=== PATIENT | male | born 1965 | race Two or more races ===

== ENCOUNTER 2023-02-24 10:20 | Outpatient (OUT) | payer MEDICARE, SELFPAY ==
--- NOTE | 2023-02-24 10:51 | XR_ITS ---
The [place] [id number] Patient Name: ELIZA LOWE MRN: [id number] date: 1965 Sex: M Assigned Patient Location: [facility] Current Patient Location: [facility] Accession/Order Number: [id number] Exam Date: 02/24/2023 10:51 Report Date: 02/24/2023 12:54 At the request of: BRIANA LARA Procedure: XR ankle LT min 3V PROCEDURE: XR ankle LT min 3V, XR foot LT min 3V HISTORY: RIGHT ANKLE PAIN COMPARISON: None. FINDINGS: BONES:Evidence remote fracture and healing of distal tibia. Hardware has been removed, but fractured ends of screws remain within the tibia, talus, calcaneus. Prior resection of distal fibula. Osseous fusion of the ankle joint and talocalcaneal joint. Prosthetic replacement of the proximal articular surface of the first proximal phalanx. Single screw within head of first metatarsal. Mild degenerative joint disease of the midfoot and mild flattening of plantar arch. SOFT TISSUES:No visible soft tissue swelling. EFFUSION:None visible. OTHER: Negative. XR/XR ankle LT min 3V IMPRESSION: 1. No appreciable acute abnormality. 2. Chronic postsurgical changes and degenerative changes as detailed above. Electronically authenticated by: ANA URIOSTEGUI Date: 02/24/2023 12:54
--- NOTE | 2023-02-24 10:51 | XR_ITS ---
The [place] [id number] Patient Name: ELIZA LOWE MRN: [id number] date: 1965 Sex: M Assigned Patient Location: [facility] Current Patient Location: [facility] Accession/Order Number: [id number] Exam Date: 02/24/2023 10:51 Report Date: 02/24/2023 12:54 At the request of: BRIANA LARA Procedure: XR foot LT min 3V PROCEDURE: XR ankle LT min 3V, XR foot LT min 3V HISTORY: RIGHT ANKLE PAIN COMPARISON: None. FINDINGS: BONES:Evidence remote fracture and healing of distal tibia. Hardware has been removed, but fractured ends of screws remain within the tibia, talus, calcaneus. Prior resection of distal fibula. Osseous fusion of the ankle joint and talocalcaneal joint. Prosthetic replacement of the proximal articular surface of the first proximal phalanx. Single screw within head of first metatarsal. Mild degenerative joint disease of the midfoot and mild flattening of plantar arch. SOFT TISSUES:No visible soft tissue swelling. EFFUSION:None visible. OTHER: Negative. XR/XR foot LT min 3V IMPRESSION: 1. No appreciable acute abnormality. 2. Chronic postsurgical changes and degenerative changes as detailed above. Electronically authenticated by: ANA URIOSTEGUI Date: 02/24/2023 12:54
== END 2023-02-24 10:21 | disposition home or self-care (01) ==
LOC: RAD 10:26
PROVIDERS: Visit Provider Podiatrist Foot & Ankle Surgery
DX: M19.072 Primary osteoarthritis, left ankle and foot (principal)
CPT/HCPCS: 73610; 73630

== ENCOUNTER 2023-05-17 10:49 | Outpatient (OUT) | payer MEDICARE, MEDICAID, SELFPAY ==
--- NOTE | 2023-05-17 10:58 | ECG_ITS ---
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
[2023-05-17 12:02] LABS: Bilirubin Urine NEGATIVE (NEGATIVE); Blood Urine NEGATIVE (NEGATIVE); Clarity Urine CLEAR (CLEAR); Color Urine LT. YELLOW (YELLOW); Glucose Urine UA NEGATIVE (NEGATIVE); Ketones Urine NEGATIVE (NEGATIVE); Leukocyte Esterase Urine NEGATIVE (NEGATIVE); Nitrite Urine NEGATIVE (NEGATIVE); Protein Urine NEGATIVE (NEG/TRACE); Specific Gravity Urine 1.015 (1.005-1.025); Urine Microscopic Indicated ALREADY ORDERED; Urobilinogen Urine 0.2 EU/dL (0.2-1.0)
== END 2023-05-17 10:50 | disposition home or self-care (01) ==
LOC: PST 10:55
PROVIDERS: Visit Provider Podiatrist Foot & Ankle Surgery
DX: Z01.810 Encounter for preprocedural cardiovascular examination (principal); Z01.812 Encounter for preprocedural laboratory examination; M19.172 Post-traumatic osteoarthritis, left ankle and foot; M96.0 Pseudarthrosis after fusion or arthrodesis
CPT/HCPCS: 87081; 87086; 93005; G0463

== ENCOUNTER 2023-06-15 14:08 | Outpatient (OUT) | payer MEDICARE, MEDICAID, SELFPAY | END 2023-06-15 14:09 | disposition home or self-care (01) | LOC: PST 14:09 | PROVIDERS: Visit Provider Podiatrist Foot & Ankle Surgery | DX: Z01.818 Encounter for other preprocedural examination (principal); M19.172 Post-traumatic osteoarthritis, left ankle and foot; M96.0 Pseudarthrosis after fusion or arthrodesis ==

== ENCOUNTER 2023-06-25 11:08 | Inpatient (IN) | payer MEDICARE, SELFPAY ==
[2023-05-17 11:43] VITALS: BP 182/92; PULSE 66; RESP 18; TEMP 36.6; O2SAT 97
[2023-06-24] VITALS (74 sets, daily range): BP systolic 120–183; BP diastolic 57–117; PULSE 58–95; RESP 8–30; TEMP 36.1–36.6; O2SAT 95–100; BMI 29.5; BMI 28.9
--- NOTE | 2023-06-24 | FL_ITS ---
[address] [address] Patient Name: ELIZA LOWE MRN: [id number] date: 1965 Sex: M Assigned Patient Location: SURGOUT Current Patient Location: ICU Accession/Order Number: [id number] Exam Date: 06/24/2023 12:30 Report Date: 06/25/2023 08:17 At the request of: BRIANA LARA Procedure: FL fluoroscopy <1hr NON-READ EXAM: FL fluoroscopy <1hr NON-READ HISTORY: operative imaging TECHNIQUE: FINDINGS: Please see Operative Report. Electronically authenticated by: RADIOLOGIST NO Date: 06/25/2023 08:17
[2023-06-24 07:50] LABS: Glucometer 121 mg/dL (74-106)
[2023-06-24] MEDS: LACTATED RINGER'S SOLUTION 1,000 ML 50 ML IV ×2 (08:05→12:50)
[2023-06-24 10:17] LABS: Basophils Percent Auto 0.3 % (0.2-2.0); Eosinophils Absolute Auto 0.3 10^3/uL (0.0-0.7); Eosinophils Percent Auto 2.3 % (0.9-7.0); Hemoglobin 12.8 g/dL (14.0-18.0); Immature Granulocytes Abs Auto 0.03 10^3/uL (0.00-0.03); Immature Granulocytes Pct Auto 0.3 % (0.0-0.5); Lymphocytes Absolute Auto 3.2 10^3/uL (1.2-3.8); Lymphocytes Percent Auto 28.3 % (20.5-60.0); Mean Corpuscular HGB Conc 33.7 g/dL (29.9-35.2); Mean Corpuscular Hemoglobin 32.6 pg (25.9-34.0); Mean Corpuscular Volume 96.7 fL (80.0-94.0); Mean Platelet Volume 12.4 fL (9.5-13.5); Monocytes Absolute Auto 1.3 10^3/uL (0.3-0.8); Monocytes Percent Auto 11.7 % (1.7-12.0); Neutrophils Absolute Auto 6.5 10^3/uL (1.4-6.5); Neutrophils Percent Auto 57.1 % (43.0-75.0); Platelet Count 310 10^3/uL (150-450); Red Blood Count 3.93 10^6/uL (4.70-6.10); Red Cell Distribution Width 13.8 % (11.0-15.0); White Blood Count 11.4 10^3/uL (4.0-11.0)
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
[2023-06-24] MEDS: CEFAZOLIN SODIUM/DEXTROSE,ISO 2 GM/50 ML PIGGYBACK IV ×2 (12:17→21:38)
[2023-06-24] MEDS: THROMBI-GEL SIZE 40 HEMOSTAT 1 EACH TOPICAL ×2 (13:47→14:46)
[2023-06-24] MEDS: HYDROMORPHONE HCL 0.5 MG/0.5 ML SYRINGE IV ×10 (16:06→17:34)
[2023-06-24] MEDS: LACTATED RINGER'S SOLUTION 1,000 ML 75 ML IV (16:17)
[2023-06-24] MEDS: KETOROLAC TROMETHAMINE 30 MG/ML VIAL IM (16:19)
[2023-06-24] MEDS: MIDAZOLAM HCL 2 MG/2 ML VIAL IV ×2 (16:22→18:12)
[2023-06-24 16:26] LABS: Glucometer 124 mg/dL (74-106)
--- NOTE | 2023-06-24 16:45 | XR_ITS ---
The [address] [address] Patient Name: ELIZA LOWE MRN: [id number] date: 1965 Sex: M Assigned Patient Location: SURGOUT Current Patient Location: ICU Accession/Order Number: [id number] Exam Date: 06/24/2023 16:35 Report Date: 06/26/2023 06:58 At the request of: SUGEY CASTILLO Procedure: XR ankle LT min 3V PROCEDURE: XR ankle LT min 3V, XR foot LT min 3V HISTORY: postop xr COMPARISON: XR left foot and ankle 02/24/2023 FINDINGS: BONES:Prosthetic replacement of the talar dome and fusion of the ankle joint via a single screw. Several fractured screw remnants within the distal tibia and calcaneus from remote repair. Prior resection of distal fibula, first metatarsal head osteotomy, and prosthetic repair of the first metatarsophalangeal joint. Moderate degenerative changes of the midfoot. SOFT TISSUES:Expected postoperative findings. Images were obtained to cast material. EFFUSION:None visible. OTHER: Negative. XR/XR ankle LT min 3V IMPRESSION: 1. New surgical changes and stable prior surgical changes as detailed above. No suspicious abnormality. Electronically authenticated by: ANA URIOSTEGUI Date: 06/26/2023 06:58
--- NOTE | 2023-06-24 16:45 | XR_ITS ---
The [address] [address] Patient Name: ELIZA LOWE MRN: [id number] date: 1965 Sex: M Assigned Patient Location: SURGOUT Current Patient Location: ICU Accession/Order Number: [id number] Exam Date: 06/24/2023 16:35 Report Date: 06/26/2023 06:58 At the request of: SUGEY CASTILLO Procedure: XR foot LT min 3V PROCEDURE: XR ankle LT min 3V, XR foot LT min 3V HISTORY: postop xr COMPARISON: XR left foot and ankle 02/24/2023 FINDINGS: BONES:Prosthetic replacement of the talar dome and fusion of the ankle joint via a single screw. Several fractured screw remnants within the distal tibia and calcaneus from remote repair. Prior resection of distal fibula, first metatarsal head osteotomy, and prosthetic repair of the first metatarsophalangeal joint. Moderate degenerative changes of the midfoot. SOFT TISSUES:Expected postoperative findings. Images were obtained to cast material. EFFUSION:None visible. OTHER: Negative. XR/XR foot LT min 3V IMPRESSION: 1. New surgical changes and stable prior surgical changes as detailed above. No suspicious abnormality. Electronically authenticated by: ANA URIOSTEGUI Date: 06/26/2023 06:58
--- NOTE | 2023-06-24 17:43 | PC.NURSE ---
Medicated with Dilaudid as ordered; toes pink and warm with full sensation
--- NOTE | 2023-06-24 18:01 | PC.NURSE ---
Medicated as ordered for pain
--- NOTE | 2023-06-24 18:08 | PC.NURSE ---
Medicated with Toradol IM as ordered
--- NOTE | 2023-06-24 18:33 | CT_ITS ---
The [address] [address] Patient Name: ELIZA LOWE MRN: [id number] date: 1965 Sex: M Assigned Patient Location: ICU Current Patient Location: ICU Accession/Order Number: [id number] Exam Date: 06/24/2023 18:26 Report Date: 06/25/2023 12:57 At the request of: SUGEY CASTILLO Procedure: CT lower leg LT wo con CT LOWER LEG LT WO CON: 06/24/2023, 6:26 PM EST. HISTORY: The patient recently had surgery on the left ankle/hindfoot. Postoperative evaluation for baseline. COMPARISON: Radiographs left foot and ankle 02/24/[address] scan of the left lower extremity 03/02/2023. Comparison is also made to recent postoperative radiographs of the left foot and ankle of 06/24/2023. TECHNIQUE: Multiple contiguous axial CT images of the left lower extremity were obtained from the level of the distal femoral metadiaphysis foot without contrast. Sagittal and coronal reformatted images were made. Dose reduction techniques were achieved by using automated exposure control and/or adjustment of mA and/or kV according to patient size and/or use of iterative reconstruction technique. FINDINGS: There is beam hardening artifact emanating from a total knee prosthesis which slightly degrades evaluation of the adjacent bone and soft tissues. This hardware again appears intact without evidence of hardware complication, fracture or dislocation. There is a small knee joint effusion again seen. There is a remote healed fracture deformity of the proximal fibular diaphysis again seen. There are atherosclerotic vascular calcifications again seen. There are postsurgical changes again seen from prior remote osteotomy of the distal first metatarsal shaft and prior arthroplasty of the first MTP joint with beam hardening artifact emanating from the prosthesis in this region again degrading evaluation of this region. There again appear to be degenerative changes of the tarsometatarsal joints and this again appears severe at the second tarsometatarsal joint. There are also severe degenerative changes again seen at the articulation of the navicular with the cuneiform bones and the talonavicular joint. There are moderate degenerative changes again seen of the calcaneocuboid joint. A remote healed fracture deformity of the distal tibial metadiaphysis is again seen. There are postsurgical changes again seen from prior resection of the distal fibula at the level of the distal fibular diaphysis. There is osseous fusion again seen across the tibiotalar joint from prior arthrodesis surgery. Since the prior CT scan there has been resection of the majority of the body of the talus and there has been placement of an orthopedic cage between the remaining portion of the body of the talus and the calcaneus in the region of the posterior subtalar joint. This is fixed with a single oblique cortical screw extending from the calcaneus through the this cage and into the anterior aspect of the distal tibial metaphysis. This hardware appears intact and within normal limits in position. A screw fragment is again seen within the anterior aspect of the body of the calcaneus. There appears to be a probable postsurgical wound along the lateral aspect of the ankle and there is a small amount of adjacent soft tissue swelling and a few bubbles of gas within the underlying soft tissues in this region. No other significant soft tissue swelling is seen. CT/CT lower leg LT wo con IMPRESSION: 1. Satisfactory postoperative appearance from recent arthrodesis surgery of the posterior subtalar joint without evidence of a hardware complication. There appears to be an associated postsurgical wound along the lateral aspect of the ankle at this level. 2. There is a stable appearance of remote posttraumatic and postsurgical changes of the remainder of the left lower extremity and degenerative changes of multiple joints as described above. Electronically authenticated by: RACHEL WILSON Date: 06/25/2023 12:57
--- NOTE | 2023-06-24 18:39 | PC.NURSE ---
Medicated with Versed IV as ordered by anesthesia for restlessness
--- NOTE | 2023-06-24 18:44 | PC.NURSE ---
Medicated with Dilaudid IV as ordered; left toes pink and warm
--- NOTE | 2023-06-24 18:47 | PC.NURSE ---
Medicated with Dilaudid as ordered
--- NOTE | 2023-06-24 18:56 | PC.NURSE ---
States left lower extremity pain now stabbing, not crushing; medicated by anesthesia to continue giving Dilaudid as ordered
--- NOTE | 2023-06-24 19:00 | PC.NURSE ---
Resting at intervals, but continues to say pain is not controlled; Medicated as ordered by anesthesia
--- NOTE | 2023-06-24 19:03 | PC.NURSE ---
Left toes pink and warm
--- NOTE | 2023-06-24 19:05 | PC.NURSE ---
States that pain has lessened; does not give number to rate pain, but states pain is still not controlled; medicated per anesthesia orders
--- NOTE | 2023-06-24 19:09 | PC.NURSE ---
Medicated for pain as ordered by anesthesia; continues to state pain is not controlled
--- NOTE | 2023-06-24 19:12 | PC.NURSE ---
Resting at intervals; left toes pink and warm
--- NOTE | 2023-06-24 19:14 | PC.NURSE ---
States pain is still not controlled and does not rate with a number lower than 10; resting at interval and alert and talking; medicated as ordered by anesthesia
--- NOTE | 2023-06-24 19:18 | PC.NURSE ---
States pain still not controlled in left surgical foot; medicated as ordered by anesthesia
--- NOTE | 2023-06-24 19:24 | PC.NURSE ---
Left toes pink and warm; voids clear yellow in urinal; continues to c/o uncontrolled surgical pain even though body language does not relate to complaints
--- NOTE | 2023-06-24 19:28 | PC.NURSE ---
No change from previous assessment of pain
--- NOTE | 2023-06-24 19:31 | PC.NURSE ---
Anesthesia discusses with pt. about inserting an epidural for pain control after CT scan ; continues to state that surgical pain is uncontrolled; left toes pink and warm; medicated with Versed IV as ordered
--- NOTE | 2023-06-24 19:34 | PC.NURSE ---
Transported to CT SCAN with portable O2 and monitor; accompanied by poultry farm supervisor
[2023-06-24] MEDS: ENOXAPARIN SODIUM 40 MG/0.4 ML SYRINGE SUBQ (21:36)
[2023-06-24] MEDS: ROPIVACAINE HCL/PF 400 MG/200 ML PREMIX 10 MG EPIDURAL (21:37)
[2023-06-24] MEDS: PREGABALIN 75 MG CAPSULE PO (21:38)
[2023-06-24] MEDS: KETOROLAC TROMETHAMINE 30 MG/ML VIAL IVP (22:10)
[2023-06-24] MEDS: METHOCARBAMOL 500 MG TABLET 750 MG PO (22:10)
[2023-06-25] VITALS (194 sets, daily range): BP systolic 74–181; BP diastolic 45–141; PULSE 59–92; RESP 7–29; TEMP 36.6–37.1; O2SAT 78–100
[2023-06-25] MEDS: HYDROMORPHONE HCL 0.5 MG/0.5 ML SYRINGE 1 MG IV ×5 (00:48→12:40)
[2023-06-25] MEDS: KETOROLAC TROMETHAMINE 30 MG/ML VIAL IVP ×4 (04:52→22:03)
[2023-06-25] MEDS: METHOCARBAMOL 500 MG TABLET 750 MG PO ×3 (05:16→17:47)
[2023-06-25] MEDS: CEFAZOLIN SODIUM/DEXTROSE,ISO 2 GM/50 ML PIGGYBACK IV ×3 (05:17→20:21)
--- NOTE | 2023-06-25 08:31 | PM.PN ---
Progress Note: Subjective Subjective Interval history: POD1 3D printed/patient specific left foot recon for post-traumatic deformity & arthritis. Patient remains in ICU with epidural catheter for pain mgt. He is on daily opioids and had difficulty managing pain last night. He relates that he was getting dilaudid 1 mg every 4hrs but relates it only was lasting ~2 hours (despite order by Dr. Alvarez was for every 2 hrs). Was unable to sleep secondary to pain. He has not been out of bed yet or worked with PT. Denies n/v/f/c/sob/cp or calf pain Exam Narrative Exam Narrative: It is clean dry and intact Wound VAC holding suction at 125mmHg continuous with serous sanguinous output Able to wiggle his toes and capillary refill is brisk No calf pain on squeeze Constitutional Vital Signs, click to edit/add: Last Vital Signs Temp 98.3 F 06/25/23 08:15 Pulse 71 06/25/23 06:50 Resp 16 06/25/23 06:50 BP 124/75 06/25/23 06:45 Pulse Ox 98 06/25/23 06:50 O2 Del Method Nasal Cannula 06/25/23 03:52 O2 Flow Rate 5 06/25/23 03:52 Progress Note: Objective Labs Labs: Short CBC 06/24/23 Range/Units 07:26 WBC 11.4 H (4.0-11.0) 10^3/uL Hgb 12.8 L (14.0-18.0) g/dL Hct 38.0 L (42.0-54.0) % Plt Count 310 (150-450) 10^3/uL Progress Note: A&P Assessment and Plan (1) Post-traumatic arthritis of right ankle: Assessment and Plan: Patient will work with physical therapy this morning and given the amount of pain I would not be surprised if he is unable to fully participate in gait training but I am hopeful that he had minimum get out of bed and into chair OxyContin 10mg q12h & incentive spirometry ordered - notified Dr. Ross Patient does have 4mg of PO dilaudid at home as prescribed by his pain mgt doctor Patient will likely require to remain in house until pain is under better control and does not require IV opioids Keep splint c/d/i & VAC at current settings Post op CT reviewed (2) Nonunion of subtalar arthrodesis: Plan Call Dr. Irvin with issues as I will be out of town until Wednesday night
[2023-06-25] MEDS: PREGABALIN 75 MG CAPSULE PO ×2 (08:49→20:21)
[2023-06-25] MEDS: ALPRAZOLAM 1 MG TABLET PO (08:49)
[2023-06-25] MEDS: OXYCODONE HCL 5 MG TABLET 10 MG PO ×2 (08:50→14:22)
--- NOTE | 2023-06-25 09:24 | CM.NOTE ---
Important Message From Medicare discussed with pt, pt verbalizes understanding and signs paper. Original given to pt and copy placed on pt's chart.
--- NOTE | 2023-06-25 09:35 | CM.NOTE ---
Rounding with Dr. gomez and patient's RN Josie. Discussed increased pain. Awaiting PT eval to determine discharge plan. Per nurse, Dr. Montez anticipated patient being here through the weekend for pain control and intensity of the procedure performed.
--- NOTE | 2023-06-25 10:05 | CM.NOTE ---
Talked with pt about knee scooter rental, pt plans on picking this up on his way home at discharge. Pt getting scooter from [facility] in [place], called and pt does not need a prescription. If pt does have prescription for scooter , benefits are no tax. Oliverio txt sent to [facility] for scipt.
--- NOTE | 2023-06-25 11:19 | P.HP_ITS ---
Patient seen and examined, agree with assessment and plan below. Chronic pain and arthritis after accident and multiple surgeries. To OR for reconstruction and admitted for pain control. Epidural in place and continues to have severe uncontrolled pain. Podiatry adjusted medication. PT/OT ordered. Will need at least 2 midnights in the hospital. Diagnosis: 1. Post-traumatic OA left ankle 2. Nonunion of subtalar fusion 3. NEPTALI 4. YENY H&P: HPI History of Present Illness Chief complaint: post traumatic osteoarthritis left ankle and foot Narrative: Date/time of exam: 06/25/23 0955 This is a 58 yo male pt w/ a relatively benign PMH except for multiple trauma events to the LLE resulting in multiple surgeries, who had a L hindfoot surgical revision per Dr Montez yesterday afternoon and was admitted to the hospitalist service as an inpatient for monitoring and pain control management. 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 His pain is being managed with an epidural and dilaudid w/ additional PO medication if needed. At the time of my exam the patient is resting comfortably in bed. He is alert and oriented and able to provide extensive history regarding his orthopedic surgeries. He denies any chest pain, shortness of breath, N/B, or any other acute complaints other than pain which is adequately managed at this time. He has sensation and movement of his left toes. Nursing has placed oxygen mainly as a precautionary measure as he is taking high doses of narcotics for pain management at this time. They will attempt to wean him off oxygen supplementation throughout the day today. Review of Systems ROS Status of ROS 10 or more systems reviewed and unremarkable except as noted in history and below [facility] Medical History (Updated 06/25/23 @ 11:33 by Esme Milner NP) Acquired varus deformity of ankle ?M21.179 - Varus deformity, not elsewhere classified, unspecified ankle (ICD- 10) Ankle contracture ?M24.573 - Contracture, unspecified ankle (ICD-10) Anxiety ?F41.9 - Anxiety disorder, unspecified (ICD-10) Back pain ?M54.9 - Dorsalgia, unspecified (ICD-10) Chronic pain ?G89.29 - Other chronic pain (ICD-10) Foot deformity ?M21.969 - Unspecified acquired deformity of unspecified lower leg (ICD-10) History of blood transfusion ?Z92.89 - Personal history of other medical treatment (ICD-10) Leg fracture ?S82.90XA - Unspecified fracture of unspecified lower leg, initial encounter for closed fracture (ICD-10) Osteoarthritis of ankle and foot ?M19.079 - Primary osteoarthritis, unspecified ankle and foot (ICD-10) Post-traumatic osteoarthritis ?M19.92 - Post-traumatic osteoarthritis, unspecified site (ICD-10) 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 ?M96.0 - Pseudarthrosis after fusion or arthrodesis (ICD-10) Sleep apnea ?G47.30 - Sleep apnea, unspecified (ICD-10) Tibia fracture ?S82.209A - Unspecified fracture of shaft of unspecified tibia, initial encounter for closed fracture (ICD-10) Valgus deformity, not elsewhere classified, left ankle ?M21.072 - Valgus deformity, not elsewhere classified, left ankle (ICD-10) Surgical History (Updated 05/17/23 @ 11:30 by Liv Pedro NP) H/O foot surgery ?Z98.890 - Other specified postprocedural states (ICD-10) H/O splenectomy ?Z90.81 - Acquired absence of spleen (ICD-10) History of ankle surgery ?Z98.890 - Other specified postprocedural states (ICD-10) History of arthroplasty of knee ?Z96.659 - Presence of unspecified artificial knee joint (ICD-10) History of arthroscopy of knee ?Z98.890 - Other specified postprocedural states (ICD-10) History of arthroscopy of shoulder ?Z98.890 - Other specified postprocedural states (ICD-10) History of spinal surgery ?Z98.890 - Other specified postprocedural states (ICD-10) History of surgery on lower extremity ?Z98.890 - Other specified postprocedural states (ICD-10) Family History (Updated 05/17/23 @ 11:30 by Liv Pedro NP) Other Family history of skin cancer Social History (Updated 05/17/23 @ 11:24 by Liv Pedro NP) Within the past year, how often did you have a drink containing alcohol: never Score interpretation: A score less than 4 is consistent with normal alcohol consumption. Smoking status: Never smoker Non-prescribed substance use: denies use Highest level of school completed/degree received: high school graduate Meds Home Medications and Allergies Home Medications Medication Instructions Recorded Confirmed Type albuterol sulfate 90 mcg/actuation 2 puff inhalation Q6H PRN 05/17/23 05/17/23 History aerosol inhaler shortness of breath or wheezing alprazolam 0.5 mg tablet 0.5 mg PO DAILY PRN anxiety 05/17/23 05/17/23 History desonide 0.05 % topical ointment 1 applic topical Q12H 05/17/23 05/17/23 History dextroamphetamine-amphetamine 30 30 mg PO DAILY 05/17/23 05/17/23 History mg tablet fentanyl 25 mcg/hr transdermal 1 patch transdermal Q48H 05/17/23 05/17/23 History patch gabapentin 600 mg tablet 600 mg PO QID 05/17/23 05/17/23 History lidocaine 5 % topical patch 1 patch transdermal Q24H 05/17/23 05/17/23 History meloxicam 15 mg tablet 15 mg PO DAILY 05/17/23 05/17/23 History methocarbamol 750 mg tablet 750 mg PO QID 05/17/23 05/17/23 History oxycodone 15 mg tablet 15 mg PO Q6H 05/17/23 05/17/23 History tadalafil 10 mg tablet 5 mg PO DAILY 05/17/23 05/17/23 History testosterone cypionate 200 mg/mL 400 mg IM Q7D 05/17/23 05/17/23 History intramuscular oil zolpidem 10 mg tablet 10 mg PO QPM 05/17/23 05/17/23 History alprazolam 1 mg tablet 1 mg PO DAILY 06/15/23 06/15/23 History Allergies Allergy/AdvReac Type Severity Reaction Status Date / Time No Known Drug Allergies Allergy Verified 05/17/23 11:14 Exam Constitutional Vital Signs, click to edit/add: Last Vital Signs Temp 98.3 F 06/25/23 08:15 Pulse 64 06/25/23 08:50 Resp 19 06/25/23 08:50 BP 136/72 06/25/23 08:46 Pulse Ox 97 06/25/23 08:50 O2 Del Method Nasal Cannula 06/25/23 03:52 O2 Flow Rate 5 06/25/23 03:52 Common normals: no apparent distress, oriented x3, alert and well nourished General appearance: cooperative Orientation/consciousness: Yes awake HENMT Common normals: normocephalic, head/scalp atraumatic, hearing grossly normal bilaterally, external nose normal and moist oral mucous membranes Eye Common normals: PERRL, EOMs intact bilaterally, conjunctivae normal and no scleral icterus Alignment: alignment normal Eyelid: eyelids normal Neck & C-Spine Common normals: full ROM, supple and no JVD Chest Common normals: inspection of chest normal Chest: symmetrical chest wall rise Respiratory Common normals: normal respiratory effort, no retractions, no use of accessory muscles and clear to auscultation bilaterally Auscultation: diminished lung sounds bilateral in the lower lung torres Cardio Common normals: no JVD, regular rate, regular rhythm, S1 normal heart sound, S2 normal heart sound, no gallops, no clicks, no murmurs, no rub and peripheral pulses 2+ throughout GI Common normals: Normal to inspection, nondistended, normoactive bowel sounds present, soft to palpation, non-tender, no hepatosplenomegaly, no masses and no bruits Bladder/kidney exam: bladder normal to palpation Extremity Common normals: normal capillary refill and no pedal edema General: normal exam except as noted; no clubbing and no cyanosis Left lower extremity: foot and digits (Surgical dressing D&I. Good CMS to exposed forefoot) Neuro Irving Coma Scale: GCS not evaluated Common normals: oriented x3, CN's II-XII intact bilaterally, moves all extremities, no focal motor deficits and no sensory deficits noted Sensorium/orientation: awake and alert Speech: speech normal Motor exam: strength 5/5 throughout Psych Common normals: mental status grossly normal, thought process normal, affect normal and activity/motor behavior normal Results Pulse Oximetry Attestation: I have reviewed the pertinent pulse oximetry results. Assessment and Plan Assessment and Plan (1) Nonunion of subtalar arthrodesis: Assessment and Plan: CHRONIC * Adm inpatient * s/p surgical revision per Dr Montez of the hindfoot on 06/24/23 * Defer weight bearing status, dressing changes, and primary pain management to the podiatry service * Continue Dilaudid bolus via epidural plus Oxycontin as ordered per podiatry * CBC, BMP in AM (2) Anxiety: Assessment and Plan: CHRONIC * Continue home xanax daily and PRN (3) Sleep apnea: Assessment and Plan: CHRONIC * May use home CPAP if available
[2023-06-25] MEDS: OXYCODONE HCL 5 MG TABLET PO (12:03)
[2023-06-25] MEDS: LACTATED RINGER'S SOLUTION 1,000 ML 75 ML IV (14:54)
--- NOTE | 2023-06-25 15:21 | CM.NOTE ---
Pt given script for knee scooter.
[2023-06-25] MEDS: HYDROMORPHONE HCL 1 MG/ML CARTRIDGE IV ×3 (15:51→22:05)
--- NOTE | 2023-06-25 16:04 | PC.NURSE ---
Responded to patient call light. Patient requesting something for pain. Patient was visually upset and tearful regarding his current pain level. Medication was adminsitered as ordered, see eMAR. Therapeutic listening and presence was provided to patient. Patient was reassured that he is currently on a pain management regimen for his externsive surgert
[2023-06-25] MEDS: DIPHENHYDRAMINE HCL 50 MG/ML (1ML) VIAL 25 MG IV (16:45)
[2023-06-25] MEDS: ALPRAZOLAM 0.25 MG TABLET 0.5 MG PO (16:48)
[2023-06-25] MEDS: ENOXAPARIN SODIUM 40 MG/0.4 ML SYRINGE SUBQ (17:47)
[2023-06-25] MEDS: ZOLPIDEM TARTRATE 5 MG TABLET 10 MG PO (22:04)
[2023-06-26] VITALS (92 sets, daily range): BP systolic 102–189; BP diastolic 63–126; PULSE 50–102; RESP 8–27; TEMP 36.6–37.1; O2SAT 88–100
[2023-06-26] MEDS: LACTATED RINGER'S SOLUTION 1,000 ML 75 ML IV ×2 (04:59→20:45)
[2023-06-26] MEDS: KETOROLAC TROMETHAMINE 30 MG/ML VIAL IVP ×4 (04:59→22:31)
[2023-06-26] MEDS: CEFAZOLIN SODIUM/DEXTROSE,ISO 2 GM/50 ML PIGGYBACK IV ×3 (04:59→21:47)
[2023-06-26] MEDS: METHOCARBAMOL 500 MG TABLET 750 MG PO ×4 (05:01→22:31)
[2023-06-26] MEDS: HYDROMORPHONE HCL 1 MG/ML CARTRIDGE IV ×4 (05:25→17:14)
[2023-06-26 05:34] LABS: Basophils Percent Auto 0.3 % (0.2-2.0); Eosinophils Absolute Auto 0.2 10^3/uL (0.0-0.7); Hematocrit 32.7 % (42.0-54.0); Hemoglobin 10.4 g/dL (14.0-18.0); Immature Granulocytes Abs Auto 0.04 10^3/uL (0.00-0.03); Immature Granulocytes Pct Auto 0.4 % (0.0-0.5); Lymphocytes Absolute Auto 2.4 10^3/uL (1.2-3.8); Lymphocytes Percent Auto 21.2 % (20.5-60.0); Mean Corpuscular HGB Conc 31.8 g/dL (29.9-35.2); Mean Corpuscular Hemoglobin 31.5 pg (25.9-34.0); Mean Corpuscular Volume 99.1 fL (80.0-94.0); Mean Platelet Volume 11.3 fL (9.5-13.5); Monocytes Absolute Auto 1.6 10^3/uL (0.3-0.8); Monocytes Percent Auto 13.7 % (1.7-12.0); Neutrophils Absolute Auto 7.1 10^3/uL (1.4-6.5); Neutrophils Percent Auto 62.4 % (43.0-75.0); Platelet Count 227 10^3/uL (150-450); Red Cell Distribution Width 14.4 % (11.0-15.0); White Blood Count 11.4 10^3/uL (4.0-11.0)
[2023-06-26 05:50] LABS: Alanine Aminotransferase 13 U/L (16-63); Albumin Globulin Ratio 0.9; Albumin Level 2.7 g/dL (3.4-5.0); Alkaline Phosphatase 56 U/L (46-116); Anion Gap 9.6; Aspartate Amino Transferase 17 U/L (15-37); BUN Creatinine Ratio 15.3; Bilirubin Total 0.4 mg/dL (0.2-1.0); Calcium 8.5 mg/dL (8.5-10.1); Carbon Dioxide 29.8 mmol/L (21.0-32.0); Chloride 111 mmol/L (98-107); Estimated GFR (African America >60 (>=60); Estimated GFR (Non-African Ame 53 (>=60); Glucose 94 mg/dL (74-106); Potassium 4.4 mmol/L (3.5-5.1); Sodium 146 mmol/L (136-145); Total Protein 5.7 g/dL (6.4-8.2)
[2023-06-26] MEDS: OXYCODONE HCL 5 MG TABLET PO (06:32)
[2023-06-26] MEDS: ALPRAZOLAM 1 MG TABLET PO (09:20)
[2023-06-26] MEDS: PREGABALIN 75 MG CAPSULE PO ×2 (09:20→20:45)
--- NOTE | 2023-06-26 11:25 | W.PM.PROCNOT ---
Date of procedure: 06/24/23
--- NOTE | 2023-06-26 11:27 | PM.ANIN ---
Anesthesiology - Interim Note Date of Service Date of service: 06/24/23 (Epidural Catheter Placement 2100) Interim Note Interim Note: Pt in bed Room 275 ICU. Pt positioned sitting. Sterile prep and drape applied. Skin anest with 4ml 2% lidocaine. Touhy needle advanced into L3-4 interspace. PIERRE to air at 5cm. Catheter placed to a depth of 9cm. Aspiration for blood negative and test dose negative. Catheter secured with large tegaderm and silk tape. Suni Alvarez
--- NOTE | 2023-06-26 11:35 | PM.PN ---
Progress Note: Subjective Subjective Interval history: Pt is continuing to experience significant postoperative pain but his able to cope with his current pain level; he slept 5 hours last pm, he is eating a regular diet, he is able to converse normally without distress. The need to taper his oral pain meds and epidural was discussed with the patient and he is in agreement Exam Narrative Exam Narrative: Epidural cath checked and noted to be intact. No evidence of infection Constitutional Vital Signs, click to edit/add: Last Vital Signs Temp 98.1 F 06/26/23 05:55 Pulse 66 06/26/23 10:00 Resp 18 06/26/23 09:00 BP 161/95 H 06/26/23 09:00 Pulse Ox 99 06/26/23 09:00 O2 Del Method Room Air 06/26/23 05:55 O2 Flow Rate 2 06/26/23 01:07 Progress Note: Objective Labs Labs: Short CBC 06/26/23 Range/Units 05:09 WBC 11.4 H (4.0-11.0) 10^3/uL Hgb 10.4 L (14.0-18.0) g/dL Hct 32.7 L (42.0-54.0) % Plt Count 227 (150-450) 10^3/uL BMP 06/26/23 05:09 Sodium 146 H Potassium 4.4 Chloride 111 H Carbon Dioxide 29.8 BUN 21.0 H Creatinine 1.37 H Glucose 94 Calcium 8.5 Liver Function 06/26/23 Range/Units 05:09 Total Bilirubin 0.4 (0.2-1.0) mg/dL AST 17 (15-37) U/L ALT 13 L (16-63) U/L Alkaline Phosphatase 56 (46-116) U/L Albumin 2.7 L (3.4-5.0) g/dL Progress Note: A&P Assessment and Plan (1) Nonunion of subtalar arthrodesis: (2) Anxiety: (3) Sleep apnea: Plan Plan today is to d/c the pts demand epidural bolus and reduce oral dilaudid from q2 to q4 prn. Will taper further tomorrow. Discussed with Dr. Irvin the need to coordinate the pts pain medications at discharge with his outpatient pain management physician
--- NOTE | 2023-06-26 12:26 | P.PN_ITS ---
Progress Note: Subjective Subjective Interval history: Patient seen resting at bedside this a.m. POD#2 s/p 3D printed/patient specific left foot recon for post-traumatic deformity & arthritis. Patient remains in ICU with epidural catheter for pain mgt due to history daily opioid use and had difficulty managing postop pain. Trouble sleeping due to pain and VAC alarm. He has not been out of bed yet or worked with PT. anesthesia saw patient at bedside this a.m. as well. Denies n/v/f/c/sob/cp or calf pain Exam Narrative Exam Narrative: Vascular: DP PT pulses faintly palpable. CFT intact to digits. Skin t emperature warm without focal increase. No erythema. Edema well-controlled, minimal. Neuro: Light touch sensation intact. Derm: Incision to lateral ankle and posterior heel well coapted with sutures intact. No osmani-incisional maceration. Mild sanguinous drainage. MSK: Strength and range of motion deferred. Palpatory tenderness directly to the incision sites and left ankle consistent with postop state. Active passive range of motion digits present. No pain with calf or thigh compression. Constitutional Vital Signs, click to edit/add: Last Vital Signs Temp 98.1 F 06/26/23 05:55 Pulse 66 06/26/23 10:00 Resp 18 06/26/23 09:00 BP 161/95 H 06/26/23 09:00 Pulse Ox 99 06/26/23 09:00 O2 Del Method Room Air 06/26/23 05:55 O2 Flow Rate 2 06/26/23 01:07 Progress Note: Objective Labs Labs: Short CBC 06/26/23 Range/Units 05:09 WBC 11.4 H (4.0-11.0) 10^3/uL Hgb 10.4 L (14.0-18.0) g/dL Hct 32.7 L (42.0-54.0) % Plt Count 227 (150-450) 10^3/uL BMP 06/26/23 05:09 Sodium 146 H Potassium 4.4 Chloride 111 H Carbon Dioxide 29.8 BUN 21.0 H Creatinine 1.37 H Glucose 94 Calcium 8.5 Liver Function 06/26/23 Range/Units 05:09 Total Bilirubin 0.4 (0.2-1.0) mg/dL AST 17 (15-37) U/L ALT 13 L (16-63) U/L Alkaline Phosphatase 56 (46-116) U/L Albumin 2.7 L (3.4-5.0) g/dL Progress Note: A&P Assessment and Plan (1) Nonunion of subtalar arthrodesis: (2) Anxiety: (3) Sleep apnea: Plan Patient examined evaluated. All fine discussed with patient all questions answered patient satisfaction. Labs and imaging reviewed. Although wound VAC appeared to be functioning well, there was an issue with the VAC itself alarming for a leak although good seal and adequate suction was noted clinically. The VAC dressing was changed and an attempt to resolve the alarm, however after multiple attempts and approximately 1 hour of troubleshooting was unable to get the VAC to function without alarming. Therefore VAC was di scontinued and dry sterile dressing with Adaptic gauze ABD and well-padded Calderon compressive dressing with posterior splint was applied to left lower extremity. Following dressing change patient did express that pain somewhat improved however still rated as 8.5 out of 10[address]. Roberson, will begin tapering epidural bolus and oral Dilaudid from every 2 to every 4. Plan to remove epidural tomorrow. Will coordinate pain medication at discharge with his pain management physician. Encourage working with PT today, maintain strict nonweightbearing to left lower extremity. Will continue to follow, please call with any questions or concerns.
[2023-06-26] MEDS: OXYCODONE HCL 15 MG TABLET PO (13:29)
[2023-06-26] MEDS: ENOXAPARIN SODIUM 40 MG/0.4 ML SYRINGE SUBQ (17:15)
[2023-06-26] MEDS: ACETAMINOPHEN 500 MG TABLET 1000 MG PO (18:45)
--- NOTE | 2023-06-26 21:30 | PC.NURSE ---
Patient complained of Pain not being managed by care team. Home medications and medications ordered were reviewed by patient and his . Physician notified of concerns. No new orders at his time
--- NOTE | 2023-06-26 21:45 | PC.NURSE ---
Patient put call light on and stated This epidural is poking into my back, I can't even lay on it. Product Mgr had patient roll to his side. Bed was wet with large amount of serous drainage . This chief writer got supervisor pipeline maintenance on shift to observe the site. Logging Equipment Operator removed epidural per physician orders. Site was cleaned and dried and 2x2 and Tegaderm was applied.
--- NOTE | 2023-06-26 22:29 | PC.NURSE ---
2200: Nursing cd manufacturing supervisor to patient bedside with primary RN, Carina, to assess patient epidural catheter. Patient c/o epidural catheter stabbing him. Linens under patient wet, serosanguineous fluid noted. Fluid noted under transparent dressing covering the epidural insertion site. Transparent dressing beginning to come off. Epidural catheter appears to be migrating out of place. Nursing cd manufacturing supervisor contacted anesthesia with findings, orders received to discontinue infusion and remove epidural catheter. Epidural catheter removed, tip intact. Patient tolerated well and reports the stabbing feeling is gone.
[2023-06-26] MEDS: ZOLPIDEM TARTRATE 5 MG TABLET 10 MG PO (22:31)
--- NOTE | 2023-06-26 23:00 | PC.NURSE ---
Patient placed call light on asking to see his nurse. Advanced Analytics Associate entered room shortly after to find patient tremoring, short of breath, and gown off. Patient stated I am having a panic attack from withdrawal I feel like my skin is crawling . PRN Xanax given, breathing exercises educated on, and ice packs provided to wrist. Lights dimmed, call light in place, SPO2 checked and was 94%.
[2023-06-26] MEDS: ALPRAZOLAM 0.25 MG TABLET 0.5 MG PO (23:02)
--- NOTE | 2023-06-26 23:44 | PM.IMPN1 ---
Progress Note: A&P Assessment and Plan (1) Nonunion of subtalar arthrodesis: Assessment and Plan: s/p revision of subtalar joint fusion with excision of nonunion and calcaneal osteotomy, cheilectomy of talonavicular joint, tenotomy of peroneal brevis & longus, removal of retained orthopedic hardware Poorly controlled pain even though he has an epidural in place, combination of oral oxycodone along with IV diluadid ordered Has not participated in PT due to pain. Patient is very confrontational, argumentative and kept interrupting and interjecting during our conversation (2) Anxiety: Assessment and Plan: On Xanx. C/w same (3) Sleep apnea: Assessment and Plan: uses CPAP cw same. Internal Medicine - PN: Subj Subjective Interval history: Seen and examined. Patient is unhappy about his post op pain and that his pain is not being managed appropriately. He has not worked with PT due to pain. He kept telling me that he does not understand why his IV dilaudid dose was decreased when it was working for him. Though pain management was being managed by Anesthesia and Podiatry, I tried to explain to him why is it that we are attempting to wean him off of IV narcotics and achieve reasonable pain control with combination of different PO analgesics as he won't be able to receive IV narcotics at home. Also, they carry a much higher risk of addiction and overdose. Patient kept interrupting me, and would not let me finish but in the end we were able to find common ground when I explained to him that I will take a look at his pain regimen and make adjustments to help control his pain better. Exam Constitutional Vital Signs, click to edit/add: Last Vital Signs Temp 98.8 F 06/26/23 21:00 Pulse 68 06/26/23 21:00 Resp 20 06/26/23 21:00 BP 178/95 H 06/26/23 21:00 Pulse Ox 97 06/26/23 21:07 O2 Del Method Room Air 06/26/23 21:07 O2 Flow Rate 2 06/26/23 01:07 Documenting provider has reviewed patient's vital signs: yes Common normals: no apparent distress and oriented x3 Respiratory Common normals: normal respiratory effort and clear to auscultation bilaterally Effort & inspection: able to speak in complete sentences Auscultation: clear to auscultation bilaterally Cardio Common normals: regular rate, S1 normal heart sound and S2 normal heart sound Rate: regular rate Heart sounds: S1 normal and S2 normal Extremity General: other findings (left foot in post op dressing.) Internal Medicine - PN: Obj Da Labs Labs: Laboratory Results - last 24 hr 06/26/23 05:09 WBC 11.4 H RBC 3.30 L Hgb 10.4 L Hct 32.7 L MCV 99.1 H MCH 31.5 MCHC 31.8 RDW 14.4 Plt Count 227 MPV 11.3 Neut % (Auto) 62.4 Lymph % (Auto) 21.2 [place] % (Auto) 13.7 H Eos % (Auto) 2.0 Baso % (Auto) 0.3 Neut # (Auto) 7.1 H Lymph # (Auto) 2.4 [place] # (Auto) 1.6 H Eos # (Auto) 0.2 Baso # (Auto) 0.0 Abs Immat Gran (auto) 0.04 H Imm/Tot Granulo (auto) 0.4 Sodium 146 H Potassium 4.4 Chloride 111 H Carbon Dioxide 29.8 Anion Gap 9.6 BUN 21.0 H Creatinine 1.37 H Est GFR ( Amer) >60 Est GFR (Non-Af Amer) 53 L BUN/Creatinine Ratio 15.3 Glucose 94 Calcium 8.5 Total Bilirubin 0.4 AST 17 ALT 13 L Alkaline Phosphatase 56 Total Protein 5.7 L Albumin 2.7 L Globulin 3.0 Albumin/Globulin Ratio 0.9
[2023-06-27] VITALS (18 sets, daily range): BP systolic 151–191; BP diastolic 79–101; PULSE 59–76; RESP 18–20; TEMP 36.3–37.7; O2SAT 88–99
[2023-06-27] MEDS: HYDROMORPHONE HCL 1 MG/ML CARTRIDGE IV ×3 (00:19→07:21)
[2023-06-27] MEDS: KETOROLAC TROMETHAMINE 30 MG/ML VIAL IVP ×4 (04:07→21:37)
--- NOTE | 2023-06-27 04:27 | RESP.RT ---
decreased down to 1L
--- NOTE | 2023-06-27 04:41 | PC.NURSE ---
Patient refused morning labs at this time. Stated I just want to sleep . Lab will retry later
[2023-06-27] MEDS: METHOCARBAMOL 500 MG TABLET 750 MG PO ×2 (05:29→21:35)
[2023-06-27] MEDS: CEFAZOLIN SODIUM/DEXTROSE,ISO 2 GM/50 ML PIGGYBACK IV ×3 (05:31→21:36)
[2023-06-27 06:54] LABS: Hematocrit 30.6 % (42.0-54.0); Hemoglobin 10.2 g/dL (14.0-18.0); Mean Corpuscular HGB Conc 33.3 g/dL (29.9-35.2); Mean Corpuscular Hemoglobin 31.6 pg (25.9-34.0); Mean Corpuscular Volume 94.7 fL (80.0-94.0); Mean Platelet Volume 11.5 fL (9.5-13.5); Platelet Count 215 10^3/uL (150-450); Red Blood Count 3.23 10^6/uL (4.70-6.10); Red Cell Distribution Width 13.6 % (11.0-15.0); White Blood Count 12.8 10^3/uL (4.0-11.0)
[2023-06-27 07:01] LABS: Anion Gap 11.6; BUN Creatinine Ratio 13.8; Calcium 8.4 mg/dL (8.5-10.1); Carbon Dioxide 29.2 mmol/L (21.0-32.0); Chloride 106 mmol/L (98-107); Estimated GFR (African America >60 (>=60); Estimated GFR (Non-African Ame >60 (>=60); Glucose 99 mg/dL (74-106); Potassium 3.8 mmol/L (3.5-5.1); Sodium 143 mmol/L (136-145)
[2023-06-27 07:26] LABS: Lymphocytes Absolute Manual 1.66 10^3/uL (1.20-3.80); Segmented Neut Absolute Manual 9.85 10^3/uL (1.4-6.5)
[2023-06-27 07:27] LABS: Eosinophils Absolute Manual 0.38 10^3/uL (0.00-0.70); Giant Platelets 1+; Monocytes Absolute Manual 0.89 10^3/uL (0.30-0.80)
[2023-06-27] MEDS: ALPRAZOLAM 1 MG TABLET PO (08:34)
[2023-06-27] MEDS: PREGABALIN 75 MG CAPSULE PO ×2 (08:35→21:34)
[2023-06-27] MEDS: LACTATED RINGER'S SOLUTION 1,000 ML 75 ML IV (10:26)
--- NOTE | 2023-06-27 11:13 | PM.PN ---
Progress Note: Subjective Subjective Interval history: Patient seen resting at bedside this a.m. POD#3 s/p 3D printed/patient specific left foot recon for post-traumatic deformity & arthritis. Patient epidural catheter Removed last p.m., still experiencing pain rated at 8 or 9 out of 10, he has become somewhat frustrated with this stating he is getting less medicine here than he is at home Which according to EMR does not appear to be the case. According to nursing staff there was a verbal altercation between him and Dr. Braswell this morning where the patient issued verbal threats toward provider. Upon my visit he was somewhat pleasant, however did exhibit continued frustration and mild agitation, . States he was able to sleep 5 hours last night which is more than previous nights. Other than issues with pain control, he denies any other acute lower extremity complaints and denies any constitutional symptoms at time of visit.. Exam Narrative Exam Narrative: Left lower extremity dressing CDI. CFT brisk to digits. No erythema edema proximal or distal dressing. No open lesions proximally or distally. Active passive range of motion digits present. Light touch sensation intact to digits. No pain with calf or thigh compression. Constitutional Vital Signs, click to edit/add: Last Vital Signs Temp 97.3 F L 06/27/23 09:00 Pulse 62 06/27/23 09:00 Resp 18 06/27/23 09:00 BP 173/83 H 06/27/23 09:00 Pulse Ox 93 L 06/27/23 09:56 O2 Del Method Room Air 06/27/23 09:00 O2 Flow Rate 2 06/27/23 05:58 Progress Note: Objective Labs Labs: Short CBC 06/27/23 Range/Units 06:27 WBC 12.8 H (4.0-11.0) 10^3/uL Hgb 10.2 L (14.0-18.0) g/dL Hct 30.6 L (42.0-54.0) % Plt Count 215 (150-450) 10^3/uL BMP 06/27/23 06:27 Sodium 143 Potassium 3.8 Chloride 106 Carbon Dioxide 29.2 BUN 16.0 Creatinine 1.16 Glucose 99 Calcium 8.4 L Progress Note: A&P Assessment and Plan (1) Nonunion of subtalar arthrodesis: (2) Anxiety: (3) Sleep apnea: Plan Patient examined evaluated. All fine discussed with patient all questions answered patient satisfaction. Labs and imaging reviewed. Hospital assembly department supervisor present during encounter. Encouraged patient to attempt to remain patient as we are trying to help him manage his complaints and Will have Dr. Craft as hospitalist in the morning.. LLE dressing left CDI. Patient still reporting 8-9 out of 10 pain despite current regimen, epidural bolus was DC'd last p.m., states IV Dilaudid only helps for a few minutes then wears off. He is requesting extended release oral Dilaudid as he states is what he takes at home and has helped in the past . Explained to him that his current regimen is actually more morphine equivalents and what he is taking at home, and we do not have oral ER Dilaudid in house, steffen house supervisor did mention if he is able to bring the medication from home that it can be dispensed in a controlled manner as ordered, however patient stated he does not have someone to bring the medication to the facility. Pain medications adjusted, will start ER OxyContin 20 mg q8h prn, with quick release oxycodone 15 mg q6h in between for breakthrough pain. IV Dilaudid discontinued. Will attempt to manage pain via orals. Discussed with patient that we can coordinate with his pain management provider for long-term pain control. Encouraged to work with PT, will need to demonstrate ability to maintain nonweightbearing to left lower extremity prior to DC. Will continue to follow, please call with any questions or concerns.
[2023-06-27] MEDS: ACETAMINOPHEN 500 MG TABLET 1000 MG PO ×2 (13:33→21:34)
[2023-06-27] MEDS: ALPRAZOLAM 0.25 MG TABLET 0.5 MG PO (13:41)
[2023-06-27] MEDS: ENOXAPARIN SODIUM 40 MG/0.4 ML SYRINGE SUBQ (16:34)
--- NOTE | 2023-06-27 20:07 | PM.IMPN1 ---
Progress Note: A&P Assessment and Plan (1) Nonunion of subtalar arthrodesis: Assessment and Plan: s/p revision of subtalar joint fusion with excision of nonunion and calcaneal osteotomy, cheilectomy of talonavicular joint, tenotomy of peroneal brevis & longus, removal of retained orthopedic hardware Still reports that his pain is poorly controlled and that he experienced opioid withdrawal last night. Due to his aggressive and hospital attitude along with threatening to use violence against me, I will terminate out patient/provider relationship as I do not think I can provide optimal clinical care and as a result patient's care was transferred to Dr Craft. (2) Anxiety: Assessment and Plan: On Xanx. C/w same (3) Sleep apnea: Assessment and Plan: uses CPAP cw same. Plan I notified the nursing supervisor nutritional yeast of the threatening nature of patient's comments and that because of his hostile behavior, I do not think, I can continue to take care of him in the hospital who then later made arrangements for thr care to be transferred to Dr Craft. I spoke to Dr Craft and updated him on patient's hospital course, and medical hx. Internal Medicine - PN: Subj Subjective Interval history: Seen and examined. Patient was sleeping comfortably in the morning and I saw him last so that his sleep was not disturbed. When I walked in, from the beginning he was confrontational with me. He told me that he is laughing at the way we are managing his pain and we did not know anything about pain management. He claimed to be receiving less cumulative dose of narcotics in the hospital compared to his home regimen. When I tried to explain to him the concept of morphine equivalents and calculate his MME of home pain regimen, he got aggressive and said If he was not hurt, he could easily take me and grab me by neck and hold me against the wall behind me because apparently I had asked him to stop talking the day before. This is simply not true as the RN present during my encounter with him on 06/26 can testify to it. I told him that I am going to walk out of the room because he is now threatening me to which he said - He did not and I am such a pussy to even say that Exam Constitutional Vital Signs, click to edit/add: Last Vital Signs Temp 98.4 F 06/27/23 17:00 Pulse 69 06/27/23 17:00 Resp 18 06/27/23 17:00 BP 191/101 H 06/27/23 17:00 Pulse Ox 96 06/27/23 19:00 O2 Del Method Room Air 06/27/23 19:00 O2 Flow Rate 2 06/27/23 05:58 Other: Appears comfortable, and in no acute pain. Was sleeping soundly and comfortably in the morning. Psych Attitude: uncooperative, aggressive and hostile Mood and affect: hostile affect Internal Medicine - PN: Obj Da Labs Labs: Laboratory Results - last 24 hr 06/27/23 06:27 WBC 12.8 H RBC 3.23 L Hgb 10.2 L Hct 30.6 L MCV 94.7 H MCH 31.6 MCHC 33.3 RDW 13.6 Plt Count 215 MPV 11.5 Seg Neuts % (Manual) 77.0 Band Neutrophils % 0.0 Lymphocytes % (Manual) 13.0 L Monocytes % (Manual) 7.0 Eosinophils % (Manual) 3.0 Basophils % (Manual) 0.0 L Neutrophils # (Manual) 9.85 H Band Neutrophils # 0.0 Lymphocytes # (Manual) 1.66 Monocytes # (Manual) 0.89 H Eosinophils # (Manual) 0.38 Basophils # (Manual) 0.00 Giant Platelets 1+ Sodium 143 Potassium 3.8 Chloride 106 Carbon Dioxide 29.2 Anion Gap 11.6 BUN 16.0 Creatinine 1.16 Est GFR ( Amer) >60 Est GFR (Non-Af Amer) >60 BUN/Creatinine Ratio 13.8 Glucose 99 Calcium 8.4 L
[2023-06-27] MEDS: HYDRALAZINE HCL 20 MG/ML VIAL 10 MG IVP (21:38)
[2023-06-27] MEDS: OXYCODONE HCL 15 MG TABLET PO (23:32)
[2023-06-27] MEDS: ALPRAZOLAM 0.5 MG TABLET PO (23:48)
[2023-06-28] VITALS (15 sets, daily range): BP systolic 138–185; BP diastolic 74–97; PULSE 68–88; RESP 18–20; TEMP 36.8–37.2; O2SAT 92–98
[2023-06-28] MEDS: LACTATED RINGER'S SOLUTION 1,000 ML 75 ML IV (00:45)
[2023-06-28] MEDS: ZOLPIDEM TARTRATE 5 MG TABLET 10 MG PO ×2 (02:24→21:10)
[2023-06-28] MEDS: KETOROLAC TROMETHAMINE 30 MG/ML VIAL IVP ×4 (06:16→21:12)
[2023-06-28] MEDS: CEFAZOLIN SODIUM/DEXTROSE,ISO 2 GM/50 ML PIGGYBACK IV ×3 (06:16→21:12)
[2023-06-28 06:23] LABS: Basophils Percent Auto 0.2 % (0.2-2.0); Eosinophils Absolute Auto 0.3 10^3/uL (0.0-0.7); Eosinophils Percent Auto 2.5 % (0.9-7.0); Hematocrit 30.9 % (42.0-54.0); Hemoglobin 10.5 g/dL (14.0-18.0); Immature Granulocytes Abs Auto 0.04 10^3/uL (0.00-0.03); Immature Granulocytes Pct Auto 0.3 % (0.0-0.5); Mean Corpuscular Hemoglobin 32.4 pg (25.9-34.0); Mean Corpuscular Volume 95.4 fL (80.0-94.0); Mean Platelet Volume 11.2 fL (9.5-13.5); Monocytes Absolute Auto 1.8 10^3/uL (0.3-0.8); Monocytes Percent Auto 14.6 % (1.7-12.0); Neutrophils Absolute Auto 8.1 10^3/uL (1.4-6.5); Neutrophils Percent Auto 66.4 % (43.0-75.0); Platelet Count 205 10^3/uL (150-450); Red Blood Count 3.24 10^6/uL (4.70-6.10); Red Cell Distribution Width 13.4 % (11.0-15.0); White Blood Count 12.2 10^3/uL (4.0-11.0)
[2023-06-28] MEDS: METHOCARBAMOL 500 MG TABLET 750 MG PO ×4 (06:23→22:17)
[2023-06-28 06:32] LABS: Anion Gap 11.9; BUN Creatinine Ratio 12.4; Calcium 8.8 mg/dL (8.5-10.1); Carbon Dioxide 29.4 mmol/L (21.0-32.0); Chloride 108 mmol/L (98-107); Estimated GFR (African America >60 (>=60); Estimated GFR (Non-African Ame >60 (>=60); Glucose 94 mg/dL (74-106); Potassium 4.3 mmol/L (3.5-5.1); Sodium 145 mmol/L (136-145)
[2023-06-28] MEDS: HYDRALAZINE HCL 20 MG/ML VIAL 10 MG IVP ×2 (06:48→10:40)
[2023-06-28] MEDS: ACETAMINOPHEN 500 MG TABLET 1000 MG PO (06:49)
--- NOTE | 2023-06-28 07:33 | P.PN_ITS ---
Progress Note: Subjective Subjective Interval history: Seen and examined. Patient was sleeping comfortably in the morning and I saw him last so that his sleep was not disturbed. When I walked in, from the beginning he was confrontational with me. He told me that he is laughing at the way we are managing his pain and we did not know anything about pain management. He claimed to be receiving less cumulative dose of narcotics in the hospital compared to his home regimen. When I tried to explain to him the concept of morphine equivalents and calculate his MME of home pain regimen, he got aggressive and said If he was not hurt, he could easily take me and grab me by neck and hold me against the wall behind me because apparently I had asked him to stop talking the day before. This is simply not true as the RN present during my encounter with him on 06/26 can testify to it. I told him that I am going to walk out of the room because he is now threatening me to which he said - He did not and I am such a pussy to even say that Exam Constitutional Vital Signs, click to edit/add: Last Vital Signs Temp 98.7 F 06/28/23 02:25 Pulse 70 06/28/23 01:00 Resp 20 06/28/23 01:00 BP 172/97 H 06/28/23 06:48 Pulse Ox 96 06/28/23 06:00 O2 Del Method Room Air 06/28/23 04:47 O2 Flow Rate 2 06/27/23 05:58 Progress Note: Objective Labs Labs: Short CBC 06/28/23 Range/Units 06:17 WBC 12.2 H (4.0-11.0) 10^3/uL Hgb 10.5 L (14.0-18.0) g/dL Hct 30.9 L (42.0-54.0) % Plt Count 205 (150-450) 10^3/uL BMP 06/28/23 06:17 Sodium 145 Potassium 4.3 Chloride 108 H Carbon Dioxide 29.4 BUN 15.0 Creatinine 1.21 Glucose 94 Calcium 8.8 Progress Note: A&P Assessment and Plan (1) Nonunion of subtalar arthrodesis: (2) Anxiety: (3) Sleep apnea: Plan Nonunion of subtalar arthrodesis: s/p revision of subtalar joint fusion with excision of nonunion and calcaneal osteotomy, cheilectomy of talonavicular joint, tenotomy of peroneal brevis & longus, removal of retained orthopedic hardware Still reports that his pain is poorly controlled - adjusting med - restart Duragesic if patch available Anxiety: has prn meds Sleep apnea: uses CPAP Hypertension - Add clonidine - may help anxiety, pain and Bp Insomnia-Secondary to pain in environment, has as needed medications now. Acute blood loss anemia-secondary to surgery. No suspected postoperative bleeding. Hemoglobin improved today. Leukocytosis-no other signs of infection. Had at the time of surgery. Improved. Appears to have dehydration on admission-hyponatremia and acute elevation in creatinine on admission-improved, will saline lock today. Protein calorie malnutrition based on NIH criteria related to albumin-monitor diet Discharge disposition per podiatry
[2023-06-28] MEDS: ALPRAZOLAM 1 MG TABLET PO (08:14)
[2023-06-28] MEDS: PREGABALIN 75 MG CAPSULE PO ×2 (08:14→21:12)
--- NOTE | 2023-06-28 09:00 | CM.NOTE ---
2nd Notice of Important message From Medicare discussed with pt, pt denies any questions or concerns.
--- NOTE | 2023-06-28 11:38 | CM.NOTE ---
Pt verbalizes no discharge needs at this time. Pt has script for knee scooter. Discussed with pt Important Message From Medicare 2nd notice, denies questions or concerns.
--- NOTE | 2023-06-28 12:16 | PT.DAILY ---
Physical Therapy Daily Note PT Daily Note/Assess Start: 06/26/23 12:35 Freq: Status: Active Protocol: Document 06/28/23 12:11 ERNESTODARA (Rec: 06/28/23 12:16 [id number] Physical Therapy Daily Note/Assessment Time In/Time Out Time In 11:05 Time Out 11:30 Pain In Pain N/A Pain Out Pain N/A Subjective Subjective Supine upon arrival. Pain is under control today. Willing and agreeable to PT. Therapeutic Exercise Time Therapeutic Exercise Minutes (minutes) 3 Therapeutic Exercise Units 0 Therapeutic Exercise Treatment Therapeutic Exercise Treatment Supine R LE AP, heel slides and abd slides 10x. L LE SLR and knee flexion 5x ea. Therapeutic Activity Time Therapeutic Activity Minutes (minutes) 20 Therapeutic Activity Units 2 Therapeutic Activity Treatment Bed Mobility Ability Standby Assistance Chair Transfer Ability Standby Assistance Therapeutic Activity Comments Supine>sit SBA with increased time needed. Sits EOB to natan R shoe. Sits EOB while MORPHOLOGY TEACHER demonstrates NWB gait with RW and with knee scooter for pt's better understanding. Sit> stand SBA to RW and amb 60' NWB L LE. Returned to EOB. Stand pivot to knee scooter SBA with increased time just for safety. Pt amb with knee scooter NWB L for 200' without LOB or difficulty. Pt returned to room in BS chair but then decided he wants to get back to bed so he can prop his foot. Stand pivot to bed SBA. Sit>supine SBA. Foot propped on 3 pillows, bed in Trendelenburg position and call light within reach. Total Physical Therapy Time Total Therapy Minutes 23 Total Physical Therapy Units 2 Summary Daily Note Summary Improve tolerance with activity. 7/10 pain upon completion. Does well maintaining NWB with both RW and knee scooter. Planned dc to home.
[2023-06-28] MEDS: CLONIDINE HCL 0.1 MG TABLET PO ×2 (13:43→21:07)
--- NOTE | 2023-06-28 14:05 | PM.PN ---
Progress Note: Subjective Subjective Interval history: Patient seen resting at bedside this a.m. POD#4 s/p 3D printed/patient specific left foot recon for post-traumatic deformity & arthritis. Still complaining of peaks and valleys and pain control, continues to exhibit frustration that it is not being managed appropriately and that we should be giving him what he says. Upon my visit he was somewhat pleasant, however did exhibit continued frustration and agitation, Stated he is sleeping a little better now.. Other than issues with pain control, he denies any other acute lower extremity complaints and denies any constitutional symptoms at time of visit.. Exam Narrative Exam Narrative: Left lower extremity dressing CDI. CFT brisk to digits. No erythema edema proximal or distal dressing. No open lesions proximally or distally. Active passive range of motion digits present. Light touch sensation intact to digits. No pain with calf or thigh compression. Constitutional Vital Signs, click to edit/add: Last Vital Signs Temp 98.4 F 06/28/23 12:00 Pulse 88 06/28/23 12:00 Resp 18 06/28/23 12:00 BP 138/87 06/28/23 13:43 Pulse Ox 94 L 06/28/23 12:00 O2 Del Method Room Air 06/28/23 12:00 O2 Flow Rate 2 06/27/23 05:58 Progress Note: Objective Labs Labs: Short CBC 06/28/23 Range/Units 06:17 WBC 12.2 H (4.0-11.0) 10^3/uL Hgb 10.5 L (14.0-18.0) g/dL Hct 30.9 L (42.0-54.0) % Plt Count 205 (150-450) 10^3/uL BMP 06/28/23 06:17 Sodium 145 Potassium 4.3 Chloride 108 H Carbon Dioxide 29.4 BUN 15.0 Creatinine 1.21 Glucose 94 Calcium 8.8 Progress Note: A&P Assessment and Plan (1) Nonunion of subtalar arthrodesis: (2) Anxiety: (3) Sleep apnea: Plan Patient examined evaluated. All fine discussed with patient all questions answered patient satisfaction. Labs and imaging reviewed. LLE dressing left CDI. Patient still reporting 8-9 out of 10 pain despite current regimen, Although he did state it is better than what we previously had ordered. ER OxyContin 20 mg q8h prn, with quick release oxycodone 15 mg q6hprn in between for breakthrough pain. Dr. Craft on board, med adjustments noted. Discussed with patient that we can coordinate with his pain management provider for long-term pain control, That he will not be getting pain medications from us and his pain management provider has already prescribed his postoperative dose which she has at home. Encouraged to work with PT, If he can demonstrate ability to maintain nonweightbearing, he may discharge today.. Will continue to follow, please call with any questions or concerns.
[2023-06-28] MEDS: ENOXAPARIN SODIUM 40 MG/0.4 ML SYRINGE SUBQ (16:12)
[2023-06-28] MEDS: OXYCODONE HCL 15 MG TABLET PO (16:12)
[2023-06-29 02:08] VITALS: O2SAT 94
[2023-06-29 06:00] VITALS: BP 152/91; PULSE 64; RESP 20; TEMP 36.8; O2SAT 96
[2023-06-29 06:31] LABS: Hematocrit 31.4 % (42.0-54.0); Hemoglobin 10.6 g/dL (14.0-18.0); Mean Corpuscular Volume 96.3 fL (80.0-94.0); Red Blood Count 3.26 10^6/uL (4.70-6.10); White Blood Count 8.4 10^3/uL (4.0-11.0)
[2023-06-29 06:32] LABS: Eosinophils Percent Auto 3.9 % (0.9-7.0); Lymphocytes Percent Auto 23.2 % (20.5-60.0); Mean Corpuscular HGB Conc 33.8 g/dL (29.9-35.2); Mean Corpuscular Hemoglobin 32.5 pg (25.9-34.0); Mean Platelet Volume 11.8 fL (9.5-13.5); Monocytes Percent Auto 13.9 % (1.7-12.0); Neutrophils Percent Auto 58.5 % (43.0-75.0); Platelet Count 224 10^3/uL (150-450); Red Cell Distribution Width 13.5 % (11.0-15.0)
[2023-06-29 06:33] LABS: Basophils Percent Auto 0.4 % (0.2-2.0); Eosinophils Absolute Auto 0.3 10^3/uL (0.0-0.7); Immature Granulocytes Abs Auto 0.01 10^3/uL (0.00-0.03); Immature Granulocytes Pct Auto 0.1 % (0.0-0.5); Monocytes Absolute Auto 1.2 10^3/uL (0.3-0.8); Neutrophils Absolute Auto 4.9 10^3/uL (1.4-6.5)
[2023-06-29 06:41] LABS: Anion Gap 12.9; BUN Creatinine Ratio 13.6; Carbon Dioxide 26.9 mmol/L (21.0-32.0); Chloride 107 mmol/L (98-107); Estimated GFR (African America >60 (>=60); Estimated GFR (Non-African Ame 52 (>=60); Glucose 89 mg/dL (74-106); Potassium 3.8 mmol/L (3.5-5.1); Sodium 143 mmol/L (136-145)
[2023-06-29 06:42] LABS: Calcium 8.9 mg/dL (8.5-10.1)
--- NOTE | 2023-06-29 07:53 | P.DS_ITS ---
DS: Providers Provider Date of admission: 06/25/23 11:35 Primary care physician: Non-Staff Physician, Consults: 06/24/23 15:33 Consult to Host And Hostess Routine Reason for consult:: Half-Way Other reason:: Possible SNF, anticipate DC home Physical Therapy Eval and Treat Routine Reason for consultation: postop gait eval/fall risk, taqueria LLE 06/28/23 07:32 Consult to Host And Hostess Routine Reason for consult:: Home Health Other reason:: rehab or home - soon please DS: Diagnosis Discharge Diagnosis (1) Nonunion of subtalar arthrodesis: (2) Anxiety: (3) Sleep apnea: Plan Nonunion of subtalar arthrodesis: s/p revision of subtalar joint fusion with excision of nonunion and calcaneal osteotomy, cheilectomy of talonavicular joint, tenotomy of peroneal brevis & longus, removal of retained orthopedic hardware Anxiety Sleep apnea Hypertension Insomnia Acute blood loss anemia Leukocytosis Appears to have dehydration on admission Protein calorie malnutrition based on NIH criteria related to albumin DS: Summary Hospital Course Hospital Course: Patient admitted for podiatric procedure. See description as outlined above. Physical therapy worked with the patient. The difficult part was his pain control. He took a fair amount of pain medications prior to admission. He need ed even greater amount here it was difficult to manage his pain. 2 days prior to discharge still having remains consistent 9-10 pain despite IV medications as well as oral medications. Medications were adjusted yesterday. Physical therapy was finally able to work with patient based on the improvement in his pain. He did work with his knee scooter. Tolerated that fairly well. With his pain overall improved although still getting scores between 7-9. Patient is comfortable with going home and managing his pain at home. He sees pain management in his hometown of [place]. Other complicating factors acute blood loss anemia secondary to the surgery but no postoperative bleeding. Leukocytosis on admission but that had resolved at the time of discharge. No active signs of infection with patient being afebrile. Was dehydrated on admission based on significant elevation in his creatinine. That is improved. Creatinine is still somewhat elevated today at the time of discharge. Probably secondary to poor p.o. intake. Patient is feeling better with that. At this point unless further plans from podiatry patient will be discharged home in improving condition. Medications see list. He has a follow-up with podiatry and pain management. Time Spent with Patient Time attestation: Total time spent providing and/or coordinating discharge services: Exam Constitutional Vital Signs, click to edit/add: Last Vital Signs Temp 98.2 F 06/29/23 06:00 Pulse 64 06/29/23 06:00 Resp 20 06/29/23 06:00 BP 152/91 H 06/29/23 06:00 Pulse Ox 96 06/29/23 06:00 O2 Del Method Room Air 06/29/23 06:00 O2 Flow Rate 2 06/27/23 05:58 Documenting provider has reviewed patient's vital signs: yes Common normals: apparent distress (Moderate painful distress but much improved from previous day) Chest Common normals: inspection of chest normal Respiratory Common normals: normal respiratory effort and no retractions Cardio Common normals: regular rate and regular rhythm DS: Data Data Completed and Pending Labs on day of discharge: Labs from last 24 hours 06/29/23 04:32 WBC 8.4 RBC 3.26 L Hgb 10.6 L Hct 31.4 L MCV 96.3 H MCH 32.5 MCHC 33.8 RDW 13.5 Plt Count 224 MPV 11.8 Neut % (Auto) 58.5 Lymph % (Auto) 23.2 [place] % (Auto) 13.9 H Eos % (Auto) 3.9 Baso % (Auto) 0.4 Neut # (Auto) 4.9 Lymph # (Auto) 2.0 [place] # (Auto) 1.2 H Eos # (Auto) 0.3 Baso # (Auto) 0.0 Abs Immat Gran (auto) 0.01 Imm/Tot Granulo (auto) 0.1 Sodium 143 Potassium 3.8 Chloride 107 Carbon Dioxide 26.9 Anion Gap 12.9 BUN 19.0 H Creatinine 1.40 H Est GFR ( Amer) >60 Est GFR (Non-Af Amer) 52 L BUN/Creatinine Ratio 13.6 Glucose 89 Calcium 8.9 Discharge Plan Discharge Disposition: Home, Self-Care Discharge Medications: New alendronate [Fosamax] 70 mg tablet 70 mg PO QWEEK 84 Days Qty: 12 0RF aspirin [Adult Low Dose Aspirin] 81 mg tablet,delayed release (DR/EC) 81 mg PO BID 30 Days Qty: 60 0RF cefadroxil 500 mg capsule 500 mg PO BID 3 Days Qty: 6 0RF cholecalciferol (vitamin D3) 125 mcg (5,000 unit) capsule 125 mcg PO DAILY 90 Days Qty: 90 0RF Continued albuterol sulfate 90 mcg/actuation HFA aerosol inhaler 2 puff INHALATION Q6H PRN (Reason: shortness of breath or wheezing) alprazolam 0.5 mg tablet 0.5 mg PO DAILY PRN (Reason: anxiety) desonide 0.05 % ointment 1 applic TOPICAL Q12H dextroamphetamine-amphetamine 30 mg tablet 30 mg PO DAILY fentanyl 25 mcg/hr patch 72 hour 1 patch transdermal Q48H gabapentin 600 mg tablet 600 mg PO QID lidocaine 5 % adhesive patch,medicated 1 patch transdermal Q24H meloxicam 15 mg tablet 15 mg PO DAILY methocarbamol 750 mg tablet 750 mg PO QID oxycodone 15 mg tablet 15 mg PO Q6H tadalafil 10 mg tablet 5 mg PO DAILY testosterone cypionate 200 mg/mL oil 400 mg IM Q7D zolpidem 10 mg tablet 10 mg PO QPM alprazolam 1 mg tablet 1 mg PO DAILY hydromorphone [Dilaudid] 4 mg tablet 4 mg PO Q4H PRN (Reason: pain) Rx Instructions: max of 5 tablets per day Forms: Portal Instructions
[2023-06-29] MEDS: KETOROLAC TROMETHAMINE 30 MG/ML VIAL IVP (09:59)
[2023-06-29] MEDS: PREGABALIN 75 MG CAPSULE PO (09:59)
[2023-06-29] MEDS: ALPRAZOLAM 1 MG TABLET PO (09:59)
[2023-06-29 10:42] VITALS: O2SAT 96
--- NOTE | 2023-06-29 10:44 | PM.PN ---
Progress Note: Subjective Subjective Interval history: Patient seen resting at bedside this a.m. POD#5 s/p 3D printed/patient specific left foot recon for post-traumatic deformity & arthritis. Much more pleasant today and states pain is relatively well-controlled. Feels he is at a place where he can go home. States he did work with physical therapy yesterday maneuvering up and down the halls with the knee scooter without any issues.e denies any other acute lower extremity complaints and denies any constitutional symptoms at time of visit. Exam Narrative Exam Narrative: Left lower extremity dressing CDI. CFT brisk to digits. No erythema edema proximal or distal dressing. No open lesions proximally or distally. Active passive range of motion digits present. Light touch sensation intact to digits. No pain with calf or thigh compression. Constitutional Vital Signs, click to edit/add: Last Vital Signs Temp 98.2 F 06/29/23 06:00 Pulse 64 06/29/23 06:00 Resp 20 06/29/23 06:00 BP 152/91 H 06/29/23 06:00 Pulse Ox 96 06/29/23 10:42 O2 Del Method Room Air 06/29/23 10:42 O2 Flow Rate 2 06/27/23 05:58 Progress Note: Objective Labs Labs: Short CBC 06/29/23 Range/Units 04:32 WBC 8.4 (4.0-11.0) 10^3/uL Hgb 10.6 L (14.0-18.0) g/dL Hct 31.4 L (42.0-54.0) % Plt Count 224 (150-450) 10^3/uL BMP 06/29/23 04:32 Sodium 143 Potassium 3.8 Chloride 107 Carbon Dioxide 26.9 BUN 19.0 H Creatinine 1.40 H Glucose 89 Calcium 8.9 Progress Note: A&P Assessment and Plan (1) Nonunion of subtalar arthrodesis: (2) Anxiety: (3) Sleep apnea: Plan Patient examined evaluated. All fine discussed with patient all questions answered patient satisfaction. Labs and imaging reviewed. LLE dressing left CDI. Strict nonweightbearing left lower extremity. Pain appears controlled with current regimen. ER OxyContin 20 mg q8h prn, with quick release oxycodone 15 mg q6hprn in between for breakthrough pain. Dr. Craft on board, med adjustments noted. NC meds sent to pharmacy. Pain medications previously prescribed by pain management provider for when he arrives home. Stable to NC today from podiatry perspective, will follow-up Wednesday vs Wednesday in the office for dressing change. Will continue to follow, please call with any questions or concerns.
[2023-06-29] MEDS: METHOCARBAMOL 500 MG TABLET 750 MG PO (11:52)
== END 2023-06-29 12:04 | disposition home or self-care (01) | DRG 493 ==
LOC: SURGOUT 11:09 → ICU 11:09 → MS 06-26 15:05
PROVIDERS: Internal Medicine; Nurse Practitioner; Admitting Provider Family Medicine; Visit Provider Podiatrist Foot & Ankle Surgery
PROC: 0SGG07Z Fusion of Left Ankle Joint with Autologous Tissue Substitute, Open Approach (ICD-10-PCS; principal; 2023-06-24 10:30)
DX: M96.0 Pseudarthrosis after fusion or arthrodesis (principal); D62 Acute posthemorrhagic anemia; E46 Unspecified protein-calorie malnutrition; T84.213A Breakdown (mechanical) of internal fixation device of bones of foot and toes, initial encounter; M19.172 Post-traumatic osteoarthritis, left ankle and foot; M21.072 Valgus deformity, not elsewhere classified, left ankle; F41.9 Anxiety disorder, unspecified; I10 Essential (primary) hypertension; D72.829 Elevated white blood cell count, unspecified; E86.0 Dehydration; G47.33 Obstructive sleep apnea (adult) (pediatric); G47.00 Insomnia, unspecified; Z68.28 Body mass index [BMI] 28.0-28.9, adult; Z79.891 Long term (current) use of opiate analgesic; Z79.899 Other long term (current) drug therapy; Z80.8 Family history of malignant neoplasm of other organs or systems
CPT/HCPCS: 36415; 64445; 73610; 73630; 73700; 76000; 80048; 80053; 82948; 85025; 85027; 88304; 88311; 94761; 96365; 96366; 96367; 96368; 96372; 96375; 96376; 97161; 97530; 97605; A6550; C1713; J1170; J2704

== ENCOUNTER 2023-07-15 11:04 | Outpatient (OUT) | payer MEDICARE, MEDICAID, SELFPAY ==
--- NOTE | 2023-07-15 | XR_ITS ---
The [address] [address] Patient Name: ELIZA LOWE MRN: [id number] date: 1965 Sex: M Assigned Patient Location: [facility] Current Patient Location: Accession/Order Number: [id number] Exam Date: 07/15/2023 13:15 Report Date: 07/16/2023 07:59 At the request of: BRIANA LARA Procedure: XR foot LT min 3V PROCEDURE: XR foot LT min 3V, XR ankle LT min 3V HISTORY: LEFT FOOT PAIN COMPARISON: XR left foot and ankle 06/24/2023 FINDINGS: BONES:Stable hindfoot fusion and spacer placement within the posterior talocalcaneal joint. Evidence of prior hardware removal from distal tibia and calcaneus with several fractured screw remnants. Moderate degenerative changes the midfoot. Prosthetic replacement of the proximal articular surface of the first toe proximal phalanx and single screw within distal first metatarsal. SOFT TISSUES:No visible soft tissue swelling. Cast material has been removed. EFFUSION:None visible. OTHER: Negative. XR/XR foot LT min 3V IMPRESSION: 1. Stable surgical changes without evidence of hardware failure or change in alignment. Electronically authenticated by: ANA URIOSTEGUI Date: 07/16/2023 07:59
--- NOTE | 2023-07-15 | XR_ITS ---
The [address] [address] Patient Name: ELIZA LOWE MRN: [id number] date: 1965 Sex: M Assigned Patient Location: [facility] Current Patient Location: Accession/Order Number: [id number] Exam Date: 07/15/2023 13:15 Report Date: 07/16/2023 07:59 At the request of: BRIANA LARA Procedure: XR ankle LT min 3V PROCEDURE: XR foot LT min 3V, XR ankle LT min 3V HISTORY: LEFT FOOT PAIN COMPARISON: XR left foot and ankle 06/24/2023 FINDINGS: BONES:Stable hindfoot fusion and spacer placement within the posterior talocalcaneal joint. Evidence of prior hardware removal from distal tibia and calcaneus with several fractured screw remnants. Moderate degenerative changes the midfoot. Prosthetic replacement of the proximal articular surface of the first toe proximal phalanx and single screw within distal first metatarsal. SOFT TISSUES:No visible soft tissue swelling. Cast material has been removed. EFFUSION:None visible. OTHER: Negative. XR/XR ankle LT min 3V IMPRESSION: 1. Stable surgical changes without evidence of hardware failure or change in alignment. Electronically authenticated by: ANA URIOSTEGUI Date: 07/16/2023 07:59
--- OUTSIDE RECORDS SUMMARY | 2023-07-15 11:08 | XMS_ITS | CCD ---
Author Name Unknown Address [address] [place] [address] Organization [facility] Care Team Providers Care Deputy Treasurer Name Role Phone Louie Maddox DO Primary Care Provider Jerome Mabry MD Unavailable Louie Maddox Primary Care Unavailable Moody Rodriguez Referring Unavailable Moody Rodriguez Attending Unavailable Louie Maddox Attending Unavailable Louie Flores Primary Care Unavailable Louie Maddox Primary Care Unavailable Yanet BLUE PRINT CONTROL CLERK, Cailin Attending Unavailable Salomon Montez Attending Unavailable Louie Maddox Primary Care Unavailable Salomon Montez Referring Unavailable Louie Maddox Referring Unavailable Louie Maddox Primary Care Unavailable Yanet BLUE PRINT CONTROL CLERK, Cailin Attending Unavailable Louie Maddox DO Primary Care Provider Jerome Mabry MD Unavailable MOODY RODRIGUEZ Admitting Unavailable SHAQ, MOODY H Attending Unavailable LOUIE MADDOX A Primary Care Unavailable MOODY RODRIGUEZ H Attending Unavailable BROOKE, LOUIE A Primary Care Unavailable SHAQ, MAXINEETTA H Admitting Unavailable MOODY RODRIGUEZ H Attending Unavailable LOUIE MADDOX A Primary Care Unavailable MOODY RODRIGUEZ Attending Unavailable LOUIE MADDOX A Primary Care Unavailable SHAQ, JAMESETTA H Admitting Unavailable SHAQ, MAXINEETTA H Attending Unavailable BROOKE, LOUIE A Primary Care Unavailable MONE THORNE Attending Unavailable LOUIE MADDOX Primary Care Unavailable Unavailable Unavailable Unavailable Medications Current Medications Medication Drug Class(es) Dates Sig (Normalized) Sig (Original) acetaminophen 500 mg oral tablet (3 sources) Start: 07-27-2018 take 2 tablets by mouth every eight hours Acetaminophen (Tylenol) 500 MG tablet Active 1000 MG PO EVERY 8 HOURS 90 July 27, 2018 9:34am Start: 07-27-2018 take 1000 mg by mout h every eight hours Acetaminophen Active 1000 MG PO EVERY 8 HOURS 90 July 27, 2018 12:00am docusate sodium 100 mg oral capsule (5 sources) Start: 05-07-2016 End: 02-11-2022 take 1 capsule by mouth twice daily docusate sodium (COLACE) 100 mg capsule Take 1 capsule by mouth twice daily. 60 capsule 0 05/07/2016 02/11/2022 Discontinued Comment on above: Take 1 capsule by mo [facility] twice daily. 72 hr fentaNYL 0.025 mg/hr transdermal system (20 sources) Opioid Agonist Start: 07-08-2023 End: 08-07-2023 fentaNYL (DURAGESIC) 25 mcg/hr Indications: Chronic pain syndrome Apply 1 Patch as directed every 48 hours for 30 days. 15 Patch 0 07/08/2023 08/07/2023 Active Start: 02-19-2022 End: 07-13-2023 apply 1 dose transdermal route every hour fentaNYL (DURAGESIC) 25 mcg/hr Indications: Chronic pain syndrome Apply 1 Patch as directed every 48 hours for 30 days. Do not start before June 13, 2023. 15 Patch 0 06/13/2023 07/08/2023 Discontinued Start: 02-19-2022 End: 02-16-2022 apply 1 dose transdermal route every hour fentaNYL (DURAGESIC) 25 mcg/hr Indications: Chronic pain syndrome Apply 1 Patch as directed every 48 hours for 30 days. Do not start before February 19, 2022. 15 Patch 0 02/19/2022 02/16/2022 Discontinued Start: 02-19-2022 End: 03-21-2022 apply 1 dose transdermal route every hour fentaNYL (DURAGESIC) 25 mcg/hr Indications: Chronic pain syndrome Apply 1 Patch as directed every 48 hours for 30 days. Do not start before February 19, 2022. 15 Patch 0 02/19/2022 03/21/2022 Active Start: 01-13-2022 End: 02-12-2022 fentaNYL (DURAGESIC) 25 mcg/ hr Indications: Chronic pain syndrome Apply 1 Patch as directed every 48 hours for 30 days. 15 Patch 0 01/13/2022 02/11/2022 Discontinued Start: 03-12-2021 End: 02-11-2022 fentaNYL (DURAGESIC) 25 mcg/ hr Apply to affected area. 0 03/12/2021 02/11/2022 Discontinued Start: 04-19-2017 End: 01-13-2022 fentaNYL (DURAGESIC) 25 mcg/ hr 1 Patch every 48 hours. 0 04/19/2017 01/13/2022 Discontinued Start: 08-24-2013 apply 25 ug transder mal route every other day, then apply 75 ug transdermal route Fentanyl Patch (Duragesic Patch) 75 MCG Patch Active 25 MCG TRANSDERM. EVERY OTHER DAY August 24, 2013 11:27am Start: 08-24-2013 Fentanyl Activ e 25 MCG TRANSDERM. EVERY OTHER DAY August 24, 2013 12:00am Start: 05-03-2013 End: 08-18-2013 Fentanyl Discontinued 75 MCG TOPICAL Q48H May 02, 2013 11:00pm August 18, 2013 2:12pm Comment on above: 1 Patch every 48 kiki rs. Apply 1 Patch as dir ected every 48 hours for 30 days. Apply to affected ar ea. Apply 1 Patch as dir ected every 48 hours for 30 days. Do not start before February 19, 2022. Apply 1 Patch as dir ected every 48 hours for 30 days. Do not start before March 21, 2022. Apply 1 Patch as dir ected every 48 hours for 30 days. Do not start before April 20, 2022. Apply 1 Patch as dir ected every 48 hours for 30 days. Do not start before May 19, 2022. Apply 1 Patch as dir ected every 48 hours for 30 days. Do not start before June 18, 2022. Apply 1 Patch as dir ected every 48 hours for 30 days. Do not start before July 18, 2022. Apply 1 Patch as dir ected every 48 hours for 30 days. Do not start before August 17, 2022. Apply 1 Patch as dir ected every 48 hours for 30 days. Do not start before September 16, 2022. Apply 1 Patch as dir ected every 48 hours for 30 days. Do not start before October 16, 2022. Apply 1 Patch as dir ected every 48 hours for 30 days. Do not start before November 15, 2022. Apply 1 Patch as dir ected every 48 hours for 30 days. Do not start before December 15, 2022. Apply 1 Patch as dir ected every 48 hours for 30 days. Do not start before January 14, 2023. Apply 1 Patch as dir ected every 48 hours for 30 days. Do not start before February 13, 2023. Apply 1 Patch as dir ected every 48 hours for 30 days. Do not start before March 15, 2023. Apply 1 Patch as dir ected every 48 hours for 30 days. Do not start before April 14, 2023. Apply 1 Patch as dir ected every 48 hours for 30 days. Do not start before May 14, 2023. Apply 1 Patch as dir ected every 48 hours for 30 days. Do not start before June 13, 2023. HYDROmorphone hydrochloride 4 mg oral tablet (8 sources) Opioid Agonist Start: 06-20-20 End: 07-20-20 take 1 tablet by mouth every four hours as needed HYDROmorphone 4 mg tablet Indications: Chronic pain syndrome , Lumbar spondylosis , Degeneration of intervertebral disc of lumbar region , Generalized osteoarthritis , Lumbar radiculopathy , Lumbar disc herniation with radiculopathy , Radiculopathy, lumbar region , Lumbar postlaminectomy syndrome , Myofascial pain syndrome Take 1 tablet by mouth every 4 hours as needed for up to 30 days. Max 5 /day Do not start before June 20, 2023. 150 tablet 0 06/20/2023 07/20/2023 Active Start: 07-27-2018 End: 08-03-2018 take 4 mg by mouth every six hours for pain Hydromorphone Discontinued 4 MG PO EVERY 6 HOURS 30 7 July 27, 2018 12:00am August 03, 2018 12:09am for break thru pain Start: 05-04-2013 End: 05-06-2013 take 1 tablet by mouth twice daily Hydromorphone (Exalgo) 16 MG Tab.Er.24h Discontinued 32 MG PO TWICE A DAY May 03, 2013 11:00pm May 06, 2013 11:37am Comment on above: Take 1 tablet by francis th every 4 hours as needed for up to 30 days. Max 5 /day Do not start before June 20, 2023. lisinopril 20 mg oral tablet (20 sources) Angiotensin Converting Enzyme Inhibitor Start: 05-12-2018 take 1 tablet by mouth once daily Lisinopril (Zestril) 20 MG tablet Active 20 MG PO DAILY May 11, 2018 11:00pm Start: 01-08-2016 take 1 tablet by francis th once daily lisinopril (ZESTRIL) 5 mg tablet Take 1 tablet by mouth once daily. 0 01/08/2016 Active Comment on above: Take 1 tablet by francis th once daily. pregabalin 150 mg oral capsule (8 sources) Start: 04-23-2017 End: 02-11-2022 take 1 capsule by mouth three times daily LYRICA 150 mg capsule Take 150 mg by mouth three times daily. 2 04/23/2017 02/11/2022 Discontinued (Course of therapy completed) Start: 05-03-2013 End: 08-18-2013 take 1 capsule by mouth three times daily Pregabalin (Lyrica) 100 MG capsule Discontinued 100 MG PO THREE TIMES A DAY May 02, 2013 11:00pm August 18, 2013 2:11pm Comment on above: Take 150 mg by mouth three times daily. Completed/Discontinued Medications Medication Drug Class(es) Dates Sig (Normalized) Sig (Original) [id number] 200 actuat albuterol 0.09 mg/actuat metered dose inhaler (20 sources) beta2-Adrenergic Agonist Start: 01-08-2016 albuterol HFA (PROVENTIL HFA, VENTOLIN HFA) 90 mcg/actuation inhaler Inhale 2 Puffs as instructed. 0 01/08/2016 Active Comment on above: Inhale 2 Puffs as in structed. ALPRAZolam 0.5 mg oral tablet (20 sources) Benzodiazepine Start: 04-23-2017 take 1 tablet by mouth twice daily ALPRAZolam (XANAX) 0.5 mg tablet Take 0.5 mg by mouth twice daily. 0 04/23/2017 Active Comment on above: Take 0.5 mg by mouth twice daily. amphetamine aspartate 7.5 mg / amphetamine sulfate 7.5 mg / dextroamphetamine saccharate 7.5 mg / dextroamphetamine sulfate 7.5 mg oral tablet (20 sources) Central Nervous System Stimulant Start: 04-26-2017 Amphetamine-Dextr oamphetamine (ADDERALL) 30 mg tablet 1 tablet once daily. 0 04/26/2017 Active Comment on above: 1 tablet once daily. aspirin 325 mg oral tablet (20 sources) Platelet Aggregation Inhibitor, Nonsteroidal Anti-inflammatory Drug Start: 07-27-2018 aspirin 325 mg tablet Take by mouth. 0 07/27/2018 Active Comment on above: Take by mouth. 24 hr buPROPion hydrochloride 300 mg extended release oral tablet (20 sources) Aminoketone Start: 04-13-2017 take 1 tablet by mouth once daily buPROPion XL (WELLBUTRIN XL) 300 mg 24 hr tablet Take 300 mg by mouth once daily. 2 04/13/2017 Active Comment on above: Take 300 mg by mouth once daily. desonide 0.0005 mg/mg topical ointment (20 sources) Corticosteroid Start: 01-20-2022 desonide (DESOWEN) 0.05 % ointment Apply 1 application topically to affected area 2 times per day 0 01/20/2022 Active Comment on above: Apply 1 application topically to affected area 2 times per day docusate sodium 50 mg / sennosides, shelter 8.6 mg oral tablet (2 sources) Start: 05-03-2013 End: 08-18-2013 take 1 tablet by mouth once daily Sennosides-Docusa te Sodium (Edel-Colace) 1 EACH tablet Discontinued 2 EACH PO DAILY May 02, 2013 11:00pm August 18, 2013 2:11pm FLUoxetine 40 mg oral capsule (20 sources) Serotonin Reuptake Inhibitor Start: 03-09-2022 take 1 capsule by mouth once daily FLUoxetine (PROZAC) 40 mg capsule Take 40 mg by mouth once daily. 0 03/09/2022 Active Start: 04-16-2017 End: 03-21-2022 take 3 capsules by mouth once daily FLUoxetine (PROZAC) 20 mg capsule Take 60 mg by mouth once daily. 2 04/16/2017 03/21/2022 Discontinued Comment on above: Take 60 mg by mouth once daily. Take 40 mg by mouth once daily. fluticasone propionate 0.05 mg/actuat metered dose nasal spray (20 sources) Corticosteroid Start: 7 take 2 spray(s) nasal route once daily as needed fluticasone (FLONASE) 50 mcg/actuation nasal spray Use 2 Sprays in each nostril once daily. As needed 2 04/23/2017 Active Comment on above: Use 2 Sprays in each nostril once daily. As needed gabapentin 600 mg oral tablet (20 sources) Anti-epileptic Agent Start: 3 End: 3 take 1 tablet by mouth four times daily gabapentin (NEURONTIN) 600 mg tablet Indications: Chronic pain syndrome Take 1 tablet by mouth four times daily for 30 days. 120 tablet 0 06/07/2023 Active Start: 04-21-2023 End: 04-16-2023 take 1 tablet by mouth four times daily gabapentin (NEURONTIN) 600 mg tablet Indications: Chronic pain syndrome Take 1 tablet by mouth four times daily for 30 days. Do not start before April 21, 2023. 120 tablet 0 04/21/2023 04/16/2023 Discontinued Start: 04-21-2023 End: 04-16-2023 take 1 tablet by mouth four times daily gabapentin (NEURONTIN) 600 mg tablet Indications: Chronic pain syndrome Take 1 tablet by mouth four times daily for 30 days. Do not start before April 21, 2023. 120 tablet 0 04/21/2023 04/16/2023 Discontinued Start: 12-15-2022 End: 05-21-2023 take 1 tablet by mouth four times daily gabapentin (NEURONTIN) 600 mg tablet Indications: Chronic pain syndrome Take 1 tablet by mouth four times daily for 30 days. 120 tablet 0 04/16/2023 05/13/2023 Discontinued Start: 10-16-2022 End: 12-10-2022 take 1 tablet by mouth four times daily gabapentin (NEURONTIN) 600 mg tablet Indications: Chronic pain syndrome Take 1 tablet by mouth four times daily for 30 days. 120 tablet 0 11/10/2022 12/10/2022 Active Start: 03-29-2022 End: 10-13-2022 take 1 tablet by mouth four times daily gabapentin (NEURONTIN) 600 mg tablet Indications: Chronic pain syndrome Take 1 tablet by mouth four times daily for 30 days. 120 tablet 0 09/21/2022 10/13/2022 Discontinued Start: 01-27-2022 End: 03-18-2022 take 1 tablet by mouth four times daily gabapentin (NEURONTIN) 600 mg tablet Indications: Chronic pain syndrome Take 1 tablet by mouth four times daily for 30 days. 120 tablet 0 02/16/2022 03/18/2022 Active Start: 07-25-2018 take 600 mg by mouth three times daily at mealtime Gabapentin Active 600 MG PO 3 TIMES DAILY WITH MEALS 60 July 27, 2018 12:00am Comment on above: Take 600 mg by mouth four times daily. Take 1 tablet by francis th four times daily for 30 days. Take 1 tablet by francis th four times daily for 30 days. Do not start before March 29, 2022. Take 1 tablet by francis th four times daily for 30 days. Do not start before April 28, 2022. Take 1 tablet by francis th four times daily for 30 days. Do not start before May 28, 2022. Take 1 tablet by francis th four times daily for 30 days. Do not start before June 27, 2022. Take 1 tablet by francis th four times daily for 30 days. Do not start before July 27, 2022. Take 1 tablet by francis th four times daily for 30 days. Do not start before August 25, 2022. Take 1 tablet by francis th four times daily for 30 days. Do not start before October 16, 2022. Take 1 tablet by francis th four times daily for 30 days. Do not start before December 15, 2022. Take 1 tablet by francis th four times daily for 30 days. Do not start before January 14, 2023. Take 1 tablet by francis th four times daily for 30 days. Do not start before February 14, 2023. Take 1 tablet by francis th four times daily for 30 days. Do not start before March 16, 2023. Take 1 tablet by francis th four times daily for 30 days. Do not start before April 21, 2023. Take 1 tablet by francis th four times daily for 30 days. Do not start before May 16, 2023. lidocaine 0.05 mg/mg medicated patch (20 sources) Antiarrhythmic, Amide Local Anesthetic Start: 3 End: apply 1 dose transdermal route every twelve hours lidocaine (LIDODERM) 5 % Indications: Chronic pain syndrome Apply 1 Patch as directed as directed. Apply to affected areas 12 hours on and 12 hours off 60 Patch 4 06/07/2023 Active Start: 05-14-2022 End: 02-10-2023 apply 1 dose transdermal route every twelve hours lidocaine (LIDODERM) 5 % Indications: Chronic pain syndrome Apply 1 Patch as directed as directed. Apply to affected areas 12 hours on and 12 hours off 60 Patch 4 01/11/2023 Active Start: 01-26-2022 End: 04-17-2022 lidocaine (LIDODERM) 5 % Indications: Chronic pain syndrome Apply 1 Patch as directed as directed. 60 Patch 4 03/18/2022 Active Start: 05-23-2018 Lidocaine (Lid ocaine Pain Relief) 1 EACH adhesive patch,medicated Active 1 EACH TP THREE TIMES A DAY May 22, 2018 11:00pm Comment on above: Apply 1-3 patch to s kin as directed as needed for pain May apply up to 3 patches for 12 hours then remove for 12 hours Apply 1 Patch as dir ected as directed. Apply 1 Patch as dir ected as directed. Apply to affected areas 12 hours on and 12 hours off meloxicam 15 mg oral tablet (20 sources) Nonsteroidal Anti-inflammatory Drug Start: 02-07-2023 End: 07-07-2023 take 1 tablet by mouth once daily as needed meloxicam (MOBIC) 15 mg tablet Take 1 tablet by mouth once daily as needed. 30 tablet 3 06/07/2023 Active Start: 12-09-2022 End: 02-05-2023 take 1 tablet by mouth once daily as needed meloxicam (MOBIC) 15 mg tablet Take 1 tablet by mouth once daily as needed. 30 tablet 0 01/06/2023 02/04/2023 Discontinued Start: 10-06-2022 take 1 tablet by francis th once daily as needed meloxicam (MOBIC) 15 mg tablet Take 15 mg by mouth once daily as needed. 0 10/06/2022 Active Start: 08-13-2022 End: 09-12-2022 take 1 tablet by mouth once daily as needed meloxicam (MOBIC) 15 mg tablet Take 1 tablet by mouth once daily as needed. 30 tablet 3 08/13/2022 09/12/2022 Active Start: 04-16-2017 End: 03-18-2022 take 1 tablet by mouth once daily as needed meloxicam (MOBIC) 15 mg tablet Take 1 tablet by mouth once daily as needed. 30 tablet 3 02/16/2022 03/18/2022 Active Comment on above: Take 15 mg by mouth once daily as needed. Take 1 tablet by francis th once daily as needed. methocarbamol 750 mg oral tablet (20 sources) Muscle Relaxant Start: take 1 tablet by mouth every six hours as needed methocarbamol (ROBAXIN) 750 mg tablet Take 1 tablet by mouth four times a day as needed. 120 tablet 2 06/07/2023 Active Start: 11-10-2022 End: 05-13-2023 take 1 tablet by mouth every six hours as needed methocarbamol (ROBAXIN) 750 mg tablet Take 1 tablet by mouth four times a day as needed. 120 tablet 2 05/14/2023 Active Start: 03-16-2022 End: 09-12-2022 take 1 tablet by mouth every six hours as needed methocarbamol (ROBAXIN) 750 mg tablet Take 1 tablet by mouth four times daily as needed. 120 tablet 2 08/13/2022 Active Start: 05-23-2018 take 750 mg by mouth three times daily Methocarbamol Active 750 MG PO THREE TIMES A DAY May 22, 2018 11:00pm Start: 09-10-2016 take 1 tablet by francis th every six hours as needed methocarbamol (ROBAXIN) 750 mg tablet 1 tablet four times daily as needed. 0 09/10/2016 Active Comment on above: 1 tablet four times daily as needed. Take by mouth. Take 1 tablet by francis th four times daily as needed. Take 1 tablet by francis th four times a day as needed. naloxone hydrochloride 40 mg/ml nasal spray (20 sources) Opioid Antagonist Start: 02-16-2022 naloxone 4 mg/actuation nasal spray (NARCAN) Use 1 spray in one nostril as needed for overdose. May repeat every 2 to 3 min in alternating nostrils until medical assistance is available 1 Each 0 02/16/2022 Active Start: 01-21-2022 End: 02-11-2022 naloxone 4 mg/actuation nasa l spray (NARCAN) Use 1 spray in one nostril as needed for overdose. May repeat every 2 to 3 min in alternating nostrils until medical assistance is available 1 Each 0 01/21/2022 02/11/2022 Discontinued Comment on above: Use 1 spray in one n ostril as needed for overdose. May repeat every 2 to 3 min in alternating nostrils until medical assistance is available OXcarbazepine 600 mg oral tablet (20 sources) Anti-epileptic Agent Start: 01-09-20 take 1 tablet by mouth once daily at bedtime OXcarbazepine (TRILEPTAL) 600 mg tablet Take 600 mg by mouth daily at bedtime. 0 01/08/2022 Active Comment on above: Take 600 mg by mouth daily at bedtime. oxyCODONE hydrochloride 15 mg oral tablet (20 sources) Opioid Agonist Start: 05-28-20 End: 06-20-20 take 1 tablet by mouth four times daily as needed for pain oxyCODONE (ROXICODONE) 15 mg immediate release tablet Indications: Chronic pain syndrome Take 1 tablet by mouth four times a day as needed for pain for up to 20 days. 80 tablet 0 05/31/2023 Active Start: 05-28-2022 End: 05-22-2022 oxyCODONE (ROXICODONE) 15 mg immediate release tablet Indications: Chronic pain syndrome Take 1 tablet by mouth four times daily as needed for pain for up to 30 days. Do not start before May 28, 2022. 120 tablet 0 05/28/2022 05/22/2022 Discontinued Start: 02-27-2022 End: 06-27-2022 oxyCODONE (ROXICODONE) 15 mg immediate release tablet Indications: Chronic pain syndrome Take 1 tablet by mouth four times daily as needed for pain for up to 30 days. Do not start before May 28, 2022. 120 tablet 0 05/28/2022 06/27/2022 Active Start: 02-27-2022 End: 02-16-2022 oxyCODONE (ROXICODONE) 15 mg immediate release tablet Indications: Chronic pain syndrome Take 1 tablet by mouth four times daily as needed for up to 30 days. Do not start before February 27, 2022. 120 tablet 0 02/27/2022 02/16/2022 Discontinued Start: 07-25-2018 End: 03-29-2022 take 15 mg by mouth four times daily as needed Oxycodone Active 15 MG PO 4 TIMES DAILY NEEDED July 25, 2018 12:00am Start: 05-25-2018 End: 06-01-2018 take 5-10 mg by mouth every four hours as needed Oxycodone Discontinued 5 - 10 MG PO EVERY 4 HOURS NEEDED 90 7 May 24, 2018 11:00pm June 01, 2018 12:08am Start: 09-07-2016 End: 01-21-2022 take 1 tablet by mouth every eight hours as needed oxyCODONE IR (ROXICODONE) 15 mg immediate release tablet 1 tablet three times daily as needed. 0 09/07/2016 01/21/2022 Discontinued Start: 05-03-2013 End: 05-06-2013 take 1 tablet by mouth four times daily as needed Oxycodone Hcl (Oxycontin) 30 MG Tab.Er.12h Discontinued 30 MG PO 4 TIMES DAILY NEEDED May 03, 2013 10:31pm May 06, 2013 11:37am Start: 05-03-2013 End: 05-06-2013 take 1 tablet by mouth four times daily as needed Oxycodone (Oxycontin) 30 MG Tab.Er.12h Discontinued 30 MG PO 4 TIMES DAILY NEEDED May 02, 2013 11:00pm May 06, 2013 11:37am Comment on above: 1 tablet three times daily as needed. Take 1 tablet by francis th four times daily as needed for up to 30 days. Do not start before January 28, 2022. Take by mouth. Take 1 tablet by francis th four times daily as needed for up to 30 days. Do not start before February 27, 2022. Take 1 tablet by francis th four times daily as needed for pain for up to 30 days. Do not start before March 29, 2022. Take 1 tablet by francis th four times daily as needed for pain for up to 30 days. Do not start before April 28, 2022. Take 1 tablet by francis th four times daily as needed for pain for up to 30 days. Do not start before May 28, 2022. Take 1 tablet by francis th four times daily as needed for pain for up to 30 days. Do not start before June 27, 2022. Take 1 tablet by francis th four times daily as needed for pain for up to 30 days. Do not start before July 27, 2022. Take 1 tablet by francis th four times daily as needed for pain for up to 30 days. Do not start before August 25, 2022. Take 1 tablet by francis th four times daily as needed for pain for up to 30 days. Do not start before September 22, 2022. Take 1 tablet by francis th four times daily as needed for pain for up to 30 days. Do not start before October 23, 2022. Take 1 tablet by francis th four times daily as needed for pain for up to 30 days. Do not start before November 22, 2022. Take 1 tablet by francis th four times daily as needed for pain for up to 30 days. Do not start before December 22, 2022. Take 1 tablet by francis th four times daily as needed for pain for up to 30 days. Do not start before January 21, 2023. Take 1 tablet by francis th four times daily as needed for pain for up to 30 days. Do not start before February 20, 2023. Take 1 tablet by francis th four times daily as needed for pain for up to 30 days. Do not start before March 22, 2023. Take 1 tablet by francis th four times daily as needed for pain for up to 30 days. Do not start before April 21, 2023. Take 1 tablet by francis th four times a day as needed for pain for up to 10 days. TRANSITION TO DILAUDID FOR POST-OP PAIN CONTROL ON 05/31/23 Do not start before May 21, 2023. Take 1 tablet by francis th four times a day as needed for pain for up to 20 days. Sennosides/Docusate Sodium (1 source) Start: 05-03-20 13 End: 08-18-19 14 Sennosides/Docusate Sodium (Edel-Colace Tablet) 1 EACH Tablet Discontinued 2 EACH PO DAILY May 03, 2013 10:31pm August 18, 2013 2:11pm tadalafil 5 mg oral tablet (17 sources) Phosphodiesterase 5 Inhibitor Start: 01-05-20 23 take 1 tablet by mouth once daily Tadalafil 5 mg tablet Take 5 mg by mouth once daily. 0 01/04/2023 Active Comment on above: Take 5 mg by mouth o nce daily. 1 ml testosterone cypionate 200 mg/ml injection (20 sources) Androgen Start: 04-23-20 17 testosterone cypionate (DEPO-TESTOSTERONE) 200 mg/mL injection 1.5 mL once each week. 3 04/23/2017 Active Comment on above: 1.5 mL once each wee k. zolpidem tartrate 10 mg oral tablet (20 sources) gamma-Aminobutyric Acid-ergic Agonist Start: 04-20-20 17 End: 03-21-20 22 zolpidem (AMBIEN) 10 mg Take by mouth. 0 05/23/2018 Active Comment on above: 1 tablet at bedtime as needed. Take by mouth. Problems Active Problems Problem Classification Problem Date Documented Da te Episodic/Chronic Essential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 appropriate. Skin: Skin color, texture, turgor normal, no rashes or lesions. Fentanyl patch in upper right quadrant of abdomen Pulm: no conversational shortness of breath or cough GI: Abdomen soft and non-tender. Musculoskeletal: Unable to toe and heel raise on left due to fusion in ankle/foot. Negative toe and heel rasie on right. Positive knee bend. Lumbar range of motion with mild to moderate restriction due to pain with all motion.Positive straight leg raise from sitting position on right.Negative left Positive Fabere sign on right. Negative on left Muscle strength 5/5 quad muscles bilaterally ASSESSMENT: (M51.16) Lumbar disc herniation with radiculopathy (M47.816) Lumbar spondylosis (G89.4) Chronic pain syndrome (Z79.899) High risk medication use PLAN: Continue Oxycodone. These medications helps patient perform ADL, interact with family and friends. No misuse or aberrant behaviors detected. OARRS reviewed and consistent. UDS reviewed and consistent Continue fentanyl 25mcg/HR change every 48hours Continue Gabapentin Continue Lidoderm patches. Continue TENS use Continue Robaxin. Continue mobic Order physical therapy for lower back 16-18 sessions Consider ordering new CT lumbar spine with IV contrast Follow-up in 3 months The above plan and management options were discussed at length with the patient. The patient is in agreement with the above and verbalized understanding. Mone Thorne APRN.PERSONAL CARE ASSISTANT January 11, 2023 Mone Thorne APRN.PERSONAL CARE ASSISTANT 01/11/2023 9:52 AM Addendum Continue Oxycodone. These medications helps patient perform ADL, interact with family a (more content not included)... [facility] OPERATIVE NOon 11-19-2022 OPERATIVE NO HNO ID: [id number] Author: Moody Rodriguez DO Service: Pain Management Author Type: Physician Type: Operative Report Filed: 11/19/2022 3:42 PM Note Text: Summary: RIGHT Lumbar Selective Nerve Root Block At L5 and S3 PROCEDURE: RIGHT Lumbar Selective Nerve Root Block At L5 and S3 DATE OF SERVICE: November 19, 2022 PREPROCEDURE DIAGNOSIS: 1. Lumbar radiculopathy 2. Degeneration of intervertebral disc of lumbar region POSTPROCEDURE DIAGNOSIS: same ALLERGIES: Patient has no known allergies. ANESTHESIA: local COMPLICATIONS: none CONSENT: Risks of the procedure including but not limited to bleeding, infection, nerve damage, seizure, abscess formation, hematoma formation, headache, failure of the pain to improve and potential worsening of the pain, were explained in full to the patient who verbalized understanding and wishes to proceed with the injection at this time. Written informed consent was thereby obtained. BRIEF HISTORY: see chart DESCRIPTION OF PROCEDURE: After written informed consent was obtained, the patient was taken to the operating room and placed in the prone position. The patient was prepped and draped in a sterile fashion with ChloroPrep swabs. The skin and subcutaneous tissues were infiltrated with 3-6 ml 0.25% Marcaine using a 25 gauge 1.5 inch needle. A 22 gauge 3.5 inch needle was advanced under fluoroscopic guidance in the oblique view into right L5 neural foramen. 1 ml of Isovue M-200 contrast was injected after needle placement was confirmed with fluoroscopy in the anterior-posterior and lateral views. The contrast delineated the L5 nerve root and epidural space. After negative aspiration 3 ml 0.25% Marcaine mixed with Celestone 6 mg was slowly injected. A 22 gauge 3.5 inch needle was advanced under fluoroscopic guidance in the oblique view into right S3 neural foramen. 4 ml of Isovue M-200 contrast was injected after needle placement was confirmed with fluoroscopy in the anterior-posterior and lateral views. The contrast delineated the S3 nerve root and epidural space. After negative aspiration 3 ml 0.25% Marcaine mixed with Celestone 12 mg was slowly injected. The patient tolerated the procedure well, and all needles were removed intact. Hemostasis was maintained, and there were no paresthesias or complications. After a period of observation during which the patient's vital signs remained stable, the patient was discharged with supervision to home in good condition. The documentation for this encounter was entered by [employer] medical device, for Dr. Moody Rodriguez on November 19, 2022. I, Dr. Moody Rodriguez, personally performed the services described in this documentation. All medical record entries made by the scribe were at my direction and in my presence. I have reviewed the chart and discharge instructions and agree that the record reflects my personal performance and is accurate and complete. Electronically Signed: Dr. Rodriguez. November 19, 2022. [facility] XR FLUOROSCOPYon 11-19-2022 XR FLUOROSCOPY * * *Final Report* * * DATE OF EXAM: Nov 19 2022 3:41PM X [id number] - XR FLUOROSCOPY / PROCEDURE REASON: LUMBAR DISC HERNIATION WITH RADICULOPATHY * * * * Physician Interpretation * * * * XR FLUOROSCOPY Ordering Physician: MOODY RODRIGUEZ FLUOROSCOPY AND RADIOGRAPHS UTILIZED IN PAIN MANAGEMENT Clinical Statement: Lumbar disc herniation with radiculopathy FINDINGS: 34.3 seconds fluoroscopy time utilized. A total of 3 images were obtained during pain management procedure IMPRESSION: Documentation of fluoroscopy and radiographs utilized in pain management. Please see clinician's report for complete details. Optical Laboratory Mechanic: TORREY Transcribe Date/Time: Nov 19 2022 3:53P Dictated by : ANDREAS GREENE MD This examination was interpreted and the report reviewed and electronically signed by: ANDREAS GREENE MD on Nov 19 2022 3:54PM EST [id number] [facility] CNOVon 10-13-2022 CNOV Office Visit ([facility] ) ELIZA LOWE ([id number]) 1965 M Date Time Provider Department 10/13/22 3:30 PM MOODY RODRIGUEZ During your visit today, we recorded the following information about you: Pulse Respiration Blood pressure Weight 74/minute 19/minute 161/97 97.5 kg Height 1.829 m Moody Rodriguez DO 10/14/2022 6:57 AM Signed PROCEDURE: Trigger point injection at RIGHT GLUTEAL MM. AND LUMBAR PARASPINAL MM. GROUP . DATE OF SERVICE: October 13, 2022 PREPROCEDURE DIAGNOSIS: 1. MYOFASCIAL PAIN SYNDROME POSTPROCEDURE DIAGNOSIS: 1. SAME ANESTHESIA: NONE COMPLICATIONS: NONE CONSENT: Risks of the procedure including bleeding, infection, nerve damage, seizure, abscess formation, hematoma formation, headache, failure of the pain to improve and potential worsening of the pain, were explained in full to the patient who verbalized understanding and wishes to proceed with the injection at this time. Written informed consent was thereby obtained. BRIEF HISTORY: SEE TODAY'S NOTE 10/13/22 DESCRIPTION OF PROCEDURE: After informed consent was obtained, the patient was taken to the procedure room and placed in the prone position. The patient's muscle groups, described above, were identified and the tender trigger points within the muscles were marked with surgical pen. The muscle groups were then prepped and draped in sterile fashion with chloroprep swabs . A needle was attached to a syringe containing 10 ml 0.25% Marcaine mixed with Toradol 30 mg . The tip of the needle was then advanced into the belly of the taut muscle band (trigger point) identified previously and repositioned such that the myofascial pain was maximal. After negative aspiration, a total of 10 ml 0.25% Marcaine mixed withToradol 30 mg of the above solution was injected into the previously identified muscle groups. The patient tolerated the procedure well and all needles were removed intact. The patient?s vitals were monitored for an appropriate time interval and remained stable. DO Moody Jhaveri DO 10/14/2022 6:57 AM Signed DATE: October 13, 2022 Chief Complaint: LBP History of Present Illness: Eliza Lowe is a 57 year old male being seen at [facility] for a evaluation and/or management of their chronic pain. Patient was last seen in the office on 05/06/2022 by Mone Thorne NP, and the plan of care was as follows Continue Oxycodone. These medications helps patient perform ADL, interact with family and friends. No misuse or aberrant behaviors detected. OARRS reviewed and consistent. UDS reviewed and consistent Continue fentanyl 25mcg/HR change every 48hours Continue Gabapentin Continue Lidoderm patches. Continue TENS use Continue Robaxin. Continue mobic PA and schedule right lumbar SNRT BLK L5 S1 Last done 03/05/22 with 80% relief until recently. Denied any falls. Epps the injection in October was the best Denies signs or symptoms or heart attack or stroke. Instructed to check BP later today and call PCP if still elevated. Follow-up in 2-3 months in office The patient had a right Lumbar selective nerve root block at L5 and S1 on 08/20/2022 with 0% relief. He said right after the last injection, the pain got worse. He said previously he would feel instant relief after the injection in his legs and feet. He is taking the oxycodone and fentanyl patches as prescribed along with the TENS unit and the Lidoderm patches. The patient gave verbal consent to have a IM Toradol injection in the office today for his pain. The patient denies any new diagnoses, hospital visits or ER visits. I reviewed the fluoroscopy images with the patient from his last injection. It appears that the S1 nerve root was not clearly outlined with contrast on the last procedure which may indicate poor neurovascular uptake. This might explain why he didn't notice a difference with the last procedure. His has noticed a mm. spasm along the right gluteal mm. She has been massaging this area ever since the injection which has helped. Pain level: 7.5-8/10 States had 80% relief until recently. Denies any ED visits or hospitalizations since last office visit Reports pain worse with bending, turning, walking, sitting, weather changes Reports pain better with injections and medications Describes pain in lower back constant ache that is at times stabbing in right butt States pain radiates to right butt and down outside of leg to foot more consistently Feels like stormy up right side of butt Denies falls. Denies any issues with bowels or bladder. Denies nausea or vomiting Denies dizzines Denies headaches Last UDS: Consistent No results found for: SUMM Summary Report (Summary) Date Value Ref Range Status (more content not included)... [facility] Ly 09-10-2022 BALJIT Telephone ([facility]) ELIZA LOWE ([id number]) 1965 M Date Time Provider Department 09/10/22 MONE THORNE During your visit today, we recorded the following information about you: Naomi Shoemaker RN 09/10/2022 1:29 PM Signed Pt is requesting a refill of Fentanyl, she was seen last on 05/06/22, no showed on 08/06/22 and scheduled for 09/28/22. Please advise. Naomi Shoemaker RN September 10, 2022 1:29 PM Mone Thorne APRN.PERSONAL CARE ASSISTANT 09/10/2022 2:20 PM Signed The following approved medication requests have been transmitted electronically. Requested Prescriptions Signed Prescriptions Disp Refills fentaNYL (DURAGESIC) 25 mcg/hr 15 Patch 0 Sig: Apply 1 Patch as directed every 48 hours for 30 days. Do not start before September 16, 2022. Authorizing Provider: MONE THORNE oxyCODONE (ROXICODONE) 15 mg immediate release tablet 120 tablet 0 Sig: Take 1 tablet by mouth four times daily as needed for pain for up to 30 days. Do not start before September 22, 2022. Authorizing Provider: MONE THORNE APRN.PERSONAL CARE ASSISTANT Allergies As of Date: 09/10/2022 (No Known Allergies) Date Reviewed: 08/20/2022 Reviewed by: Kenia Schaefer MA - Fully Assessed Reason for Visit: Medication Problem [65] Visit Diagnosis:Chronic pain syndrome [G89.4] Order(s):[START ON 09/16/2022] fentaNYL (DURAGESIC) 25 mcg/hrApply 1 Patch as directed every 48 hours for 30 days. Do not start before September 16, 2022.Disp: 15 PatchRfl: 0 [START ON 09/22/2022] oxyCODONE (ROXICODONE) 15 mg immediate release tabletTake 1 tablet by mouth four times daily as needed for pain for up to 30 days. Do not start before September 22, 2022.Disp: 120 tabletRfl: 0 Prescriptions as of 09/10/2022 - fentaNYL (DURAGESIC) 25 mcg/hr Apply 1 Patch as directed every 48 hours for 30 days. Do not start before September 16, 2022. - oxyCODONE (ROXICODONE) 15 mg immediate release tablet Take 1 tablet by mouth four times daily as needed for pain for up to 30 days. Do not start before September 22, 2022. - gabapentin (NEURONTIN) 600 mg tablet Take 1 tablet by mouth four times daily for 30 days. Do not start before August 25, 2022. - methocarbamol (ROBAXIN) 750 mg tablet Take 1 tablet by mouth four times daily as needed. - meloxicam (MOBIC) 15 mg tablet Take 1 tablet by mouth once daily as needed. - lidocaine (LIDODERM) 5 % Apply 1 Patch as directed as directed. Apply to affected areas 12 hours on and 12 hours off - BD LUER-EITAN SYRINGE 3 mL 22 gauge x 1 Use to inject testosterone weekly - FLUoxetine (PROZAC) 40 mg capsule Take 40 mg by mouth once daily. - naloxone 4 mg/actuation nasal spray (NARCAN) Use 1 spray in one nostril as needed for overdose. May repeat every 2 to 3 min in alternating nostrils until medical assistance is available - aspirin 325 mg tablet Take by mouth. - desonide (DESOWEN) 0.05 % ointment Apply 1 application topically to affected area 2 times per day - OXcarbazepine (TRILEPTAL) 600 mg tablet Take 600 mg by mouth daily at bedtime. - zolpidem (AMBIEN) 10 mg Take by mouth. - testosterone cypionate (DEPO-TESTOSTERONE) 200 mg/mL injection 1.5 mL once each week. - fluticasone (FLONASE) 50 mcg/actuation nasal spray Use 2 Sprays in each nostril once daily. As needed - Amphetamine-Dextroamphe tamine (ADDERALL) 30 mg tablet 1 tablet once daily. - buPROPion XL (WELLBUTRIN XL) 300 mg 24 hr tablet Take 300 mg by mouth once daily. - ALPRAZolam (XANAX) 0.5 mg tablet Take 0.5 mg by mouth twice daily. - albuterol HFA (PROAIR HFA) 90 mcg/actuation inhaler Inhale 2 Puffs as instructed. - lisinopril (PRINIVIL) 5 mg tablet Take 1 tablet by mouth once daily. Problem List As Of Date 09/10/2022 Noted Resolved SHORTNESS OF BREATH [R06.02] JOINT PAIN-UNSPEC [M25.50] Injury of spleen [S36.00XA] 05/12/2006 Lumbar Disc Herniation with Radiculopathy [M51.*11/07/2009 Incisional hernia [K43.2] 05/07/2011 Umbilical hernia [K42.9] 05/07/2011 Unspecified aftercare [Z51.89] 07/06/2011 Primary localized osteoarthrosis, pelvic region*07/06/2014 Lumbar spondylosis [M47.816] 05/05/2016 HTN (hypertension) [I10] 05/06/2016 Lumbosacral neuritis [M54.17] 05/14/2017 Pseudoarthrosis of lumbar spine [S32.009K] 07/30/2017 Radiculopathy, lumbar region [M54.16] 07/30/2017 Benign essential hypertension [I10] 04/01/2022 Chronic pain disorder [G89.4] 01/01/2016 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 [facility] XR FLUOROSCOPYon 08-20-2022 XR FLUOROSCOPY * * *Final Report* * * DATE OF EXAM: Aug 20 2022 3:23PM [id number] - XR FLUOROSCOPY / PROCEDURE REASON: LUMBAR DISC HERNIATION WITH RADICULOPATHY * * * * Physician Interpretation * * * * XR FLUOROSCOPY Ordering Physician: MOODY RODRIGUEZ 08/20/2022 3:23 PM LUMBOSACRAL FLUOROSCOPY Clinical Statement: Radiculopathy FINDINGS: 24 seconds fluoroscopy time was utilized by Dr. Rodriguez. 4 C-arm images were obtained below or lumbar spine and sacrum. IMPRESSION: 24 seconds fluoroscopy time utilized by Dr. Rodriguez. Optical Laboratory Mechanic: PSCAmbrose Transcribe Date/Time: Aug 20 2022 3:27P Dictated by : OMID PACE MD This examination was interpreted and the report reviewed and electronically signed by: OMID PACE MD on Aug 20 2022 3:28PM EST [id number] [facility] CNCOon 08-06-[address] [facility] BRIEF OP NOTon 07-16-2022 BRIEF OP NOT HNO ID: [id number] Author: Moody Rodriguez DO Service: Pain Management Author Type: Physician Type: Brief Op Note Filed: 08/20/2022 3:23 PM Note Text: Summary: RIGHT Lumbar Selective Nerve Root Block At L5 and S1. PROCEDURE: RIGHT Lumbar Selective Nerve Root Block At L5 and S1. DATE OF SERVICE: August 20, 2022 PREPROCEDURE DIAGNOSIS: 1. Lumbar radiculopathy 2. Degeneration of intervertebral disc of lumbar region POSTPROCEDURE DIAGNOSIS: same ALLERGIES: Patient has no known allergies. ANESTHESIA: local COMPLICATIONS: none CONSENT: Risks of the procedure including but not limited to bleeding, infection, nerve damage, seizure, abscess formation, hematoma formation, headache, failure of the pain to improve and potential worsening of the pain, were explained in full to the patient who verbalized understanding and wishes to proceed with the injection at this time. Written informed consent was thereby obtained. BRIEF HISTORY: see chart DESCRIPTION OF PROCEDURE: After written informed consent was obtained, the patient was taken to the operating room and placed in the prone position. The patient was prepped and draped in a sterile fashion with ChloroPrep swabs. The skin and subcutaneous tissues were infiltrated with 3 ml 0.25% Marcaine using a 25 gauge 1.5 inch needle. A 22 gauge 3.5 inch needle was advanced under fluoroscopic guidance in the oblique view into right L5 neural foramen. 1 ml of Isovue M-300 contrast was injected after needle placement was confirmed with fluoroscopy in the anterior-posterior and lateral views. The contrast delineated the L5 nerve root and epidural space. After negative aspiration 2 ml 0.25% Marcaine mixed with Celestone 6 mg was slowly injected. A 22 gauge 3.5 inch needle was advanced under fluoroscopic guidance in the oblique view into right L5 neural foramen. 1 ml of Isovue M-300 contrast was injected after needle placement was confirmed with fluoroscopy in the anterior-posterior and lateral views. The contrast delineated the L5 nerve root and epidural space. After negative aspiration 2 ml 0.25% Marcaine mixed with Celestone 6 mg was slowly injected. The patient tolerated the procedure well, and all needles were removed intact. Hemostasis was maintained, and there were no paresthesias or complications. After a period of observation during which the patient's vital signs remained stable, the patient was discharged with supervision to home in good condition. The documentation for this encounter was entered by arron Joyce scribe, for Dr. Moody Rodriguez on August 20, 2022 I, Dr. Moody Rodriguez, personally performed the services described in this documentation. All medical record entries made by the scribe were at my direction and in my presence. I have reviewed the chart and discharge instructions and agree that the record reflects my personal performance and is accurate and complete. Electronically Signed: Dr. Rodriguez. August 20, 2022 [facility] XR FLUOROSCOPYon 03-05-2022 [facility] FLUOROSCOPY IN OR/PAIN MGTon 11-20-2021 FLUOROSCOPY IN OR/PAIN MGT FLUOROSCOPY IN OR/PAIN MGT Ordering Physician: Moody Rodriguez, DO FLUOROSCOPY Clinical Statement: Lumbar radiculopathy Comparison: Fluoroscopic images 06/12/2021 FINDINGS: Four spot fluoroscopic images were saved demonstrating lumbosacral spine needle placement. A total of 58.6 seconds fluoroscopy time was utilized. Please see the ordering clinician's report for full details. IMPRESSION: Documentation of fluoroscopy. This report was electronically signed by Santo Knox MD 11/20/2021 3:44 PM Reported By: SANTO KNOX MD Signed By: SANTO KNOX MD [facility] [place] FLUOROSCOPY IN OR/PAIN MGTon 06-12-2021 FLUOROSCOPY IN OR/PAIN MGT FLUOROSCOPY FOR NEEDLE GUIDANCE: Clinical Statement: Lumbar radiculopathy FINDINGS: 27.7 seconds of fluoroscopy time was utilized by Dr. Rodriguez. 2 fluoroscopic spot images were acquired of the lumbar sacral spine. Additional information can be found in Dr. Rodriguez' report. IMPRESSION: Fluoroscopy provided to Dr. Rodriguez. This report was electronically signed by Louie Dye MD 06/12/2021 4:23 PM Reported By: LOUIE DYE M.D. Signed By: LOUIE DYE M.D. [facility]en ce[facility] in Unspecified specimen by KERVIN with probe detectionon 07-10-2020 SARS coronavirus RNA KERVIN+probe Ql (Unsp spec) Not Detected Not Detected [facility] Work Phone: Comment on above: This nucleic acid am plification test was developed and itsperformance characteristics determined by [facility]. Nucleic acid amplification tests include PCRand TMA. This test has not been FDA cleared or approved.This test has been authorized by FDA under an Emergency UseAuthorization (EUA). This test is only authorized forthe duration of time the declaration that circumstancesexist justifying the authorization of the emergency use ofin vitro diagnostic tests for detection of SARS-CoV-2 virusand/or diagnosis of COVID-19 infection under [id number](b)(1) of the Act, 21 U.S.C. 360bbb-3(b) (1), unless theauthorization is terminated or revoked sooner.When diagnostic testing is negative, the possibility of afalse negative result should be considered in the contextof a patient's recent exposures and the presence ofclinical signs and symptoms consistent with COVID-19. Anindividual without symptoms of COVID-19 and who is notshedding SARS-CoV-2 virus would expect to have a negative(not detected) result in this assay. Absolute lymphocyte counton 05-31-2020 Lymphocytes Auto (Unsp spec) [#/Vol] 3.05 10*3/uL 0.83-4.51 [facility] Work Phone: Automated blood hematocrit ( percentage)on 05-31-2020 Hematocrit (Bld) [Volume fraction] 47.8 % 40-54 [facility] Work Phone: Basophil percentageon 2019 Basophils/100 WBC (Unsp spec) 0.4 % 0-1 [facility] Work Phone: Blood erythrocytes count (nu mber/volume)on 05-31-2020 RBC (Bld) [#/Vol] 4.96 M/mm3 4.6-6.2 [facility] Work Phone: Blood hemoglobin measurement (mass/volume)on 05-31-2020 Hemoglobin (Bld) [Mass/Vol] 16.0 g/dL 13.0-16.5 [facility] Work Phone: Blood platelet mean volumeon 05-31-2020 Platelet mean volume (Bld) [Entitic vol] 11.4 fL 6.2-12.0 [facility] Work Phone: Free testosterone percentage on 05-31-2020 Testosterone Free/Testosterone.to stacy [Mass fraction] 3.05 % [facility] Work Phone: Comment on above: Performed at: [address] [id number] Director: Rick Dugan PhD, Phone: [phone] at: [facility] [id number] Director: Dulce Kirkland MD, Phone: [phone] Hematologyon 05-31-2020 Lymphocytes/100 WBC (Bld) 31.6 % 19-41 [facility] Work Phone: MCH (RBC) [Entitic mass] 32.3 pg 27.0-32.0 [facility] Work Phone: Monocytes/100 WBC (Bld) 14.4 % 0-10 [facility] Work Phone: Neutrophils/100 WBC (Bld) 53.1 % 47-70 [facility] Work Phone: Lymphocyte percentageon Bilirubin Ql (U) 0.40 mg/dL 0.20-1.00 [facility] Work Phone: Comment on above: For patients on eltr ombopag therapy, use of [facility] TBIL is not recommended. Chloride [Moles/Vol] 105 mmol/L 98-107 [facility] Work Phone: Cholesterol [Mass/Vol] 215 mg/dL <200 [facility] Work Phone: Comment on above: <200 mg/dL Desirable 200-240 mg/dL Borderline >240 mg/dL High Risk Eosinophils/100 WBC (Bld) 0.2 % 0-5 [facility] Work Phone: Glucose [Mass/Vol] 93 mg/dL 74-106 [facility] Work Phone: Comment on above: Please note revised GLUCOSE reference range effective 2017. Neutrophils (Bld) [#/Vol] 5.1 10*3/uL 2.0-7.7 [facility] Work Phone: Potassium [Moles/Vol] 4.1 mmol/L 3.5-5.1 [facility] Work Phone: Protein [Mass/Vol] 7.3 g/dL 6.4-8.2 [facility] Work Phone: Sodium [Moles/Vol] 142 mmol/L 136-145 [facility] Work Phone: Testosterone [Mass/Vol] 466 ng/dL [facility] Work Phone: Comment on above: Adult male reference interval is based on a population ofhealthy nonobese males (BMI <30) between 19 and 39 yearsold. selina Marie.al. JCEM 2017,102;[id number]. PMID:[id number]. Triglyceride [Mass/Vol] 140 mg/dL [facility] Work Phone: Comment on above: The drugs N-Acetylcy steine and Metamizole may falsely depress this assay.Serum Triglycerides Reference Interval Normal <150 mg/dL Borderline high 150 - 199 mg/dL High 200 - 499 mg/dL Very High > or = 500 mg/dL WBC (Bld) [#/Vol] 9.7 10*3/uL 4.4-11.0 [facility] Work Phone: MCHC [Mass/volume] by [employer]oma artis counton 05-31-2020 MCHC (RBC) [Mass/Vol] 33.5 g/dL 32-36 [facility] Work Phone: MCV (mean corpuscular volume ) determinationon 05-31-2020 MCV (RBC) [Entitic vol] 96.4 fL 80-94 [facility] Work Phone: Metabolic Panelon 05-31-2020 ALP [Catalytic activity/Vol] 81 U/L 45-117 [facility] Work Phone: ALT [Catalytic activity/Vol] 40 U/L 16-61 [facility] Work Phone: CO2 [Moles/Vol] 30.0 mmol/L 21.0-32.0 [facility] Work Phone: Urea nitrogen/Creatinine [Mass ratio] 11.0 RATIO 10-20 [facility] Work Phone: Otheron 05-31-2020 Erythrocyte distribution width (RBC) [Entitic vol] 53.1 fL 35.1-43.9 [facility] Work Phone: Erythrocyte distribution width (RBC) [Ratio] 15.1 % 11.6-14.6 [facility] Work Phone: Estimated GFR (MDRD) Amer 64 mL/min >60 [facility] Work Phone: Comment on above: GFR Calc Estimated GFR (MDRD) Non-Af Amer 53 mL/min >60 [facility] Work Phone: Comment on above: Non- GFR Calc Globulin (S) [Mass/Vol] 3.6 g/dL 2.2-4.2 [facility] Work Phone: Immature granulocytes/100 WBC (Bld) 0.300 % 0.0-0.9 [facility] Work Phone: Comment on above: IG% - Immature Granu locytes (promyelocytes, myelocytes and metamyelocytes) > 1% indicates that a LEFT SHIFT is Present. Nucleated RBC/100 WBC (Bld) [Ratio] 0 % 0-5 [facility] Work Phone: Prostate Specific Antigen Screen 9.72 ng/mL 0.00-4.00 [facility] Work Phone: Comment on above: This test was perfor med using the TPSA assay method for the[employer] chemistry system. Values obtained with differentassay methods cannot be used interchangably.When changing PSA assays in the course of monitoring apatient, additional sequential testing should be carriedout to confirm baseline values. Platelets bldon 05-31-2020 Platelets (Bld) [#/Vol] 267 10*3/uL 150-450 [facility] Work Phone: Serum or plasma albumin francisco urement (mass/volume)on 05-31-2020 Albumin [Mass/Vol] 3.7 g/dL 3.2-5.0 [facility] Work Phone: Serum or plasma albumin/glob ulin mass ratioon 05-31-2020 Albumin/Globulin [Mass ratio] 1.0 {ratio} 0.9-2.4 [facility] Work Phone: Serum or plasma calcium francisco urement (mass/volume)on 05-31-2020 Calcium [Mass/Vol] 8.4 mg/dL 8.5-10.1 [facility] Work Phone: Serum or plasma cholesterol in HDL measurement (mass/volume)on 05-31-2020 Cholesterol in HDL [Mass/Vol] 61 mg/dL [facility] Work Phone: Comment on above: The drugs N-Acetylcy steine and Metamizole may falsely depress this assay. Reference Range HDL <40 mg/dL Low HDL Cholesterol HDL >or= 60 mg/dL High HDL Cholesterol Serum or plasma cholesterol in LDL measurement (mass/volume)on 05-31-2020 Cholesterol in LDL [Mass/Vol] 126 mg/dL 0-130 [facility] Work Phone: Serum or plasma cholesterol in VLDL measurement (mass/volume)on 05-31-2020 Cholesterol in VLDL [Mass/Vol] 28 mg/dL 5-40 [facility] Work Phone: Serum or plasma creatinine m easurement (mass/volume)on 05-31-2020 Creatinine [Mass/Vol] 1.46 mg/dL 0.70-1.30 [facility] Work Phone: Comment on above: The validity of the calculated GFR & GFRAA in patients over 70 years has not been determined. Clinical correlation is essential. Serum or plasma estradiol (E 2) measurement (mass/volume)on 05-31-2020 E2 [Mass/Vol] 27.8 pg/mL [facility] Work Phone: Comment on above: NORMAL REFERENCE RAN GES FEMALE FOLLICULAR 21.4 - 164.8 pg/mL MID-CYCLE PEAK 49.9 - 367.2 pg/mL LUTEAL 40.2 - 259.0 pg/mL POST-MENOPAUSAL ON MHT <11.0 - 462.1 pg/mL NOT ON MHT <11.0 - 58.3 pg/mL MALE <11.0 - 52.5 pg/mL NOTE:[employer] HAS CONFIRMED THE DRUG FULVETRANT (FASLODEX) MAY CAUSE FALSELY ELEVATED ESTRADIOL RESULTS WHEN USING THIS TEST METHOD. IF PATIENT IS TAKING FULVESTRANT AN ALTERNATIVE METHOD SHOULD BE USED TO DETERMINE ESTRADIOL CONCENTRATION. Serum or plasma testosterone free measurement (mass/volume)on 05-31-2020 Testosterone Free [Mass/Vol] 14.21 ng/dL [facility] Work Phone: Serum or plasma urea nitroge n measurement (mass/volume)on 05-31-2020 Urea nitrogen [Mass/Vol] 16 mg/dL 7-18 [facility] Work Phone: Thin prep Papanicolaou smear with manual screeningon 05-31-2020 Anion gap [Moles/Vol] 7 5-15 [facility] Work Phone: AST [Catalytic activity/Vol] 31 U/L 15-37 [facility] Work Phone: Vital Signs Date Time Vital Sign Value Performing Clinician Savanah nicholson 01-11-2023 09:13-0400 Body weight 96.16 kg Mone [place] RESIDENT BUYER.PERSONAL CARE ASSISTANT Work Phone: [facility] 01-11-2023 09:13-0400 Diastolic blood pressure 83 mm[Hg] [place]one [place] RESIDENT BUYER.PERSONAL CARE ASSISTANT Work Phone: [facility] 01-11-2023 09:13-0400 Heart rate 80 /min [place]one [place] RESIDENT BUYER.PERSONAL CARE ASSISTANT Work Phone: [facility] 01-11-2023 09:13-0400 SaO2% (BldA) [Mass fraction] 96 % [place]one [place] RESIDENT BUYER.PERSONAL CARE ASSISTANT Work Phone: [facility] 01-11-2023 09:13-0400 Systolic blood pressure 122 mm[Hg] [place]one [place] RESIDENT BUYER.PERSONAL CARE ASSISTANT Work Phone: [facility] 10-13-2022 15:22-0400 Body height 182.9 cm Moody Rodriguez DO Work Phone: [facility] 10-13-2022 15:22-0400 Body weight 97.52 kg Moody Rodriguez DO Work Phone: [facility] 10-13-2022 15:22-0400 Diastolic blood pressure 97 mm[Hg] Moody Rodriguez DO Work Phone: [facility] 10-13-2022 15:22-0400 Heart rate 74 /min Moody Rodriguez DO Work Phone: [facility] 10-13-2022 15:22-0400 Respiratory rate 19 /min Moody Rodriguez DO Work Phone: [facility] 10-13-2022 15:22-0400 SaO2% (BldA) [Mass fraction] 96 % Moody Rodriguez DO Work Phone: [facility] 10-13-2022 15:22-0400 Systolic blood pressure 161 mm[Hg] Moody Rodriguez DO Work Phone: [facility] 05-06-2022 15:21-0400 Diastolic blood pressure 101 mm[Hg] [place] RESIDENT BUYER.PERSONAL CARE ASSISTANT Work Phone: [facility] 05-06-2022 15:21-0400 Heart rate 70 /min Mone [place] RESIDENT BUYER.PERSONAL CARE ASSISTANT Work Phone: [facility] 05-06-2022 15:21-0400 SaO2% (BldA) [Mass fraction] 97 % [place] RESIDENT BUYER.PERSONAL CARE ASSISTANT Work Phone: [facility] 05-06-2022 15:21-0400 Systolic blood pressure 164 mm[Hg] Mone [place] RESIDENT BUYER.PERSONAL CARE ASSISTANT Work Phone: [facility] 03-05-2022 14:42-0400 Diastolic blood pressure 70 mm[Hg] Moody Rodriguez DO Work Phone: [facility] 03-05-2022 14:42-0400 Heart rate 79 /min Moody Rodriguez DO Work Phone: [facility] 03-05-2022 14:42-0400 Respiratory rate 15 /min Moody Rodriguez DO Work Phone: [facility] 03-05-2022 14:42-0400 SaO2% (BldA) [Mass fraction] 95 % Moody Rodriguez DO Work Phone: [facility] 03-05-2022 14:42-0400 Systolic blood pressure 121 mm[Hg] Moody Rodriguez DO Work Phone: [facility] 02-11-2022 09:27-0400 Diastolic blood pressure 96 mm[Hg] Mone [place] RESIDENT BUYER.PERSONAL CARE ASSISTANT Work Phone: [facility] 02-11-2022 09:27-0400 Heart rate 63 /min Mone [place] RESIDENT BUYER.PERSONAL CARE ASSISTANT Work Phone: [facility] 02-11-2022 09:27-0400 SaO2% (BldA) [Mass fraction] 94 % [place] RESIDENT BUYER.PERSONAL CARE ASSISTANT Work Phone: [facility] 02-11-2022 09:27-0400 Systolic blood pressure 150 mm[Hg] Mone [place] RESIDENT BUYER.PERSONAL CARE ASSISTANT Work Phone: [facility] Encounters Encounter Date Encounter Type Care Provider Facility Start: 07-07-2023 Telephone encounter Kathy Malik MD Work Phone: Pain Management Comment on above: inquiring about refi lls Start: 06-10-2023 Telephone encounter Moody Meeks Shaq DO Work Phone: Pain Management Comment on above: Patient Update Start: 06-07-2023 End: 06-07-2023 Patient encounter procedure [facility]Radiology, [place] Work Phone: Start: 06-07-2023 End: 06-07-2023 ambulatory [facility] Work Phone: Start: 05-28-2023 Telephone encounter Moody Meeks Shaq DO Work Phone: Pain Management Comment on above: Patient Update (Surg bailey cancelled- needs RX for oxycodone) Start: 05-13-2023 End: 05-13-2023 Orders Only Maxinejanie Meeks Shaq DO Work Phone: Pain Management Comment on above: Chronic pain syndrom e (Primary Dx) Start: 05-11-2023 Refill Moody Henderson DO Work Phone: Pain Management Comment on above: Refill Request Start: 04-26-2023 ambulatory [facility] Facility: [facility] Start: 04-16-2023 Telephone encounter Maxinejanie Meeks Shaq DO Work Phone: Pain Management Comment on above: fill date of gabapen tin Opened In Error Start: 04-13-2023 Refill Moody Jeanna Danitza calzada DO Work Phone: Pain Management Comment on above: Refill Request Start: 04-12-2023 Telephone encounter Moody Rodriguez DO Work Phone: [facility] PAIN MANAGEMENT Comment on above: Scheduling a procedu re Start: 04-06-2023 Telephone encounter Moody Rodriguez DO Work Phone: Pain Management Comment on above: Patient Question; Dawson barber Update Refill Request Start: 04-05-2023 Telephone encounter Mone reyes RESIDENT BUYER.PERSONAL CARE ASSISTANT Work Phone: Pain Management Comment on above: Appointment Start: 03-05-2023 Refill Mone Thorne RESIDENT BUYER.PERSONAL CARE ASSISTANT Work Phone: Pain Management Comment on above: Refill Request Start: 03-02-2023 End: 03-02-2023 Patient encounter procedure [facility]Cat Scan, [facility] Work Phone: Start: 03-02-2023 End: 03-02-2023 ambulatory [facility] Work Phone: Start: 02-04-2023 Refill [place] RESIDENT BUYER.PERSONAL CARE ASSISTANT Work Phone: Pain Management Comment on above: Refill Request Start: 02-02-2023 Refill Moody Henderson DO Work Phone: Pain Management Comment on above: Refill Request Start: 01-11-2023 End: 01-12-2023 ambulatory MONE THORNE Facility:[id number] Start: 01-11-2023 End: 01-11-2023 Office outpatient visit 25 minutes Mone [place] RESIDENT BUYER.PERSONAL CARE ASSISTANT Work Phone: Pain Management Comment on above: Lumbar disc herniati on with radiculopathy; Lumbar spondylosis; Chronic pain syndrome; High risk medication use Start: 01-06-2023 Refill Moody Meeks Danitza calzada DO Work Phone: Pain Management Comment on above: Refill Request Start: 12-07-2022 Refill [place] RESIDENT BUYER.PERSONAL CARE ASSISTANT Work Phone: Pain Management Comment on above: Refill Request Start: 12-01-2022 Refill Mone Zaier RESIDENT BUYER.PERSONAL CARE ASSISTANT Work Phone: Pain Management Comment on above: Refill Request Start: 11-19-2022 End: 11-19-2022 ambulatory [facility] Facility:[facility] Start: 11-19-2022 End: 11-19-2022 Patient encounter procedure [facility] Work Phone: Start: 10-30-2022 Refill [place]one [place] RESIDENT BUYER.PERSONAL CARE ASSISTANT Work Phone: Pain Management Comment on above: Refill Request Start: 10-13-2022 End: 10-14-2022 ambulatory MOODY RODRIGUEZ Facility:[id number] Start: 10-13-2022 End: 10-13-2022 Patient encounter procedure Moody Rodriguez DO Work Phone: Pain Management Comment on above: Chronic pain syndrom e (Primary Dx); Lumbar disc herniation with radiculopathy; Radiculopathy, lumbar region; Degeneration of intervertebral disc of lumbar region; Generalized osteoarthritis; High risk medication use; Lumbar postlaminectomy syndrome; DDD (degenerative disc disease), lumbar; Lumbar radiculopathy; Myofascial pain syndrome Start: 09-10-2022 Telephone encounter Mone Serna eld RESIDENT BUYER.PERSONAL CARE ASSISTANT Work Phone: Pain Management Comment on above: Medication Problem Start: 08-24-2022 Refill [place] RESIDENT BUYER.PERSONAL CARE ASSISTANT Work Phone: Pain Management Comment on above: Refill Request Start: 08-20-2022 End: 08-20-2022 ambulatory MOODY RODRIGUEZ Facility:[id number] Start: 08-13-2022 Refill [place] RESIDENT BUYER.PERSONAL CARE ASSISTANT Work Phone: Pain Management Comment on above: Refill Request Start: 07-23-2022 Refill [place] RESIDENT BUYER.PERSONAL CARE ASSISTANT Work Phone: Pain Management Comment on above: Refill Request Start: 07-13-2022 Refill Mone [place] RESIDENT BUYER.PERSONAL CARE ASSISTANT Work Phone: Pain Management Comment on above: Refill Request Start: 06-23-2022 ambulatory [facility] Facility: [facility] Start: 06-12-2022 Refill [place]one [place] RESIDENT BUYER.PERSONAL CARE ASSISTANT Work Phone: Pain Management Comment on above: Refill Request Start: 05-22-2022 Refill [place]one [place] RESIDENT BUYER.PERSONAL CARE ASSISTANT Work Phone: Pain Management Comment on above: Refill Request Start: 05-06-2022 End: 05-06-2022 Office outpatient visit 25 minutes Mone [place] RESIDENT BUYER.PERSONAL CARE ASSISTANT Work Phone: Pain Management Comment on above: Lumbar disc herniati on with radiculopathy (Primary Dx); Radiculopathy, lumbar region; Degeneration of intervertebral disc of lumbar region; Generalized osteoarthritis; Chronic pain syndrome; High risk medication use Start: 04-27-2022 Refill Mone Thorne APRN.PERSONAL CARE ASSISTANT Work Phone: Pain Management Comment on above: Refill Request Start: 03-21-2022 Chart abstracting Mone henderson RESIDENT BUYER.PERSONAL CARE ASSISTANT Work Phone: Pain Management Start: 03-18-2022 Telephone encounter Mone reyes APRN.PERSONAL CARE ASSISTANT Work Phone: Pain Management Comment on above: Medication Problem Start: 03-05-2022 End: 03-05-2022 Subsequent hospital visit by physician Moody Rodriguez DO Work Phone: MR PAIN MANAGEMENT Comment on above: Postlaminectomy synd wanda, lumbar region [M96.1] Start: 02-24-2022 Refill Mone Thorne APRN.PERSONAL CARE ASSISTANT Work Phone: Pain Management Comment on above: Refill Request Start: 02-16-2022 Telephone encounter Mone reyes APRN.PERSONAL CARE ASSISTANT Work Phone: Pain Management Comment on above: Medication Problem Start: 02-11-2022 End: 02-11-2022 Office outpatient visit 25 minutes Mone Thorne APRN.PERSONAL CARE ASSISTANT Work Phone: Pain Management Comment on above: Lumbar postlaminecto my syndrome (Primary Dx); DDD (degenerative disc disease), lumbar; Lumbar radiculopathy; Chronic pain syndrome; Myofascial pain syndrome; High risk medication use Start: 01-21-2022 Refill Mone Thorne APRN.PERSONAL CARE ASSISTANT Work Phone: Pain Management Comment on above: Refill Request Start: 01-13-2022 Refill Mone Thorne APRN.PERSONAL CARE ASSISTANT Work Phone: Pain Management Comment on above: Refill Request Start: 12-29-2021 End: 12-29-2021 Subsequent hospital visit by physician Mone Thorne APRN.PERSONAL CARE ASSISTANT Work Phone: [facility] Comment on above: FOLLOW UP Start: 11-20-2021 End: 11-20-2021 Subsequent hospital visit by physician Moody Rodriguez Work Phone: [facility] Comment on above: M54.16 Start: 07-10-2020 End: 07-10-2020 Patient encounter procedure [facility] Start: 05-31-2020 Patient encounter procedure [facility]Laboratory, Alethea Avila [facility] Procedures Date Procedure Procedure Detail Performing Clinician Start: 06-07-2023 X-ray of both feet Start: 03-02-2023 MRI of lower extremity Start: 04-01-2022 H/O splenectomy History of splenecto my [facility] RESIDENT BUYER.PERSONAL CARE ASSISTANT Work Phone: Start: 03-05-2022 Fluoroscopy up to 1 hour physician/qhp time Moody Rodriguez DO Work Phone: Start: 07-08-2017 Adult depression screening assessment Moody Rodirguez Work Phone: Start: 02-03-2010 Lipid 1996 panel - Serum or Plasma Moody Rodriguez DO Work Phone: H/O splenectomy History of splenectomy Plan of Treatment Date Care Activity Detail Author Start: 05-13-2023 End: 08-12-2023 TOXASSURE FLEX 23, URINE TOXASSURE FLEX 23, URINE Lab Routine Chronic pain syndrome Expected: 05/13/2023, Expires: 08/12/2023 [facility] Work Phone: Comment on above: Expected: 05/13/2023 , Expires: 08/12/2023 Start: 03-26-2023 Influenza vaccination C [facility] Start: 2023 RSV Vaccine (1 - 1-d ose 60+ series) RSV Vaccine (1 - 1-dose 60+ series) [facility] Start: 10-13-2022 End: 12-13-2022 TOXASSURE FLEX 23, URINE TOXASSURE FLEX 23, URINE Lab Routine Chronic pain syndrome Lumbar disc herniation with radiculopathy Radiculopathy, lumbar region Expected: 10/13/2022, Expires: 12/13/2022 [facility] Work Phone: Comment on above: Expected: 10/13/2022 , Expires: 12/13/2022 Start: 07-26-2022 [facility] [facility] [facility] Start: 03-26-2022 Influenza vaccination C [facility] Start: 02-11-2022 End: 04-13-2022 DRUG SCR TOXASURE DRUG SCR TOXASURE Lab Routine High risk medication use Expected: 02/11/2022, Expires: 04/13/2022 [facility] Work Phone: Comment on above: Expected: 02/11/2022 , Expires: 04/13/2022 Start: 07-26-2021 DEPRESSION ASSESSMENT DEPRESSION ASS [facility] Start: 05-05-2019 DIABETES SCREEN DIABETES SCREEN [facility] Start: 05-05-2019 Diabetes Screening Diabetes Screenin g [facility] Start: 07-08-2018 Adult depression screening assessment DEPRESSION SCREENING [facility] Start: 2018 PROSTATE CANCER SCREENING DISCUSSION PROSTATE CANCER SCREENING DISCUSSION [facility] Start: 2018 Prostate specific antigen measurement Prostate Cancer Screening Discussion [facility] Start: 02-03-2015 Lipid 1996 panel - Serum or Plasma Lipid Screening [facility] Start: 02-03-2015 Lipid panel Lipid Screening [facility] Start: 02-03-2015 LIPID SCREEN LIPID SCREEN [facility] Start: 2013 SHINGRIX VACCINE (1 of 2) SHINGRIX VACCINE (1 of 2) [facility] Start: 2008 COLOGUARD (FIT-DNA) COLOGUARD (FIT-D NA) [facility] Start: 2008 Colonoscopy COLONOSCOPY [facility] Start: 2008 COLORECTAL CANCER SCREENING COLORECTAL CANCER SCREENING [facility] Start: [address] COLONOGRAPHY [facility] Start: 2008 FECAL OCCULT BLOOD FECAL OCCULT BLOO D [facility] Start: 2008 Screening for malign ant neoplasm of colon [facility] Start: 2008 SIGMOIDOSCOPY SIGMOIDOSCOPY [facility] Start: 1982 Urine microalbumin profile [facility] Start: 1981 ANNUAL PCP TEAM 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 CARLOS DISEASE VISIT ANNUAL PCP TEAM CHRONIC DISEASE VISIT [facility] Start: 1981 BP CONTROLLED (<130/80) BP CONTROLLE D (<130/80) [facility] Start: 1981 HEPATITIS C SCREENING HEPATITIS [facility] Start: 1981 Hepatitis C screening Hepatitis C [facility] Start: 1981 HIV SCREENING HIV SCREENING [facility] Start: 1981 HIV screening HIV Screening [facility] Start: 1968 COVID-19 VACCINE (#1) COVID-19 VACCI NE (#1) [facility] Start: 1968 COVID-19 VACCINE (1) COVID-19 VACCIN E (1) [facility] Start: 1963 COVID-19 VACCINE (#1) COVID-19 VACCI NE (#1) [facility] Start: 1963 HEPATITIS B (1 of 3 - 3-dose series) HEPATITIS B (1 of 3 - 3-dose series) [facility] Injection aa&/strd other peripheral nerve/branch INJECT ANESTH AGENT Procedures Routine Lumbar postlaminectomy syndrome Ordered: 02/11/2022 [facility] Work Phone: Comment on above: Ordered: 02/11/2022 [facility] MR PAIN [facility] Immunizations Immunization Date Immunization Notes Care Provider Job rios 04-29-2006 influenza virus vacc ine, unspecified formulation Moody Rodriguez Work Phone: [facility] Work Phone: 04-29-2006 meningococcal polysaccharide vaccine (MPSV4) Moody Rodriguez Work Phone: [facility] Work Phone: 04-29-2006 pneumococcal polysaccharide vaccine, 23 valent Moody Rodriguez Work Phone: [facility] Work Phone: 04-25-2006 pneumococcal polysaccharide vaccine, 23 valent [facility] Work Phone: 04-25-2006 pneumococcal vaccine , unspecified formulation [facility] Payers Date Payer Category Payer Medicaid [id number] 2022 Self-pay [id number] 2021 Medicaid [facility] MEDICAID [place] [facility] MED[facility] [id number] 2021-Present [phone] [address] [place] [address] Medicaid [id number] 2021 Medicaid [id number] 2021 Medicare [facility] MEDICARE MYC ARE [facility] MEDICARE [id number] 2021-Present [phone] [address] [place] [address] Medicare [id number] 2021 Unknown [id number] 2017 Medicare [employer] [place] [id number] 2017-Present [phone] [address] [place] [address] O [id number] Medicare [id number] Unknown [id number] Unknown [id number] Unknown [id number] Unknown [id number] Unknown [id number] Social History Date Type Detail Facility Start: 07-27-2018 End: 07-27-2018 Tobacco smoking status NHIS Unknown if ever smoked [facility] Start: 1965 Sex Assigned At Male [facility] Start: 04-30-2016 End: 10-13-2022 Tobacco smoking status NHIS Never smoked tobacco [facility] Start: 06-03-2017 End: 06-07-2023 Alcohol intake Current drinker of alcohol (finding) [facility] Start: 07-02-2011 History SDOH Alcohol Comment occassional [facility] Start: 1965 Sex Assigned At Not on file [facility] Start: 12-20-2021 End: 12-30-2021 Exposure to SARS-CoV-2 (event) Unable to assess [facility] Start: 04-30-2016 End: 10-13-2022 Tobacco use and exposure Smokeless tobacco non-user [facility] Start: 02-01-2022 End: 05-06-2022 Exposure to SARS-CoV-2 (event) Not sure [facility] Start: 01-11-2023 End: 06-07-2023 History of Social function [facility] Start: 01-11-2023 End: 06-07-2023 Tobacco use panel [facility] National Score (1-100), lower number is lower risk 77 [facility] Start: 12-12-2020 None [facility] Start: 05-04-2013 Spouse/ Signif icant Other [facility] Start: 12-12-2020 Non-smoker [facility] Medical Equipment Procedure Code Equipment Code Equipment Origin al Text Equipment Identifier Dates Total replacement of knee joint TRIATHLON CRUC RET FEM COMP FDA Start: 05-23-2018 Total replacement of knee joint TRIATHLON CRUC RET FEM COMP FDA Start: 05-23-2018 Total replacement of knee joint TRIATHLON CRUC RET FEM COMP FDA Start: 05-23-2018 Total replacement of knee joint TRIATHLON CRUC RET FEM COMP FDA Start: 05-23-2018 Total replacement of knee joint TRIATHLON CRUC RET FEM COMP FDA Start: 05-23-2018 Total replacement of knee joint TRIATHLON TIBIAL INSERT-CS FDA Start: 05-23-2018 Total replacement of knee joint TRIATHLON TRITAN TIBIAL COMP FDA Start: 05-23-2018 Total replacement of knee joint TRIATHLON TRITANIUM PATELLA FDA Start: 05-23-2018 Total replacement of knee joint TRIATHLON CRUC RET FEM COMP FDA Start: 05-23-2018 Total replacement of knee joint TRIATHLON TIBIAL INSERT-CS FDA Start: 05-23-2018 Total replacement of knee joint TRIATHLON TRITAN TIBIAL COMP FDA Start: 05-23-2018 Total replacement of knee joint TRIATHLON TRITANIUM PATELLA FDA Start: 05-23-2018 FDA Start: 07-25-2018 ASYMMETRIC PATELLA FDA Start: 07-25-2018 ASYMMETRIC PATELLA FDA Start: 07-25-2018 ASYMMETRIC PATELLA FDA Start: 07-25-2018 Drill Neuro 3mm 5230-107-30 - [id number] Start: 12-02-2009 Graft Infuse 20g a Medium Bovine Collagen Rhbmp-2 2x1in Bone Vial Absorbable - [id number] Start: 05-05-2016 Cage Lt-Cage 14m m Titanium 23x17.5x14mm Spinal Lumbar Fusion Device Tapered - [id number] Start: 05-05-2016 Use to inject testosterone weekly Start: 03-09-2022 Comment on above: Use to inject testos terone weekly ASYMMETRIC PATELLA FDA Start: 07-25-2018 CRUCIATE RETAINI NG FEMORAL FDA Start: 07-25-2018 TIBIAL BEARING INSERT-CS FDA Start: 07-25-2018 TIBIAL COMPONENT FDA Start: 07-25-2018 ASYMMETRIC PATELLA FDA Start: 07-25-2018 CRUCIATE RETAINI NG FEMORAL FDA Start: 07-25-2018 TIBIAL BEARING INSERT-CS FDA Start: 07-25-2018 TIBIAL COMPONENT FDA Start: 07-25-2018 Goals Date Patient Goal Desired Activity /State Clinical Notes 01-13-2022 to 07-08-2023 Addendum Note - Kathy Malik MD - 07/08/2023 3:49 PM ESTAddendum Note - Naomi Shoemaker RN - 07/08/2023 3:36 PM ESTTelephone Encounter - Naomi Shoemaker RN - 07/08/2023 3:35 PM EST Note Date & Type Note Facility 07-08-2023 Miscellaneous Notes Addended by: KATHY MALIK on: 07/08/2023 03:49 PM Modules accepted: Orders Addended by: NAOMI SHOEMAKER on: 07/08/2023 03:36 PM Modules accepted: Orders Pt's Jennifer, called back and he would like to continue with the Fentanyl and needs a refillPatient phones requesting refills as follows: Requested Prescriptions Pending Prescriptions Disp Refills fentaNYL (DURAGESIC) 25 mcg/hr 15 Patch 0 Sig: Apply 1 Patch as directed every 48 hours for 30 days. Last UDS: No specialty comments available. Summary Report Date Value Ref Range Status 05/13/2023 FINAL Final Comment: == Ethanol Biomarkers, MS, Ur RFX Opiate Class, MS, Ur RFX Oxycodone Class, MS, Ur RFX Gabapentin, MS, Ur RFX ToxAssure Flex 23, Ur == Test Result Flag Units Drug Present Ethyl Glucuronide 20822 ng/mg creat Ethyl Sulfate 9769 ng/mg creat EtG and EtS are metabolites of ethyl alcohol; EtG may be a fermentation product of glucose, but EtS is not known to be formed by fermentation. Incidental exposure to alcohol may result in detectable levels of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 refills as follows: Requested Prescriptions Pending Prescriptions Disp Refills fentaNYL (DURAGESIC) 25 mcg/hr 15 Patch 0 Sig: Apply 1 Patch as directed every 48 hours for 30 days. Please review and advise. Marilyn Grossman RN documented in this encounter [facility] 05-25-2022 Miscellaneous Notes Formattin g of this note is different from the original. The following approved medication requests have been transmitted electronically. Requested Prescriptions Signed Prescriptions Disp Refills oxyCODONE (ROXICODONE) 15 mg immediate release tablet 120 tablet 0 Sig: Take 1 tablet by mouth four times daily as needed for pain for up to 30 days. Do not start before May 28, 2022. Authorizing Provider: MONE THORNE APRN.JORGE Patient phones requesting refills as follows: Requested Prescriptions Pending Prescriptions Disp Refills oxyCODONE (ROXICODONE) 15 mg immediate release tablet 120 tablet 0 Sig: Take 1 tablet by mouth four times daily as needed for pain for up to 30 days. Do not start before May 28, 2022. Please review and advise. Petra Wiley RN documented in this encounter [facility] 05-06-2022 Instructions Mone Thorne APRN.PERSONAL CARE ASSISTANT - 05/06/2022 3:21 PM EDT Continue Oxycodone. These medications helps patient perform ADL, interact with family and friends. No misuse or aberrant behaviors detected. OARRS reviewed and consistent. UDS reviewed and consistent Continue fentanyl 25mcg/HR change every 48hours Continue Gabapentin Continue Lidoderm patches. Continue TENS use Continue Robaxin. Continue mobic PA and schedule right lumbar SNRT BLK L5 S1 Last done 03/05/22 with 80% relief until recently. Denied any falls. Epps the injection in October was the best Denies signs or symptoms or heart attack or stroke. Instructed to check BP later today and call PCP if still elevated. Follow-up in 2-3 months in office documented in this encounter [facility] 05-05-2022 History of Presen t illness Narrative Patient was last oseen on 02/11/22 for back painn Last procedure 03/05/22 lumbar SNRT BLK L5 S1 Plan of care: Continue Oxycodone. These medications helps patient perform ADL, interact with family and friends. No misuse or aberrant behaviors detected. OARRS reviewed and consistent. UDS reviewed Continue fentanyl 25mcg/HR change every 48hours 11/20/21 UDS +THC. Counseld patient that this was found 02/07/22 Order UDS DAWSON and aayush right SNRT BLK L5 S1 Last done 11/20/2021 right SNRT BLK L5-S1 with good results Continue Gabapentin Continue Lidoderm patches. Continue TENS use Continue Robaxin. Continue mobic Follow-up in 2-3 months in office Pain level:8/10 States had 80% relief until recently. Denies any ED visits or hospitalizations since last office visit Reports pain worse with bending, turning, walking, sitting, weather changes Reports pain better with injections and medications Describes pain in lower back constant ache that is at times stabbing in right butt States pain radiates to right butt and down outside of leg to foot more consistently Feels like stormy up right side of butt Denies falls. Denies any issues with bowels or bladder. Denies nausea or vomiting Denies dizzines Denies headaches Physical assessment: alert and oriented x3. Skin bower with pink, warm, and dry. No conversational shortness of breath appreciated Wearing face mask. Mood pleasant and cooperative. Able to ascend and descend from sitting position without difficulty Fentanyl patch on left side of torso Unable to toe and heel raise on left due to fusion in ankle/foot. Negative toe and heel rasie on right. Positive knee bend. Lumbar range of motion with restriction due to pain with all motion. flexion, extension, lateral motion left and right. Positive straight leg raise from sitting position on right.Negative left Positive Fabere sign on right. Negative on left Muscle strength 5/5 lower extremities. documented in this encounter [facility] 04-27-2022 Miscellaneous Notes Formattin g of this note is different from the original. The following approved medication requests have been transmitted electronically. Requested Prescriptions Signed Prescriptions Disp Refills oxyCODONE (ROXICODONE) 15 mg immediate release tablet 120 tablet 0 Sig: Take 1 tablet by mouth four times daily as needed for pain for up to 30 days. Do not start before April 28, 2022. Authorizing Provider: MONE THORNE gabapentin (NEURONTIN) 600 mg tablet 120 tablet 0 Sig: Take 1 tablet by mouth four times daily for 30 days. Do not start before April 28, 2022. Authorizing Provider: MONE THORNE APRN.PERSONAL CARE ASSISTANT Patient phones requesting refills as follows: Requested Prescriptions Pending Prescriptions Disp Refills oxyCODONE (ROXICODONE) 15 mg immediate release tablet 120 tablet 0 Sig: Take 1 tablet by mouth four times daily as needed for pain for up to 30 days. gabapentin (NEURONTIN) 600 mg tablet 120 tablet 0 Sig: Take 1 tablet by mouth four times daily for 30 days. Please review and advise. Yanira Olivares RN documented in this encounter [facility] 03-18-2022 Miscellaneous Notes Formattin g of this note is different from the original. The following approved medication requests have been transmitted electronically. Requested Prescriptions Signed Prescriptions Disp Refills lidocaine (LIDODERM) 5 % 60 Patch 4 Sig: Apply 1 Patch as directed as directed. Authorizing Provider: MONE THORNE APRN.PERSONAL CARE ASSISTANT Summary: lidocaine patches concern Message on careline from pt : Please resend lidocaine patch 'script as she stsates that pharmacy does not have knowledge of 'script nor have they received it. Thank you. Jackie Dorsey RN documented in this encounter [facility] 03-05-2022 Miscellaneous Notes Summary: Right L5 and S1 SNRB FUNCTIONAL ASSESSMENT: See Nurses Documentation. Pt had 60% benefit for 3 months from the last SNRB. I have re-assessed this patient immediately before the procedure and the patient is an appropriate candidate for sedation. I have reviewed the Pain Management Medical History sheet. Physician Signature: Moody Rodriguez DO PROCEDURE: __Right__ lumbar selective nerve root block at __L5 and S1____. DATE OF SERVICE: 03/05/22 PREPROCEDURE DIAGNOSIS: 1. L-DDD 2. L-radiculopathy POSTPROCEDURE DIAGNOSIS: Same. ALLERGIES: None ANESTHESIA:local COMPLICATIONS:none CONSENT: Risks of the procedure including but not limited to bleeding, infection, nerve damage, seizure, abscess formation, hematoma formation, headache, failure of the pain to improve and potential worsening of the pain, were explained in full to the patient who verbalized understanding and wishes to proceed with the injection at this time. Written informed consent was thereby obtained. BRIEF HISTORY:see charts. DESCRIPTION OF PROCEDURE: After written informed consent was obtained, the patient was taken to the operating room and placed in the prone position. The patient was prepped and draped in a sterile fashion with __chloraprep swabs____. The skin and subcutaneous tissues were infiltrated with ___3 ml 1% Lidocaine using a 25 gauge 1 1/2 inch needle. A ___22 gauge 3 inch spinal____ needle was advanced under fluoroscopic guidance in the oblique view into ___right L5___ neural foramen. ____1 and 1/2 ml____ of Isovue M-200 contrast was injected after needle placement was confirmed with fluoroscopy in the anterior-posterior and lateral views. The contrast delineated the right L5____ nerve root and epidural space. After negative aspiration __3 ml 0.25% Marcaine mixed with 1 ml Celestone 6 mg was slowly injected. A ___22 gauge 3 inch spinal____ needle was advanced under fluoroscopic guidance in the oblique view into ___right S1___ neural foramen. ____1 and 1/2 ml____ of Isovue M-200 contrast was injected after needle placement was confirmed with fluoroscopy in the anterior-posterior and lateral views. The contrast delineated the right S1____ nerve root and epidural space. After negative aspiration __3 ml 0.25% Marcaine mixed with 1 ml Celestone 6 mg was slowly injected. The patient tolerated the procedure well, and all needles were removed intact. Hemostasis was maintained, and there were no paresthesias or complications. After a period of observation during which the patient's vital signs remained stable, the patient was discharged with supervision to home in good condition. POST-PROCEDURE ORDERS: Progressive ambulation as tolerated Condition: Stable Diet as tolerated Disposition: DC IV prior to discharge Additional Blocks Give patient homegoing instructions Additional: Discharge according to approved criteria documented in this encounter [facility] 02-24-2022 Miscellaneous Notes The following approved medication requests have been transmitted electronically. Signed Prescriptions Disp Refills lidocaine (LIDODERM) 5 % 60 Patch 4 Sig: Apply 1 Patch as directed as directed. CHARISSA: No Authorizing Provider: MONE THORNE Refused Prescriptions Disp Refills gabapentin (NEURONTIN) 600 mg tablet 120 tablet 0 Sig: Take 1 tablet by mouth four times daily for 30 days. CHARISSA: No Refused By: YANIRA OLIVARES Reason for Refusal: Patient has requested refill too soon oxyCODONE (ROXICODONE) 15 mg immediate release tablet 120 tablet 0 Sig: Take 1 tablet by mouth four times daily as needed for up to 30 days. Do not start before February 27, 2022. BETO Class: C-II CHARISSA: No Refused By: YANIRA OLIVARES Reason for Refusal: Patient has requested refill too soon Mone Thorne APRN.PERSONAL CARE ASSISTANT Patient phones requesting refills as follows: Patient not due for refills on Gabapentin and Oxycodone yet. Pending Prescriptions Disp Refills LIDOCAINE 5 % TOPICAL PATCH CHARISSA: No Refused Prescriptions Disp Refills GABAPENTIN 600 MG TABLET 120 tablet 0 Sig: Take 1 tablet by mouth four times daily for 30 days. CHARISSA: No Refused By: YANIRA OLIVARES OXYCODONE 15 MG TABLET 120 tablet 0 Sig: Take 1 tablet by mouth four times daily as needed for up to 30 days. Do not start before February 27, 2022. BETO Class: C-II CHARISSA: No Refused By: YANIRA OLIVARES Please review and advise. Yanira Olivares RN documented in this encounter [facility] 02-16-2022 Miscellaneous Notes The following approved medication requests have been transmitted electronically. Signed Prescriptions Disp Refills fentaNYL (DURAGESIC) 25 mcg/hr 15 Patch 0 Sig: Apply 1 Patch as directed every 48 hours for 30 days. Do not start before February 19, 2022. BETO Class: C-II CHARISSA: No Authorizing Provider: MONE THORNE gabapentin (NEURONTIN) 600 mg tablet 120 tablet 0 Sig: Take 1 tablet by mouth four times daily for 30 days. CHARISSA: No Authorizing Provider: MONE THORNE meloxicam (MOBIC) 15 mg tablet 30 tablet 3 Sig: Take 1 tablet by mouth once daily as needed. CHARISSA: No Authorizing Provider: MONE THORNE oxyCODONE (ROXICODONE) 15 mg immediate release tablet 120 tablet 0 Sig: Take 1 tablet by mouth four times daily as needed for up to 30 days. Do not start before February 27, 2022. BETO Class: C-II CHARISSA: No Authorizing Provider: MONE THORNE naloxone 4 mg/actuation nasal spray (NARCAN) 1 Each 0 Sig: Use 1 spray in one nostril as needed for overdose. May repeat every 2 to 3 min in alternating nostrils until medical assistance is available Authorizing Provider: MONE THORNE APRN.PERSONAL CARE ASSISTANT Pt's called in stating that his prescriptions were sent to the wrong pharmacy. Fentanyl and Oxycodone scripts cancelled at [facility]. Will need sent to [facility] in [place]. Please advise. Pt requesting refill as follows Pending Prescriptions Disp Refills FENTANYL 25 MCG/HR TRANSDERMAL PATCH 15 Patch 0 Sig: Apply 1 Patch as directed every 48 hours for 30 days. Do not start before February 19, 2022. BETO Class: C-II CHARISSA: No GABAPENTIN 600 MG TABLET 120 tablet 0 Sig: Take 1 tablet by mouth four times daily for 30 days. CHARISSA: No MELOXICAM 15 MG TABLET 30 tablet 3 Sig: Take 1 tablet by mouth once daily as needed. CHARISSA: No OXYCODONE 15 MG TABLET 120 tablet 0 Sig: Take 1 tablet by mouth four times daily as needed for up to 30 days. Do not start before February 27, 2022. BETO Class: C-II CHARISSA: No Please review and advise. Naomi Shoemaker, RN documented in this encounter [facility] 02-11-2022 Instructions Mone Thorne APRN.CNS - 02/11/2022 8:50 AM EDT Continue Oxycodone. These medications helps patient perform ADL, interact with family and friends. No misuse or aberrant behaviors detected. OARRS reviewed and consistent. UDS reviewed Continue fentanyl 25mcg/HR change every 48hours 11/20/21 UDS +THC. Counseld patient that this was found 02/07/22 Order UDS PA and aayush right SNRT BLK L5 S1 Last done 11/20/2021 right SNRT BLK L5-S1 with good results Continue Gabapentin Continue Lidoderm patches. Continue TENS use Continue Robaxin. Continue mobic Follow-up in 2-3 months in office documented in this encounter [facility] 02-10-2022 History of Presen t illness Narrative Patient was last seen by me on 12/29/2021 for back pain Last procedure: 11/20/2021 right SNRT BLK L5-S1 Plan of care: 1) Continue Oxycodone. These medications helps patient perform ADL, interact with family and friends. No misuse or aberrant behaviors detected. OARRS reviewed and consistent. UDS reviewed 2) Continue fentanyl 25mcg/HR change every 48hours 3) 11/20/21 UDS +THC. Counseld patient that this was found 02/07/22 and small trace 08/23/19. Given the recent issues with medication States he tried CBD oil from nephew Explained will not coninue if found again Patient stated he wouldn't do this again 4) Continue Gabapentin 5) Continue Lidoderm patches. 6) Continue TENS use 7) Continue Robaxin. 8) Continue mobic 9) Follow-up in 2-3 months in office Pain level:610 Denies any ED visits or hospitalizations since last office visit Reports pain worse with bending, turning, walking, sitting, weather changes Reports pain better with injections and medications Describes pain in lower back constant ache that is at times stabbing in right butt States pain radiates to right butt and down outside of leg to foot more consistently now Denies falls. Denies any issues with bowels or bladder. Denies nausea or vomiting Denies dizzines Denies headaches Physical assessment: alert and oriented x3. Skin bower with pink, warm, and dry. No conversational shortness of breath appreciated Wearing face mask. Mood pleasant and cooperative. Able to ascend and descend from sitting position without difficulty Fentanyl patch on right side of torso Unable to toe and heel raise on left due to fusion in ankle/foot. Negative toe and heel rasie on right. Positive knee bend. Lumbar range of motion with restriction due to pain with all motion. flexion, extension, lateral motion left and right. Positive straight leg raise from sitting position on right. Negative left Positive Fabere sign on right. Negative on left Muscle strength 5/5 lower extremities. documented in this encounter [facility] 01-21-2022 Miscellaneous Notes The following approved medication requests have been transmitted electronically. Signed Prescriptions Disp Refills oxyCODONE (ROXICODONE) 15 mg immediate release tablet 120 tablet 0 Sig: Take 1 tablet by mouth four times daily as needed for up to 30 days. Do not start before January 28, 2022. BETO Class: C-II CHARISSA: No Authorizing Provider: MONE THORNE naloxone 4 mg/actuation nasal spray (NARCAN) 1 Each 0 Sig: Use 1 spray in one nostril as needed for overdose. May repeat every 2 to 3 min in alternating nostrils until medical assistance is available Authorizing Provider: MONE THORNE APRN.PERSONAL CARE ASSISTANT Patient phones requesting refills as follows: Pending Prescriptions Disp Refills OXYCODONE 15 MG TABLET 120 tablet 0 Si tablet four times daily as needed for up to 30 days. BETO Class: C-II CHARISSA: No Please review and advise. Marilyn Grossman RN documented in this encounter [facility] 01-13-2022 Miscellaneous Notes Patient phones requesting refills as follows: Pending Prescriptions Disp Refills FENTANYL 25 MCG/HR TRANSDERMAL PATCH 15 Patch 0 Sig: Apply 1 Patch as directed every 48 hours for 30 days. BETO Class: C-II CHARISSA: No Pt has refills at pharmacy for robaxin. Please review and advise. Marilyn Grossman RN documented in this encounter [facility] Evaluation note Diagnosis Chronic pain syndrome- Primary documented [facility] Chronic pain syndrome- Primary documented [facility] Diagnosis Lumbar postlaminectomy syndrome- Primary Postlaminectomy syndrome, lumbar region DDD (degenerative disc disease), lumbar Degeneration of lumbar or lumbosacral intervertebral disc Lumbar radiculopathy Thoracic or lumbosacral neuritis or radiculitis, unspecified Chronic pain syndrome Myofascial pain syndrome Mylagia and myositis, unspecified High risk medication use Encounter for long-term (current) use of other medications Postlaminectomy syndrome, lumbar region [facility] Chronic pain syndrome Postlaminectomy syndrome, lumbar region [facility] Diagnosis Chronic pain syndrome Postlaminectomy syndrome, lumbar region [facility] Diagnosis Lumbosacral neuritis [M54.17 (ICD-10-CM)]- Primary Thoracic or lumbosacral neuritis or radiculitis, unspecified Radiculopathy, lumbar region [M54.16 (ICD-10-CM)] Thoracic or lumbosacral neuritis or radiculitis, unspecified [facility] Diagnosis Chronic pain syndrome [facility] Diagnosis [facility] syndrome [facility] Diagnosis Lumbar disc herniation with radiculopathy- Primary Displacement of lumbar intervertebral disc without myelopathy Radiculopathy, lumbar region Thoracic or lumbosacral neuritis or radiculitis, unspecified Degeneration of intervertebral disc of lumbar region Generalized osteoarthritis Generalized osteoarthrosis, unspecified site Chronic pain syndrome High risk medication use Encounter for long-term (current) use of other medications Lumbar disc herniation with radiculopathy Displacement of lumbar intervertebral disc without myelopathy Degeneration of intervertebral disc of lumbar region [facility] Diagnosis Chronic pain syndrome Lumbar disc herniation with radiculopathy Displacement of lumbar intervertebral disc without myelopathy Degeneration of intervertebral disc of lumbar region documented [facility] Diagnosis Chronic pain syndrome Lumbar disc herniation with radiculopathy Displacement of lumbar intervertebral disc without myelopathy Degeneration of intervertebral disc of lumbar region documented [facility] Diagnosis Chronic pain syndrome Lumbar disc herniation with radiculopathy Displacement of lumbar intervertebral disc without myelopathy Degeneration of intervertebral disc of lumbar region documented [facility] Diagnosis Chronic pain syndrome- Primary Lumbar disc herniation with radiculopathy Displacement of lumbar intervertebral disc without myelopathy Radiculopathy, lumbar region Thoracic or lumbosacral neuritis or radiculitis, unspecified Degeneration of intervertebral disc of lumbar region Generalized osteoarthritis Generalized osteoarthrosis, unspecified site High risk medication use Encounter for long-term (current) use of other medications Lumbar postlaminectomy syndrome Postlaminectomy syndrome, lumbar region DDD (degenerative disc disease), lumbar Degeneration of lumbar or lumbosacral intervertebral disc Lumbar radiculopathy Thoracic or lumbosacral neuritis or radiculitis, unspecified Myofascial pain syndrome Mylagia and myositis, unspecified [facility] Diagnosis Lumbar disc herniation with radiculopathy Displacement of lumbar intervertebral disc without myelopathy Lumbar spondylosis Lumbosacral spondylosis without myelopathy Chronic pain syndrome High risk medication use Encounter for long-term (current) use of other medications documented [facility] this [facility] Diagnosis Chronic pain syndrome documented in this encounter [facility] noteNo assessment information availableWVeterans Health Administration Work Phone: Evaluation note* Diagnosis Chronic pain syndrome documented in this encounter [facility] note* Diagnosis Chronic pain syndrome documented in this encounter [facility] note* Diagnosis Chronic pain syndrome documented in this encounter [facility] note* Diagnosis Chronic pain syndrome documented in this encounter [facility] note* Diagnosis Chronic pain syndrome- Primary documented in this encounter [facility] note* Diagnosis Chronic pain syndrome documented in this encounter [facility] note* Diagnosis Chronic pain syndrome documented in this encounter [facility] for visit Narrative* Auth/Cert Specialty Diagnoses / Procedures Referred By Fabian tilley Referred To Contact Diagnoses Postlaminectomy syndrome, lumbar region Procedures NJX AA&/STRD TFRML EPI LUMBAR/SACRAL 1 LEVEL NJX AA&/STRD TFRML EPI LUMBAR/SACRAL EA ADDL INJECTION(S) ANESTHETIC AGENT AND STEROID TRANSFORAMINAL EPIDURAL W/ IMAGING GUIDANCE LUMBAR BLOCK TRANSFORAMINAL LUMBAR EACH ADDITIONAL VERTEBRA 1 W/ IMAGE GUIDANCE [facility] [address] [place] [address] Referral ID Status Reason Start Date Expiration Date Visits Re quested Visits Authorized [id number] 1 1 [facility] Chief Complaint and Reason for Visit Chief Complaint EXPOSURE Chief Complaint LEFT ANKLE Primary o steoarthritis, left ankle and Advance Directives No Advanced Directives Records Found Advance Directive Response Recorded Date/ Time Advance Directives No August 18, 2013 2:12pm Living Will No July 25, 2 018 4:03pm Power of Operations Vocational Instructor No July 25, 2018 4:03pm Documents on File Type Date Recorded 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 Advance Directive(s) 06/03/2017 11:20 AM Advance Directive(s) 04/30/2016 3:30 PM Advance Directive(s) 04/29/2016 11:36 AM Advance Directive Response Recorded Date/ Time Advance Directives No August 18, 2013 3:12pm Living Will No July 25, 2 018 5:03pm Power of Operations Vocational Instructor No July 25, 2018 5:03pm Assessments No Assessments Information Available Summary Purpose Family History No Family History Records FoundNo Family History Records FoundNo Family History Records Found Reason for Referral Specialty Diagnoses / Procedures Referred By Fabian tilley Referred To Contact [facility] Diagnoses Chronic pain syndrome Lumbar disc herniation with radiculopathy Lumbar spondylosis Procedures CONSULT TO PHYSICAL THERAPY PHYSICAL THERAPY EVALUATION HIGH COMPLEX 45 MINS Mone Thorne APRN.PERSONAL CARE ASSISTANT [address] [facility] [address] [facility] [place] [address] [place] [address] Referral ID Status Reason Start Date Expiration Date Visits Requested Visits Authorized [id number] Pending Review Auto-Generat ed Referral 01/11/2023 01/11/2024 1 1 Additional Source Comments Source Comments (unrecognize d section and content) In the event this informatio n is protected by the Federal Confidentiality of Alcohol and Drug Abuse Patient Records regulations: The Federal rules restrict any use of the information to criminally investigate or prosecute any alcohol or drug abuse patient.[facility] the event this information is protected by the Federal Confidentiality of Alcohol and Drug Abuse Patient Records regulations: The Federal rules restrict any use of the information to criminally investigate or prosecute any alcohol or drug abuse patient.[facility] the event this information is protected by the Federal Confidentiality of Alcohol and Drug Abuse Patient Records regulations: The Federal rules restrict any use of the information to criminally investigate or prosecute any alcohol or drug abuse patient.[facility] HospitalIn the event this information is protected by the Federal Confidentiality of Alcohol and Drug Abuse Patient Records regulations: The Federal rules restrict any use of the information to criminally investigate or prosecute any alcohol or drug abuse patient.[facility] the event this information is protected by the Federal Confidentiality of Alcohol and Drug Abuse Patient Records regulations: The Federal rules restrict any use of the information to criminally investigate or prosecute any alcohol or drug abuse patient.[facility]In the event this information is protected by the Federal Confidentiality of Alcohol and Drug Abuse Patient Records regulations: The Federal rules restrict any use of the information to criminally investigate or prosecute any alcohol or drug abuse patient.[facility]In the event this information is protected by the Federal Confidentiality of Alcohol and Drug Abuse Patient Records regulations: The Federal rules restrict any use of the information to criminally investigate or prosecute any alcohol or drug abuse patient.[facility] HospitalIn the event this information is protected by the Federal Confidentiality of Alcohol and Drug Abuse Patient Records regulations: The Federal rules restrict any use of the information to criminally investigate or prosecute any alcohol or drug abuse patient.[facility] HospitalIn the event this information is protected by the Federal Confidentiality of Alcohol and Drug Abuse Patient Records regulations: The Federal rules restrict any use of the information to criminally investigate or prosecute any alcohol or drug abuse patient.[facility] HospitalIn the event this information is protected by the Federal Confidentiality of Alcohol and Drug Abuse Patient Records regulations: The Federal rules restrict any use of the information to criminally investigate or prosecute any alcohol or drug abuse patient.[facility] HospitalIn the event this information is protected by the Federal Confidentiality of Alcohol and Drug Abuse Patient Records regulations: The Federal rules restrict any use of the information to criminally investigate or prosecute any alcohol or drug abuse patient.[facility] HospitalIn the event this information is protected by the Federal Confidentiality of Alcohol and Drug Abuse Patient Records regulations: The Federal rules restrict any use of the information to criminally investigate or prosecute any alcohol or drug abuse patient.[facility] HospitalIn the event this information is protected by the Federal Confidentiality of Alcohol and Drug Abuse Patient Records regulations: The Federal rules restrict any use of the information to criminally investigate or prosecute any alcohol or drug abuse patient.[facility] HospitalIn the event this information is protected by the Federal Confidentiality of Alcohol and Drug Abuse Patient Records regulations: The Federal rules restrict any use of the information to criminally investigate or prosecute any alcohol or drug abuse patient.[facility] HospitalIn the event this information is protected by the Federal Confidentiality of Alcohol and Drug Abuse Patient Records regulations: The Federal rules restrict any use of the information to criminally investigate or prosecute any alcohol or drug abuse patient.[facility] HospitalIn the event this information is protected by the Federal Confidentiality of Alcohol and Drug Abuse Patient Records regulations: The Federal rules restrict any use of the information to criminally investigate or prosecute any alcohol or drug abuse patient.[facility] HospitalIn the event this information is protected by the Federal Confidentiality of Alcohol and Drug Abuse Patient Records regulations: The Federal rules restrict any use of the information to criminally investigate or prosecute any alcohol or drug abuse patient.[facility] HospitalIn the event this information is protected by the Federal Confidentiality of Alcohol and Drug Abuse Patient Records regulations: The Federal rules restrict any use of the information to criminally investigate or prosecute any alcohol or drug abuse patient.[facility] HospitalIn the event this information is protected by the Federal Confidentiality of Alcohol and Drug Abuse Patient Records regulations: The Federal rules restrict any use of the information to criminally investigate or prosecute any alcohol or drug abuse patient.[facility] the event this information is protected by the Federal Confidentiality of Alcohol and Drug Abuse Patient Records regulations: The Federal rules restrict any use of the information to criminally investigate or prosecute any alcohol or drug abuse patient.[facility] HospitalIn the event this information is protected by the Federal Confidentiality of Alcohol and Drug Abuse Patient Records regulations: The Federal rules restrict any use of the information to criminally investigate or prosecute any alcohol or drug abuse patient.[facility] HospitalIn the event this information is protected by the Federal Confidentiality of Alcohol and Drug Abuse Patient Records regulations: The Federal rules restrict any use of the information to criminally investigate or prosecute any alcohol or drug abuse patient.[facility] the event this information is protected by the Federal Confidentiality of Alcohol and Drug Abuse Patient Records regulations: The Federal rules restrict any use of the information to criminally investigate or prosecute any alcohol or drug abuse patient.[facility] HospitalIn the event this information is protected by the Federal Confidentiality of Alcohol and Drug Abuse Patient Records regulations: The Federal rules restrict any use of the information to criminally investigate or prosecute any alcohol or drug abuse patient.[facility] HospitalIn the event this information is protected by the Federal Confidentiality of Alcohol and Drug Abuse Patient Records regulations: The Federal rules restrict any use of the information to criminally investigate or prosecute any alcohol or drug abuse patient.[facility] HospitalIn the event this information is protected by the Federal Confidentiality of Alcohol and Drug Abuse Patient Records regulations: The Federal rules restrict any use of the information to criminally investigate or prosecute any alcohol or drug abuse patient.[facility]In the event this information is protected by the Federal Confidentiality of Alcohol and Drug Abuse Patient Records regulations: The Federal rules restrict any use of the information to criminally investigate or prosecute any alcohol or drug abuse patient.[facility]In the event this information is protected by the Federal Confidentiality of Alcohol and Drug Abuse Patient Records regulations: The Federal rules restrict any use of the information to criminally investigate or prosecute any alcohol or drug abuse patient.[facility]In the event this information is protected by the Federal Confidentiality of Alcohol and Drug Abuse Patient Records regulations: The Federal rules restrict any use of the information to criminally investigate or prosecute any alcohol or drug abuse patient.[facility] HospitalIn the event this information is protected by the Federal Confidentiality of Alcohol and Drug Abuse Patient Records regulations: The Federal rules restrict any use of the information to criminally investigate or prosecute any alcohol or drug abuse patient.[facility] HospitalIn the event this information is protected by the Federal Confidentiality of Alcohol and Drug Abuse Patient Records regulations: The Federal rules restrict any use of the information to criminally investigate or prosecute any alcohol or drug abuse patient.[facility] HospitalIn the event this information is protected by the Federal Confidentiality of Alcohol and Drug Abuse Patient Records regulations: The Federal rules restrict any use of the information to criminally investigate or prosecute any alcohol or drug abuse patient.[facility] HospitalIn the event this information is protected by the Federal Confidentiality of Alcohol and Drug Abuse Patient Records regulations: The Federal rules restrict any use of the information to criminally investigate or prosecute any alcohol or drug abuse patient.[facility] HospitalIn the event this information is protected by the Federal Confidentiality of Alcohol and Drug Abuse Patient Records regulations: The Federal rules restrict any use of the information to criminally investigate or prosecute any alcohol or drug abuse patient.[facility] HospitalIn the event this information is protected by the Federal Confidentiality of Alcohol and Drug Abuse Patient Records regulations: The Federal rules restrict any use of the information to criminally investigate or prosecute any alcohol or drug abuse patient.[facility] HospitalIn the event this information is protected by the Federal Confidentiality of Alcohol and Drug Abuse Patient Records regulations: The Federal rules restrict any use of the information to criminally investigate or prosecute any alcohol or drug abuse patient.[facility] HospitalIn the event this information is protected by the Federal Confidentiality of Alcohol and Drug Abuse Patient Records regulations: The Federal rules restrict any use of the information to criminally investigate or prosecute any alcohol or drug abuse patient.[facility] HospitalIn the event this information is protected by the Federal Confidentiality of Alcohol and Drug Abuse Patient Records regulations: The Federal rules restrict any use of the information to criminally investigate or prosecute any alcohol or drug abuse patient.[facility] HospitalIn the event this information is protected by the Federal Confidentiality of Alcohol and Drug Abuse Patient Records regulations: The Federal rules restrict any use of the information to criminally investigate or prosecute any alcohol or drug abuse patient.[facility] HospitalIn the event this information is protected by the Federal Confidentiality of Alcohol and Drug Abuse Patient Records regulations: The Federal rules restrict any use of the information to criminally investigate or prosecute any alcohol or drug abuse patient.[facility] HospitalIn the event this information is protected by the Federal Confidentiality of Alcohol and Drug Abuse Patient Records regulations: The Federal rules restrict any use of the information to criminally investigate or prosecute any alcohol or drug abuse patient.[facility] Care Teams (unrecognized sec tion and content) Deputy Treasurer Relationship Specialty Start Date End Date Louie Maddox DO PCP - General Family Practice 04/29/16 Jerome Mabry MD [address] [place] [address] Home Care Physician [facility] 05/04/16 Deputy Treasurer Relationship Specialty Start Date End Date Louie Maddox, DO PCP - General Family Practice 04/29/16 Jerome Mabry MD [address] [place] [address] Home Care Physician [facility] 05/04/16 Deputy Treasurer Relationship Specialty Start Date End Date Louie Maddox, DO PCP - General Family Practice 04/29/16 Jerome Mabry MD [address] [place] [address] Home Care Physician [facility] 05/04/16 Deputy Treasurer Relationship Specialty Start Date End Date Louie Maddox, DO PCP - General Family Practice 04/29/16 Jerome Mabry MD [address] [place] [address] Home Care Physician [facility] 05/04/16 Deputy Treasurer Relationship Specialty Start Date End Date Louie Maddox, DO PCP - General Family Practice 04/29/16 Jerome Mabry MD [address] [place] [address] Home Care Physician [facility] 05/04/16 Deputy Treasurer Relationship Specialty Start Date End Date Louie Maddox, DO PCP - General Family Practice 04/29/16 Jerome Mabry MD [address] [place] [address] Home Care Physician [facility] 05/04/16 Deputy Treasurer Relationship Specialty Start Date End Date Louie Maddox, DO PCP - General Family Practice 04/29/16 Jerome Mabry MD [address] [place] [address] Home Care Physician [facility] 05/04/16 Deputy Treasurer Relationship Specialty Start Date End Date Louie Maddox, DO PCP - General Family Practice 04/29/16 Jerome Mabry MD [address] [place] [address] Home Care Physician [facility] 05/04/16 Deputy Treasurer Relationship Specialty Start Date End Date Louie Maddox, DO PCP - General Family Practice 04/29/16 Jerome Mabry MD [address] [place] [address] Home Care Physician [facility] 05/04/16 Deputy Treasurer Relationship Specialty Start Date End Date Louie Maddox, DO PCP - General Family Medicine 04/29/16 Jerome Mabry MD [address] [place] [address] Home Care Provider [facility] 05/04/16 Deputy Treasurer Relationship Specialty Start Date End Date Louie Maddox, DO PCP - General Family Medicine 04/29/16 Jerome Mabry MD [address] [place] [address] Home Care Provider [facility] 05/04/16 Deputy Treasurer Relationship Specialty Start Date End Date Louie Maddox, DO PCP - General Family Medicine 04/29/16 Jerome Mabry MD [address] [place] [address] Home Care Provider [facility] 05/04/16 Deputy Treasurer Relationship Specialty Start Date End Date Louie Maddox, DO PCP - General Family Medicine 04/29/16 Jerome Mabry MD [address] [place] [address] Home Care Provider [facility] 05/04/16 Deputy Treasurer Relationship Specialty Start Date End Date Louie Maddox, DO PCP - General Family Medicine 04/29/16 Jerome Mabry MD [address] [place] [address] Home Care Provider [facility] 05/04/16 Deputy Treasurer Relationship Specialty Start Date End Date Louie Maddox, DO PCP - General Family Medicine 04/29/16 Jerome Mabry MD [address] [place] [address] Home Care Provider [facility] 05/04/16 Deputy Treasurer Relationship Specialty Start Date End Date Louie Maddox, DO PCP - General Family Medicine 04/29/16 Jerome Mabry MD [address] [place] [address] Home Care Provider [facility] 05/04/16 Deputy Treasurer Relationship Specialty Start Date End Date Louie Maddox, DO PCP - General Family Medicine 04/29/16 Jerome Mabry MD [address] [place] [address] Home Care Provider [facility] 05/04/16 Deputy Treasurer Relationship Specialty Start Date End Date Louie Maddox, DO PCP - General Family Medicine 04/29/16 Jerome Mabry MD [address] [place] [address] Home Care Provider [facility] 05/04/16 Deputy Treasurer Relationship Specialty Start Date End Date Louie Maddox DO PCP - General Family Medicine 04/29/16 Jerome Mabry MD [address] [place] [address] Home Care Provider [facility] 05/04/16 Deputy Treasurer Relationship Specialty Start Date End Date Louie Maddox DO PCP - General Family Medicine 04/29/16 Jerome Mabry MD [address] [place] [address] Home Care Provider Spine Health 05/04/16 Team Status: Active Member Role Status Dates Dr. Louie Maddox , DO Family Provider Active Dr. Louie Maddox , DO Primary Care Provider Active Team Status: Inactive Member Role Status Dates Dr. Louie Maddox , DO Primary Care Provider, Referrin g Provider Active Cailin Holt BLUE PRINT CONTROL CLERK, BLUE PRINT CONTROL CLERK-C Attending Provider Active Team Status: Inactive Member Role Status Dates Dr. Louie Maddox , Primary Care Provider Active Dr. Salomon Montez , DPM Attending Provider, Referri ng Provider Active Deputy Treasurer Relationship Specialty Start Date End Date Louie Maddox DO PCP - General Family Medicine 04/29/16 Jerome Mabry MD [address] [place] [address] Home Care Provider Spine Health 05/04/16 Deputy Treasurer Relationship Specialty Start Date End Date Louie Maddox DO PCP - General Family Medicine 04/29/16 Jerome Mabry MD [address] [place] [address] Home Care Provider Spine Health 05/04/16 Deputy Treasurer Relationship Specialty Start Date End Date Louie Maddox DO PCP - General Family Medicine 04/29/16 Jerome Mabry MD [address] [place] [address] Home Care Provider Spine Health 05/04/16 Deputy Treasurer Relationship Specialty Start Date End Date Louie Maddox DO PCP - General Family Medicine 04/29/16 Jerome Mabry MD [address] [place] [address] Home Care Provider Spine Health 05/04/16 Deputy Treasurer Relationship Specialty Start Date End Date Louie Maddox DO PCP - General Family Medicine 04/29/16 Jerome Mabry MD [address] [place] [address] Home Care Provider Spine Health 05/04/16 Deputy Treasurer Relationship Specialty Start Date End Date Louie Maddox DO PCP - General Family Medicine 04/29/16 Jerome Mabry MD [address] [place] [address] Home Care Provider Spine Health 05/04/16 Team Status: Inactive Member Role Status Dates Dr. Louie Maddox DO Primary Care Provider Active Dr. Moody Rodriguez DO Attending Provider, Referring Provider Active Deputy Treasurer Relationship Specialty Start Date End Date Louie Maddox DO PCP - General Family Medicine 04/29/16 Jerome Mabry MD [address] [place] [address] Home Care Provider Spine Health 05/04/16 Deputy Treasurer Relationship Specialty Start Date End Date Louie Maddox DO PCP - General Family Medicine 04/29/16 Jerome Mabry MD [address] [place] [address] Home Care Provider Spine Health 05/04/16 (unrecognized sect ion and content) No Status Records FoundNo Status Records FoundNo Status Records Found INFORMATION SOURCE (unrecogn ized section and content) DATE CREATED AUTHOR 01/06/2022 [facility] ntalfredito Wilson DATE CREATED AUTHOR AUTHOR'S ORGANIZ ATION 06/13/2023 [facility] DATE CREATED AUTHOR AUTHOR'S ORGANIZ ATION 07/10/2023 [facility] [email or web address] Reason for Visit (unrecogniz ed section and content) Reason Onset Date Comments Refill Request 01/13/2022 Reason Onset Date Comments Refill Request 01/21/2022 Reason Comments Back Pain Reason Comments Medication Problem Reason Onset Date Comments Refill Request 02/24/2022 Reason Onset Date Comments Refill Request 04/27/2022 Reason Onset Date Comments Refill Request 05/22/2022 Reason Onset Date Comments Refill Request 06/12/2022 Reason Onset Date Comments Refill Request 07/13/2022 Reason Onset Date Comments Refill Request 07/23/2022 Reason Onset Date Comments Refill Request 08/13/2022 Reason Onset Date Comments Refill Request 08/24/2022 Reason Comments Back Pain Leg Pain Reason Comments Refill Request Reason Onset Date Comments Refill Request 01/06/2023 Reason Comments Back Pain Reason Onset Date Comments Refill Request 02/04/2023 Reason Onset Date Comments Refill Request 03/05/2023 Reason Comments Appointment Reason Comments Patient Question Patient Update Reason Onset Date Comments Refill Request 04/06/2023 Reason Comments Scheduling a procedure Reason Onset Date Comments Refill Request 04/13/2023 Reason Comments fill date of gabapentin Reason Onset Date Comments Opened In Error 04/16/2023 Reason Onset Date Comments Refill Request 05/11/2023 Reason Comments Patient Update Surgery cancelled- n eeds RX for oxycodone Reason Comments Patient Update Reason Comments inquiring about refills Goals (unrecognized section and content) Goals may be documented in a n alternate sectionGoals may be documented in an alternate section FOR RECORDS PERTAINING TO PATIENTS WHO ARE OR HAVE BEEN ENROLLED IN A CHEMICAL DEPENDENCY/SUBSTANCEABUSE PROGRAM, SOME INFORMATION MAY BE OMITTED. This clinical summary was aggregated from multiple sources. Caution should be exercised in using it in the provision of clinical care. This summary normalizes information from multiple sources, and as a consequence, information in this document may materially change the coding, format and clinical context of patient data. In addition, data may be omitted in some cases. CLINICAL DECISIONS SHOULD BE BASED ON THE PRIMARY CLINICAL RECORDS. [facility] [employer] provides no warranty or guarantee of the accuracy or completeness of information in this document.
== END 2023-07-15 11:05 | disposition home or self-care (01) ==
LOC: RAD 11:04
PROVIDERS: Visit Provider Podiatrist Foot & Ankle Surgery
DX: M19.072 Primary osteoarthritis, left ankle and foot (principal)
CPT/HCPCS: 73610; 73630

== ENCOUNTER 2023-08-06 11:06 | Outpatient (OUT) | payer MEDICARE, MEDICAID, SELFPAY ==
--- NOTE | 2023-08-06 | XR_ITS ---
The [address] [address] Patient Name: ELIZA LOWE MRN: [id number] date: 1965 Sex: M Assigned Patient Location: [facility] Current Patient Location: Accession/Order Number: [id number] Exam Date: 08/06/2023 11:15 Report Date: 08/07/2023 11:14 At the request of: BRIANA LARA Procedure: XR ankle LT min 3V PROCEDURE: XR foot and ankle LT min 3V DATE: 08/06/2023 10:15 AM [employer]OR [employer] COMPARISONS: 07/15/2023 CLINICAL INDICATION: LEFT FOOT PAIN FINDINGS: Stable hindfoot fusion is again identified. Spacer is again noted expected region of the posterior aspect of the tarsal talus. This has a stable appearance. Resection of the distal fibula again identified Midfoot moderate degenerative changes are again identified, stable. Postop changes first metatarsal phalangeal joint again identified XR/XR ankle LT min 3V IMPRESSION: Foot and ankle radiographs show no evidence of acute abnormalities. Stable postop changes. No evidence of surgical hardware failure Electronically authenticated by: GEORGE MEDEL Date: 08/07/2023 11:14
--- NOTE | 2023-08-06 | XR_ITS ---
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 Spacer is again noted expected region of the posterior aspect of the tarsal talus. This has a stable appearance. Resection of the distal fibula again identified Midfoot moderate degenerative changes are again identified, stable. Postop changes first metatarsal phalangeal joint again identified XR/XR foot LT min 3V IMPRESSION: Foot and ankle radiographs show no evidence of acute abnormalities. Stable postop changes. No evidence of surgical hardware failure Electronically authenticated by: GEORGE MEDEL Date: 08/07/2023 11:14
--- OUTSIDE RECORDS SUMMARY | 2023-08-06 11:10 | XMS_ITS | CCD ---
Author Name Unknown Address [address] [place] [address] Organization [facility] Care Team Providers Care Business Analytics Specialist Name Role Phone Louie Maddox DO Primary Care Provider Jerome Mabry MD Unavailable Louie Maddox Primary Care Unavailable Moody Rodriguez Referring Unavailable Moody Rodriguez Attending Unavailable Louie Maddox Attending Unavailable Louie Flores Primary Care Unavailable Louie Maddox Primary Care Unavailable Yanet COLLECTIONS SPECIALIST, Cailin Attending Unavailable Salomon Montez Attending Unavailable Louie Maddox Primary Care Unavailable Salomon Montez Referring Unavailable Louie Maddox Referring Unavailable Louie Maddox Primary Care Unavailable Yanet COLLECTIONS SPECIALIST, Cailin Attending Unavailable Louie Maddox DO Primary [...] on above: Take 1 capsule by mo [facility] twice daily. 72 hr fentaNYL 0.025 [...] Drug Class(es) Dates Sig (Normalized) Sig (Original) [id number] 200 actuat albuterol 0.09 mg/actuat metered dose [...] day docusate sodium 50 mg / sennosides, intermediate 8.6 mg oral tablet (2 sources) Start: [...] sources) Taking high risk medication; Translations: [Other terminal press operator (current) drug therapy] Episodic Other aftercare (1 source) Other terminal press operator (current) drug therapy; Translations: [High risk medication [...] Test Name Value Interpretation Reference Range [facility] ([id number]) 1965 M Date Time Provider Department 07/07/23 KATHY MALIK During your visit today, we recorded the following information about you: Petra Wiley RN 07/07/2023 3:59 PM Signed Pt calling for refills of medications, Fentanyl patch 25mcg q48hrs and dilaudid 4mg q4-6prn. The dilaudid was given due to surgery scheduled 06/24, pt was previously on [id number]. MME is 198, please advise refills Petra [...] left foot surgery by Dr Boogie at [facility] and was inpt x 1 week, I [...] Result Flag Units Drug Present Ethyl Glucuronide 16929 ng/mg creat Ethyl Sulfate 9769 ng/mg creat [...] provided. For clinical consultation, please call . @FLOW([id number] )@ Lab Results Component Value Date SUMM FINAL 05/13/2023 Summary Report (Summary) Date Value Ref Range Status 02/11/2022 FINAL Final Comment: TOXASSURE COMP DRUG ANALYSIS,UR (more content not included)... [facility] 06-10-2023 BALJIT Telephone (KYM) ELIZA LOWE ([id number]) 1965 M Date Time Provider Department 06/10/23 MOODY RODRIGUEZ During your visit today, we recorded the following information about you: Naomi Shoemaker RN 06/10/2023 3:15 PM Signed Pt's called in today requesting the results from the foot x-ray he had done at [place] on 06/07. The results are scanned into [...] subseque*06/07/2023 Contracture, left (more content not included)... [facility] CNOVon 06-07-2023 CNOV Office Visit (KYM ) ELIZA LOWE ([id number]) 1965 M Date Time Provider Department 06/07/23 [...] x-ray Follow-up in 3 months with or COLLECTIONS SPECIALIST Moody Rodriguez DO 06/08/2023 7:12 AM Signed DATE: June 07, 2023 Chief Complaint: Low back pain, right foot pain History of Present Illness: Eliza Lowe is a 58 year old male being seen at [facility] for a evaluation and/or [...] issue with 3D printer, rescheduled 06/24/23 at [facility]. States a rock rolled over [...] Result Flag Units Drug Present Ethyl Glucuronide 62070 ng/mg creat Ethyl Sulfate 9769 ng/mg creat [...] zolpidem. ====== (more content not included)... Normal [facility] Foot min 3 Viewson 3 Foot min 3 Views [facility] Imaging Services [address] [place] [address] Foot min 3 Views MR#: [id number] Acct: [id number] Name: ELIZA LOWE Rep #: [id number] : 1965 M 58 From: Fahad Lane MD PCP: Dr. Louie Maddox DO Status: REG CLI Study: Foot min 3 Views Date of Exam: 06/07/23 Exam# [id number] Ordering [place]: [place] [id number] INDICATION: Trauma, right foot pain EXAMINATION/TECHNIQUE: X-RAY [...] Moody Rodriguez DO; Dr. Louie Maddox DO Software Quality Engineer: Signed Normal [facility] 05-28-2023 CNPN Telephone (PAIMER) ELIZA LOWE ([id number]) 1965 M Date Time Provider Department 05/28/23 [...] ordered this encounter (more content not included)... [facility] OPERATIVE NOon 05-13-2023 OPERATIVE NO HNO ID: [id number] Author: Moody Rodriguez DO Service: Pain Management [...] with supervision to home in good condition. [facility] ([id number]) 1965 M Date Time Provider Department 04/16/23 [...] April 16, 2023 12:47 PM Geoff Nieves APRN.[facility] 04/16/2023 3:12 PM Signed Addended by: GEOFF NIEVES on: 04/16/2023 03:12 PM Modules accepted: Orders Allergies As of Date: 04/16/2023 (No Known Allergies) Date Reviewed: 01/11/2023 Reviewed by: Mone Thorne APRN.PARTS COUNTERMAN - Fully Assessed Reason for Visit: fill [...] 2023. Encounter Numb (more content not included)... [facility] CNPNon 04-12-2023 CNPN Telephone (MRPAIN) ELIZA LOWE ([id number]) 1965 M Date Time Provider Department 04/12/23 MOODY RODRIGUEZ MRPAIN During your visit today, we recorded the following information about you: Sarah Brown 04/12/2023 10:35 AM Signed I left a message to schedule a procedure. Sarah April 12, 2023 10:35 AM Allergies As of Date: 04/12/2023 (No Known Allergies) Date Reviewed: 01/11/2023 Reviewed by: Mone Thorne APRN.PARTS COUNTERMAN - Fully Assessed Reason for Visit: Scheduling [...] Encounter Status:Closed by SARAH BROWN on 04/12/23 [facility] Ly 04-06-2023 BALJIT Telephone (KYM) ELIZA LOWE ([id number]) 1965 M Date Time Provider Department 04/06/23 MOODY RODRIGUEZ During your visit today, we recorded the following information about you: Jackie Dorsey RN 04/06/2023 1:06 PM Signed Returned pt's call from [employer] message: Pt's acknowledges to check with pt regarding type of injection he is requesting (nerve block vs TPI), % of improvement from that injection, time length of improvement as well as to contact [facility] with any updates, questions, or concerns. 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 Allergies As of Date: 04/05/2023 (No Known Allergies) Date Reviewed: 01/11/2023 Reviewed by: Mone Thorne APRN.PARTS COUNTERMAN - Fully Assessed Reason for Visit: Appointment [...] Encounter Status:Closed by JODY-DEEPTHI HARP on 04/05/23 [facility] Extremity Lower without Cont raon 03-02-2023 Extremity Lower without Contra [facility] Imaging Services [address] [place] [address] Extremity Lower without Contra MR#: [id number] Acct: [id number] Name: ELIZA LOWE Primitivo Rep #: [id number] : 1965 M 57 From: Dung chapman MD PCP: Dr. Louie Maddox, DO Status: REG CLI Study: Extremity Lower without Contra Date of Exam: 0 03/02/23 Exam# [id number] Ordering Dr: Salomon Montez DPM STUDY: CT [...] CC: PABLITO Montez; Dr. Louie Maddox DO Software Quality Engineer: [facility]igned [facility] Office Visit (KYM ) ELIZA LOWE ([id number]) 1965 M Date Time Provider Department 01/11/23 9:30 AM MONE THORNE During your visit today, we recorded the following information about you: Pulse Blood pressure Weight 80/minute 122/83 96.2 kg Mone Thorne APRN.PARTS COUNTERMAN 01/11/2023 9:55 AM Signed SUBJECTIVE: Eliza Lowe presents to [facility] for a follow-up [...] Follow-up in 3 months in office with COLLECTIONS SPECIALIST Last procedure 11/19/22 Right L5 S1 SNRT [...] WELL Headache Paternal Grandfather Heart Father R/T [place] IN 60'S Social History: Social History Tobacco [...] the above and verbalized understanding. Mone Thorne APRN.PARTS COUNTERMAN January 11, 2023 Mone Thorne APRN.PARTS COUNTERMAN 01/11/2023 9:52 AM Addendum Continue Oxycodone. These medications helps patient perform ADL, interact with family a (more content not included)... [facility] OPERATIVE NOon 11-19-2022 OPERATIVE NO HNO ID: [id number] Author: Moody Rodriguez DO Service: Pain Management [...] for this encounter was entered by Senait Rogle medical historian, for Dr. Moody Rodriguez on November 19, [...] Electronically Signed: Dr. Rodriguez. November 19, 2022. [facility] XR FLUOROSCOPYon 11-19-2022 XR FLUOROSCOPY * * [...] Please see clinician's report for complete details. Software Quality Engineer: TORREY Transcribe Date/Time: Nov 19 2022 3:53P Dictated by : ANDREAS GREENE MD This examination was interpreted and the report reviewed and electronically signed by: ANDREAS GREENE MD on Nov 19 2022 3:54PM EST [id number] [facility] CNOVon 10-13-2022 CNOV Office Visit (KYM ) ELIZA LOWE ([id number]) 1965 M Date Time Provider Department 10/13/22 [...] 57 year old male being seen at [facility] for a evaluation and/or [...] 80% relief until recently. Denied any falls. [place] the injection in October was the best [...] Ref Range Status (more content not included)... [facility] Ly 09-10-2022 BALJIT Telephone (KYM) ELIZA LOWE ([id number]) 1965 M Date Time Provider Department 09/10/22 MONE THORNE During your visit today, we recorded the following information about you: Naomi Shoemaker RN 09/10/2022 1:29 PM Signed Pt is requesting a refill of Fentanyl, she was seen last on 05/06/22, no showed on 08/06/22 and scheduled for 09/28/22. Please advise. Naomi Shoemaker RN September 10, 2022 1:29 PM Mone Thorne APRN.PARTS COUNTERMAN 09/10/2022 2:20 PM Signed The following approved [...] September 22, 2022. Authorizing Provider: MONE THORNE APRN.PARTS COUNTERMAN Allergies As of Date: 09/10/2022 (No Known [...] P* 0 09/16/ (more content not included)... [facility] XR FLUOROSCOPYon 08-20-2022 XR FLUOROSCOPY * * [...] seconds fluoroscopy time utilized by Dr. Rodriguez. Software Quality Engineer: PSCAmbrose Transcribe Date/Time: Aug 20 2022 3:27P Dictated by : OMID PACE MD This examination was interpreted and the report reviewed and electronically signed by: OMID PACE MD on Aug 20 2022 3:28PM EST [id number] [facility] CNCOon 08-06-2022 CNCO Letter Text [facility] BRIEF OP NOTon 07-16-2022 BRIEF OP NOT HNO ID: [id number] Author: Moody Rodriguez DO Service: Pain Management [...] Electronically Signed: Dr. Rodriguez. August 20, 2022 [facility] XR FLUOROSCOPYon 03-05-2022 [facility] FLUOROSCOPY IN OR/PAIN MGTon 11-20-2021 FLUOROSCOPY [...] KNOX MD Signed By: SANTO KNOX MD [facility] FLUOROSCOPY IN OR/PAIN MGTon 06-12-2021 FLUOROSCOPY IN [...] DYE M.D. Signed By: LOUIE DYE M.D. [facility] [Presen ce] in Unspecified specimen by KERVIN with probe detectionon 07-10-2020 SARS coronavirus RNA KERVIN+probe Ql (Unsp spec) Not Detected Not Detected [facility] Work Phone: Comment on above: This nucleic [...] SARS-CoV-2 virusand/or diagnosis of COVID-19 infection under (b)(1) of the Act, 21 U.S.C. 360bbb-3(b) (1), [...] Auto (Unsp spec) [#/Vol] 3.05 10*3/uL 0.83-4.51 [facility] Work Phone: Automated blood hematocrit ( percentage)on 05-31-2020 Hematocrit (Bld) [Volume fraction] 47.8 % 40-54 [facility] Work Phone: Basophil percentageon 2019 Basophils/100 WBC (Unsp spec) 0.4 % 0-1 [facility] Work Phone: Blood erythrocytes count (nu mber/volume)on 05-31-2020 RBC (Bld) [#/Vol] 4.96 M/mm3 4.6-6.2 [facility] Work Phone: Blood hemoglobin measurement (mass/volume)on 05-31-2020 Hemoglobin (Bld) [Mass/Vol] 16.0 g/dL 13.0-16.5 [facility] Work Phone: Blood platelet mean volumeon 05-31-2020 Platelet mean volume (Bld) [Entitic vol] 11.4 fL 6.2-12.0 [facility] Work Phone: Free testosterone percentage on 05-31-2020 Testosterone Free/Testosterone.to stacy [Mass fraction] 3.05 % [facility] Work Phone: Comment on above: Performed at: [address] [id number] Director: Rick Dugan PhD, Phone: [phone] at: [facility] [id number] Director: Dulce Kirkland MD, Phone: [phone] Hematologyon 05-31-2020 Lymphocytes/100 WBC (Bld) 31.6 % 19-41 [facility] Work Phone: MCH (RBC) [Entitic mass] 32.3 pg 27.0-32.0 [facility] Work Phone: Monocytes/100 WBC (Bld) 14.4 % 0-10 [facility] Work Phone: Neutrophils/100 WBC (Bld) 53.1 % 47-70 [facility] Work Phone: Lymphocyte percentageon Bilirubin Ql (U) 0.40 mg/dL 0.20-1.00 [facility] Work Phone: Comment on above: For patients on eltr ombopag therapy, use of Dimension [place] TBIL is not recommended. Chloride [Moles/Vol] 105 mmol/L 98-107 [facility] Work Phone: Cholesterol [Mass/Vol] 215 mg/dL <200 [facility] Work Phone: Comment on above: <200 mg/dL Desirable 200-240 mg/dL Borderline >240 mg/dL High Risk Eosinophils/100 WBC (Bld) 0.2 % 0-5 [facility] Work Phone: Glucose [Mass/Vol] 93 mg/dL 74-106 [facility] Work Phone: Comment on above: Please note revised GLUCOSE reference range effective 2017. Neutrophils (Bld) [#/Vol] 5.1 10*3/uL 2.0-7.7 [facility] Work Phone: Potassium [Moles/Vol] 4.1 mmol/L 3.5-5.1 [facility] Work Phone: Protein [Mass/Vol] 7.3 g/dL 6.4-8.2 [facility] Work Phone: Sodium [Moles/Vol] 142 mmol/L 136-145 [facility] Work Phone: Testosterone [Mass/Vol] 466 ng/dL [facility] Work Phone: Comment on above: Adult male reference interval is based on a population ofhealthy nonobese males (BMI <30) between 19 and 39 yearsold. selina Marie.al. JCEM 2017,102;1525-7815. PMID:[id number]. Triglyceride [Mass/Vol] 140 mg/dL [facility] Work Phone: Comment on above: The drugs N-Acetylcy steine and Metamizole may falsely depress this assay.Serum Triglycerides Reference Interval Normal <150 mg/dL Borderline high 150 - 199 mg/dL High 200 - 499 mg/dL Very High > or = 500 mg/dL WBC (Bld) [#/Vol] 9.7 10*3/uL 4.4-11.0 [facility] Work Phone: MCHC [Mass/volume] by Automa artis counton 05-31-2020 MCHC (RBC) [Mass/Vol] 33.5 g/dL 32-36 [facility] Work Phone: MCV (mean corpuscular volume ) determinationon 05-31-2020 MCV (RBC) [Entitic vol] 96.4 fL 80-94 [facility] Work Phone: Metabolic Panelon 05-31-2020 ALP [Catalytic activity/Vol] 81 U/L 45-117 [facility] Work Phone: ALT [Catalytic activity/Vol] 40 U/L 16-61 [facility] Work Phone: CO2 [Moles/Vol] 30.0 mmol/L 21.0-32.0 [facility] Work Phone: Urea nitrogen/Creatinine [Mass ratio] 11.0 RATIO 10-20 [facility] Work Phone: Otheron 05-31-2020 Erythrocyte distribution width (RBC) [Entitic vol] 53.1 fL 35.1-43.9 [facility] Work Phone: Erythrocyte distribution width (RBC) [Ratio] 15.1 % 11.6-14.6 [facility] Work Phone: Estimated GFR (MDRD) Amer 64 mL/min >60 [facility] Work Phone: Comment on above: GFR Calc Estimated GFR (MDRD) Non-Af Amer 53 mL/min >60 [facility] Work Phone: Comment on above: Non- GFR Calc Globulin (S) [Mass/Vol] 3.6 g/dL 2.2-4.2 [facility] Work Phone: Immature granulocytes/100 WBC (Bld) 0.300 % 0.0-0.9 [facility] Work Phone: Comment on above: IG% - Immature Granu locytes (promyelocytes, myelocytes and metamyelocytes) > 1% indicates that a LEFT SHIFT is Present. Nucleated RBC/100 WBC (Bld) [Ratio] 0 % 0-5 [facility] Work Phone: Prostate Specific Antigen Screen 9.72 ng/mL 0.00-4.00 [facility] Work Phone: Comment on above: This test was perfor med using the TPSA assay method for the[employer] chemistry system. Values obtained with differentassay methods cannot be used interchangably.When changing PSA assays in the course of monitoring apatient, additional sequential testing should be carriedout to confirm baseline values. Platelets bldon 05-31-2020 Platelets (Bld) [#/Vol] 267 10*3/uL 150-450 [facility] Work Phone: Serum or plasma albumin francisco urement (mass/volume)on 05-31-2020 Albumin [Mass/Vol] 3.7 g/dL 3.2-5.0 [facility] Work Phone: Serum or plasma albumin/glob ulin mass ratioon 05-31-2020 Albumin/Globulin [Mass ratio] 1.0 {ratio} 0.9-2.4 [facility] Work Phone: Serum or plasma calcium francisco urement (mass/volume)on 05-31-2020 Calcium [Mass/Vol] 8.4 mg/dL 8.5-10.1 [facility] Work Phone: Serum or plasma cholesterol in HDL measurement (mass/volume)on 05-31-2020 Cholesterol in HDL [Mass/Vol] 61 mg/dL [facility] Work Phone: Comment on above: The drugs N-Acetylcy steine and Metamizole may falsely depress this assay. Reference Range HDL <40 mg/dL Low HDL Cholesterol HDL >or= 60 mg/dL High HDL Cholesterol Serum or plasma cholesterol in LDL measurement (mass/volume)on 05-31-2020 Cholesterol in LDL [Mass/Vol] 126 mg/dL 0-130 [facility] Work Phone: Serum or plasma cholesterol in VLDL measurement (mass/volume)on 05-31-2020 Cholesterol in VLDL [Mass/Vol] 28 mg/dL 5-40 [facility] Work Phone: Serum or plasma creatinine m easurement (mass/volume)on 05-31-2020 Creatinine [Mass/Vol] 1.46 mg/dL 0.70-1.30 [facility] Work Phone: Comment on above: The validity of the calculated GFR & GFRAA in patients over 70 years has not been determined. Clinical correlation is essential. Serum or plasma estradiol (E 2) measurement (mass/volume)on 05-31-2020 E2 [Mass/Vol] 27.8 pg/mL [facility] Work Phone: Comment on above: NORMAL REFERENCE [...] (mass/volume)on 05-31-2020 Testosterone Free [Mass/Vol] 14.21 ng/dL [facility] Work Phone: Serum or plasma urea nitroge n measurement (mass/volume)on 05-31-2020 Urea nitrogen [Mass/Vol] 16 mg/dL 7-18 [facility] Work Phone: Thin prep Papanicolaou smear with manual screeningon 05-31-2020 Anion gap [Moles/Vol] 7 5-15 [facility] Work Phone: AST [Catalytic activity/Vol] 31 U/L 15-37 [facility] Work Phone: Vital Signs Date Time Vital Sign Value Performing Clinician Savanah nicholson 01-11-2023 09:13-0400 Body weight 96.16 kg Mone Zaire ADVANCED PRACTICE PSYCHIATRIC NURSE.PARTS COUNTERMAN Work Phone: [facility] 01-11-2023 09:13-0400 Diastolic blood pressure 83 mm[Hg] Mone Pandora ADVANCED PRACTICE PSYCHIATRIC NURSE.PARTS COUNTERMAN Work Phone: [facility] 01-11-2023 09:13-0400 Heart rate 80 /min Mone Zaire ADVANCED PRACTICE PSYCHIATRIC NURSE.PARTS COUNTERMAN Work Phone: [facility] 01-11-2023 09:13-0400 SaO2% (BldA) [Mass fraction] 96 % Mone Zaire ADVANCED PRACTICE PSYCHIATRIC NURSE.PARTS COUNTERMAN Work Phone: [facility] 01-11-2023 09:13-0400 Systolic blood pressure 122 mm[Hg] Mone Pandora ADVANCED PRACTICE PSYCHIATRIC NURSE.PARTS COUNTERMAN Work Phone: [facility] 10-13-2022 15:22-0400 Body height 182.9 cm Moody Rodriguez DO Work Phone: [facility] 10-13-2022 15:22-0400 Body weight 97.52 kg Moody Rodriguez DO Work Phone: [facility] 10-13-2022 15:22-0400 Diastolic blood pressure 97 mm[Hg] Moody Rodriguez DO Work Phone: [facility] 10-13-2022 15:22-0400 Heart rate 74 /min Moody Rodriguez DO Work Phone: [facility] 10-13-2022 15:22-0400 Respiratory rate 19 /min Moody Rodriguez DO Work Phone: [facility] 10-13-2022 15:22-0400 SaO2% (BldA) [Mass fraction] 96 % Moody Rodriguez DO Work Phone: [facility] 10-13-2022 15:22-0400 Systolic blood pressure 161 mm[Hg] Moody Rodriguez DO Work Phone: [facility] 05-06-2022 15:21-0400 Diastolic blood pressure 101 mm[Hg] Mone Zaire ADVANCED PRACTICE PSYCHIATRIC NURSE.PARTS COUNTERMAN Work Phone: [facility] 05-06-2022 15:21-0400 Heart rate 70 /min Mone Pandora ADVANCED PRACTICE PSYCHIATRIC NURSE.PARTS COUNTERMAN Work Phone: [facility] 05-06-2022 15:21-0400 SaO2% (BldA) [Mass fraction] 97 % Mone Zaire ADVANCED PRACTICE PSYCHIATRIC NURSE.PARTS COUNTERMAN Work Phone: [facility] 05-06-2022 15:21-0400 Systolic blood pressure 164 mm[Hg] Mone Pandora ADVANCED PRACTICE PSYCHIATRIC NURSE.PARTS COUNTERMAN Work Phone: [facility] 03-05-2022 14:42-0400 Diastolic blood pressure 70 mm[Hg] Moody Rodriguez DO Work Phone: [facility] 03-05-2022 14:42-0400 Heart rate 79 /min Moody Rodriguez DO Work Phone: [facility] 03-05-2022 14:42-0400 Respiratory rate 15 /min Moody Rodriguez DO Work Phone: [facility] 03-05-2022 14:42-0400 SaO2% (BldA) [Mass fraction] 95 % Moody Rodriguez DO Work Phone: [facility] 03-05-2022 14:42-0400 Systolic blood pressure 121 mm[Hg] Moody Rodriguez DO Work Phone: [facility] 02-11-2022 09:27-0400 Diastolic blood pressure 96 mm[Hg] Mone Pandora ADVANCED PRACTICE PSYCHIATRIC NURSE.PARTS COUNTERMAN Work Phone: [facility] 02-11-2022 09:27-0400 Heart rate 63 /min Mone Pandora ADVANCED PRACTICE PSYCHIATRIC NURSE.PARTS COUNTERMAN Work Phone: [facility] 02-11-2022 09:27-0400 SaO2% (BldA) [Mass fraction] 94 % Mone Zaire ADVANCED PRACTICE PSYCHIATRIC NURSE.PARTS COUNTERMAN Work Phone: [facility] 02-11-2022 09:27-0400 Systolic blood pressure 150 mm[Hg] Mone Zaire ADVANCED PRACTICE PSYCHIATRIC NURSE.PARTS COUNTERMAN Work Phone: [facility] Encounters Encounter Date Encounter Type Care Provider Facility Start: 07-07-2023 Telephone encounter Kathy Malik MD Work Phone: Pain Management Comment on above: inquiring about refi lls Start: 06-10-2023 Telephone encounter Moody Meeks Shaq DO Work Phone: Pain Management Comment on above: Patient Update Start: 06-07-2023 End: 06-07-2023 Patient encounter procedure [facility] [place] Work Phone: Start: 06-07-2023 End: 06-07-2023 ambulatory [facility] Work Phone: Start: 05-28-2023 Telephone encounter oMody Meeks Shaq DO Work Phone: Pain Management Comment on above: Patient Update (Surg bailey cancelled- needs RX for oxycodone) Start: 05-13-2023 End: 05-13-2023 Orders Only Maxinejanie Meeks Shaq DO Work Phone: Pain Management Comment on above: Chronic pain syndrom e (Primary Dx) Start: 05-11-2023 Refill Moody Henderson DO Work Phone: Pain Management Comment on above: Refill Request Start: 04-26-2023 ambulatory [facility] Facility: [facility] Start: 04-16-2023 Telephone encounter Maxinejanie Meeks Shaq [...] Request Start: 04-05-2023 Telephone encounter Mone reyes ADVANCED PRACTICE PSYCHIATRIC NURSE.PARTS COUNTERMAN Work Phone: Pain Management Comment on above: Appointment Start: 03-05-2023 Refill Mone Thorne ADVANCED PRACTICE PSYCHIATRIC NURSE.PARTS COUNTERMAN Work Phone: Pain Management Comment on above: Refill Request Start: 03-02-2023 End: 03-02-2023 Patient encounter procedure [facility] Work Phone: Start: 03-02-2023 End: 03-02-2023 ambulatory [facility] Work Phone: Start: 02-04-2023 Refill Mone Pandora ADVANCED PRACTICE PSYCHIATRIC NURSE.PARTS COUNTERMAN Work Phone: Pain Management Comment on above: Refill Request Start: 02-02-2023 Refill Moody Henderson DO Work Phone: Pain Management Comment on above: Refill Request Start: 01-11-2023 End: 01-12-2023 ambulatory MONE THORNE Facility:[id number] Start: 01-11-2023 End: 01-11-2023 Office outpatient visit 25 minutes Mone Zaire ADVANCED PRACTICE PSYCHIATRIC NURSE.PARTS COUNTERMAN Work Phone: Pain Management Comment on above: Lumbar disc herniati on with radiculopathy; Lumbar spondylosis; Chronic pain syndrome; High risk medication use Start: 01-06-2023 Refill Moody Meeks Danitza calzada DO Work Phone: Pain Management Comment on above: Refill Request Start: 12-07-2022 Refill Mone Pandora ADVANCED PRACTICE PSYCHIATRIC NURSE.PARTS COUNTERMAN Work Phone: Pain Management Comment on above: Refill Request Start: 12-01-2022 Refill Mone Pandora ADVANCED PRACTICE PSYCHIATRIC NURSE.PARTS COUNTERMAN Work Phone: Pain Management Comment on above: Refill Request Start: 11-19-2022 End: 11-19-2022 ambulatory [facility] Facility:[facility] Start: 11-19-2022 End: 11-19-2022 Patient encounter procedure [facility] Work Phone: Start: 10-30-2022 Refill Mone Zaire ADVANCED PRACTICE PSYCHIATRIC NURSE.PARTS COUNTERMAN Work Phone: Pain Management Comment on above: Refill Request Start: 10-13-2022 End: 10-14-2022 ambulatory MOODY RODRIGUEZ Facility:[id number] Start: 10-13-2022 End: 10-13-2022 Patient encounter procedure [...] Start: 09-10-2022 Telephone encounter Mone Serna eld ADVANCED PRACTICE PSYCHIATRIC NURSE.PARTS COUNTERMAN Work Phone: Pain Management Comment on above: Medication Problem Start: 08-24-2022 Refill Mone Pandora ADVANCED PRACTICE PSYCHIATRIC NURSE.PARTS COUNTERMAN Work Phone: Pain Management Comment on above: Refill Request Start: 08-20-2022 End: 08-20-2022 ambulatory MOODY RODRIGUEZ Facility:[id number] Start: 08-13-2022 Refill Mone Zaire ADVANCED PRACTICE PSYCHIATRIC NURSE.PARTS COUNTERMAN Work Phone: Pain Management Comment on above: Refill Request Start: 07-23-2022 Refill Mone Pandora ADVANCED PRACTICE PSYCHIATRIC NURSE.PARTS COUNTERMAN Work Phone: Pain Management Comment on above: Refill Request Start: 07-13-2022 Refill Mone Pandora ADVANCED PRACTICE PSYCHIATRIC NURSE.PARTS COUNTERMAN Work Phone: Pain Management Comment on above: Refill Request Start: 06-23-2022 ambulatory [facility] Facility: [facility] Start: 06-12-2022 Refill Mone Zaire ADVANCED PRACTICE PSYCHIATRIC NURSE.PARTS COUNTERMAN Work Phone: Pain Management Comment on above: Refill Request Start: 05-22-2022 Refill Mone Zaire ADVANCED PRACTICE PSYCHIATRIC NURSE.PARTS COUNTERMAN Work Phone: Pain Management Comment on above: Refill Request Start: 05-06-2022 End: 05-06-2022 Office outpatient visit 25 minutes Mone Pandora ADVANCED PRACTICE PSYCHIATRIC NURSE.PARTS COUNTERMAN Work Phone: Pain Management Comment on above: Lumbar disc herniati on with radiculopathy (Primary Dx); Radiculopathy, lumbar region; Degeneration of intervertebral disc of lumbar region; Generalized osteoarthritis; Chronic pain syndrome; High risk medication use Start: 04-27-2022 Refill Mone Thorne APRN.PARTS COUNTERMAN Work Phone: Pain Management Comment on above: Refill Request Start: 03-21-2022 Chart abstracting Mone henderson ADVANCED PRACTICE PSYCHIATRIC NURSE.PARTS COUNTERMAN Work Phone: Pain Management Start: 03-18-2022 Telephone encounter Mone reyes APRN.PARTS COUNTERMAN Work Phone: Pain Management Comment on above: Medication Problem Start: 03-05-2022 End: 03-05-2022 Subsequent hospital visit by physician Moody Rodriguez DO Work Phone: MR PAIN MANAGEMENT Comment on above: Postlaminectomy synd wanda, lumbar region [M96.1] Start: 02-24-2022 Refill Mone Thorne APRN.PARTS COUNTERMAN Work Phone: Pain Management Comment on above: Refill Request Start: 02-16-2022 Telephone encounter Mone reyes APRN.PARTS COUNTERMAN Work Phone: Pain Management Comment on above: Medication Problem Start: 02-11-2022 End: 02-11-2022 Office outpatient visit 25 minutes Mone Thorne APRN.PARTS COUNTERMAN Work Phone: Pain Management Comment on above: Lumbar postlaminecto my syndrome (Primary Dx); DDD (degenerative disc disease), lumbar; Lumbar radiculopathy; Chronic pain syndrome; Myofascial pain syndrome; High risk medication use Start: 01-21-2022 Refill Mone Thorne APRN.PARTS COUNTERMAN Work Phone: Pain Management Comment on above: Refill Request Start: 01-13-2022 Refill Mone Thorne APRN.PARTS COUNTERMAN Work Phone: Pain Management Comment on above: Refill Request Start: 12-29-2021 End: 12-29-2021 Subsequent hospital visit by physician Mone Thorne APRN.PARTS COUNTERMAN Work Phone: IF [facility] Comment on above: FOLLOW UP Start: 11-20-2021 End: 11-20-2021 Subsequent hospital visit by physician Moody Rodriguez Work Phone: IF MALLORY [facility]ENDIOLA Comment on above: M54.16 Start: 07-10-2020 End: 07-10-2020 Patient encounter procedure [facility] Start: 05-31-2020 Patient encounter procedure [facility], Alethea Avila [facility] Procedures Date Procedure Procedure Detail Performing Clinician Start: 06-07-2023 X-ray of both feet Start: 03-02-2023 MRI of lower extremity Start: 04-01-2022 H/O splenectomy History of splenecto my [facility] ADVANCED PRACTICE PSYCHIATRIC NURSE.PARTS COUNTERMAN Work Phone: Start: 03-05-2022 Fluoroscopy up to 1 hour physician/qhp time Moody Rodriguez DO Work Phone: Start: 07-08-2017 Adult depression screening assessment Moody Rodriguez Work Phone: Start: 02-03-2010 Lipid 1996 panel - Serum or Plasma Moody Rodriguez DO Work Phone: H/O splenectomy History of splenectomy Plan of Treatment Date Care Activity Detail Author Start: 05-13-2023 End: 08-12-2023 TOXASSURE FLEX 23, URINE TOXASSURE FLEX 23, URINE Lab Routine Chronic pain syndrome Expected: 05/13/2023, Expires: 08/12/2023 [facility] Work Phone: Comment on above: Expected: 05/13/2023 , Expires: 08/12/2023 Start: 03-26-2023 Influenza vaccination C [facility] Start: 2023 RSV Vaccine (1 - 1-d ose 60+ series) RSV Vaccine (1 - 1-dose 60+ series) [facility] Start: 10-13-2022 End: 12-13-2022 TOXASSURE FLEX 23, URINE TOXASSURE FLEX 23, URINE Lab Routine Chronic pain syndrome Lumbar disc herniation with radiculopathy Radiculopathy, lumbar region Expected: 10/13/2022, Expires: 12/13/2022 [facility] Work Phone: Comment on above: Expected: 10/13/2022 , Expires: 12/13/2022 Start: 07-26-2022 [facility]PRESSION [facility]ESSMENT [facility] Start: 03-26-2022 Influenza vaccination C [facility] Start: 02-11-2022 End: 04-13-2022 DRUG SCR TOXASURE DRUG SCR TOXASURE Lab Routine High risk medication use Expected: 02/11/2022, Expires: 04/13/2022 [facility] Work Phone: Comment on above: Expected: 02/11/2022 , Expires: 04/13/2022 Start: 07-26-2021 DEPRESSION ASSESSMENT DEPRESSION ASS [facility] Start: 05-05-2019 DIABETES SCREEN DIABETES SCREEN [facility] Start: 05-05-2019 Diabetes Screening Diabetes Screenin g [facility] Start: 07-08-2018 Adult depression screening assessment DEPRESSION SCREENING [facility] Start: 2018 PROSTATE CANCER SCREENING DISCUSSION PROSTATE CANCER SCREENING DISCUSSION [facility] Start: 2018 Prostate specific antigen measurement Prostate Cancer Screening Discussion [facility] Start: 02-03-2015 Lipid 1996 panel - Serum or Plasma Lipid Screening [facility] Start: 02-03-2015 Lipid panel Lipid Screening [facility] Start: 02-03-2015 LIPID SCREEN LIPID SCREEN [facility] Start: 2013 SHINGRIX VACCINE (1 of 2) SHINGRIX VACCINE (1 of 2) [facility] Start: 2008 COLOGUARD (FIT-DNA) COLOGUARD (FIT-D NA) [facility] Start: 2008 Colonoscopy COLONOSCOPY [facility] Start: 2008 COLORECTAL CANCER SCREENING COLORECTAL CANCER SCREENING [facility] Start: [address] COLONOGRAPHY [facility] Start: 2008 FECAL OCCULT BLOOD FECAL OCCULT BLOO D [facility] Start: 2008 Screening for malign ant neoplasm of colon [facility] Start: 2008 SIGMOIDOSCOPY SIGMOIDOSCOPY [facility] Start: 1982 Urine microalbumin profile [facility] Start: 1981 ANNUAL PCP TEAM PRIMARY TEACHING ASSISTANT CARLOS DISEASE VISIT ANNUAL PCP TEAM CHRONIC DISEASE VISIT [facility] Start: 1981 BP CONTROLLED (<130/80) BP CONTROLLE D (<130/80) [facility] Start: 1981 HEPATITIS C SCREENING HEPATITIS C [facility] Start: 1981 Hepatitis C screening Hepatitis C [facility] Start: 1981 HIV SCREENING HIV SCREENING [facility] Start: 1981 HIV screening HIV Screening [facility] Start: 1968 COVID-19 VACCINE (#1) COVID-19 VACCI NE (#1) [facility] Start: 1968 COVID-19 VACCINE (1) COVID-19 VACCIN E (1) [facility] Start: 1963 COVID-19 VACCINE (#1) COVID-19 VACCI NE (#1) [facility] Start: 1963 HEPATITIS B (1 of 3 - 3-dose series) HEPATITIS B (1 of 3 - 3-dose series) [facility] Injection aa&/strd other peripheral nerve/branch INJECT ANESTH AGENT Procedures Routine Lumbar postlaminectomy syndrome Ordered: 02/11/2022 [facility] Work Phone: Comment on above: Ordered: 02/11/2022 [facility] MR PAIN [facility] Immunizations Immunization Date Immunization Notes Care Provider Job rios 04-29-2006 influenza virus vacc ine, unspecified formulation Moody Rodriguez Work Phone: [facility] Work Phone: 04-29-2006 meningococcal polysaccharide vaccine (MPSV4) Moody Rodriguez Work Phone: [facility] Work Phone: 04-29-2006 pneumococcal polysaccharide vaccine, 23 valent Moody Rodriguez Work Phone: [facility] Work Phone: 04-25-2006 pneumococcal polysaccharide vaccine, 23 valent [facility] Work Phone: 04-25-2006 pneumococcal vaccine , unspecified formulation [facility] Payers Date Payer Category Payer Medicaid [id number] 2022 Self-pay [id number] 2021 Medicaid [facility] MEDICAID [facility]C [facility] MEDICAID [id number] 2021-Present [phone] [address] [place] [address] Medicaid [id number] 2021 Medicaid [id number] 2021 Medicare [facility] MEDICARE [employer] ARE [facility] MEDICARE [id number] 2021-Present [phone] [address] [place] [address] Medicare [id number] 2021 Unknown [id number] 2017 Medicare [employer] MED[employer] RE ADVANTAGE MD MEDICARE [id number] 2017-Present [phone] [address] [place] [address] O [id number] Medicare [id number] Unknown [id number] Unknown [id number] Unknown [id number] Unknown [id number] Unknown [id number] Social History Date Type Detail Facility Start: 07-27-2018 End: 07-27-2018 Tobacco smoking status NHIS Unknown if ever smoked [facility] Start: 1965 Sex Assigned At Male W [facility] Start: 04-30-2016 End: 10-13-2022 Tobacco smoking status NHIS Never smoked tobacco [facility] Start: 06-03-2017 End: 06-07-2023 Alcohol intake Current drinker of alcohol (finding) [facility] Start: 07-02-2011 History SDOH Alcohol Comment occassional [facility] Start: 1965 Sex Assigned At Not on file C [facility] Start: 12-20-2021 End: 12-30-2021 Exposure to SARS-CoV-2 (event) Unable to assess [facility] Start: 04-30-2016 End: 10-13-2022 Tobacco use and exposure Smokeless tobacco non-user [facility] Start: 02-01-2022 End: 05-06-2022 Exposure to SARS-CoV-2 (event) Not sure [facility] Start: 01-11-2023 End: 06-07-2023 History of Social function [facility] Start: 01-11-2023 End: 06-07-2023 Tobacco use panel [facility] National Score (1-100), lower number is lower risk 77 [facility] Start: 12-12-2020 None [facility] Start: 05-04-2013 Spouse/ Signif icant Other [facility] Start: 12-12-2020 Non-smoker [facility] Medical Equipment Procedure Code Equipment Code Equipment [...] Start: 07-25-2018 Drill Neuro 3mm 5230-107-30 - [id number] Start: 12-02-2009 Graft Infuse 20g a Medium Bovine Collagen Rhbmp-2 2x1in Bone Vial Absorbable - [id number] Start: 05-05-2016 Cage Lt-Cage 14m m Titanium 23x17.5x14mm Spinal Lumbar Fusion Device Tapered - [id number] Start: 05-05-2016 Use to inject testosterone [...] Result Flag Units Drug Present Ethyl Glucuronide 44232 ng/mg creat Ethyl Sulfate 9769 ng/mg creat [...] For clinical consultation, please call . == @FLOW([id number])@ Lab Results Component Value Date SUMM FINAL [...] PRESENT Guaifenesin may be administered as an amdj-lpc-mcysqun or prescription drug; it may also be present as a breakdown product of methocarbamol. Zolpidem PRESENT Zolpidem Acid PRESENT Zolpidem acid is an expected metabolite of zolpidem. Acetaminophen PRESENT Doxylamine PRESENT Lidocaine PRESENT Dextromethorphan PRESENT Dextrorphan/Levorphanol PRESENT Dextrorphan is an expected metabolite of dextromethorphan, an kvby-rdz-uulexkn or prescription cough suppressant. Dextrorphan cannot be [...] left foot surgery by Dr Boogie at [facility] and was inpt x 1 week, I [...] surgery scheduled 06/24, pt was previously on [id number]. MME is 198, please advise refills Petra Wiley RN July 07, 2023 3:59 PM documented in this encounter [facility] 06-11-2023 Miscellaneous Notes Formattin g of [...] the foot x-ray he had done at [place] on 06/07. The results are scanned into the chart. He does not have follow up with Dr. Malik until 09/15/23. Please advise. Naomi Shoemaker RN June 10, 2023 3:15 PM documented in this encounter [facility] 06-07-2023 Note HNO ID: [id number] Author: Moody Rodriguez DO Service: ? Author Type: Anesthesiologist Type: Progress Notes Filed: 06/08/2023 7:12 AM Note Text: Summary: Pain management office follow-up visit DATE: June 07, 2023 Chief Complaint: Low back pain, right foot pain _ History of Present Illness: Eliza Lowe is a 58 year old male being seen at [facility] for a evaluation and/or [...] issue with 3D printer, rescheduled 06/24/23 at [facility]. States a rock rolled over [...] Result Flag Units Drug Present Ethyl Glucuronide 30031 ng/mg creat Ethyl Sulfate 9769 ng/mg creat [...] Noroxycodone 5597 ng/ (more content not included)... [facility] 05-31-2023 Miscellaneous Notes Formattin g of this [...] 2023 10:41 AM documented in this encounter [facility] 05-14-2023 Miscellaneous Notes Formattin g of [...] Result Flag Units Drug Present Ethyl Glucuronide 85786 ng/mg creat Ethyl Sulfate 7385 ng/mg creat [...] For clinical consultation, please call . == @FLOW([id number])@ Lab Results Component Value Date SUMM FINAL [...] PRESENT Guaifenesin may be administered as an cqvl-wwd-segshqn or prescription drug; it may also be present as a breakdown product of methocarbamol. Zolpidem PRESENT Zolpidem Acid PRESENT Zolpidem acid is an expected metabolite of zolpidem. Acetaminophen PRESENT Doxylamine PRESENT Lidocaine PRESENT Dextromethorphan PRESENT Dextrorphan/Levorphanol PRESENT Dextrorphan is an expected metabolite of dextromethorphan, an mfgu-opa-ebuxlpu or prescription cough suppressant. Dextrorphan cannot be distinguished from the scheduled prescription medication levorphanol by the method used for analysis. == Test Result Flag Units Ref Range Creatinine 77 mg/dL >=20 == Declared Medications: Medication list was not provided. == For clinical consultation, please call . == Please review and advise. Marilyn Grossman RN documented in this encounter [facility] 04-16-2023 Miscellaneous Notes Formattin g of this note might be different from the original. Opened in error documented in this encounter [facility] 04-16-2023 Miscellaneous Notes Addended by: GEOFF [...] 2023 12:47 PM documented in this encounter [facility] 04-14-2023 Miscellaneous Notes Formattin g of [...] Result Flag Units Drug Present Ethyl Glucuronide 75883 ng/mg creat Ethyl Sulfate 7385 ng/mg creat [...] For clinical consultation, please call . == @FLOW([id number])@ Lab Results Component Value Date SUMM FINAL [...] PRESENT Guaifenesin may be administered as an mdnd-jlm-ptgesrz or prescription drug; it may also be present as a breakdown product of methocarbamol. Zolpidem PRESENT Zolpidem Acid PRESENT Zolpidem acid is an expected metabolite of zolpidem. Acetaminophen PRESENT Doxylamine PRESENT Lidocaine PRESENT Dextromethorphan PRESENT Dextrorphan/Levorphanol PRESENT Dextrorphan is an expected metabolite of dextromethorphan, an elxl-myz-bbuixsh or prescription cough suppressant. Dextrorphan cannot be distinguished from the scheduled prescription medication levorphanol by the method used for analysis. == Test Result Flag Units Ref Range Creatinine 77 mg/dL >=20 == Declared Medications: Medication list was not provided. == For clinical consultation, please call . == Please review and advise. Naomi Shoemaker RN documented in this encounter [facility] 04-12-2023 Miscellaneous Notes Formattin g of this note might be different from the original. I left a message to schedule a procedure. Sarah April 12, 2023 10:35 AM documented in this encounter [facility] 04-06-2023 Miscellaneous Notes Formattin g of [...] before April 21, 2023. Authorizing Provider: MITUL RASMUSSNE meloxicam (MOBIC) 15 mg tablet 30 tablet [...] Result Flag Units Drug Present Ethyl Glucuronide 15841 ng/mg creat Ethyl Sulfate 7385 ng/mg creat [...] For clinical consultation, please call . == @FLOW([id number])@ Lab Results Component Value Date SUMM FINAL [...] PRESENT Guaifenesin may be administered as an pkhn-ner-gvjfrik or prescription drug; it may also be present as a breakdown product of methocarbamol. Zolpidem PRESENT Zolpidem Acid PRESENT Zolpidem acid is an expected metabolite of zolpidem. Acetaminophen PRESENT Doxylamine PRESENT Lidocaine PRESENT Dextromethorphan PRESENT Dextrorphan/Levorphanol PRESENT Dextrorphan is an expected metabolite of dextromethorphan, an dmnb-ywb-tdymtyw or prescription cough suppressant. Dextrorphan cannot be distinguished from the scheduled prescription medication levorphanol by the method used for analysis. == Test Result Flag Units Ref Range Creatinine 77 mg/dL >=20 == Declared Medications: Medication list was not provided. == For clinical consultation, please call . == Please review and advise. Marilyn Grossman RN documented in this encounter [facility] 04-06-2023 Miscellaneous Notes Summary: careline call Pt contacted [facility] with pt update: Patient states they have [...] of improvement as well as to contact [facility] with any updates, questions, or concerns. Jackie Dorsey RN April 06, 2023 1:05 PM documented in this encounter [facility] 04-05-2023 Miscellaneous Notes Summary: Appointment Appointment scheduled has been cancelled, patient is to call and be rescheduled with a different provider. documented in this encounter [facility] 03-07-2023 Miscellaneous Notes Formattin g of [...] start before March 22, 2023. Authorizing Provider: MOEN THORNE meloxicam (MOBIC) 15 mg tablet 30 tablet 0 Sig: Take 1 tablet by mouth once daily as needed. Authorizing Provider: MONE THORNE gabapentin (NEURONTIN) 600 mg tablet 120 tablet 0 Sig: Take 1 tablet by mouth four times daily for 30 days. Do not start before March 16, 2023. Authorizing Provider: MONE THORNE APRN.PARTS COUNTERMAN Patient phones requesting refills as follows: Requested [...] Result Flag Units Drug Present Ethyl Glucuronide 04480 ng/mg creat Ethyl Sulfate 7385 ng/mg creat [...] PRESENT Guaifenesin may be administered as an ixjb-hcw-sadtffn or prescription drug; it may also be present as a breakdown product of methocarbamol. Zolpidem PRESENT Zolpidem Acid PRESENT Zolpidem acid is an expected metabolite of zolpidem. Acetaminophen PRESENT Doxylamine PRESENT Lidocaine PRESENT Dextromethorphan PRESENT Dextrorphan/Levorphanol PRESENT Dextrorphan is an expected metabolite of dextromethorphan, an pzgb-kyq-raknwoi or prescription cough suppressant. Dextrorphan cannot be distinguished from the scheduled prescription medication levorphanol by the method used for analysis. == Test Result Flag Units Ref Range Creatinine 77 mg/dL >=20 == Declared Medications: Medication list was not provided. == For clinical consultation, please call . == Please review and advise. Petra Wiley RN documented in this encounter [facility] 02-07-2023 Miscellaneous Notes Formattin g of [...] daily as needed. Authorizing Provider: MONE THORNE APRN.PARTS COUNTERMAN Pt has Rfs of lidocaine patches and [...] Result Flag Units Drug Present Ethyl Glucuronide 00114 ng/mg creat Ethyl Sulfate 7385 ng/mg creat [...] For clinical consultation, please call . == @FLOW([id number])@ Lab Results Component Value Date SUMM FINAL [...] PRESENT Guaifenesin may be administered as an rqdi-qam-pivvclj or prescription drug; it may also be present as a breakdown product of methocarbamol. Zolpidem PRESENT Zolpidem Acid PRESENT Zolpidem acid is an expected metabolite of zolpidem. Acetaminophen PRESENT Doxylamine PRESENT Lidocaine PRESENT Dextromethorphan PRESENT Dextrorphan/Levorphanol PRESENT Dextrorphan is an expected metabolite of dextromethorphan, an lfay-iix-lkfrzkm or prescription cough suppressant. Dextrorphan cannot be distinguished from the scheduled prescription medication levorphanol by the method used for analysis. == Test Result Flag Units Ref Range Creatinine 77 mg/dL >=20 == Declared Medications: Medication list was not provided. == For clinical consultation, please call . == Please review and advise. Marilyn Grossman RN documented in this encounter [facility] 01-11-2023 Note HNO ID: [id number] Author: Mone Thorne APRN.PARTS COUNTERMAN Service: ? Author Type: Clinical Nurse Specialist Type: Progress Notes Filed: 01/11/2023 9:55 AM Note Text: SUBJECTIVE: Eliza Lowe presents to [facility] for a follow-up [...] Follow-up in 3 months in office with COLLECTIONS SPECIALIST Last procedure 11/19/22 Right L5 S1 SNRT [...] WELL Headache Paternal Grandfather Heart Father R/T [place] IN 60'S Social History: Social History Tobacco [...] understanding. Mone Thorne APRN.CNS January 11, 2023 [facility] 01-11-2023 Instructions Mone Thorne APRN.CNS - 01/11/2023 9:45 AM EDT Continue [...] in 3 months documented in this encounter [facility] 01-11-2023 History of Presen t illness Narrative SUBJECTIVE: Eliza Lowe presents to [facility] Department for a follow-up [...] Follow-up in 3 months in office with COLLECTIONS SPECIALIST Last procedure 11/19/22 Right L5 S1 SNRT [...] WELL Headache Paternal Grandfather Heart Father R/T [place] 60'S Social History: Social History Tobacco [...] January 11, 2023 documented in this encounter [facility] 01-06-2023 Miscellaneous Notes Formattin g of [...] Marilyn Grossman RN documented in this encounter [facility] 10-13-2022 Note HNO ID: [id number] Author: Moody Rodriguez DO Service: ? Author Type: Physician Type: Progress Notes Filed: 10/14/2022 6:57 AM Note Text: Summary: Pain Management follow-up DATE: October 13, 2022 Chief Complaint: LBP _ History of Present Illness: Eliza Lowe is a 57 year old male being seen at [facility] for a evaluation and/or [...] 80% relief until recently. Denied any falls. [place] the injection in October was the best [...] PRESENT Guaifenesin may be administered as an vinf-nez-trivirq or prescription drug; it may also be present as a breakdown product of methocarbamol. Zolpidem PRESENT Zolpidem Acid PRESENT Zolpidem acid is an expected metabolite of zolpidem. Acetaminophen PRESENT Doxylamine PRESENT Lidocaine PRESENT Dextromethorphan PRESENT Dextrorphan/Levorphanol PRESENT Dextrorphan is an expected metabolite of dextromethorphan, an tdet-gid-fadbcyu or prescription cough suppressant. Dextrorphan cannot be distinguished from the scheduled prescription medication levorphanol by the method used for analysis. == Test Result Flag Units Ref Range Creatinine 77 mg/dL >=20 == Declared Medications: Medication list was not provided. == (more content not included)... [facility] 10-13-2022 Note HNO ID: [id number] Author: Moody Rodriguez, DO Service: ? Author [...] interval and remained stable. Moody Rodriguez DO [facility] 10-13-2022 Instructions Moody Rodriguez DO - 10/13/2022 [...] Follow-up in 3 months in office with COLLECTIONS SPECIALIST documented in this encounter [facility] 10-13-2022 History of Presen t illness Narrative Summary: Pain Management follow-up DATE: October 13, 2022 Chief Complaint: LBP _ History of Present Illness: Eliza Lowe is a 57 year old male being seen at [facility] for a evaluation and/or [...] 80% relief until recently. Denied any falls. [place] the injection in October was the best [...] PRESENT Guaifenesin may be administered as an vvbq-nfm-eocykuq or prescription drug; it may also be present as a breakdown product of methocarbamol. Zolpidem PRESENT Zolpidem Acid PRESENT Zolpidem acid is an expected metabolite of zolpidem. Acetaminophen PRESENT Doxylamine PRESENT Lidocaine PRESENT Dextromethorphan PRESENT Dextrorphan/Levorphanol PRESENT Dextrorphan is an expected metabolite of dextromethorphan, an pqqv-yeh-xubzoab or prescription cough suppressant. Dextrorphan cannot be [...] WELL Headache Paternal Grandfather Heart Father R/[place] 60'S Social History Tobacco Use Smoking [...] encounter was entered by Senait Rogel, medical historian, for Dr. Moody Rodriguez on October 13, [...] October 13, 2022 documented in this encounter [facility] 10-13-2022 Procedure note Procedure(s): TRIGGER POINT [...] Moody Rodriguez DO documented in this encounter [facility] 09-10-2022 Miscellaneous Notes Formattin g of [...] September 22, 2022. Authorizing Provider: MONE THORNE APRN.PARTS COUNTERMAN Pt is requesting a refill of Fentanyl, she was seen last on 05/06/22, no showed on 08/06/22 and scheduled for 09/28/22. Please advise. Naomi Shoemaker RN September 10, 2022 1:29 PM documented in this encounter [facility] 08-24-2022 Miscellaneous Notes Formattin g of [...] August 25, 2022. Authorizing Provider: MONE THORNE APRN.PARTS COUNTERMAN Patient phones requesting refills as follows: Requested [...] Last UDS: No results found for: SUMM @FLOW([id number])@ No results found for: SUMM Summary Report [...] PRESENT Guaifenesin may be administered as an cqwi-exl-mjecdbg or prescription drug; it may also be present as a breakdown product of methocarbamol. Zolpidem PRESENT Zolpidem Acid PRESENT Zolpidem acid is an expected metabolite of zolpidem. Acetaminophen PRESENT Doxylamine PRESENT Lidocaine PRESENT Dextromethorphan PRESENT Dextrorphan/Levorphanol PRESENT Dextrorphan is an expected metabolite of dextromethorphan, an dmla-rlx-yfigfnp or prescription cough suppressant. Dextrorphan cannot be distinguished from the scheduled prescription medication levorphanol by the method used for analysis. == Test Result Flag Units Ref Range Creatinine 77 mg/dL >=20 == Declared Medications: Medication list was not provided. == For clinical consultation, please call . == Please review and advise. Marilyn Grossman RN documented in this encounter [facility] 08-13-2022 Miscellaneous Notes Formattin g of [...] Last UDS: No results found for: SUMM @FLOW([id number])@ No results found for: SUMM Summary Report [...] PRESENT Guaifenesin may be administered as an trgw-ezq-rbygrmg or prescription drug; it may also be present as a breakdown product of methocarbamol. Zolpidem PRESENT Zolpidem Acid PRESENT Zolpidem acid is an expected metabolite of zolpidem. Acetaminophen PRESENT Doxylamine PRESENT Lidocaine PRESENT Dextromethorphan PRESENT Dextrorphan/Levorphanol PRESENT Dextrorphan is an expected metabolite of dextromethorphan, an rkwm-wig-fuljpkg or prescription cough suppressant. Dextrorphan cannot be distinguished from the scheduled prescription medication levorphanol by the method used for analysis. == Test Result Flag Units Ref Range Creatinine 77 mg/dL >=20 == Declared Medications: Medication list was not provided. == For clinical consultation, please call . == Please review and advise. Naomi Shoemaker RN documented in this encounter [facility] 07-23-2022 Miscellaneous Notes Formattin g of [...] Naomi Shoemaker RN documented in this encounter [facility] 07-13-2022 Miscellaneous Notes Formattin g of this note is different from the original. The following approved medication requests have been transmitted electronically. Requested Prescriptions Signed Prescriptions Disp Refills fentaNYL (DURAGESIC) 25 mcg/hr 15 Patch 0 Sig: Apply 1 Patch as directed every 48 hours for 30 days. Do not start before July 18, 2022. Authorizing Provider: MONE THORNE APRN.PARTS COUNTERMAN Patient phones requesting refills as follows: Requested Prescriptions Pending Prescriptions Disp Refills fentaNYL (DURAGESIC) 25 mcg/hr 15 Patch 0 Sig: Apply 1 Patch as directed every 48 hours for 30 days. Please review and advise. Danita Restrepo RN documented in this encounter [facility] 06-14-2022 Miscellaneous Notes Formattin g of this note is different from the original. The following approved medication requests have been transmitted electronically. Requested Prescriptions Signed Prescriptions Disp Refills fentaNYL (DURAGESIC) 25 mcg/hr 15 Patch 0 Sig: Apply 1 Patch as directed every 48 hours for 30 days. Do not start before June 18, 2022. Authorizing Provider: MONE THORNE APRN.PARTS COUNTERMAN Patient phones requesting refills as follows: Requested Prescriptions Pending Prescriptions Disp Refills fentaNYL (DURAGESIC) 25 mcg/hr 15 Patch 0 Sig: Apply 1 Patch as directed every 48 hours for 30 days. Please review and advise. Marilyn Grossman RN documented in this encounter [facility] 05-25-2022 Miscellaneous Notes Formattin g of [...] Petra Wiley RN documented in this encounter [facility] 05-06-2022 Instructions Mone Thorne APRN.PARTS COUNTERMAN - 05/06/2022 3:21 PM EDT Continue Oxycodone. [...] 80% relief until recently. Denied any falls. [place] the injection in October was the best Denies signs or symptoms or heart attack or stroke. Instructed to check BP later today and call PCP if still elevated. Follow-up in 2-3 months in office documented in this encounter [facility] 05-05-2022 History of Presen t illness [...] 5/5 lower extremities. documented in this encounter [facility] 04-27-2022 Miscellaneous Notes Formattin g of [...] April 28, 2022. Authorizing Provider: MONE THORNE APRN.PARTS COUNTERMAN Patient phones requesting refills as follows: Requested [...] Yanira Olivares RN documented in this encounter [facility] 03-18-2022 Miscellaneous Notes Formattin g of this note is different from the original. The following approved medication requests have been transmitted electronically. Requested Prescriptions Signed Prescriptions Disp Refills lidocaine (LIDODERM) 5 % 60 Patch 4 Sig: Apply 1 Patch as directed as directed. Authorizing Provider: MONE THORNE APRN.PARTS COUNTERMAN Summary: lidocaine patches concern Message on careline from pt : Please resend lidocaine patch 'script as she stsates that pharmacy does not have knowledge of 'script nor have they received it. Thank you. Jackie Dorsey RN documented in this encounter [facility] 03-05-2022 Miscellaneous Notes Summary: Right L5 [...] to approved criteria documented in this encounter [facility] 02-24-2022 Miscellaneous Notes The following approved [...] has requested refill too soon Mone Thorne APRN.PARTS COUNTERMAN Patient phones requesting refills as follows: Patient [...] Yanira Olivares RN documented in this encounter [facility] 02-16-2022 Miscellaneous Notes The following approved [...] assistance is available Authorizing Provider: MONE THORNE APRN.PARTS COUNTERMAN Pt's called in stating that his prescriptions were sent to the wrong pharmacy. Fentanyl and Oxycodone scripts cancelled at [facility]. Will need sent to [facility] in [place]. Please advise. Pt requesting refill as follows [...] Naomi Shoemaker, RN documented in this encounter [facility] 02-11-2022 Instructions Mone Thorne APRN.CNS - [...] months in office documented in this encounter [facility] 02-10-2022 History of Presen t illness [...] 5/5 lower extremities. documented in this encounter [facility] 01-21-2022 Miscellaneous Notes The following approved [...] assistance is available Authorizing Provider: MONE THORNE APRN.PARTS COUNTERMAN Patient phones requesting refills as follows: Pending Prescriptions Disp Refills OXYCODONE 15 MG TABLET 120 tablet 0 Si tablet four times daily as needed for up to 30 days. BETO Class: C-II CHARISSA: No Please review and advise. Marilyn Grossman RN documented in this encounter [facility] 01-13-2022 Miscellaneous Notes Patient phones requesting refills as follows: Pending Prescriptions Disp Refills FENTANYL 25 MCG/HR TRANSDERMAL PATCH 15 Patch 0 Sig: Apply 1 Patch as directed every 48 hours for 30 days. BETO Class: C-II CHARISSA: No Pt has refills at pharmacy for robaxin. Please review and advise. Marilyn Grossman RN documented in this encounter [facility] Evaluation note Diagnosis Chronic pain syndrome- Primary [facility] Diagnosis Chronic pain syndrome- Primary [facility] Diagnosis Lumbar postlaminectomy syndrome- Primary Postlaminectomy syndrome, lumbar region DDD (degenerative disc disease), lumbar Degeneration of lumbar or lumbosacral intervertebral disc Lumbar radiculopathy Thoracic or lumbosacral neuritis or radiculitis, unspecified Chronic pain syndrome Myofascial pain syndrome Mylagia and myositis, unspecified High risk medication use Encounter for long-term (current) use of other medications Postlaminectomy syndrome, lumbar [facility] Chronic pain syndrome Postlaminectomy syndrome, lumbar region [facility] Diagnosis Chronic pain syndrome Postlaminectomy syndrome, lumbar region [facility] Diagnosis Lumbosacral neuritis [M54.17 (ICD-10-CM)]- Primary Thoracic or lumbosacral neuritis or radiculitis, unspecified Radiculopathy, lumbar region [M54.16 (ICD-10-CM)] Thoracic or lumbosacral neuritis or radiculitis, unspecified [facility] Diagnosis Chronic pain syndrome [facility] Diagnosis Chronic [facility] syndrome [facility] Diagnosis Lumbar disc herniation with radiculopathy- [...] of lumbar region [facility] Diagnosis Chronic pain syndrome Lumbar disc herniation with radiculopathy Displacement of lumbar intervertebral disc without myelopathy Degeneration of intervertebral disc of lumbar region [facility] Diagnosis Chronic pain syndrome Lumbar disc herniation with radiculopathy Displacement of lumbar intervertebral disc without myelopathy Degeneration of intervertebral disc of lumbar region [facility] Diagnosis Chronic pain syndrome Lumbar disc herniation with radiculopathy Displacement of lumbar intervertebral disc without myelopathy Degeneration of intervertebral disc of lumbar region [facility] Diagnosis Chronic pain syndrome- Primary Lumbar [...] and myositis, unspecified [facility]* Diagnosis Lumbar disc herniation with radiculopathy Displacement of lumbar intervertebral disc without myelopathy Lumbar spondylosis Lumbosacral spondylosis without myelopathy Chronic pain syndrome High risk medication use Encounter for long-term (current) use of other medications [facility] Diagnosis Chronic pain syndrome documented in [facility] encounter [facility] noteNo assessment information availableWKet[facility] Work Phone: Evaluation note* Diagnosis Chronic pain syndrome documented in this encounter [facility] note* Diagnosis Chronic pain syndrome documented in this encounter [facility] note* Diagnosis Chronic pain syndrome documented in this encounter [facility] note* Diagnosis Chronic pain syndrome documented in this encounter [facility] note* Diagnosis Chronic pain syndrome- Primary documented in this encounter [facility] note* Diagnosis Chronic pain syndrome documented in this encounter [facility] note* Diagnosis Chronic pain syndrome documented in this encounter [facility] for visit Narrative* Auth/Cert Specialty [...] G[facility]ANCE [facility] [address] [place] [address] Referral ID Status Reason Start Date Expiration Date Visits Re quested Visits Authorized [id number] 1 1 [facility] Chief Complaint and Reason for Visit Chief Complaint EXPOSURE Chief Complaint LEFT ANKLE Primary o steoarthritis, left ankle and Advance Directives No Advanced Directives Records Found Advance Directive Response Recorded Date/ Time Advance Directives No August 18, 2013 2:12pm Living Will No July 25, 2 018 4:03pm Power of Supervisor Correspondence Section No July 25, 2018 4:03pm Documents on File Type Date Recorded 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 Advance Directive(s) 06/03/2017 11:20 AM Advance Directive(s) 04/30/2016 3:30 PM Advance Directive(s) 04/29/2016 11:36 AM Advance Directive Response Recorded Date/ Time Advance Directives No August 18, 2013 3:12pm Living Will No July 25, 2 018 5:03pm Power of Supervisor Correspondence Section No July 25, 2018 5:03pm Assessments No [...] EVALUATION HIGH COMPLEX 45 MINS Mone Thorne APRN.PARTS COUNTERMAN [address] [facility] [place] [address] [facility] [address] [place] [address] Referral ID Status Reason Start Date Expiration Date Visits Requested Visits Authorized [id number] Pending Review Auto-Generat ed Referral 01/11/2023 01/11/2024 1 1 Additional Source Comments Source Comments (unrecognize d section and content) In the event this informatio n is protected by the Federal Confidentiality of Alcohol and Drug Abuse Patient Records regulations: The Federal rules restrict any use of the information to criminally investigate or prosecute any alcohol or drug abuse patient.[facility] the event this information is protected by the Federal Confidentiality of Alcohol and Drug Abuse Patient Records regulations: The Federal rules restrict any use of the information to criminally investigate or prosecute any alcohol or drug abuse patient.[facility] the event this information is protected by the Federal Confidentiality of Alcohol and Drug Abuse Patient Records regulations: The Federal rules restrict any use of the information to criminally investigate or prosecute any alcohol or drug abuse patient.[facility] the event this information is protected by the Federal Confidentiality of Alcohol and Drug Abuse Patient Records regulations: The Federal rules restrict any use of the information to criminally investigate or prosecute any alcohol or drug abuse patient.[facility] the event this information is protected by the Federal Confidentiality of Alcohol and Drug Abuse Patient Records regulations: The Federal rules restrict any use of the information to criminally investigate or prosecute any alcohol or drug abuse patient.[facility] the event this information is protected by the Federal Confidentiality of Alcohol and Drug Abuse Patient Records regulations: The Federal rules restrict any use of the information to criminally investigate or prosecute any alcohol or drug abuse patient.[facility] the event this information is protected by the Federal Confidentiality of Alcohol and Drug Abuse Patient Records regulations: The Federal rules restrict any use of the information to criminally investigate or prosecute any alcohol or drug abuse patient.[facility] the event this information is protected by the Federal Confidentiality of Alcohol and Drug Abuse Patient Records regulations: The Federal rules restrict any use of the information to criminally investigate or prosecute any alcohol or drug abuse patient.[facility] the event this information is protected by the Federal Confidentiality of Alcohol and Drug Abuse Patient Records regulations: The Federal rules restrict any use of the information to criminally investigate or prosecute any alcohol or drug abuse patient.[facility] the event this information is protected by the Federal Confidentiality of Alcohol and Drug Abuse Patient Records regulations: The Federal rules restrict any use of the information to criminally investigate or prosecute any alcohol or drug abuse patient.[facility] the event this information is protected by the Federal Confidentiality of Alcohol and Drug Abuse Patient Records regulations: The Federal rules restrict any use of the information to criminally investigate or prosecute any alcohol or drug abuse patient.[facility] the event this information is protected by the Federal Confidentiality of Alcohol and Drug Abuse Patient Records regulations: The Federal rules restrict any use of the information to criminally investigate or prosecute any alcohol or drug abuse patient.[facility] Hospital[facility] the event this information is protected by the Federal Confidentiality of Alcohol and Drug Abuse Patient Records regulations: The Federal rules restrict any use of the information to criminally investigate or prosecute any alcohol or drug abuse patient.[facility] Hospital[facility] the event this information is protected by the Federal Confidentiality of Alcohol and Drug Abuse Patient Records regulations: The Federal rules restrict any use of the information to criminally investigate or prosecute any alcohol or drug abuse patient.[facility] HospitalIn the event this information is protected by the Federal Confidentiality of Alcohol and Drug Abuse Patient Records regulations: The Federal rules restrict any use of the information to criminally investigate or prosecute any alcohol or drug abuse patient.[facility] Hospital[facility] the event this information is protected by the Federal Confidentiality of Alcohol and Drug Abuse Patient Records regulations: The Federal rules restrict any use of the information to criminally investigate or prosecute any alcohol or drug abuse patient.[facility] Hospital[facility] the event this information is protected by the Federal Confidentiality of Alcohol and Drug Abuse Patient Records regulations: The Federal rules restrict any use of the information to criminally investigate or prosecute any alcohol or drug abuse patient.[facility] HospitalIn the event this information is protected by the Federal Confidentiality of Alcohol and Drug Abuse Patient Records regulations: The Federal rules restrict any use of the information to criminally investigate or prosecute any alcohol or drug abuse patient.[facility] HospitalIn the event this information is protected by the Federal Confidentiality of Alcohol and Drug Abuse Patient Records regulations: The Federal rules restrict any use of the information to criminally investigate or prosecute any alcohol or drug abuse patient.[facility] the event this information is protected by the Federal Confidentiality of Alcohol and Drug Abuse Patient Records regulations: The Federal rules restrict any use of the information to criminally investigate or prosecute any alcohol or drug abuse patient.[facility] HospitalIn the event this information is protected by the Federal Confidentiality of Alcohol and Drug Abuse Patient Records regulations: The Federal rules restrict any use of the information to criminally investigate or prosecute any alcohol or drug abuse patient.[facility] HospitalIn the event this information is protected [...] or prosecute any alcohol or drug abuse patient.[facility] HospitalIn the event this information is protected by the Federal Confidentiality of Alcohol and Drug Abuse Patient Records regulations: The Federal rules restrict any use of the information to criminally investigate or prosecute any alcohol or drug abuse patient.[facility] HospitalIn the event this information is protected by the Federal Confidentiality of Alcohol and Drug Abuse Patient Records regulations: The Federal rules restrict any use of the information to criminally investigate or prosecute any alcohol or drug abuse patient.[facility] Hospital[facility] the event this information is protected by the Federal Confidentiality of Alcohol and Drug Abuse Patient Records regulations: The Federal rules restrict any use of the information to criminally investigate or prosecute any alcohol or drug abuse patient.[facility] Hospital[facility] the event this information is protected by the Federal Confidentiality of Alcohol and Drug Abuse Patient Records regulations: The Federal rules restrict any use of the information to criminally investigate or prosecute any alcohol or drug abuse patient.[facility] HospitalIn the event this information is protected by the Federal Confidentiality of Alcohol and Drug Abuse Patient Records regulations: The Federal rules restrict any use of the information to criminally investigate or prosecute any alcohol or drug abuse patient.[facility] HospitalIn the event this information is protected by the Federal Confidentiality of Alcohol and Drug Abuse Patient Records regulations: The Federal rules restrict any use of the information to criminally investigate or prosecute any alcohol or drug abuse patient.[facility] HospitalIn the event this information is protected by the Federal Confidentiality of Alcohol and Drug Abuse Patient Records regulations: The Federal rules restrict any use of the information to criminally investigate or prosecute any alcohol or drug abuse patient.[facility] HospitalIn the event this information is protected by the Federal Confidentiality of Alcohol and Drug Abuse Patient Records regulations: The Federal rules restrict any use of the information to criminally investigate or prosecute any alcohol or drug abuse patient.[facility] HospitalIn the event this information is protected by the Federal Confidentiality of Alcohol and Drug Abuse Patient Records regulations: The Federal rules restrict any use of the information to criminally investigate or prosecute any alcohol or drug abuse patient.[facility] HospitalIn the event this information is protected by the Federal Confidentiality of Alcohol and Drug Abuse Patient Records regulations: The Federal rules restrict any use of the information to criminally investigate or prosecute any alcohol or drug abuse patient.[facility] HospitalIn the event this information is protected by the Federal Confidentiality of Alcohol and Drug Abuse Patient Records regulations: The Federal rules restrict any use of the information to criminally investigate or prosecute any alcohol or drug abuse patient.[facility] HospitalIn the event this information is protected by the Federal Confidentiality of Alcohol and Drug Abuse Patient Records regulations: The Federal rules restrict any use of the information to criminally investigate or prosecute any alcohol or drug abuse patient.[facility] HospitalIn the event this information is protected by the Federal Confidentiality of Alcohol and Drug Abuse Patient Records regulations: The Federal rules restrict any use of the information to criminally investigate or prosecute any alcohol or drug abuse patient.[facility] HospitalIn the event this information is protected by the Federal Confidentiality of Alcohol and Drug Abuse Patient Records regulations: The Federal rules restrict any use of the information to criminally investigate or prosecute any alcohol or drug abuse patient.[facility] HospitalIn the event this information is protected by the Federal Confidentiality of Alcohol and Drug Abuse Patient Records regulations: The Federal rules restrict any use of the information to criminally investigate or prosecute any alcohol or drug abuse patient.[facility] HospitalIn the event this information is protected by the Federal Confidentiality of Alcohol and Drug Abuse Patient Records regulations: The Federal rules restrict any use of the information to criminally investigate or prosecute any alcohol or drug abuse patient.[facility] HospitalIn the event this information is protected by the Federal Confidentiality of Alcohol and Drug Abuse Patient Records regulations: The Federal rules restrict any use of the information to criminally investigate or prosecute any alcohol or drug abuse patient.[facility] HospitalIn the event this information is protected by the Federal Confidentiality of Alcohol and Drug Abuse Patient Records regulations: The Federal rules restrict any use of the information to criminally investigate or prosecute any alcohol or drug abuse patient.[facility] Care Teams (unrecognized sec tion and content) Business Analytics Specialist Relationship Specialty Start Date End Date Louie Maddox DO PCP - General Family Practice 04/29/16 Jerome Mabry MD [address] [place] [address] Home Care Physician [facility] 05/04/16 Business Analytics Specialist Relationship Specialty Start Date End Date Louie Maddox, DO PCP - General Family Practice 04/29/16 Jerome Mabry MD [address] [place] [address] Home Care Physician [facility] 05/04/16 Business Analytics Specialist Relationship Specialty Start Date End Date Louie Maddox, DO PCP - General Family Practice 04/29/16 Jerome Mabry MD [address] [place] [address] Home Care Physician [facility] 05/04/16 Business Analytics Specialist Relationship Specialty Start Date End Date Louie Maddox, DO PCP - General Family Practice 04/29/16 Jerome Mabry MD [address] [place] [address] Home Care Physician [facility] 05/04/16 Business Analytics Specialist Relationship Specialty Start Date End Date Louie Maddox, DO PCP - General Family Practice 04/29/16 Jerome Mabry MD [address] [place] [address] Home Care Physician [facility] 05/04/16 Business Analytics Specialist Relationship Specialty Start Date End Date Louie Maddox, DO PCP - General Family Practice 04/29/16 Jerome Mabry MD [address] [place] [address] Home Care Physician [facility] 05/04/16 Business Analytics Specialist Relationship Specialty Start Date End Date Louie Maddox, DO PCP - General Family Practice 04/29/16 Jerome Mabry MD [address] [place] [address] Home Care Physician [facility] 05/04/16 Business Analytics Specialist Relationship Specialty Start Date End Date Louie Maddox, DO PCP - General Family Practice 04/29/16 Jerome Mabry MD [address] [place] [address] Home Care Physician [facility] 05/04/16 Business Analytics Specialist Relationship Specialty Start Date End Date Louie Maddox, DO PCP - General Family Practice 04/29/16 Jerome Mabry MD [address] [place] [address] Home Care Physician [facility] 05/04/16 Business Analytics Specialist Relationship Specialty Start Date End Date Louie Maddox, DO PCP - General Family Medicine 04/29/16 Jerome Mabry MD [address] [place] [address] Home Care Provider [facility] 05/04/16 Business Analytics Specialist Relationship Specialty Start Date End Date Louie Maddox, DO PCP - General Family Medicine 04/29/16 Jerome Mabry MD [address] [place] [address] Home Care Provider [facility] 05/04/16 Business Analytics Specialist Relationship Specialty Start Date End Date Louie Maddox, DO PCP - General Family Medicine 04/29/16 Jerome Mabry MD [address] [place] [address] Home Care Provider [facility] 05/04/16 Business Analytics Specialist Relationship Specialty Start Date End Date Louie Maddox, DO PCP - General Family Medicine 04/29/16 Jerome Mabry MD [address] [place] [address] Home Care Provider [facility] 05/04/16 Business Analytics Specialist Relationship Specialty Start Date End Date Louie Maddox, DO PCP - General Family Medicine 04/29/16 Jerome Mabry MD [address] [place] [address] Home Care Provider [facility] 05/04/16 Business Analytics Specialist Relationship Specialty Start Date End Date Louie Maddox, DO PCP - General Family Medicine 04/29/16 Jerome Mabry MD [address] [place] [address] Home Care Provider [facility] 05/04/16 Business Analytics Specialist Relationship Specialty Start Date End Date Louie Maddox, DO PCP - General Family Medicine 04/29/16 Jerome Mabry MD [address] [place] [address] Home Care Provider [facility] 05/04/16 Business Analytics Specialist Relationship Specialty Start Date End Date Louie Maddox, DO PCP - General Family Medicine 04/29/16 Jerome Mabry MD [address] [place] [address] Home Care Provider [facility] 05/04/16 Business Analytics Specialist Relationship Specialty Start Date End Date Louie Maddox, DO PCP - General Family Medicine 04/29/16 Jerome Mabry MD [address] [place] [address] Home Care Provider [facility] 05/04/16 Business Analytics Specialist Relationship Specialty Start Date End Date Louie Maddox DO PCP - General Family Medicine 04/29/16 Jerome Mabry MD [address] [place] [address] Home Care Provider [facility] 05/04/16 Business Analytics Specialist Relationship Specialty Start Date End Date Louie Maddox DO PCP - General Family Medicine 04/29/16 Jerome Mabry MD [address] [place] [address] Home Care Provider [facility] 05/04/16 Team Status: Active Member Role Status Dates Dr. Louie Maddox , DO Family Provider Active Dr. Louie Maddox , DO Primary Care Provider Active Team Status: Inactive Member Role Status Dates Dr. Louie Maddox , DO Primary Care Provider, Referrin g Provider Active Cailin Holt COLLECTIONS SPECIALIST, COLLECTIONS SPECIALIST-C Attending Provider Active Team Status: Inactive Member Role Status Dates Dr. Louie Maddox , Primary Care Provider Active Dr. Salomon Montez , DPM Attending Provider, Referri ng Provider Active Business Analytics Specialist Relationship Specialty Start Date End Date Louie Maddox DO PCP - General Family Medicine 04/29/16 Jerome Mabry MD [address] [place] [address] Home Care Provider [facility] 05/04/16 Business Analytics Specialist Relationship Specialty Start Date End Date Louie Maddox DO PCP - General Family Medicine 04/29/16 Jerome Mabry MD [address] [place] [address] Home Care Provider [facility] 05/04/16 Business Analytics Specialist Relationship Specialty Start Date End Date Louie Maddox DO PCP - General Family Medicine 04/29/16 Jerome Mabry MD [address] [place] [address] Home Care Provider [facility] 05/04/16 Business Analytics Specialist Relationship Specialty Start Date End Date Louie Maddox DO PCP - General Family Medicine 04/29/16 Jerome Mabry MD [address] [place] [address] Home Care Provider [facility] 05/04/16 Business Analytics Specialist Relationship Specialty Start Date End Date Louie Maddox DO PCP - General Family Medicine 04/29/16 Jerome Mabry MD [address] [place] [address] Home Care Provider [facility] 05/04/16 Business Analytics Specialist Relationship Specialty Start Date End Date Louie Maddox DO PCP - General Family Medicine 04/29/16 Jerome Mabry MD [address] [place] [address] Home Care Provider [facility] 05/04/16 Team Status: Inactive Member Role Status Dates Dr. Louie Maddox DO Primary Care Provider Active Dr. Moody Rodriguez DO Attending Provider, Referring Provider Active Business Analytics Specialist Relationship Specialty Start Date End Date Louie Maddox DO PCP - General Family Medicine 04/29/16 Jerome Mabry MD [address] [place] [address] Home Care Provider [facility] 05/04/16 Business Analytics Specialist Relationship Specialty Start Date End Date Louie Maddox DO PCP - General Family Medicine 04/29/16 Jerome Mabry MD [address] [place] [address] Home Care Provider Spine [facility] 05/04/16 (unrecognized sect ion and content) No Status Records FoundNo Status Records FoundNo Status Records Found INFORMATION SOURCE (unrecogn ized section and content) DATE CREATED AUTHOR 01/06/2022 [facility] Faviola [email or web address] DATE CREATED AUTHOR AUTHOR'S ORGANIZ ATION 06/13/2023 [facility] DATE CREATED AUTHOR AUTHOR'S ORGANIZ ATION 07/10/2023 [facility]avi[facility] [email or web address] Reason for Visit (unrecogniz [...] BE BASED ON THE PRIMARY CLINICAL RECORDS. [facility] [employer] provides no warranty or guarantee of the accuracy or completeness of information in this document.
== END 2023-08-06 11:07 | disposition home or self-care (01) ==
LOC: RAD 11:06
PROVIDERS: Visit Provider Podiatrist Foot & Ankle Surgery
DX: M19.072 Primary osteoarthritis, left ankle and foot (principal); M21.172 Varus deformity, not elsewhere classified, left ankle
CPT/HCPCS: 73610; 73630

== ENCOUNTER 2023-09-07 16:27 | Outpatient (OUT) | payer MEDICARE, MEDICAID, SELFPAY | END 2023-09-07 16:28 | disposition home or self-care (01) | LOC: WC 16:27 | PROVIDERS: Visit Provider Podiatrist Foot & Ankle Surgery | DX: T81.89XA Other complications of procedures, not elsewhere classified, initial encounter (principal) | CPT/HCPCS: 11043; 97605; G0463 ==

== ENCOUNTER 2023-09-24 11:33 | Outpatient (OUT) | payer MEDICARE, MEDICAID, SELFPAY ==
--- NOTE | 2023-09-24 | XR_ITS ---
The [address] [address] Patient Name: ELIZA LOWE MRN: [id number] date: 1965 Sex: M Assigned Patient Location: Current Patient Location: Accession/Order Number: [id number] Exam Date: 09/24/2023 11:40 Report Date: 09/24/2023 14:01 At the request of: BRIANA LARA Procedure: XR ankle LT min 3V PROCEDURE: XR ankle LT min 3V COMPARISON: 08/06/2023 HISTORY: LEFT ANKLE PAIN FINDINGS: BONES:Stable ankle fusion with partial resection of the posterior talus and placement of a spacer. No acute fracture, dislocation or mechanical failure. 3 screw fragments are again observed likely from prior removed hardware. Severe degenerative changes of the visualized midfoot with joint space narrowing and marginal osteophyte from admission. Remote distal fibular resection. SOFT TISSUES:Negative. No visible soft tissue swelling. EFFUSION:None visible. OTHER: Negative. XR/XR ankle LT min 3V IMPRESSION: Stable ankle fusion Electronically authenticated by: KATHY NICHOLS Date: 09/24/2023 14:01
--- OUTSIDE RECORDS SUMMARY | 2023-09-24 11:40 | XMS_ITS | CCD ---
Author Name Unknown Address [address] [place] [address] Organization [facility] Care Team Providers Care University Relations Director Name Role Phone Louie Maddox DO Primary Care Provider Jerome Mabry MD Unavailable Louie Maddox Primary Care Unavailable Moody Rodriguez Referring Unavailable Moody Rodriguez Attending Unavailable BrookeLouie londono Attending Unavailable Brooke NURA, Louie Primary Care Unavailable Brooke, Louie Primary Care Unavailable Cailin Holt NP Attending Unavailable Salomon Montez Attending Unavailable Louie Maddox Primary Care Unavailable Salomon Montez Referring Unavailable BrookeLouie londono Referring Unavailable BrookeLouie londono Primary Care Unavailable Yanet VENDOR MANAGER, Cailin Attending Unavailable Louie Maddox DO Primary Care Provider Jerome Mabry MD Unavailable MOODY RODRIGUEZ Admitting Unavailable MOODY RODRIGUEZ Attending Unavailable BROOKELOUIE LONDONO A Primary Care Unavailable SHAQ, MOODY H Attending Unavailable BROOKE, LOUIE A Primary Care Unavailable SHAQ, MOODY H Admitting Unavailable MOODY RODRIGUEZ H Attending Unavailable BROOKELOUIE LONDONO A Primary Care Unavailable MOODY RODRIGUEZ Attending Unavailable BROOKE, LOUIE A Primary Care Unavailable SHAQ, MAXINEETTA H Admitting Unavailable SHAQ, MOODY H Attending Unavailable BROOKE, LOUIE A Primary Care Unavailable MONE THORNE Attending Unavailable BROOKE, LOUIE A Primary Care Unavailable Louie Maddox DO Primary Care Provider MOODY RODRIGUEZ Attending LOUIE Rees Primary Care Unavailable LOUIE MADDOX Primary Care Unavailable MOODY RODRIGUEZ Attending Itzelvai MOODY Bray Attending UnavaLOUIE James Primary Care Unavailable Unavailable Unavailable Unavailable Medications Current Medications Medication Drug Class(es) Dates Sig (Normalized) Sig (Original) acetaminophen 500 mg oral tablet (3 sources) Start: 07-27-2018 take 2 tablets by mouth every eight hours Acetaminophen (Tylenol) 500 MG tablet Active 1000 MG PO EVERY 8 HOURS July 27, 2018 9:34am Start: 07-27-2018 take 1000 mg by mout h every eight hours Acetaminophen Active 1000 MG PO EVERY 8 HOURS July 27, 2018 12:00am [id number] 200 actuat albuterol 0.09 mg/actuat metered dose inhaler (20 sources) beta2-Adrenergic Agonist Start: 07-04-2023 take 2 puff(s) by inhalation every four to six hours as needed albuterol 90 mcg/actuation inhaler INHALE 2 PUFFS EVERY 4 TO 6 HOURS NEEDED for SHORTNESS OF BREATH 0 07/04/2023 Active Start: 01-08-2016 albuterol HFA (PROVENTIL HFA, VENTOLIN HFA) 90 mcg/actuation inhaler Inhale 2 Puffs as instructed. 0 01/08/2016 Active Comment on above: Inhale 2 Puffs as in structed. alendronic acid 70 mg oral tablet (3 sources) Bisphosphonate Start: 4 take 1 tablet by mouth every week alendronate (FOSAMAX) 70 MG tablet Take 1 (one) tablet (70 mg total) by mouth once a week . 0 07/27/2023 Active ALPRAZolam 0.5 mg oral tablet (20 sources) Benzodiazepine Start: 3 take 1 tablet by mouth once daily as needed ALPRAZolam (XANAX) 0.5 MG tablet Take 1 (one) tablet (0.5 mg total) by mouth daily as needed . 0 07/04/2023 Active Start: 04-23-2017 take 1 tablet by francis th twice daily ALPRAZolam (XANAX) 0.5 mg tablet Take 0.5 mg by mouth twice daily. 0 04/23/2017 Active Comment on above: Take 0.5 mg by mouth twice daily. amphetamine aspartate 7.5 mg / amphetamine sulfate 7.5 mg / dextroamphetamine saccharate 7.5 mg / dextroamphetamine sulfate 7.5 mg oral tablet (20 sources) Central Nervous System Stimulant Start: 3 take 1 tablet by mouth once daily dextroamphetami ne-amphetamine (ADDERALL) 30 mg tablet Take 1 (one) tablet by mouth daily . 0 07/12/2023 Active Start: 04-26-2017 Amphetamine-De xtroamphetamine (ADDERALL) 30 mg tablet 1 tablet once daily. 0 04/26/2017 Active Comment on above: 1 tablet once daily. aspirin 81 mg delayed release oral tablet (20 sources) Platelet Aggregation Inhibitor, Nonsteroidal Anti-inflammatory Drug Start: 06-28-2023 take 1 tablet by mouth twice daily aspirin 81 MG EC tablet Take 1 (one) tablet (81 mg total) by mouth 2 (two) times a day . 0 06/28/2023 Active Start: 07-27-2018 aspirin 325 mg tablet Take by mouth. 0 07/27/2018 Active Comment on above: Take by mouth. 24 hr buPROPion hydrochloride 300 mg extended release oral tablet (20 sources) Aminoketone Start: take 1 tablet by mouth once daily in the morning buPROPion (WELLBUTRIN XL) 300 MG 24 hr tablet Take 1 (one) tablet (300 mg total) by mouth every morning . 0 07/04/2023 Active Comment on above: Take 300 mg by mouth once daily. cephalexin 500 mg oral capsule (3 sources) Cephalosporin Antibacterial Start: cephALEXin (KEFLEX) 500 MG capsule 1 (one) capsule (500 mg total) . 0 07/15/2023 Active cholecalciferol 0.125 mg oral capsule (3 sources) Vitamin D Start: take 1 capsule by mouth once daily cholecalciferol, vitamin D3, 125 mcg (5,000 unit) capsule Take 1 (one) capsule (5,000 Units total) by mouth daily . 0 06/28/2023 Active desonide 0.0005 mg/mg topical ointment (20 sources) Corticosteroid Start: desonide (DESOWEN) 0.05 % ointment Apply 1 application topically to affected area 2 times per day 0 07/04/2023 Active Comment on above: Apply 1 application topically to affected area 2 times per day docusate sodium 100 mg oral capsule (5 sources) Start: End: take 1 capsule by mouth twice daily docusate sodium (COLACE) 100 mg capsule Take 1 capsule by mouth twice daily. 60 capsule 0 05/07/2016 02/11/2022 Discontinued Comment on above: Take 1 capsule by [facility] twice daily. 72 hr fentaNYL 0.025 mg/hr transdermal system (20 sources) Opioid Agonist Start: 024 apply 1 dose transdermal route every other day fentaNYL (DURAGESIC) 25 mcg/hr patch Indications: Chronic pain syndrome Place 1 (one) patch on the skin every other day (Days supply per fill: 30) Start: 09/10/23. 15 patch 0 09/10/2023 Active Start: 08-11-2023 End: 09-06-2023 apply 1 dose transdermal route every other day fentaNYL (DURAGESIC) 25 mcg/hr patch Indications: Chronic pain syndrome Place 1 (one) patch on the skin every other day (Days supply per fill: 30) . 15 patch 0 08/11/2023 09/06/2023 Discontinued (Reorder (Suppress CancelRx Message to Pharmacy)) Start: 07-12-2023 End: 08-11-2023 fentaNYL (DURAGESIC) 25 mcg/ hr patch Apply 1 Patch as directed every 48 hours for 30 days. 0 07/12/2023 08/11/2023 Discontinued (Reorder (Suppress CancelRx Message to Pharmacy)) Start: 07-08-2023 End: 08-07-2023 fentaNYL (DURAGESIC) 25 mcg/ hr Indications: Chronic [...] Do not start before June 13, 2023. FLUoxetine 40 mg oral capsule (20 sources) Serotonin Reuptake Inhibitor Start: 03-09-2022 take 1 capsule by mouth once daily FLUoxetine (PROZAC) 40 MG capsule Take 1 (one) capsule (40 mg total) by mouth daily . 0 07/04/2023 Active Start: 04-16-2017 End: 03-21-2022 take 3 capsules by mouth once daily FLUoxetine (PROZAC) 20 mg capsule Take 60 mg by mouth once daily. 2 04/16/2017 03/21/2022 Discontinued Comment on above: Take 60 mg by mouth once daily. Take 40 mg by mouth once daily. fluticasone propionate 0.05 mg/actuat metered dose nasal spray (20 sources) Corticosteroid Start: 04-23-2017 fluticasone propionate (FLONASE) 50 mcg/actuation nasal spray 2 (two) sprays by NOT APPLICABLE route daily . 0 04/23/2017 Active Start: 04-23-2017 take 2 spray(s) nasa l route once daily as needed fluticasone (FLONASE) 50 mcg/actuation nasal spray Use 2 Sprays in each nostril once daily. As needed 2 04/23/2017 Active Comment on above: Use 2 Sprays in each nostril once daily. As needed gabapentin 600 mg oral tablet (20 sources) Anti-epileptic Agent Start: 05-16-2023 End: 10-02-2023 take 1 tablet by mouth four times daily gabapentin (NEURONTIN) 600 MG tablet Take 1 (one) tablet (600 mg total) by mouth 4 (four) times a day (Days supply per fill: 30) . 120 tablet 0 09/02/2023 10/02/2023 Active Start: 04-21-2023 End: 04-16-2023 take 1 [...] 28, 2022. Take 1 tablet by francis four times daily for 30 days. Do not start before June 27, 2022. Take 1 tablet by francis four times daily for 30 days. Do not start before July 27, 2022. Take 1 tablet by francis four times daily for 30 days. Do not start before August 25, 2022. Take 1 tablet by francis four times daily for 30 days. Do not start before October 16, 2022. Take 1 tablet by francis four times daily for 30 days. Do not start before December 15, 2022. Take 1 tablet by francis four times daily for 30 days. Do not start before January 14, 2023. Take 1 tablet by francis four times daily for 30 days. Do not start before February 14, 2023. Take 1 tablet by francis four times daily for 30 days. Do not start before March 16, 2023. Take 1 tablet by francis four times daily for 30 days. Do not start before April 21, 2023. Take 1 tablet by francis four times daily for 30 days. Do not start before May 16, 2023. HYDROmorphone hydrochloride 4 mg oral tablet (12 sources) Opioid Agonist Start: 4 End: take 1 tablet by mouth every four to six hours as needed for pain HYDROmorphone (Dilaudid) 4 MG tablet Indications: Chronic pain syndrome Take 1 (one) tablet (4 mg total) by mouth every 4 to 6 hours as needed for pain (Days supply per fill: 30) Start: 09/10/23. 150 tablet 0 09/10/2023 10/10/2023 Active Start: 06-20-2023 End: 07-20-2023 take 1 tablet by mouth every four [...] Do not start before June 20, 2023. lidocaine 0.05 mg/mg medicated patch (20 sources) Antiarrhythmic, Amide Local Anesthetic Start: 3 End: 3 apply 1 dose transdermal route every twelve hours lidocaine (LIDODERM) 5 % patch Apply 1 Patch TO SKIN as directed to affected areas 12 hours on and 12 hours off 0 07/04/2023 Active Start: 05-14-2022 End: 02-10-2023 apply 1 [...] 12 hours on and 12 hours off lisinopril 20 mg oral tablet (20 sources) Angiotensin Converting Enzyme Inhibitor Start: 05-12-2018 take 1 tablet by mouth once daily Lisinopril (Zestril) 20 MG tablet Active 20 MG PO DAILY May 11, 2018 11:00pm Start: 01-08-2016 take 1 tablet by francis th once daily lisinopriL (PRINIVIL,ZESTRIL) 5 MG tablet Take 1 (one) tablet (5 mg total) by mouth daily . 0 01/08/2016 Active Comment on above: Take 1 tablet by francis th once daily. meloxicam 15 mg oral tablet (20 sources) Nonsteroidal Anti-inflammatory Drug Start: 07-13-2023 End: 08-11-2023 take 1 tablet by mouth once daily as needed meloxicam (MOBIC) 15 MG tablet Take 1 (one) tablet (15 mg total) by mouth daily as needed . 30 tablet 3 08/11/2023 Active Start: 02-07-2023 End: 07-07-2023 take 1 tablet [...] Relaxant Start: take 1 tablet by mouth four times daily as needed methocarbamoL (ROBAXIN) 750 MG tablet Take 1 (one) tablet (750 mg total) by mouth 4 (four) times a day as needed . 120 tablet 0 09/07/2023 Active Start: 07-13-2023 End: 09-06-2023 take 1 tablet by mouth four times daily as needed methocarbamoL (ROBAXIN) 750 MG tablet Take 1 (one) tablet (750 mg total) by mouth 4 (four) times a day as needed . 120 tablet 0 08/11/2023 09/06/2023 Discontinued (Reorder (Suppress CancelRx Message to Pharmacy)) Start: 06-07-2023 take 1 tablet by francis th every [...] by mouth. Take 1 tablet by francis four times daily as needed. Take 1 tablet by francis th four times a day as needed. naloxone hydrochloride 40 mg/ml nasal spray (20 sources) Opioid Antagonist Start: 02-16-2022 naloxone (NARCAN) 4 mg/actuation [place] Use 1 spray in one nostril as needed for overdose. May repeat every 2 to 3 min in alternating nostrils until medical assistance is available 0 02/16/2022 Active Start: 01-21-2022 End: 02-11-2022 [...] take 1 tablet by mouth once daily OXcarbazepine (TRILEPTAL) 600 MG tablet Take 1 (one) tablet (600 mg total) by mouth nightly . 0 07/04/2023 Active Comment on above: Take 600 mg by mouth daily at bedtime. oxyCODONE hydrochloride 15 mg oral tablet (20 sources) Opioid Agonist Start: 05-28-20 End: 06-20-20 oxyCODONE (ROXICODONE) 15 MG immediate release tablet 1 (one) tablet (15 mg total) . 0 05/21/2023 Active Start: 05-28-2022 End: 05-22-2022 oxyCODONE (ROXICODONE) [...] MG PO EVERY 4 HOURS NEEDED 90 May 24, 2018 11:00pm June 01, 2018 [...] for pain for up to 20 days. pregabalin 150 mg oral capsule (8 sources) Start: 7 End: 2 take 1 capsule by mouth three times [...] 150 mg by mouth three times daily. tadalafil 5 mg oral tablet (20 sources) Phosphodiesterase 5 Inhibitor Start: 3 take 1 tablet by mouth once daily tadalafiL 5 MG tablet Take 1 (one) tablet (5 mg total) by mouth daily . 0 07/13/2023 Active Start: 01-04-2023 take 1 tablet by francis th once daily Tadalafil 5 mg tablet Take 5 mg by mouth once daily. 0 01/04/2023 Active Comment on above: Take 5 mg by mouth o nce daily. 1 ml testosterone cypionate 200 mg/ml injection (20 sources) Androgen Start: 07-13-2023 testosterone cypionate (DEPOTESTOTERONE CYPIONATE) 200 mg/mL injection INJECT 0.6-7 mL INTRAMUSCULARLY on WEDNESDAY, WEDNESDAY, and WEDNESDAY for total weekly dose OF 2 (TWO) mL 0 07/13/2023 Active Start: 04-23-2017 testosterone c ypionate (DEPO-TESTOSTERONE) 200 mg/mL injection 1.5 mL once each week. 3 04/23/2017 Active Comment on above: 1.5 mL once each machelle cintron zolpidem tartrate 10 mg oral tablet (20 sources) gamma-Aminobutyric Acid-ergic Agonist Start: 07-04-2023 take 1 tablet by mouth once daily zolpidem (AMBIEN) 10 mg tablet Take 1 (one) tablet (10 mg total) by mouth nightly . 0 07/04/2023 Active Start: 04-20-2017 End: 03-21-2022 zolpidem (AMBIEN) 10 mg Take by mouth. 0 05/23/2018 Active Comment on above: 1 tablet at bedtime as needed. Take by mouth. Completed/Discontinued Medications Medication Drug Class(es) Dates Sig (Normalized) Sig (Original) docusate sodium 50 mg / sennosides, assisted 8.6 mg oral tablet (2 sources) Start: 05-03-2013 End: 08-18-2013 take 1 tablet by mouth once daily Sennosides-Docusate Sodium (Edel-Colace) 1 EACH tablet Discontinued 2 EACH PO DAILY May 02, 2013 11:00pm August 18, 2013 2:11pm Sennosides/Docusat e Sodium (1 source) Start: 05-03-2013 End: 08-18-2013 Sennosides/Docusate Sodium (Edel-Colace Tablet) 1 EACH Tablet Discontinued 2 EACH PO DAILY May 03, 2013 10:31pm August 18, 2013 2:11pm Problems Active Problems Problem Classification Problem Date Documented Date Episodic/Chronic Essential hypertension (20 sources) Benign essential [...] sources) Taking high risk medication; Translations: [Other usp (current) drug therapy] Episodic Other aftercare (1 source) 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; Translations: [High risk medication use] Onset: 06-07-2023 Episodic Other aftercare (1 source) Patient encounter status; Translations: [Encounter for therapeutic drug level monitoring] 08-15-2023 Episodic Other aftercare (2 sources) Encounter for therapeutic drug level monitoring; Translations: [Encounter for therapeutic drug level monitoring] Onset: 08-11-2023 Episodic Other aftercare (2 sources) 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; Translations: [FDC (current) use of opiate analgesic] Onset: 08-11-2023 Episodic Other connective tissue disease (3 sources) Myofascial pain syndrome; Translations: [Myalgia, other [...] Onset: 01-01-2016 Chronic Other nervous system disorders (2 sources) Chronic pain syndrome; Translations: [Chronic pain syndrome] Onset: 06-07-2023 Chronic Other nervous system disorders (1 source) Chronic pain; Translations: [Other chronic pain] 08-15-2023 Chronic Other non-traumatic joint disorders (20 sources) Joint pain; Translations: [Pain in unspecified joint] 05-08-2010 Episodic Other non-traumatic joint disorders (1 source) Chronic ankle pain; Translations: [Pain in left ankle and joints of left foot] 08-15-2023 Episodic Residual codes; unclassified (1 source) H/O splenectomy; Translations: [History of splenectomy] Episodic Residual codes; unclassified (3 sources) Chronic back pain ; Translations: [Dorsalgia, unspecified] 07-25-2018 Episodic Residual codes; unclassified (1 source) History of ankle surgery; Translations: [Other specified postprocedural states] 08-15-2023 Episodic Spondylosis; intervertebral disc disorders; other back [...] Test Name Value Interpretation Reference Range Facility [facility] 07-07-2023 [facility] Telephone ([facility]) ELIZA LOWE ([id number]) 1965 M Date Time Provider Department 07/07/23 KATHY MALIK During your visit today, we recorded the following information about you: Petra Wiley RN 07/07/2023 3:59 PM Signed Pt calling for refills of medications, Fentanyl patch 25mcg q48hrs and dilaudid 4mg q4-6prn. The dilaudid was given due to surgery scheduled 06/24, pt was previously on [id number]. MME is 198, please advise refills Petra [...] left foot surgery by Dr Boogie at [facility] and was inpt x 1 week, I [...] MD 07/08/2023 11:53 AM Signed noted Naomi Starks RN 07/08/2023 3:36 PM Signed Pt's Jennifer, [...] Result Flag Units Drug Present Ethyl Glucuronide 69410 ng/mg creat Ethyl Sulfate 9769 ng/mg creat [...] provided. For clinical consultation, please call . @FLOW([id number] )@ Lab Results Component Value Date SUMM FINAL 05/13/2023 Summary Report (Summary) Date Value Ref Range Status 02/11/2022 FINAL Final Comment: TOXASSURE COMP DRUG ANALYSIS,UR (more content not included)... [facility] 06-10-2023 [facility] Telephone ([facility]) ELIZA LOWE ([id number]) 1965 M Date Time Provider Department 06/10/23 MOODY RODRIGUEZ During your visit today, we recorded the following information about you: Naomi Starks RN 06/10/2023 3:15 PM Signed Pt's called in today requesting the results from the foot x-ray he had done at [place] on 06/07. The results are scanned into the chart. He does not have follow up with Dr. Malik until 09/15/23. Please advise. Naomi Starks RN June 10, 2023 3:15 PM Moody [...] Known Allergies) Date Reviewed: 06/07/2023 Reviewed by: Yonny-Deepthi Harp MA - Fully Assessed Reason for Visit: [...] mg by mouth once daily. - BD LUER-MIKE SYRINGE 3 mL 22 gauge x 1 [...] subseque*06/07/2023 Contracture, left (more content not included)... [facility] CNOVon 06-07-2023 CNOV Office Visit ([facility] ) ELIZA LOWE ([id number]) 1965 M Date Time Provider Department 06/07/23 [...] x-ray Follow-up in 3 months with or VENDOR MANAGER Moody Rodriguez DO 06/08/2023 7:12 AM Signed DATE: June 07, 2023 Chief Complaint: Low back pain, right foot pain History of Present Illness: Eliza Lowe is a 58 year old male being seen at [facility] for a [...] IV contrast Follow-up in 3 months Pain level:-02/01 States he had 50-60% relief from last [...] issue with 3D printer, rescheduled 06/24/23 at [facility]. States a rock rolled over his right [...] Result Flag Units Drug Present Ethyl Glucuronide 59599 ng/mg creat Ethyl Sulfate 9769 ng/mg creat [...] zolpidem. ====== (more content not included)... Normal [facility] Foot min 3 Viewson 3 Foot min 3 Views [facility] Imaging Services [address] [place] [address] Foot min 3 Views MR#: [id number] Acct: [id number] Name: ELIZA LOWE Rep #: [id number] : 1965 M 58 From: [address] MD PCP: Dr. Louie Maddox DO Status: REG CLI Study: Foot min 3 Views Date of Exam: 06/07/23 Exam# [id number] Ordering [place]: [place] [id number] INDICATION: Trauma, right foot pain EXAMINATION/TECHNIQUE: X-RAY [...] , CC: Dr. Moody Rodriguez DO; Dr. Loiue Maddox DO Taproom Attendant: Signed [facility] ([facility] ELIZA LOWE ([id number]) 1965 M Date Time Provider Department 05/28/23 [...] RN May 31, 2023 10:02 AM Naomi Starks RN 05/31/2023 1:20 PM Signed Pt called and notified that script was sent. Naomi Starks RN May 31, 2023 1:20 PM Allergies [...] on and 12 hours off - BD LUER-MIKE SYRINGE 3 mL 22 gauge x 1 [...] ordered this encounter (more content not included)... [facility] OPERATIVE NOon 05-13-2023 OPERATIVE NO HNO ID: [id number] Author: Moody Rodriguez DO Service: Pain Management [...] with supervision to home in good condition. [facility] 04-16-2023 BALJ[place] Telephone ([facility]) ELIZA LOWE ([id number]) 1965 M Date Time Provider Department 04/16/23 [...] April 16, 2023 12:47 PM Geoff Nieves APRN.[facility] 04/16/2023 3:12 PM Signed Addended by: GEOFF NIEVES on: 04/16/2023 03:12 PM Modules accepted: Orders Allergies As of Date: 04/16/2023 (No Known Allergies) Date Reviewed: 01/11/2023 Reviewed by: Mone Thorne APRN.MANAGER BRANCH - Fully Assessed Reason for Visit: fill [...] on and 12 hours off - BD LUER-MIKE SYRINGE 3 mL 22 gauge x 1 [...] 2023. Encounter Numb (more content not included)... [facility] Ly 04-12-2023 CNPN Telephone (MRPAIN) ELIZA LOWE ([id number]) 1965 M Date Time Provider Department 04/12/23 MOODY RODRIGUEZ MRPJEFFERY During your visit today, we recorded the following information about you: Sarah Brown 04/12/2023 10:35 AM Signed I left a message to schedule a procedure. Sarah April 12, 2023 10:35 AM Allergies As of Date: 04/12/2023 (No Known Allergies) Date Reviewed: 01/11/2023 Reviewed by: Mone Thorne APRN.MANAGER BRANCH - Fully Assessed Reason for Visit: Scheduling [...] on and 12 hours off - BD LUER-MIKE SYRINGE 3 mL 22 gauge x 1 [...] Encounter Status:Closed by SARAH BROWN on 04/12/23 [facility] Ly 04-06-2023 [facility] Telephone ([facility]) ELIZA LOWE ([id number]) 1965 M Date Time Provider Department 04/06/23 MOODY RODRIGUEZ During your visit today, we recorded the following information about you: Jackie Dorsey RN 04/06/2023 1:06 PM Signed Returned pt's call from careline message: Pt's acknowledges to check with pt regarding type of injection he is requesting (nerve block vs TPI), % of improvement from that injection, time length of improvement as well as to contact [facility] with any updates, questions, or concerns. Jackie Dorsey RN April 06, 2023 1:05 PM Jackie Dorsey RN 04/06/2023 2:04 PM Signed Pt contacted [facility] with pt update: Patient states they have 60% improvement with 11-19-22 right L5 and S3 transforaminal epiduraal injections which lasted x3 months and pain is slowly returning to baseline. Pain level currently is 8/10. Patient states no new symptoms. Please advise injection POC and build case if indicated. 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 [M51.16] Order(s):SURGICAL REQUEST - ELECTIVE (02/2020) [[id number]] Order #: [id number]: 1 Prescriptions as of 04/11/2023 - oxyCODONE [...] on and 12 hours off - BD LUER-MIKE SYRINGE 3 mL 22 gauge x 1 [...] Encounter Status:Closed by JACKIE DORSEY on 04/06/23 [facility] Ly 04-05-2023 CNPN Telephone ([facility]) ELIZA LOWE ([id number]) 1965 M Date Time Provider Department 04/05/23 MONE THORNE During your visit today, we recorded the following information about you: Yonny-Deepthi Harp MA 04/05/2023 10:05 AM Signed Appointment scheduled has been cancelled, patient is to call and be rescheduled with a different provider. Allergies As of Date: 04/05/2023 (No Known Allergies) Date Reviewed: 01/11/2023 Reviewed by: Mone Thorne APRN.MANAGER BRANCH - Fully Assessed Reason for Visit: Appointment [...] on and 12 hours off - BD LUER-MIKE SYRINGE 3 mL 22 gauge x 1 [...] of splenectomy [Z90.81] 04/01/2022 Encounter Status:Closed by YONNY-DEEPTHI HARP on 04/05/23 [facility] Extremity Lower without Cont raon 03-02-2023 Extremity Lower without Contra [facility] Imaging Services [address] [place] [id number] Extremity Lower without Contra MR#: [id number] Acct: [id number] Name: ELIZA LOWE Rep #: [id number] : 1965 M 57 From: Dung chapman MD PCP: Dr. Louie Maddox, DO Status: REG CLI Study: Extremity Lower without Contra Date of Exam: 0 03/02/23 Exam# [id number] Ordering Dr: Salomon Montez DPJaneth STUDY: CT LEFT ANKLE WITHOUT CONTRAST REASON [...] CC: PABLITO Montez; Dr. Louie Maddox DO Taproom Attendant: Signed Normal [facility] CNOVon 01-11-2023 CNOV Office Visit (PAIMER ) ELIZA LOWE ([id number]) 1965 M Date Time Provider Department 01/11/23 9:30 AM MONE THORNE During your visit today, we recorded the following information about you: Pulse Blood pressure Weight 80/minute 122/83 96.2 kg Mone TL Thorne.MANAGER BRANCH 01/11/2023 9:55 AM Signed SUBJECTIVE: Eliza Lowe presents to [facility] Department for a follow-up [...] Follow-up in 3 months in office with VENDOR MANAGER Last procedure 11/19/22 Right L5 S1 SNRT [...] WELL Headache Paternal Grandfather Heart Father R/T [place] IN 60'S Social History: Social History Tobacco [...] the above and verbalized understanding. Mone Thorne APRN.MANAGER BRANCH January 11, 2023 Mone Thorne APRN.JORGE 01/11/2023 9:52 AM Addendum Continue Oxycodone. These medications helps patient perform ADL, interact with family a (more content not included)... [facility] OPERATIVE NOon 11-19-2022 OPERATIVE NO HNO ID: [id number] Author: Moody Rodriguez DO Service: Pain Management [...] encounter was entered by Senait Rogel medical research associate, for Dr. Moody Rodriguez on November 19, [...] Electronically Signed: Dr. Rodriguez. November 19, 2022. [facility] XR FLUOROSCOPYon 11-19-2022 XR FLUOROSCOPY [...] Please see clinician's report for complete details. Taproom Attendant: PSCB Transcribe Date/Time: Nov 19 2022 3:53P Dictated by : ANDREAS GREENE MD This examination was interpreted and the report reviewed and electronically signed by: ANDREAS GREENE MD on Nov 19 2022 3:54PM EST [id number] [facility] CNOVon 10-13-2022 CNOV Office Visit (PAIGENESIS ) ELIZA LOWE ([id number]) 1965 M Date Time Provider Department 10/13/22 [...] appropriate time interval and remained stable. Moody Rodriguez, DO Moody Rodriguez DO 10/14/2022 6:57 AM Signed DATE: October 13, 2022 Chief Complaint: LBP History of Present Illness: Eliza Lowe is a 57 year old male being seen at [facility] for a [...] 80% relief until recently. Denied any falls. Krebs the injection in October was the best [...] Ref Range Status (more content not included)... [facility] yL 09-10-2022 BALJIT Telephone (KYM) ELIZA LOWE ([id number]) 1965 M Date Time Provider Department 09/10/22 MONE THORNE During your visit today, we recorded the following information about you: Naomi Starks RN 09/10/2022 1:29 PM Signed Pt is requesting a refill of Fentanyl, she was seen last on 05/06/22, no showed on 08/06/22 and scheduled for 09/28/22. Please advise. Naomi Starks RN September 10, 2022 1:29 PM Mone Thorne APRN.MANAGER BRANCH 09/10/2022 2:20 PM Signed The following approved [...] September 22, 2022. Authorizing Provider: MONE THORNE APRN.MANAGER BRANCH Allergies As of Date: 09/10/2022 (No Known [...] on and 12 hours off - BD LUER-MIKE SYRINGE 3 mL 22 gauge x 1 [...] P* 0 09/16/ (more content not included)... [facility] XR FLUOROSCOPYon 08-20-2022 XR FLUOROSCOPY [...] seconds fluoroscopy time utilized by Dr. Rodriguez. Taproom Attendant: PSCB Transcribe Date/Time: Aug 20 2022 3:27P Dictated by : OMID PACE MD This examination was interpreted and the report reviewed and electronically signed by: OMID PACE MD on Aug 20 2022 3:28PM EST [id number] [facility] CNCOon 08-06-2022 CNCO Letter Text [facility] BRIEF OP NOTon 07-16-2022 BRIEF OP NOT HNO ID: [id number] Author: Moody Rodriguez DO Service: Pain Management [...] Electronically Signed: Dr. Rodriguez. August 20, 2022 [facility] XR FLUOROSCOPYon 03-05-2022 [facility] FLUOROSCOPY IN OR/PAIN MGTon 11-20-2021 FLUOROSCOPY [...] This report was electronically signed by Santo Konx MD 11/20/2021 3:44 PM Reported By: SANTO KNOX MD Signed By: SANTO KNOX MD [facility]-12-2021 FLUOROSCOPY IN [...] DYE M.D. Signed By: LOUIE DYE M.D. [facility] [place] SARS coronavirus RNA [Presen ce] in Unspecified specimen by KERVIN with probe detectionon 07-10-2020 SARS coronavirus RNA KERVIN+probe Ql (Unsp spec) Not Detected Not Detected [facility] Work Phone: Comment on above: [...] SARS-CoV-2 virusand/or diagnosis of COVID-19 infection under [id number](b)(1) of the Act, 21 U.S.C. 360bbb-3(b) (1), [...] Auto (Unsp spec) [#/Vol] 3.05 10*3/uL 0.83-4.51 [facility] Work Phone: Automated blood hematocrit ( percentage)on 05-31-2020 Hematocrit (Bld) [Volume fraction] 47.8 % 40-54 [facility] Work Phone: Basophil percentageon 2019 Basophils/100 WBC (Unsp spec) 0.4 % 0-1 [facility] Work Phone: Blood erythrocytes count (nu mber/volume)on 05-31-2020 RBC (Bld) [#/Vol] 4.96 M/mm3 4.6-6.2 [facility] Work Phone: Blood hemoglobin measurement (mass/volume)on 05-31-2020 Hemoglobin (Bld) [Mass/Vol] 16.0 g/dL 13.0-16.5 [facility] Work Phone: Blood platelet mean volumeon 05-31-2020 Platelet mean volume (Bld) [Entitic vol] 11.4 fL 6.2-12.0 [facility] Work Phone: Free testosterone percentage on 05-31-2020 Testosterone Free/Testosterone.to stacy [Mass fraction] 3.05 % [facility] Work Phone: Comment on above: Performed at: [address] [id number] Director: Rick Dugan PhD, Phone: [phone] at: [facility] [id number] Director: Dulce Kirkland MD, Phone: [phone] Hematologyon 05-31-2020 Lymphocytes/100 WBC (Bld) 31.6 % 19-41 [facility] Work Phone: MCH (RBC) [Entitic mass] 32.3 pg 27.0-32.0 [facility] Work Phone: Monocytes/100 WBC (Bld) 14.4 % 0-10 [facility] Work Phone: Neutrophils/100 WBC (Bld) 53.1 % 47-70 [facility] Work Phone: Lymphocyte percentageon 11-0 Bilirubin Ql (U) 0.40 mg/dL 0.20-1.00 [facility] Work Phone: Comment on above: For patients on eltr ombopag therapy, use of Dimension [place] TBIL is not recommended. Chloride [Moles/Vol] 105 mmol/L 98-107 [facility] Work Phone: Cholesterol [Mass/Vol] 215 mg/dL <200 [facility] Work Phone: Comment on above: <200 mg/dL Desirable 200-240 mg/dL Borderline >240 mg/dL High Risk Eosinophils/100 WBC (Bld) 0.2 % 0-5 [facility] Work Phone: Glucose [Mass/Vol] 93 mg/dL 74-[address] [facility] Work Phone: [phone] Comment on above: Please note revised GLUCOSE reference range effective 2017. Neutrophils (Bld) [#/Vol] 5.1 10*3/uL 2.0-7.7 [facility] Work Phone: [phone] Potassium [Moles/Vol] 4.1 mmol/L 3.5-5.1 [facility] Work Phone: [phone] Protein [Mass/Vol] 7.3 g/dL 6.4-8.[address] [facility] Work Phone: [phone] Sodium [Moles/Vol] 142 mmol/L 136-[address] [facility] Work Phone: [phone] Testosterone [Mass/Vol] 466 ng/dL [facility] Work Phone: [phone] Comment on above: Adult male reference interval is based on a population ofhealthy nonobese males (BMI <30) between 19 and 39 yearsold. selina Marie.al. JCEM 2017,102;8115-2345. PMID:[id number]. Triglyceride [Mass/Vol] 140 mg/dL [facility] Work Phone: Comment on above: The drugs N-Acetylcy steine and Metamizole may falsely depress this assay.Serum Triglycerides Reference Interval Normal <150 mg/dL Borderline high 150 - 199 mg/dL High 200 - 499 mg/dL Very High > or = 500 mg/dL WBC (Bld) [#/Vol] 9.7 10*3/uL 4.4-11.[address] [facility] Work Phone: [phone] MCHC [Mass/volume] by Automa artis counton 05-31-2020 MCHC (RBC) [Mass/Vol] 33.5 g/dL 32-36 [facility] Work Phone: [phone] MCV (mean corpuscular volume ) determinationon 05-31-2020 MCV (RBC) [Entitic vol] 96.4 fL 80-94 [facility] Work Phone: Metabolic Panelon 05-31-2020 ALP [Catalytic activity/Vol] 81 U/L 45-117 [facility] Work Phone: ALT [Catalytic activity/Vol] 40 U/L 16-61 [facility] Work Phone: CO2 [Moles/Vol] 30.0 mmol/L 21.0-32.0 [facility] Work Phone: Urea nitrogen/Creatinine [Mass ratio] 11.0 RATIO 10-20 [facility] Work Phone: Otheron 05-31-2020 Erythrocyte distribution width (RBC) [Entitic vol] 53.1 fL 35.1-43.9 [facility] Work Phone: Erythrocyte distribution width (RBC) [Ratio] 15.1 % 11.6-14.6 [facility] Work Phone: Estimated GFR (MDRD) Amer 64 mL/min >60 [facility] Work Phone: Comment on above: GFR Calc Estimated GFR (MDRD) Non-Af Amer 53 mL/min >60 [facility] Work Phone: Comment on above: Non- GFR Calc Globulin (S) [Mass/Vol] 3.6 g/dL 2.2-4.2 [facility] Work Phone: Immature granulocytes/100 WBC (Bld) 0.300 % 0.0-0.9 [facility] Work Phone: Comment on above: IG% - Immature Granu locytes (promyelocytes, myelocytes and metamyelocytes) > 1% indicates that a LEFT SHIFT is Present. Nucleated RBC/100 WBC (Bld) [Ratio] 0 % 0-5 [facility] Work Phone: Prostate Specific Antigen Screen 9.72 ng/mL 0.00-4.00 [facility] Work Phone: Comment on above: This test was perfor med using the TPSA assay method for theVigmePruffi chemistry system. Values obtained with differentassay methods cannot be used interchangably.When changing PSA assays in the course of monitoring apatient, additional sequential testing should be carriedout to confirm baseline values. Platelets bldon 05-31-2020 Platelets (Bld) [#/Vol] 267 10*3/uL 150-450 [facility] Work Phone: Serum or plasma albumin francisco urement (mass/volume)on 05-31-2020 Albumin [Mass/Vol] 3.7 g/dL 3.2-5.[address] [facility] Work Phone: Serum or plasma albumin/glob ulin mass ratioon 05-31-2020 Albumin/Globulin [Mass ratio] 1.0 {ratio} 0.9-2.4 [facility] Work Phone: Serum or plasma calcium francisco urement (mass/volume)on 05-31-2020 Calcium [Mass/Vol] 8.4 mg/dL 8.5-10.[address] [facility] Work Phone: Serum or plasma cholesterol in HDL measurement (mass/volume)on 05-31-2020 Cholesterol in HDL [Mass/Vol] 61 mg/dL [facility] Work Phone: Comment on above: The drugs N-Acetylcy steine and Metamizole may falsely depress this assay. Reference Range HDL <40 mg/dL Low HDL Cholesterol HDL >or= 60 mg/dL High HDL Cholesterol Serum or plasma cholesterol in LDL measurement (mass/volume)on 05-31-2020 Cholesterol in LDL [Mass/Vol] 126 mg/dL 0-130 [facility] Work Phone: Serum or plasma cholesterol in VLDL measurement (mass/volume)on 05-31-2020 Cholesterol in VLDL [Mass/Vol] 28 mg/dL 5-40 [facility] Work Phone: Serum or plasma creatinine m easurement (mass/volume)on 05-31-2020 Creatinine [Mass/Vol] 1.46 mg/dL 0.70-1.30 [facility] Work Phone: Comment on above: The validity of the calculated GFR & GFRAA in patients over 70 years has not been determined. Clinical correlation is essential. Serum or plasma estradiol (E 2) measurement (mass/volume)on 05-31-2020 E2 [Mass/Vol] 27.8 pg/mL [facility] Work Phone: Comment on above: [...] (mass/volume)on 05-31-2020 Testosterone Free [Mass/Vol] 14.21 ng/dL [facility] Work Phone: Serum or plasma urea nitroge n measurement (mass/volume)on 05-31-2020 Urea nitrogen [Mass/Vol] 16 mg/dL 7-18 [facility] Work Phone: Thin prep Papanicolaou smear with manual screeningon 05-31-2020 Anion gap [Moles/Vol] 7 5-15 [facility] Work Phone: AST [Catalytic activity/Vol] 31 U/L 15-37 [facility] Work Phone: Vital Signs Date Time Vital Sign Value Performing Clinician Alysiai bharat 08-11-2023 11:37-0500 Body height 182.9 cm Moody Rodriguez [facility] Work Phone: [facility] 08-11-2023 11:37-0500 Body mass index (BMI) [Ratio] 27.12 kg/m2 Moody Rodriguez DO Work Phone: [facility] 08-11-2023 11:37-0500 Body weight 90.72 kg Moody Rodriguez DO Work Phone: [facility] 08-11-2023 11:37-0500 Diastolic blood pressure 79 mm[Hg] Moody Rodriguez DO Work Phone: [facility] 08-11-2023 11:37-0500 Heart rate 81 /min Moody Rodriguez DO Work Phone: [facility] 08-11-2023 11:37-0500 Respiratory rate 18 /min Moody Rodriguez DO Work Phone: [facility] 08-11-2023 11:37-0500 SaO2% (BldA) [Mass fraction] 95 % Maxinejanie Rodriguez DO Work Phone: [facility] 08-11-2023 11:37-0500 Systolic blood pressure 157 mm[Hg] Moody Rodriguez DO Work Phone: [facility] 01-11-2023 09:13-0400 Body weight 96.16 kg Mone Zaire DIRECTOR PHYSICAL.MANAGER BRANCH Work Phone: [facility] 01-11-2023 09:13-0400 Diastolic blood pressure 83 mm[Hg] Mone [place] DIRECTOR PHYSICAL.MANAGER BRANCH Work Phone: [facility] 01-11-2023 09:13-0400 Heart rate 80 /min Mone Zaire DIRECTOR PHYSICAL.MANAGER BRANCH Work Phone: [facility] 01-11-2023 09:13-0400 SaO2% (BldA) [Mass fraction] 96 % Mone [place] DIRECTOR PHYSICAL.MANAGER BRANCH Work Phone: [facility] 01-11-2023 09:13-0400 Systolic blood pressure 122 mm[Hg] Mone Zaire DIRECTOR PHYSICAL.MANAGER BRANCH Work Phone: [facility] 10-13-2022 15:22-0400 Body height 182.9 cm Moody Rodriguez DO Work Phone: [facility] 10-13-2022 15:22-0400 Body weight 97.52 kg Maxinejanie Shaq DO Work Phone: [facility] 10-13-2022 15:22-0400 Diastolic blood pressure 97 mm[Hg] Moody Rodriguez DO Work Phone: [facility] 10-13-2022 15:22-0400 Heart rate 74 /min Moody Rodriguez DO Work Phone: [facility] 10-13-2022 15:22-0400 Respiratory rate 19 /min Moody Rodriguez DO Work Phone: [facility] 10-13-2022 15:22-0400 SaO2% (BldA) [Mass fraction] 96 % Moody Rodriguez DO Work Phone: [facility] 10-13-2022 15:22-0400 Systolic blood pressure 161 mm[Hg] Moody Rodriguez DO Work Phone: [facility] 05-06-2022 15:21-0400 Diastolic blood pressure 101 mm[Hg] Mone [place] DIRECTOR PHYSICAL.MANAGER BRANCH Work Phone: [facility] 05-06-2022 15:21-0400 Heart rate 70 /min Mone [place] DIRECTOR PHYSICAL.MANAGER BRANCH Work Phone: [facility] 05-06-2022 15:21-0400 SaO2% (BldA) [Mass fraction] 97 % Mone [place] DIRECTOR PHYSICAL.MANAGER BRANCH Work Phone: [facility] 05-06-2022 15:21-0400 Systolic blood pressure 164 mm[Hg] Mone [place] DIRECTOR PHYSICAL.MANAGER BRANCH Work Phone: [facility] 03-05-2022 14:42-0400 Diastolic blood pressure 70 mm[Hg] Moody Rodriguez DO Work Phone: [facility] 03-05-2022 14:42-0400 Heart rate 79 /min Moody Rodriguez DO Work Phone: [facility] 03-05-2022 14:42-0400 Respiratory rate 15 /min Moody Rodriguez DO Work Phone: [facility] 03-05-2022 14:42-0400 SaO2% (BldA) [Mass fraction] 95 % Moody Rodriguez DO Work Phone: [facility] 03-05-2022 14:42-0400 Systolic blood pressure 121 mm[Hg] Moody Rodriguez DO Work Phone: [facility] 02-11-2022 09:27-0400 Diastolic blood pressure 96 mm[Hg] [facility] Zaire DIRECTOR PHYSICAL.MANAGER BRANCH Work Phone: [facility] 02-11-2022 09:27-0400 Heart rate 63 /min [facility] [place] DIRECTOR PHYSICAL.MANAGER BRANCH Work Phone: [facility] 02-11-2022 09:27-0400 SaO2% (BldA) [Mass fraction] 94 % [facility] DIRECTOR PHYSICAL.MANAGER BRANCH Work Phone: [facility] 02-11-2022 09:27-0400 Systolic blood pressure 150 mm[Hg] [facility] [place] DIRECTOR PHYSICAL.MANAGER BRANCH Work Phone: [facility] Encounters Encounter Date Encounter Type Care Provider Facility Start: 09-06-2023 Refill Moody Rodriguez DO Work Phone: [facility] [place] Comment on above: Chronic pain syndrom e Start: 09-02-2023 Refill Moody Rodriguez DO Work Phone: [facility] [place] Start: 08-18-2023 ambulatory LOUIE KOCHUTZMAN [facility] Start: 08-17-2023 ambulatory MOODY RODRIGUEZ [facility] Start: 08-11-2023 End: 08-11-2023 ambulatory MOODY RODRIGUEZ [facility] Start: 08-11-2023 End: 08-11-2023 Office outpatient visit 25 minutes Moody Rodriguez DO Work Phone: [facility] [place] Comment on above: Chronic pain syndrom e (Primary Dx); Encounter for monitoring opioid maintenance therapy; DDD (degenerative disc disease), lumbar; Other chronic pain; Chronic pain of left ankle; History of ankle surgery; Postlaminectomy syndrome of lumbar region; Myofascial pain syndrome Start: 07-07-2023 Telephone encounter Kathy Malik MD Work Phone: Pain Management Comment on above: inquiring about refi lls Start: 06-10-2023 Telephone encounter Moody Jeanna Shaq DO Work Phone: Pain Management Comment on above: Patient Update Start: 06-07-2023 End: 06-07-2023 Patient encounter procedure [facility], [place] Work Phone: Start: 06-07-2023 End: 06-07-2023 ambulatory [facility] Work Phone: Start: 05-28-2023 Telephone encounter Maxinejanie Meeks Shaq DO Work Phone: Pain Management Comment on above: Patient Update (Surg bailey cancelled- needs RX for oxycodone) Start: 05-13-2023 End: 05-13-2023 Orders Only Moody Rodriguez DO Work Phone: Pain Management Comment on above: Chronic pain syndrom e (Primary Dx) Start: 05-11-2023 Refill Moody Henderson DO Work Phone: Pain Management Comment on above: Refill Request Start: 04-26-2023 ambulatory [facility] Facility: [facility] Start: 04-16-2023 Telephone encounter Moody Jenana Shaq DO Work Phone: Pain Management Comment on above: fill date of gabapen tin Opened In Error Start: 04-13-2023 Refill Moody Henderson DO Work Phone: Pain Management Comment on above: Refill Request Start: 04-12-2023 Telephone encounter Moody Rodriguez DO Work Phone: [facility] Comment on above: Scheduling a procedu re Start: 04-06-2023 Telephone encounter Moody Rodriguez DO Work Phone: Pain Management Comment on above: Patient Question; Dawson barber Update Refill Request Start: 04-05-2023 Telephone encounter Mone reyes DIRECTOR PHYSICAL.MANAGER BRANCH Work Phone: Pain Management Comment on above: Appointment Start: 03-05-2023 Refill Mone Zaire DIRECTOR PHYSICAL.MANAGER BRANCH Work Phone: Pain Management Comment on above: Refill Request Start: 03-02-2023 End: 03-02-2023 Patient encounter procedure [facility], [facility] Work Phone: Start: 03-02-2023 End: 03-02-2023 ambulatory [facility] Work Phone: Start: 02-04-2023 Refill Mone Zaire DIRECTOR PHYSICAL.MANAGER BRANCH Work Phone: Pain Management Comment on above: Refill Request Start: 02-02-2023 Refill Moody Henderson DO Work Phone: Pain Management Comment on above: Refill Request Start: 01-11-2023 End: 01-12-2023 ambulatory [facility] Facility:[id number] Start: 01-11-2023 End: 01-11-2023 Office outpatient visit 25 minutes Mone Zaire DIRECTOR PHYSICAL.MANAGER BRANCH Work Phone: Pain Management Comment on above: Lumbar disc herniati on with radiculopathy; Lumbar spondylosis; Chronic pain syndrome; High risk medication use Start: 01-06-2023 Refill Moody Henderson DO Work Phone: Pain Management Comment on above: Refill Request Start: 12-07-2022 Refill Mone [place] DIRECTOR PHYSICAL.MANAGER BRANCH Work Phone: Pain Management Comment on above: Refill Request Start: 12-01-2022 Refill Mone [place] DIRECTOR PHYSICAL.MANAGER BRANCH Work Phone: Pain Management Comment on above: Refill Request Start: 11-19-2022 End: 11-19-2022 ambulatory [facility] Facility:[facility] Start: 11-19-2022 End: 11-19-2022 Patient encounter procedure [facility] Work Phone: Start: 10-30-2022 Refill Mone [place] DIRECTOR PHYSICAL.MANAGER BRANCH Work Phone: Pain Management Comment on above: Refill Request Start: 10-13-2022 End: 10-14-2022 ambulatory MOODY RODRIGUEZ Facility:[id number] Start: 10-13-2022 End: 10-13-2022 Patient encounter procedure Moody Rodriguez DO Work Phone: Pain Management Comment on above: Chronic pain syndrom e (Primary Dx); Lumbar disc herniation with radiculopathy; Radiculopathy, lumbar region; Degeneration of intervertebral disc of lumbar region; Generalized osteoarthritis; High risk medication use; Lumbar postlaminectomy syndrome; DDD (degenerative disc disease), lumbar; Lumbar radiculopathy; Myofascial pain syndrome Start: 09-10-2022 Telephone encounter Mone Lopezshannon eld DIRECTOR PHYSICAL.MANAGER BRANCH Work Phone: Pain Management Comment on above: Medication Problem Start: 08-24-2022 Refill Mone [place] DIRECTOR PHYSICAL.MANAGER BRANCH Work Phone: Pain Management Comment on above: Refill Request Start: 08-20-2022 End: 08-20-2022 ambulatory MOODY RODRIGUEZ Facility:[id number] Start: 08-13-2022 Refill Mone Zaire DIRECTOR PHYSICAL.MANAGER BRANCH Work Phone: Pain Management Comment on above: Refill Request Start: 07-23-2022 Refill Mone Zaire DIRECTOR PHYSICAL.MANAGER BRANCH Work Phone: Pain Management Comment on above: Refill Request Start: 07-13-2022 Refill Mone [place] DIRECTOR PHYSICAL.MANAGER BRANCH Work Phone: Pain Management Comment on above: Refill Request Start: 06-23-2022 ambulatory [facility] Facility: [facility] Start: 06-12-2022 Refill Mone [place] DIRECTOR PHYSICAL.MANAGER BRANCH Work Phone: Pain Management Comment on above: Refill Request Start: 05-22-2022 Refill Mone [place] DIRECTOR PHYSICAL.MANAGER BRANCH Work Phone: Pain Management Comment on above: Refill Request Start: 05-06-2022 End: 05-06-2022 Office outpatient visit 25 minutes Mone [place] DIRECTOR PHYSICAL.MANAGER BRANCH Work Phone: Pain Management Comment on above: Lumbar disc herniati on with radiculopathy (Primary Dx); Radiculopathy, lumbar region; Degeneration of intervertebral disc of lumbar region; Generalized osteoarthritis; Chronic pain syndrome; High risk medication use Start: 04-27-2022 Refill Mone Thorne APRN.MANAGER BRANCH Work Phone: Pain Management Comment on above: Refill Request Start: 03-21-2022 Chart abstracting Mone henderson APRN.MANAGER BRANCH Work Phone: Pain Management Start: 03-18-2022 Telephone encounter Mone reyes APRN.MANAGER BRANCH Work Phone: Pain Management Comment on above: Medication Problem Start: 03-05-2022 End: 03-05-2022 Subsequent hospital visit by physician Moody Rodriguez DO Work Phone: MR PAIN MANAGEMENT Comment on above: Postlaminectomy synd wanda, lumbar region [M96.1] Start: 02-24-2022 Refill Mone Thorne APRN.MANAGER BRANCH Work Phone: Pain Management Comment on above: Refill Request Start: 02-16-2022 Telephone encounter Mone reyes APRN.MANAGER BRANCH Work Phone: Pain Management Comment on above: Medication Problem Start: 02-11-2022 End: 02-11-2022 Office outpatient visit 25 minutes Mone Thorne APRN.MANAGER BRANCH Work Phone: Pain Management Comment on above: Lumbar postlaminecto my syndrome (Primary Dx); DDD (degenerative disc disease), lumbar; Lumbar radiculopathy; Chronic pain syndrome; Myofascial pain syndrome; High risk medication use Start: 01-21-2022 Refill Mone Thorne APRN.MANAGER BRANCH Work Phone: Pain Management Comment on above: Refill Request Start: 01-13-2022 Refill Mone Thorne APRN.MANAGER BRANCH Work Phone: Pain Management Comment on above: Refill Request Start: 12-29-2021 End: 12-29-2021 Subsequent hospital visit by physician Mone [place] DIRECTOR PHYSICAL.MANAGER BRANCH Work Phone: IF [facility] Comment on above: FOLLOW UP Start: 11-20-2021 End: 11-20-2021 Subsequent hospital visit by physician Moody Rodriguez Work Phone: IF MALLORY [place] Comment on above: M54.16 Start: 07-10-2020 End: 07-10-[address] [facility] Start: 05-31-[address] [facility], Alethea Margarita [facility] Procedures Date Procedure Procedure Detail Performing Clinician Start: 06-07-2023 X-ray of both feet Start: 03-02-2023 MRI of lower extremity Start: 04-01-2022 H/O splenectomy History of splenecto my Mone Thorne DIRECTOR PHYSICAL.MANAGER BRANCH Work Phone: Start: 03-05-2022 Fluoroscopy up to 1 hour physician/qhp time Moody Rodriguez DO Work Phone: Start: 07-08-2017 Adult depression screening assessment Moody Rodriguez Work Phone: Start: 02-03-2010 Lipid 1996 panel - Serum or Plasma Moody Rodriguez DO Work Phone: H/O splenectomy History of splenectomy Plan of Treatment Date Care Activity Detail Author Start: 11-02-2023 End: 11-02-2023 Patient encounter procedure [facility] Pain Management Calista Start: 05-13-2023 End: 08-12-2023 TOXASSURE FLEX 23, URINE TOXASSURE FLEX 23, URINE Lab Routine Chronic pain syndrome Expected: 05/13/2023, Expires: 08/12/2023 [facility] Work Phone: Comment on above: Expected: 05/13/2023 , Expires: 08/12/2023 Start: 03-26-2023 Influenza vaccination [facility] Start: 2023 RSV Vaccine (1 - 1-d ose 60+ series) RSV Vaccine (1 - 1-dose 60+ series) [facility] Start: 10-13-2022 End: 12-13-2022 TOXASSURE FLEX 23, URINE TOXASSURE FLEX 23, URINE Lab Routine Chronic pain syndrome Lumbar disc herniation with radiculopathy Radiculopathy, lumbar region Expected: 10/13/2022, Expires: 12/13/2022 [facility] Work Phone: Comment on above: Expected: 10/13/2022 , Expires: 12/13/2022 Start: 07-26-2022 [facility]PRESSION [facility]ESSMENT [facility] Start: 03-26-2022 Influenza vaccination [facility] Start: 02-11-2022 End: 04-13-2022 DRUG SCR TOXASURE DRUG SCR TOXASURE Lab Routine High risk medication use Expected: 02/11/2022, Expires: 04/13/2022 [facility] Work Phone: Comment on above: Expected: 02/11/2022 , Expires: 04/13/2022 Start: 07-26-2021 DEPRESSION ASSESSMENT DEPRESSION ASS [facility] Start: 05-05-2019 DIABETES SCREEN DIABETES SCREEN [facility] Start: 05-05-2019 Diabetes Screening Diabetes Screenin g [facility] Start: 07-08-2018 Adult depression screening assessment DEPRESSION SCREENING [facility] Start: 2018 PROSTATE CANCER SCREENING DISCUSSION PROSTATE CANCER SCREENING DISCUSSION [facility] Start: 2018 Prostate specific antigen measurement Prostate Cancer Screening Discussion [facility] Start: 02-03-2015 Lipid 1996 panel - S deja or Plasma Lipid Screening [facility] Start: 02-03-2015 Lipid panel Lipid Screening [facility] Start: 02-03-2015 LIPID SCREEN LIPID SCREEN [facility] Start: 2013 Administration of he rpes zoster vaccine Zoster Vaccines (1 of 2) [facility] Start: 2013 Screening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 [facility] with any updates, questions, or concerns. Jackie Dorsey RN April 06, 2023 1:05 PM documented in this encounter [facility] 04-05-2023 Miscellaneous Notes Summary: Appointment Appointment scheduled has been cancelled, patient is to call and be rescheduled with a different provider. documented in this encounter [facility] 03-07-2023 Miscellaneous Notes Formattin g of [...] March 16, 2023. Authorizing Provider: MONE THORNE APRN.MANAGER BRANCH Patient phones requesting refills as follows: Requested [...] Result Flag Units Drug Present Ethyl Glucuronide 76491 ng/mg creat Ethyl Sulfate 7385 ng/mg creat [...] For clinical consultation, please call . == @FLOW([id number])@ Lab Results Component Value Date SUMM FINAL [...] PRESENT Guaifenesin may be administered as an movu-xau-bibolbe or prescription drug; it may also be present as a breakdown product of methocarbamol. Zolpidem PRESENT Zolpidem Acid PRESENT Zolpidem acid is an expected metabolite of zolpidem. Acetaminophen PRESENT Doxylamine PRESENT Lidocaine PRESENT Dextromethorphan PRESENT Dextrorphan/Levorphanol PRESENT Dextrorphan is an expected metabolite of dextromethorphan, an phxw-dam-fynunxp or prescription cough suppressant. Dextrorphan cannot be distinguished from the scheduled prescription medication levorphanol by the method used for analysis. == Test Result Flag Units Ref Range Creatinine 77 mg/dL >=20 == Declared Medications: Medication list was not provided. == For clinical consultation, please call . == Please review and advise. Petra Wiley RN documented in this encounter [facility] 02-07-2023 Miscellaneous Notes Formattin g of [...] daily as needed. Authorizing Provider: MONE THORNE APRN.MANAGER BRANCH Pt has Rfs of lidocaine patches and [...] Result Flag Units Drug Present Ethyl Glucuronide 73191 ng/mg creat Ethyl Sulfate 7385 ng/mg creat [...] For clinical consultation, please call . == @FLOW([id number])@ Lab Results Component Value Date SUMM FINAL [...] PRESENT Guaifenesin may be administered as an egni-ffn-ynflgho or prescription drug; it may also be present as a breakdown product of methocarbamol. Zolpidem PRESENT Zolpidem Acid PRESENT Zolpidem acid is an expected metabolite of zolpidem. Acetaminophen PRESENT Doxylamine PRESENT Lidocaine PRESENT Dextromethorphan PRESENT Dextrorphan/Levorphanol PRESENT Dextrorphan is an expected metabolite of dextromethorphan, an zxgm-ult-clohptx or prescription cough suppressant. Dextrorphan cannot be distinguished from the scheduled prescription medication levorphanol by the method used for analysis. == Test Result Flag Units Ref Range Creatinine 77 mg/dL >=20 == Declared Medications: Medication list was not provided. == For clinical consultation, please call . == Please review and advise. Marilyn Grossman RN documented in this encounter [facility] 01-11-2023 Note HNO ID: [id number] Author: Mone Thorne APRN.MANAGER BRANCH Service: ? Author Type: Clinical Nurse Specialist Type: Progress Notes Filed: 01/11/2023 9:55 AM Note Text: SUBJECTIVE: Eliza Lowe presents to [facility] for a follow-up [...] Follow-up in 3 months in office with VENDOR MANAGER Last procedure 11/19/22 Right L5 S1 SNRT [...] WELL Headache Paternal Grandfather Heart Father R/T [place] IN 60'S Social History: Social History Tobacco [...] the above and verbalized understanding. Mone Thorne APRN.MANAGER BRANCH January 11, 2023 [facility] 01-11-2023 Instructions Mone Thorne APRN.CNS - 01/11/2023 [...] months documented in this encounter [facility] 01-11-2023 History of Presen t illness Narrative SUBJECTIVE: Eliza Primitivo Lowe presents to [facility] for a follow-up [...] Follow-up in 3 months in office with VENDOR MANAGER Last procedure 11/19/22 Right L5 S1 SNRT [...] WELL Headache Paternal Grandfather Heart Father R/T [place] IN 60'S Social History: Social History Tobacco [...] 2023 documented in this encounter [facility] 01-06-2023 Miscellaneous Notes Formattin g of [...] RN documented in this encounter [facility] 10-13-2022 Note HNO ID: [id number] Author: Moody Rodriguez DO Service: ? Author Type: Physician Type: Progress Notes Filed: 10/14/2022 6:57 AM Note Text: Summary: Pain Management follow-up DATE: October 13, 2022 Chief Complaint: LBP _ History of Present Illness: Eliza Lowe is a 57 year old male being seen at [facility] for a [...] 80% relief until recently. Denied any falls. Krebs the injection in October was the best [...] PRESENT Guaifenesin may be administered as an laym-ycl-dmyhlaq or prescription drug; it may also be present as a breakdown product of methocarbamol. Zolpidem PRESENT Zolpidem Acid PRESENT Zolpidem acid is an expected metabolite of zolpidem. Acetaminophen PRESENT Doxylamine PRESENT Lidocaine PRESENT Dextromethorphan PRESENT Dextrorphan/Levorphanol PRESENT Dextrorphan is an expected metabolite of dextromethorphan, an yjtj-ovi-qyjfibt or prescription cough suppressant. Dextrorphan cannot be distinguished from the scheduled prescription medication levorphanol by the method used for analysis. == Test Result Flag Units Ref Range Creatinine 77 mg/dL >=20 == Declared Medications: Medication list was not provided. == (more content not included)... [facility] 10-13-2022 Note HNO ID: [id number] Author: Moody Rodriguez, DO Service: ? Author [...] interval and remained stable. Moody Rodriguez DO [facility] 10-13-2022 Instructions Moody Rodriguez DO - 10/13/2022 [...] Follow-up in 3 months in office with VENDOR MANAGER documented in this encounter [facility] 10-13-2022 History of Presen t illness Narrative Summary: Pain Management follow-up DATE: October 13, 2022 Chief Complaint: LBP _ History of Present Illness: Eliza Lowe is a 57 year old male being seen at [facility] for a [...] 80% relief until recently. Denied any falls. Krebs the injection in October was the best [...] PRESENT Guaifenesin may be administered as an gkvm-qjq-kcdvphv or prescription drug; it may also be present as a breakdown product of methocarbamol. Zolpidem PRESENT Zolpidem Acid PRESENT Zolpidem acid is an expected metabolite of zolpidem. Acetaminophen PRESENT Doxylamine PRESENT Lidocaine PRESENT Dextromethorphan PRESENT Dextrorphan/Levorphanol PRESENT Dextrorphan is an expected metabolite of dextromethorphan, an apku-mxu-espwtil or prescription cough suppressant. Dextrorphan cannot be [...] WELL Headache Paternal Grandfather Heart Father R/T [place] IN 60'S Social History Tobacco Use Smoking [...] not start before September 22, 2022. BD LUER-MIKE SYRINGE 3 mL 22 gauge x 1 [...] encounter was entered by Senait Rogel medical research associate, for Dr. Moody Rodriguez on October 13, [...] 2022 documented in this encounter [facility] 10-13-2022 Procedure note Procedure(s): TRIGGER POINT [...] DO documented in this encounter [facility] 09-10-2022 Miscellaneous Notes Formattin g of [...] September 22, 2022. Authorizing Provider: MONE THORNE APRN.MANAGER BRANCH Pt is requesting a refill of Fentanyl, she was seen last on 05/06/22, no showed on 08/06/22 and scheduled for 09/28/22. Please advise. Naomi Starks RN September 10, 2022 1:29 PM documented in this encounter [facility] 08-24-2022 Miscellaneous Notes Formattin g of [...] August 25, 2022. Authorizing Provider: MONE THORNE APRN.MANAGER BRANCH Patient phones requesting refills as follows: Requested [...] Last UDS: No results found for: SUMM @FLOW([id number])@ No results found for: SUMM Summary Report [...] PRESENT Guaifenesin may be administered as an hfkv-nam-udkhubj or prescription drug; it may also be present as a breakdown product of methocarbamol. Zolpidem PRESENT Zolpidem Acid PRESENT Zolpidem acid is an expected metabolite of zolpidem. Acetaminophen PRESENT Doxylamine PRESENT Lidocaine PRESENT Dextromethorphan PRESENT Dextrorphan/Levorphanol PRESENT Dextrorphan is an expected metabolite of dextromethorphan, an idkw-fcx-afdtepr or prescription cough suppressant. Dextrorphan cannot be distinguished from the scheduled prescription medication levorphanol by the method used for analysis. == Test Result Flag Units Ref Range Creatinine 77 mg/dL >=20 == Declared Medications: Medication list was not provided. == For clinical consultation, please call . == Please review and advise. Marilyn Grossman RN documented in this encounter [facility] 08-13-2022 Miscellaneous Notes Formattin g of [...] daily as needed. Authorizing Provider: MONE THORNE APRN.MANAGER BRANCH Patient phones requesting refills as follows: Requested [...] Last UDS: No results found for: SUMM @FLOW([id number])@ No results found for: SUMM Summary Report [...] PRESENT Guaifenesin may be administered as an oqnt-xni-fuajkpg or prescription drug; it may also be present as a breakdown product of methocarbamol. Zolpidem PRESENT Zolpidem Acid PRESENT Zolpidem acid is an expected metabolite of zolpidem. Acetaminophen PRESENT Doxylamine PRESENT Lidocaine PRESENT Dextromethorphan PRESENT Dextrorphan/Levorphanol PRESENT Dextrorphan is an expected metabolite of dextromethorphan, an argp-rnn-cnrgyuq or prescription cough suppressant. Dextrorphan cannot be distinguished from the scheduled prescription medication levorphanol by the method used for analysis. == Test Result Flag Units Ref Range Creatinine 77 mg/dL >=20 == Declared Medications: Medication list was not provided. == For clinical consultation, please call . == Please review and advise. Naomi Starks RN documented in this encounter [facility] 07-23-2022 Miscellaneous Notes Formattin g of [...] 30 days. Please review and advise. Naomi Starks RN documented in this encounter [facility] 07-13-2022 Miscellaneous Notes Formattin g of this note is different from the original. The following approved medication requests have been transmitted electronically. Requested Prescriptions Signed Prescriptions Disp Refills fentaNYL (DURAGESIC) 25 mcg/hr 15 Patch 0 Sig: Apply 1 Patch as directed every 48 hours for 30 days. Do not start before July 18, 2022. Authorizing Provider: MONE THORNE APRN.MANAGER BRANCH Patient phones requesting refills as follows: Requested Prescriptions Pending Prescriptions Disp Refills fentaNYL (DURAGESIC) 25 mcg/hr 15 Patch 0 Sig: Apply 1 Patch as directed every 48 hours for 30 days. Please review and advise. Danita Restrepo RN documented in this encounter [facility] 06-14-2022 Miscellaneous Notes Formattin g of this note is different from the original. The following approved medication requests have been transmitted electronically. Requested Prescriptions Signed Prescriptions Disp Refills fentaNYL (DURAGESIC) 25 mcg/hr 15 Patch 0 Sig: Apply 1 Patch as directed every 48 hours for 30 days. Do not start before June 18, 2022. Authorizing Provider: MONE THORNE APRN.MANAGER BRANCH Patient phones requesting refills as follows: Requested Prescriptions Pending Prescriptions Disp Refills fentaNYL (DURAGESIC) 25 mcg/hr 15 Patch 0 Sig: Apply 1 Patch as directed every 48 hours for 30 days. Please review and advise. Marilyn Grossman RN documented in this encounter [facility] 05-25-2022 Miscellaneous Notes Formattin g of [...] May 28, 2022. Authorizing Provider: MONE THORNE APRN.CNS Patient phones [...] RN documented in this encounter [facility] 05-06-2022 Instructions Mone Thorne APRN.MANAGER BRANCH - 05/06/2022 3:21 PM EDT Continue Oxycodone. [...] 80% relief until recently. Denied any falls. Krebs the injection in October was the best Denies signs or symptoms or heart attack or stroke. Instructed to check BP later today and call PCP if still elevated. Follow-up in 2-3 months in office documented in this encounter [facility] 05-05-2022 History of Presen t illness [...] Follow-up in 2-3 months in office Pain level:03/04 States had 80% relief until recently. Denies [...] extremities. documented in this encounter [facility] 04-27-2022 Miscellaneous Notes Formattin g of [...] April 28, 2022. Authorizing Provider: MONE THORNE APRN.CNS Patient phones [...] RN documented in this encounter [facility] 03-18-2022 Miscellaneous Notes Formattin g of this note is different from the original. The following approved medication requests have been transmitted electronically. Requested Prescriptions Signed Prescriptions Disp Refills lidocaine (LIDODERM) 5 % 60 Patch 4 Sig: Apply 1 Patch as directed as directed. Authorizing Provider: MONE THORNE APRN.CNS Summary: lidocaine patches concern Message on careline from pt : Please resend lidocaine patch 'script as she stsates that pharmacy does not have knowledge of 'script nor have they received it. Thank you. Jackie Dorsey RN documented in this encounter [facility] 03-05-2022 Miscellaneous Notes Summary: Right L5 [...] criteria documented in this encounter [facility] 02-24-2022 Miscellaneous Notes The following approved [...] has requested refill too soon Mone Thorne APRN.MANAGER BRANCH Patient phones requesting refills as follows: Patient [...] RN documented in this encounter [facility] 02-16-2022 Miscellaneous Notes The following approved [...] assistance is available Authorizing Provider: MONE THORNE APRN.MANAGER BRANCH Pt's called in stating that his prescriptions were sent to the wrong pharmacy. Fentanyl and Oxycodone scripts cancelled at [facility]. Will need sent to [facility] in [place]. Please advise. Pt requesting refill as follows [...] CHARISSA: No Please review and advise. Naomi Starks RN documented in this encounter [facility] 02-11-2022 Instructions Mone Thorne APRN.MANAGER BRANCH - 02/11/2022 8:50 AM EDT Continue Oxycodone. These medications helps patient perform ADL, interact with family and friends. No misuse or aberrant behaviors detected. OARRS reviewed and consistent. UDS reviewed Continue fentanyl 25mcg/HR change every 48hours 11/20/21 UDS +THC. Counseld patient that this was found 02/07/22 Order UDS Pilar right SNRT BLK L5 S1 Last done 11/20/2021 right SNRT BLK L5-S1 with good results Continue Gabapentin Continue Lidoderm patches. Continue TENS use Continue Robaxin. Continue mobic Follow-up in 2-3 months in office documented in this encounter [facility] 02-10-2022 History of Presen t illness [...] Follow-up in 2-3 months in office Pain level:6 Denies any ED visits or hospitalizations since [...] extremities. documented in this encounter [facility] 01-21-2022 Miscellaneous Notes The following approved [...] assistance is available Authorizing Provider: MONE THORNE APRN.MANAGER BRANCH Patient phones requesting refills as follows: Pending Prescriptions Disp Refills OXYCODONE 15 MG TABLET 120 tablet 0 Si tablet four times daily as needed for up to 30 days. BETO Class: C-II CHARISSA: No Please review and advise. Marilyn Grossman RN documented in this encounter [facility] 01-13-2022 Miscellaneous Notes Patient phones requesting refills as follows: Pending Prescriptions Disp Refills FENTANYL 25 MCG/HR TRANSDERMAL PATCH 15 Patch 0 Sig: Apply 1 Patch as directed every 48 hours for 30 days. BETO Class: C-II CHARISSA: No Pt has refills at pharmacy for robaxin. Please review and advise. Marilyn Grossman RN documented in this encounter [facility] Evaluation note Diagnosis Chronic pain syndrome- Primary [facility] Diagnosis Chronic pain syndrome- Primary [facility] Diagnosis Lumbar postlaminectomy syndrome- Primary Postlaminectomy syndrome, lumbar region DDD (degenerative disc disease), lumbar Degeneration of lumbar or lumbosacral intervertebral disc Lumbar radiculopathy Thoracic or lumbosacral neuritis or radiculitis, unspecified Chronic pain syndrome Myofascial pain syndrome Mylagia and myositis, unspecified High risk medication use Encounter for long-term (current) use of other medications Postlaminectomy syndrome, lumbar region [facility]* Diagnosis Chronic pain syndrome Postlaminectomy syndrome, lumbar region [facility]* Diagnosis Chronic pain syndrome Postlaminectomy syndrome, lumbar region documented in this [facility] note* Diagnosis Lumbosacral neuritis [M54.17 (ICD-10-CM)]- Primary Thoracic or lumbosacral neuritis or radiculitis, unspecified Radiculopathy, lumbar region [M54.16 (ICD-10-CM)] Thoracic or lumbosacral neuritis or radiculitis, unspecified documented in this encounter [facility] note* Diagnosis Chronic pain syndrome documented in this encounter [facility] note* Diagnosis Chronic pain syndrome documented in this encounter [facility] note* Diagnosis Lumbar disc herniation with radiculopathy- [...] of lumbar region documented in this encounter [facility] Diagnosis Chronic pain syndrome Lumbar disc herniation with radiculopathy Displacement of lumbar intervertebral disc without myelopathy Degeneration of intervertebral disc of lumbar region documented [facility] this [facility]* Diagnosis Chronic pain syndrome Lumbar disc herniation with radiculopathy Displacement of lumbar intervertebral disc without myelopathy Degeneration of intervertebral disc of lumbar region documented [facility]* Diagnosis Chronic pain syndrome Lumbar disc herniation with radiculopathy Displacement of lumbar intervertebral disc without myelopathy Degeneration of intervertebral disc of lumbar region [facility]* Diagnosis Chronic pain syndrome- Primary [...] and myositis, unspecified documented in this encounter [facility] note* Diagnosis Lumbar disc herniation with radiculopathy Displacement of lumbar intervertebral disc without myelopathy Lumbar spondylosis Lumbosacral spondylosis without myelopathy Chronic pain syndrome High risk medication use Encounter for long-term (current) use of other medications documented in this encounter [facility] note* Diagnosis Chronic pain syndrome documented in this encounter [facility] noteNo assessment information availableWUniversity [facility] Phone: [facility]* Diagnosis Chronic pain syndrome documented in this encounter [facility] note* Diagnosis Chronic pain syndrome documented in this encounter [facility] note* Diagnosis Chronic pain syndrome documented in this encounter [facility] note* Diagnosis Chronic pain syndrome documented in this encounter [facility] note* Diagnosis Chronic pain syndrome- Primary documented in this encounter [facility] note* Diagnosis Chronic pain syndrome documented in this encounter [facility] note* Diagnosis Chronic pain syndrome documented in this encounter [facility] note* Diagnosis Chronic pain syndrome- Primary Encounter for monitoring opioid maintenance therapy DDD (degenerative disc disease), lumbar Degeneration of lumbar or lumbosacral intervertebral disc Other chronic pain Chronic pain of left ankle History of ankle surgery Postlaminectomy syndrome of lumbar region Postlaminectomy syndrome, lumbar region Myofascial pain syndrome Unspecified myalgia and myositis documented in this encounter [facility] note* Diagnosis Chronic pain syndrome documented in this encounter [facility] for visit Narrative* Auth/Cert Specialty Diagnoses / Procedures Referred By Fabian tilley Referred To Contact Diagnoses Postlaminectomy syndrome, lumbar region Procedures NJX AA&/STRD TFRML EPI LUMBAR/SACRAL 1 LEVEL NJX AA&/STRD TFRML EPI LUMBAR/SACRAL EA ADDL INJECTION(S) ANESTHETIC AGENT AND STEROID TRANSFORAMINAL EPIDURAL W/ IMAGING GUIDANCE LUMBAR BLOCK TRANSFORAMINAL LUMBAR EACH ADDITIONAL VERTEBRA 1 W/ IMAGE GUIDANCE [facility] [address] [place] [address] Referral ID Status Reason Start Date Expiration Date Visits Re quested Visits Authorized [id number] 1 [facility] Chief Complaint and Reason for Visit Chief Complaint EXPOSURE Chief Complaint LEFT ANKLE Primary o steoarthritis, left ankle and Advance Directives Advance Directive Response Recorded Date/ Time Advance Directives No August 18, 2013 2:12pm Living Will No July 25, 2 018 4:03pm Power of Band Bias Machine Operator No July 25, 2018 4:03pm Documents on File Type Date Recorded 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 Advance Directive(s) 06/03/2017 11:20 AM Advance Directive(s) 04/30/2016 3:30 PM Advance Directive(s) 04/29/2016 11:36 AM Advance Directive Response Recorded Date/ Time Advance Directives No August 18, 2013 3:12pm Living Will No July 25, 2 018 5:03pm Power of Band Bias Machine Operator No July 25, 2018 5:03pm Assessments No Assessments Information Available Summary Purpose Family History No Family History Records FoundNo Family History Records FoundNo Family History Records FoundNo Family History Records Found Reason for Referral Specialty Diagnoses / Procedures Referred By Contkaterin t Referred To Contact [facility] Diagnoses Chronic pain syndrome Lumbar disc herniation with radiculopathy Lumbar spondylosis Procedures CONSULT TO PHYSICAL THERAPY PHYSICAL THERAPY EVALUATION HIGH COMPLEX 45 MINS Mone Thorne, TL.MANAGER BRANCH [address] [place] [address] [facility] [place] [address] [place] [id number] Referral ID Status Reason Start Date Expiration Date Visits Requested Visits Authorized [id number] Pending Review Auto-Generat ed Referral 01/11/2023 01/11/2024 1 1 Additional Source Comments Source Comments (unrecognize d section and content) In the event this informatio n is protected by the Federal Confidentiality of Alcohol and Drug Abuse Patient Records regulations: The Federal rules restrict any use of the information to criminally investigate or prosecute any alcohol or drug abuse patient.[facility] the event this information is protected by the Federal Confidentiality of Alcohol and Drug Abuse Patient Records regulations: The Federal rules restrict any use of the information to criminally investigate or prosecute any alcohol or drug abuse patient.[facility] HospitalIn the event this information is protected by the Federal Confidentiality of Alcohol and Drug Abuse Patient Records regulations: The Federal rules restrict any use of the information to criminally investigate or prosecute any alcohol or drug abuse patient.[facility] HospitalIn the event this information is protected by the Federal Confidentiality of Alcohol and Drug Abuse Patient Records regulations: The Federal rules restrict any use of the information to criminally investigate or prosecute any alcohol or drug abuse patient.[facility] HospitalIn the event this information is protected by the Federal Confidentiality of Alcohol and Drug Abuse Patient Records regulations: The Federal rules restrict any use of the information to criminally investigate or prosecute any alcohol or drug abuse patient.[facility] HospitalIn the event this information is protected by the Federal Confidentiality of Alcohol and Drug Abuse Patient Records regulations: The Federal rules restrict any use of the information to criminally investigate or prosecute any alcohol or drug abuse patient.[facility] HospitalIn the event this information is protected by the Federal Confidentiality of Alcohol and Drug Abuse Patient Records regulations: The Federal rules restrict any use of the information to criminally investigate or prosecute any alcohol or drug abuse patient.[facility] HospitalIn the event this information is protected by the Federal Confidentiality of Alcohol and Drug Abuse Patient Records regulations: The Federal rules restrict any use of the information to criminally investigate or prosecute any alcohol or drug abuse patient.[facility] HospitalIn the event this information is protected by the Federal Confidentiality of Alcohol and Drug Abuse Patient Records regulations: The Federal rules restrict any use of the information to criminally investigate or prosecute any alcohol or drug abuse patient.[facility] HospitalIn the event this information is protected by the Federal Confidentiality of Alcohol and Drug Abuse Patient Records regulations: The Federal rules restrict any use of the information to criminally investigate or prosecute any alcohol or drug abuse patient.[facility] HospitalIn the event this information is protected by the Federal Confidentiality of Alcohol and Drug Abuse Patient Records regulations: The Federal rules restrict any use of the information to criminally investigate or prosecute any alcohol or drug abuse patient.[facility] HospitalIn the event this information is protected by the Federal Confidentiality of Alcohol and Drug Abuse Patient Records regulations: The Federal rules restrict any use of the information to criminally investigate or prosecute any alcohol or drug abuse patient.[facility] HospitalIn the event this information is protected by the Federal Confidentiality of Alcohol and Drug Abuse Patient Records regulations: The Federal rules restrict any use of the information to criminally investigate or prosecute any alcohol or drug abuse patient.[facility] HospitalIn the event this information is protected by the Federal Confidentiality of Alcohol and Drug Abuse Patient Records regulations: The Federal rules restrict any use of the information to criminally investigate or prosecute any alcohol or drug abuse patient.[facility] HospitalIn the event this information is protected by the Federal Confidentiality of Alcohol and Drug Abuse Patient Records regulations: The Federal rules restrict any use of the information to criminally investigate or prosecute any alcohol or drug abuse patient.[facility] HospitalIn the event this information is protected by the Federal Confidentiality of Alcohol and Drug Abuse Patient Records regulations: The Federal rules restrict any use of the information to criminally investigate or prosecute any alcohol or drug abuse patient.[facility] HospitalIn the event this information is protected by the Federal Confidentiality of Alcohol and Drug Abuse Patient Records regulations: The Federal rules restrict any use of the information to criminally investigate or prosecute any alcohol or drug abuse patient.[facility] HospitalIn the event this information is protected by the Federal Confidentiality of Alcohol and Drug Abuse Patient Records regulations: The Federal rules restrict any use of the information to criminally investigate or prosecute any alcohol or drug abuse patient.[facility] HospitalIn the event this information is protected by the Federal Confidentiality of Alcohol and Drug Abuse Patient Records regulations: The Federal rules restrict any use of the information to criminally investigate or prosecute any alcohol or drug abuse patient.[facility] HospitalIn the event this information is protected by the Federal Confidentiality of Alcohol and Drug Abuse Patient Records regulations: The Federal rules restrict any use of the information to criminally investigate or prosecute any alcohol or drug abuse patient.[facility] HospitalIn the event this information is protected by the Federal Confidentiality of Alcohol and Drug Abuse Patient Records regulations: The Federal rules restrict any use of the information to criminally investigate or prosecute any alcohol or drug abuse patient.[facility] HospitalIn the event this information is protected by the Federal Confidentiality of Alcohol and Drug Abuse Patient Records regulations: The Federal rules restrict any use of the information to criminally investigate or prosecute any alcohol or drug abuse patient.[facility] HospitalIn the event this information is protected by the Federal Confidentiality of Alcohol and Drug Abuse Patient Records regulations: The Federal rules restrict any use of the information to criminally investigate or prosecute any alcohol or drug abuse patient.[facility] HospitalIn the event this information is protected by the Federal Confidentiality of Alcohol and Drug Abuse Patient Records regulations: The Federal rules restrict any use of the information to criminally investigate or prosecute any alcohol or drug abuse patient.[facility] HospitalIn the event this information is protected by the Federal Confidentiality of Alcohol and Drug Abuse Patient Records regulations: The Federal rules restrict any use of the information to criminally investigate or prosecute any alcohol or drug abuse patient.[facility] HospitalIn the event this information is protected by the Federal Confidentiality of Alcohol and Drug Abuse Patient Records regulations: The Federal rules restrict any use of the information to criminally investigate or prosecute any alcohol or drug abuse patient.[facility] HospitalIn the event this information is protected by the Federal Confidentiality of Alcohol and Drug Abuse Patient Records regulations: The Federal rules restrict any use of the information to criminally investigate or prosecute any alcohol or drug abuse patient.[facility] HospitalIn the event this information is protected by the Federal Confidentiality of Alcohol and Drug Abuse Patient Records regulations: The Federal rules restrict any use of the information to criminally investigate or prosecute any alcohol or drug abuse patient.[facility] HospitalIn the event this information is protected by the Federal Confidentiality of Alcohol and Drug Abuse Patient Records regulations: The Federal rules restrict any use of the information to criminally investigate or prosecute any alcohol or drug abuse patient.[facility] HospitalIn the event this information is protected by the Federal Confidentiality of Alcohol and Drug Abuse Patient Records regulations: The Federal rules restrict any use of the information to criminally investigate or prosecute any alcohol or drug abuse patient.[facility] HospitalIn the event this information is protected by the Federal Confidentiality of Alcohol and Drug Abuse Patient Records regulations: The Federal rules restrict any use of the information to criminally investigate or prosecute any alcohol or drug abuse patient.[facility] HospitalIn the event this information is protected by the Federal Confidentiality of Alcohol and Drug Abuse Patient Records regulations: The Federal rules restrict any use of the information to criminally investigate or prosecute any alcohol or drug abuse patient.[facility] HospitalIn the event this information is protected by the Federal Confidentiality of Alcohol and Drug Abuse Patient Records regulations: The Federal rules restrict any use of the information to criminally investigate or prosecute any alcohol or drug abuse patient.[facility] HospitalIn the event this information is protected by the Federal Confidentiality of Alcohol and Drug Abuse Patient Records regulations: The Federal rules restrict any use of the information to criminally investigate or prosecute any alcohol or drug abuse patient.[facility] HospitalIn the event this information is protected by the Federal Confidentiality of Alcohol and Drug Abuse Patient Records regulations: The Federal rules restrict any use of the information to criminally investigate or prosecute any alcohol or drug abuse patient.[facility] HospitalIn the event this information is protected by the Federal Confidentiality of Alcohol and Drug Abuse Patient Records regulations: The Federal rules restrict any use of the information to criminally investigate or prosecute any alcohol or drug abuse patient.[facility] HospitalIn the event this information is protected by the Federal Confidentiality of Alcohol and Drug Abuse Patient Records regulations: The Federal rules restrict any use of the information to criminally investigate or prosecute any alcohol or drug abuse patient.[facility] HospitalIn the event this information is protected by the Federal Confidentiality of Alcohol and Drug Abuse Patient Records regulations: The Federal rules restrict any use of the information to criminally investigate or prosecute any alcohol or drug abuse patient.[facility] HospitalIn the event this information is protected by the Federal Confidentiality of Alcohol and Drug Abuse Patient Records regulations: The Federal rules restrict any use of the information to criminally investigate or prosecute any alcohol or drug abuse patient.[facility] HospitalIn the event this information is protected by the Federal Confidentiality of Alcohol and Drug Abuse Patient Records regulations: The Federal rules restrict any use of the information to criminally investigate or prosecute any alcohol or drug abuse patient.[facility] HospitalIn the event this information is protected by the Federal Confidentiality of Alcohol and Drug Abuse Patient Records regulations: The Federal rules restrict any use of the information to criminally investigate or prosecute any alcohol or drug abuse patient.[facility] Care Teams (unrecognized sec tion and content) University Relations Director Relationship Specialty Start Date End Date Louie Maddox DO PCP - General Family Practice 04/29/16 Jerome Mabry MD [address] [place] [address] Home Care Physician [facility] 05/04/16 University Relations Director Relationship Specialty Start Date End Date Louie Maddox DO PCP - General Family Practice 04/29/16 Jerome Mabry MD [address] [place] [address] Home Care Physician [facility] 05/04/16 University Relations Director Relationship Specialty Start Date End Date Louie Maddox DO PCP - General Family Practice 04/29/16 Jerome Mabry MD [address] [place] [address] Home Care Physician [facility] 05/04/16 University Relations Director Relationship Specialty Start Date End Date Louie Maddox, DO PCP - General Family Practice 04/29/16 Jerome Mabry MD [address] [place] [address] Home Care Physician [facility] 05/04/16 University Relations Director Relationship Specialty Start Date End Date Louie Maddox, DO PCP - General Family Practice 04/29/16 Jerome Mabry MD [address] [place] [address] Home Care Physician [facility] 05/04/16 University Relations Director Relationship Specialty Start Date End Date Louie Maddox, DO PCP - General Family Practice 04/29/16 Jerome Mabry MD [address] [place] [address] Home Care Physician [facility] 05/04/16 University Relations Director Relationship Specialty Start Date End Date Louie Maddox, DO PCP - General Family Practice 04/29/16 Jerome Mabry MD [address] [place] [address] Home Care Physician [facility] 05/04/16 University Relations Director Relationship Specialty Start Date End Date Louie Maddox, DO PCP - General Family Practice 04/29/16 Jerome Mabry MD [address] [place] [address] Home Care Physician [facility] 05/04/16 University Relations Director Relationship Specialty Start Date End Date Louie Maddox, DO PCP - General Family Practice 04/29/16 Jerome Mabry MD [address] [place] [address] Home Care Physician [facility] 05/04/16 University Relations Director Relationship Specialty Start Date End Date Louie Maddox, DO PCP - General Family Medicine 04/29/16 Jerome Mabry MD [address] [place] [address] Home Care Provider [facility] 05/04/16 University Relations Director Relationship Specialty Start Date End Date Louie Maddox, DO PCP - General Family Medicine 04/29/16 Jerome Mabry MD [address] [place] [address] Home Care Provider [facility] 05/04/16 University Relations Director Relationship Specialty Start Date End Date Louie Maddox DO PCP - General Family Medicine 04/29/16 Jerome Mabry MD [address] [place] [address] Home Care Provider [facility] 05/04/16 University Relations Director Relationship Specialty Start Date End Date Louie Maddox, DO PCP - General Family Medicine 04/29/16 Jerome Mabry MD [address] [place] [address] Home Care Provider [facility] 05/04/16 University Relations Director Relationship Specialty Start Date End Date Louie Maddox, DO PCP - General Family Medicine 04/29/16 Jerome Mabry MD [address] [place] [address] Home Care Provider [facility] 05/04/16 University Relations Director Relationship Specialty Start Date End Date Louie Maddox DO PCP - General Family Medicine 04/29/16 Jerome Mabry MD [address] [place] [address] Home Care Provider [facility] 05/04/16 University Relations Director Relationship Specialty Start Date End Date Louie Maddox DO PCP - General Family Medicine 04/29/16 Jerome Mabry MD [address] [place] [address] Home Care Provider [facility] 05/04/16 University Relations Director Relationship Specialty Start Date End Date Louie Maddox DO PCP - General Family Medicine 04/29/16 Jerome Mabry MD [address] [place] [address] Home Care Provider [facility] 05/04/16 University Relations Director Relationship Specialty Start Date End Date Louie Maddox DO PCP - General Family Medicine 04/29/16 Jerome Mabry MD [address] [place] [address] Home Care Provider [facility] 05/04/16 University Relations Director Relationship Specialty Start Date End Date Louie Maddox DO PCP - General Family Medicine 04/29/16 Jerome Mabry MD [address] [place] [address] Home Care Provider [facility] 05/04/16 University Relations Director Relationship Specialty Start Date End Date Louie Maddox DO PCP - General Family Medicine 04/29/16 Jerome Mabry MD [address] [place] [address] Home Care Provider [facility] 05/04/16 Team Status: Active Member Role Status Dates Dr. Louie Maddox , DO Family Provider Active Dr. Louie Maddox , DO Primary Care Provider Active Team Status: Inactive Member Role Status Dates Dr. Louie Maddox , DO Primary Care Provider, Referrin g Provider Active Cailin Holt VENDOR MANAGER, VENDOR MANAGER-C Attending Provider Active Team Status: Inactive Member Role Status Dates Dr. Louie Maddox DO Primary Care Provider Active Dr. Salomon Montez , DPM Attending Provider, Referri ng Provider Active University Relations Director Relationship Specialty Start Date End Date Louie Maddox DO PCP - General Family Medicine 04/29/16 Jerome Mabry MD [address] [place], [place] [id number] Home Care Provider [facility] 05/04/16 University Relations Director Relationship Specialty Start Date End Date Louie Maddox DO PCP - General Family Medicine 04/29/16 Jerome Mabry MD [address] [place] [address] Home Care Provider [facility] 05/04/16 University Relations Director Relationship Specialty Start Date End Date Louie Maddox DO PCP - General Family Medicine 04/29/16 Jerome Mabry MD [address] [place] [address] Home Care Provider [facility] 05/04/16 University Relations Director Relationship Specialty Start Date End Date Louie Maddox DO PCP - General Family Medicine 04/29/16 Jerome Mabry MD [address] [place] [address] Home Care Provider [facility] 05/04/16 University Relations Director Relationship Specialty Start Date End Date Louie Maddox DO PCP - General Family Medicine 04/29/16 Jerome Mabry MD [address] [place] [address] Home Care Provider [facility] 05/04/16 University Relations Director Relationship Specialty Start Date End Date Louie Maddox DO PCP - General Family Medicine 04/29/16 Jerome Mabry MD [address] [place] [address] Home Care Provider [facility] 05/04/16 Team Status: Inactive Member Role Status Dates Dr. Louie Maddox , Primary Care Provider Active Dr. Moody Rodriguez , Attending Provider, Referring Provider Active University Relations Director Relationship Specialty Start Date End Date Louie Maddox DO PCP - General Family Medicine 04/29/16 Jerome Mabry MD [address] [place] [address] Home Care Provider [facility] 05/04/16 University Relations Director Relationship Specialty Start Date End Date Louie Maddox DO PCP - General Family Medicine 04/29/16 Jerome Mabry MD [address] [place] [address] Home Care Provider [facility] 05/04/16 University Relations Director Relationship Specialty Start Date End Date Louie Maddox DO [address] [place] [address] PCP - General Family Medicine 08/11/23 University Relations Director Relationship Specialty Start Date End Date Louie Maddox DO [address] [place] [address] PCP - General Family Medicine 08/11/23 University Relations Director Relationship Specialty Start Date End Date Louie Maddox DO [address] [place] [address] PCP - General Family Medicine 08/11/23 (unrecognized sect ion and content) No Status Records FoundNo Status Records FoundNo Status Records FoundNo Status Records Found INFORMATION SOURCE (unrecogn ized section and content) DATE CREATED AUTHOR 01/06/2022 [employer] [facility] [place] DATE CREATED AUTHOR AUTHOR'S ORGANIZ ATION 06/13/2023 [facility] DATE CREATED AUTHOR AUTHOR'S ORGANIZ ATION 07/10/2023 [facility] DATE CREATED AUTHOR AUTHOR'S ORGANIZ ATION 08/19/2023 [facility] Reason for Visit (unrecogniz ed section and [...] Patient Update Reason Comments inquiring about refills Reason Comments Pain VAS = 8/10 Back Pain Overall back pain fr om cervical to lumbar. Reason Onset Date Comments Medication Refill 09/02/2023 Reason Onset Date Comments Medication Refill 09/06/2023 Goals (unrecognized section and content) Goals may [...] BE BASED ON THE PRIMARY CLINICAL RECORDS. [facility] [employer] provides no warranty or guarantee of the accuracy or completeness of information in this document.
== END 2023-09-24 11:34 | disposition home or self-care (01) ==
LOC: WC 11:34
PROVIDERS: Visit Provider Podiatrist Foot & Ankle Surgery
DX: M25.572 Pain in left ankle and joints of left foot (principal); T81.89XA Other complications of procedures, not elsewhere classified, initial encounter
CPT/HCPCS: 11042; 73610; A6213

== ENCOUNTER 2023-10-08 12:04 | Outpatient (OUT) | payer MEDICARE, MEDICAID, SELFPAY | END 2023-10-08 12:05 | disposition home or self-care (01) | LOC: WC 12:04 | PROVIDERS: Visit Provider Podiatrist Foot & Ankle Surgery | DX: T81.89XA Other complications of procedures, not elsewhere classified, initial encounter (principal) | CPT/HCPCS: 11043 ==

== ENCOUNTER 2023-10-29 11:44 | Outpatient (OUT) | payer MEDICARE, MEDICAID, SELFPAY ==
--- NOTE | 2023-10-29 | XR_ITS ---
The [address] [address] Patient Name: ELIZA LOWE MRN: [id number] date: 1965 Sex: M Assigned Patient Location: Current Patient Location: Accession/Order Number: [id number] Exam Date: 10/29/2023 11:50 Report Date: 10/29/2023 13:26 At the request of: SUGEY CASTILLO Procedure: XR ankle LT min 3V PROCEDURE: XR foot and ankle LT min 3V DATE: 10/29/2023 11:50 AM EDT COMPARISONS: Comparison is made to left ankle radiographs from 09/24/2023 and left foot radiographs from 08/06/2023 CLINICAL INDICATION: LEFT FOOT PAIN FINDINGS: There is again evidence of ankle fusion and hindfoot fusion. Includes resection of the posterior talus with the spacer. There is resection of the distal fibula. There is a prosthesis of the first metatarsal phalangeal joint. There are some residual screws of the distal tibia and anterior os calcis related to previous surgery, stable. There is a vertical pin of the distal first metatarsal, stable.. There is heterogeneous sclerosis of the visualized osseous structures, stable. There is moderate mid foot degenerative changes, stable. XR/XR ankle LT min 3V IMPRESSION: Foot and ankle radiographs show no evidence of acute osseous abnormality. Stable postop changes. No evidence of surgical hardware failure. No evidence of erosive osseous lesion or destructive osseous process to suggest osteomyelitis. Electronically authenticated by: GEORGE MEDEL Date: 10/29/2023 13:26
--- NOTE | 2023-10-29 | XR_ITS ---
The [address] [address] Patient Name: ELIZA LOWE MRN: [id number] date: 1965 Sex: M Assigned Patient Location: Current Patient Location: Accession/Order Number: [id number] Exam Date: 10/29/2023 11:50 Report Date: 10/29/2023 13:25 At the request of: SUGEY CASTILLO Procedure: XR foot LT min 3V PROCEDURE: XR foot and ankle LT min 3V DATE: 10/29/2023 11:50 AM EDT COMPARISONS: Comparison is made to left ankle radiographs from 09/24/2023 and left foot radiographs from 08/06/2023 CLINICAL INDICATION: LEFT FOOT PAIN FINDINGS: There is again evidence of ankle fusion and hindfoot fusion. Includes resection of the posterior talus with the spacer. There is resection of the distal fibula. There is a prosthesis of the first metatarsal phalangeal joint. There are some residual screws of the distal tibia and anterior os calcis related to previous surgery, stable. There is a vertical pin of the distal first metatarsal, stable.. There is heterogeneous sclerosis of the visualized osseous structures, stable. There is moderate mid foot degenerative changes, stable. XR/XR foot LT min 3V IMPRESSION: Foot and ankle radiographs show no evidence of acute osseous abnormality. Stable postop changes. No evidence of surgical hardware failure. No evidence of erosive osseous lesion or destructive osseous process to suggest osteomyelitis. Electronically authenticated by: GEORGE MEDEL Date: 10/29/2023 13:25
== END 2023-10-29 11:45 | disposition home or self-care (01) ==
LOC: WC 11:44
PROVIDERS: Visit Provider Podiatrist Foot & Ankle Surgery
DX: M79.672 Pain in left foot (principal); M25.572 Pain in left ankle and joints of left foot; T81.89XA Other complications of procedures, not elsewhere classified, initial encounter
CPT/HCPCS: 73610; 73630; A6213; G0463

== ENCOUNTER 2023-11-19 11:24 | Outpatient (OUT) | payer MEDICARE, MEDICAID, SELFPAY | END 2023-11-19 11:25 | disposition home or self-care (01) | LOC: WC 11:25 | PROVIDERS: Visit Provider Podiatrist Foot & Ankle Surgery | DX: T81.89XA Other complications of procedures, not elsewhere classified, initial encounter (principal); M19.072 Primary osteoarthritis, left ankle and foot; M21.172 Varus deformity, not elsewhere classified, left ankle | CPT/HCPCS: G0463 ==

== ENCOUNTER 2023-12-03 11:22 | Outpatient (OUT) | payer MEDICARE, MEDICAID, SELFPAY | END 2023-12-03 11:23 | disposition home or self-care (01) | LOC: WC 11:22 | PROVIDERS: Visit Provider Podiatrist Foot & Ankle Surgery | DX: T81.89XA Other complications of procedures, not elsewhere classified, initial encounter (principal) | CPT/HCPCS: A6213; G0463 ==

== ENCOUNTER 2023-12-17 11:30 | Outpatient (OUT) | payer MEDICARE, MEDICAID, SELFPAY | END 2023-12-17 11:31 | disposition home or self-care (01) | LOC: WC 12-22 09:08 | PROVIDERS: Visit Provider Podiatrist Foot & Ankle Surgery | DX: T81.89XA Other complications of procedures, not elsewhere classified, initial encounter (principal) | CPT/HCPCS: 11043 ==

== ENCOUNTER 2023-12-31 12:36 | Outpatient (OUT) | payer MEDICARE, MEDICAID, SELFPAY | END 2023-12-31 12:37 | disposition home or self-care (01) | LOC: WC 12:36 | PROVIDERS: Visit Provider Podiatrist Foot & Ankle Surgery | DX: T81.89XA Other complications of procedures, not elsewhere classified, initial encounter (principal) | CPT/HCPCS: 11042; A6213 ==

== ENCOUNTER 2024-01-21 11:11 | Outpatient (OUT) | payer MEDICARE, MEDICAID, SELFPAY ==
--- OUTSIDE RECORDS SUMMARY | 2024-01-21 11:32 | XMS_ITS | CCD ---
Author Organization [facility] Care Team Providers Care Ingot Supervisor Name Role Phone Louie Cox DO Primary Care Provider Jerome Mabry MD Unavailable MOODY NEW Admitting Unavailable MOODY NEW Attending Unavailable LOUIE COX Primary Care Unavailable MOODY NEW Attending Unavailable LOUIE COX Primary Care Unavailable MOODY NEW Admitting Unavailable MOODY NEW Attending Unavailable LOUIE COX Primary Care Unavailable MOODY NEW Attending Unavailable LOUIE CXO Primary Care Unavailable MOODY NEW Admitting Unavailable MOODY NEW Attending Unavailable LOUIE COX Primary Care Unavailable MONE TAI Attending Unavailable LOUIE COX Primary Care Unavailable Louie Cox DO Primary Care Provider [phone] MOODY NEW Attending LOUIE Rees Primary Care Unavailable LOUIE COX Primary Care Unavailable MOODY NEW Attending LOUIE Rees Primary Care Unavailable MOODY NEW Attending ItzelvaLOUIE James Primary Care Unavailable MOODY NEW Attending Itzelvai Moody Olmos Attending Unavailable Moody New Referring Unavailable Louie Cox Primary Care Unavailable Louie Cox Primary Care Unavailable Cailin Holt NP Attending Unavailable Salomon Montez Attending Unavailable Salomon Montez Referring Unavailable Louie Cox Primary Care Unavailable Louie Cox Primary Care Unavailable Salomon Montez Attending Unavailable Salomon Montez Referring Unavailable Unavailable Unavailable Unavailable Medications Current Medications Medication Drug Class(es) Dates Sig (Normalized) Sig (Original) acetaminophen 500 mg oral tablet (4 sources) Start: 07-27-2018 take 2 tablets by mouth every eight hours Acetaminophen (Tylenol) 500 MG tablet Active 1000 MG PO EVERY 8 HOURS July 27, 2018 9:34am Start: 07-27-2018 take 1000 mg by mout h every eight hours Acetaminophen Active 1000 MG PO EVERY 8 HOURS July 27, 2018 1:00am [id number] 200 actuat albuterol 0.09 mg/actuat metered dose [...] structed. alendronic acid 70 mg oral tablet (14 sources) Bisphosphonate Start: 4 take 1 tablet [...] day . 0 06/28/2023 Active Start: 07-27-2018 take 325 mg by mouth twice daily at mealtime Aspirin Active 325 MG PO TWICE DAILY WITH MEALS July 27, 2018 1:00am Comment on above: Take by mouth. 24 hr buPROPion hydrochloride 300 mg extended release oral tablet (20 sources) Aminoketone Start: 017 take 1 tablet by mouth once daily in the morning buPROPion (WELLBUTRIN XL) 300 MG 24 hr tablet Take 1 (one) tablet (300 mg total) by mouth every morning . 0 07/04/2023 Active Comment on above: Take 300 mg by mouth once daily. cephalexin 500 mg oral capsule (14 sources) Cephalosporin Antibacterial Start: 023 cephALEXin (KEFLEX) 500 MG capsule 1 (one) capsule (500 mg total) . 0 07/15/2023 Active cholecalciferol 0.125 mg oral capsule (14 sources) Vitamin D Start: 023 take 1 capsule by mouth once daily [...] 100 mg oral capsule (5 sources) Start: 016 End: take 1 capsule by mouth twice daily docusate sodium (COLACE) 100 mg capsule Take 1 capsule by mouth twice daily. 60 capsule 0 05/07/2016 02/11/2022 Discontinued Comment on above: Take 1 capsule by jono oneill twice daily. 72 hr fentaNYL 0.025 mg/hr transdermal system (20 sources) Opioid Agonist Start: End: apply 1 dose transdermal route every other day fentaNYL (DURAGESIC) 25 mcg/hr patch Indications: Chronic pain syndrome Place 1 (one) patch on the skin every other day (Days supply per fill: 30) . 15 patch 0 01/10/2024 02/09/2024 Active Start: 11-09-2023 End: 12-06-2023 apply 1 dose transdermal route every other day fentaNYL (DURAGESIC) 25 mcg/hr patch Indications: Chronic pain syndrome Place 1 (one) patch on the skin every other day (Days supply per fill: 30) Start: 11/09/23. 15 patch 0 11/09/2023 12/06/2023 Discontinued (Reorder (Suppress CancelRx Message to Pharmacy)) Start: 11-09-2023 apply 1 dose transde rmal route every other day fentaNYL (DURAGESIC) 25 mcg/hr patch Indications: Chronic pain syndrome Place 1 (one) patch on the skin every other day (Days supply per fill: 30) Start: 11/09/23. 15 patch 0 11/09/2023 Active Start: 11-09-2023 apply 1 dose transde rmal route every other day fentaNYL (DURAGESIC) 25 mcg/hr patch Indications: Chronic pain syndrome Place 1 (one) patch on the skin every other day (Days supply per fill: 30) Start: 11/09/23. 15 patch 0 11/09/2023 Active Start: 10-10-2023 End: 11-02-2023 apply 1 dose transdermal route every other day fentaNYL (DURAGESIC) 25 mcg/hr patch Indications: Chronic pain syndrome Place 1 (one) patch on the skin every other day (Days supply per fill: 30) Start: 10/10/23. 15 patch 0 10/10/2023 11/02/2023 Discontinued (Reorder (Suppress CancelRx Message to Pharmacy)) Start: 10-10-2023 apply 1 dose transde rmal route every other day fentaNYL (DURAGESIC) 25 mcg/hr patch Indications: Chronic pain syndrome Place 1 (one) patch on the skin every other day (Days supply per fill: 30) Start: 10/10/23. 15 patch 0 10/10/2023 Active Start: 09-10-2023 End: 10-04-2023 apply 1 dose transdermal route every other day fentaNYL (DURAGESIC) 25 mcg/hr patch Indications: Chronic pain syndrome Place 1 (one) patch on the skin every other day (Days supply per fill: 30) Start: 09/10/23. 15 patch 0 09/10/2023 10/04/2023 Discontinued (Reorder (Suppress CancelRx Message to Pharmacy)) Start: 09-10-2023 apply 1 dose transde rmal route every other day fentaNYL (DURAGESIC) 25 [...] TRANSDERM. EVERY OTHER DAY August 24, 2013 1:00am Start: 05-03-2013 End: 08-18-2013 Fentanyl Discontinued 75 MCG TOPICAL Q48H May 03, 2013 12:00am August 18, 2013 3:12pm Comment on above: 1 Patch every 48 [...] (20 sources) Anti-epileptic Agent Start: 05-16-2023 End: 01-28-2024 take 1 tablet by mouth four times daily gabapentin (NEURONTIN) 600 MG tablet Take 1 (one) tablet (600 mg total) by mouth 4 (four) times a day (Days supply per fill: 30) Start: 12/29/23. 120 tablet 0 12/29/2023 01/28/2024 Active Start: 04-21-2023 End: 04-16-2023 take 1 [...] DAILY WITH MEALS 58 July 27, 2018 1:00am Comment on above: Take 600 mg by [...] 2023. HYDROmorphone hydrochloride 4 mg oral tablet (20 sources) Opioid Agonist Start: End: take 1 tablet by mouth every four to six hours as needed for pain HYDROmorphone (Dilaudid) 4 MG tablet Indications: Chronic pain syndrome Take 1 (one) tablet (4 mg total) by mouth every 4 to 6 hours as needed for pain (Days supply per fill: 30) Start: 12/09/23. 150 tablet 0 12/09/2023 Active Start: 06-20-2023 End: 07-20-2023 take 1 [...] 6 HOURS 30 7 July 27, 2018 1:00am August 03, 2018 1:09am for break thru pain Start: 05-04-2013 End: 05-06-2013 take 1 tablet by mouth twice daily Hydromorphone (Exalgo) 16 MG Tab.Er.24h Discontinued 32 MG PO TWICE A DAY May 04, 2013 12:00am May 06, 2013 12:37pm Comment on above: Take 1 tablet by francis th every 4 hours as needed for up to 30 days. Max 5 /day Do not start before June 20, 2023. lisinopril 20 mg oral tablet (20 sources) Angiotensin Converting Enzyme Inhibitor Start: 05-12-2018 take 1 tablet by mouth once daily Lisinopril (Zestril) 20 MG tablet Active 20 MG PO DAILY May 12, 2018 12:00am Start: 01-08-2016 take 1 tablet by francis th once daily lisinopriL (PRINIVIL,ZESTRIL) 5 MG tablet Take 1 (one) tablet (5 mg total) by mouth daily . 0 01/08/2016 Active Comment on above: Take 1 tablet by francis th once daily. meloxicam 15 mg oral tablet (20 sources) Nonsteroidal Anti-inflammatory Drug Start: 07-13-2023 End: 11-26-2023 take 1 tablet by mouth once daily as needed meloxicam (MOBIC) 15 MG tablet Take 1 (one) tablet (15 mg total) by mouth daily as needed . 30 tablet 3 11/26/2023 Active Start: 02-07-2023 End: 07-07-2023 take 1 [...] francis th once daily as needed. methocarbamol 500 mg oral tablet (20 sources) Muscle Relaxant Start: End: take 1 tablet by mouth three times daily as needed for muscle spasms methocarbamoL (ROBAXIN) 500 MG tablet Take 1 (one) tablet (500 mg total) by mouth 3 (three) times a day as needed for muscle spasms . 90 tablet 3 12/23/2023 01/22/2024 Active Start: 07-13-2023 End: 09-30-2023 take 1 tablet by mouth four times daily as needed methocarbamoL (ROBAXIN) 750 MG tablet Take 1 (one) tablet (750 mg total) by mouth 4 (four) times a day as needed . 120 tablet 0 09/30/2023 Active Start: 06-07-2023 take 1 tablet by francis [...] MG PO THREE TIMES A DAY May 23, 2018 12:00am Start: 09-10-2016 take 1 tablet by francis [...] Antagonist Start: 02-16-2022 naloxone (NARCAN) 4 mg/actuation [place] Use 1 spray in one nostril as [...] oral tablet (20 sources) Opioid Agonist Start: 05-21-20 End: 02-08-20 24 take 1 tablet by mouth every four hours as needed for pain, then take 5 tablets by mouth once daily as needed for pain oxyCODONE (ROXICODONE) 15 MG immediate release tablet Indications: Chronic pain syndrome Take 1 (one) tablet (15 mg total) by mouth every 4 (four) hours as needed for pain Max 5 tablets/day Start: 01/09/24. 150 tablet 0 01/09/2024 02/08/2024 Active Start: 05-28-2022 End: 06-20-2023 oxyCODONE (ROXICODONE) 15 MG immediate release tablet [...] 4 TIMES DAILY NEEDED July 25, 2018 1:00am Start: 05-25-2018 End: 06-01-2018 take 5-10 mg by mouth every four hours as needed Oxycodone Discontinued 5 - 10 MG PO EVERY 4 HOURS NEEDED 90 7 May 25, 2018 12:00am June 01, 2018 1:08am Start: 09-07-2016 End: 01-21-2022 take 1 tablet [...] 4 TIMES DAILY NEEDED May 03, 2013 12:00am May 06, 2013 12:37pm Comment on above: 1 tablet three times [...] 20 days. pregabalin 150 mg oral capsule (9 sources) Start: 7 End: 2 take 1 capsule by mouth three times daily LYRICA 150 mg capsule Take 150 mg by mouth three times daily. 2 04/23/2017 02/11/2022 Discontinued (Course of therapy completed) Start: 05-03-2013 End: 08-18-2013 take 1 capsule by mouth three times daily Pregabalin (Lyrica) 100 MG capsule Discontinued 100 MG PO THREE TIMES A DAY May 03, 2013 12:00am August 18, 2013 3:11pm Comment on above: Take 150 mg by mouth three times daily. tadalafil 5 mg oral tablet (20 sources) Phosphodiesterase 5 Inhibitor Start: take 1 tablet by mouth once [...] 0 07/04/2023 Active Start: 04-20-2017 End: 03-21-2022 take 1 tablet by mouth once daily zolpidem (AMBIEN) 10 mg tablet Take 1 (one) tablet (10 mg total) by mouth nightly . 0 07/04/2023 Active Comment on above: 1 tablet at bedtime as needed. Take by mouth. Completed/Discontinued Medications Medication Drug Class(es) Dates Sig (Normalized) Sig (Original) docusate sodium 50 mg / sennosides, retirement 8.6 mg oral tablet (3 sources) Start: 05-03-2013 End: 08-18-2013 take 1 tablet by mouth once daily Sennosides-Docusate Sodium (Edel-Colace) 1 EACH tablet Discontinued 2 EACH PO DAILY May 03, 2013 12:00am August 18, 2013 3:11pm lidocaine 0.05 mg/mg medicated patch (20 sources) Antiarrhythmic, Amide Local Anesthetic Start: 11-26-2023 End: 12-26-2023 apply 1 dose transdermal route once daily, then apply 1 dose transdermal route every twelve hours lidocaine (LIDODERM) 5 % patch Place 1 (one) patch on the skin daily Remove & Discard patch within 12 hours or as directed by MD Wells 30 patch 0 11/26/2023 12/26/2023 Start: 06-07-2023 End: 11-26-2023 apply 1 dose transdermal route every twelve hours lidocaine (LIDODERM) 5 % patch Apply 1 Patch TO SKIN as directed to affected areas 12 hours on and 12 hours off 0 07/04/2023 11/26/2023 Discontinued (Reorder (Suppress CancelRx Message to Pharmacy)) Start: 05-14-2022 End: 02-10-2023 apply 1 dose [...] EACH TP THREE TIMES A DAY May 23, 2018 12:00am Comment on above: Apply 1-3 patch to s kin as directed as needed for pain May apply up to 3 patches for 12 hours then remove for 12 hours Apply 1 Patch as dir ected as directed. Apply 1 Patch as dir ected as directed. Apply to affected areas 12 hours on and 12 hours off Sennosides/Docusate Sodium (1 source) Start: 05-03-2013 End: 08-18-2013 [...] Translations: [Gout, unspecified] Onset: 04-01-2022 04-01-2022 Chronic Joint disorders and dislocations; trauma-related (1 source) Traumatic arthropathy, left ankle and foot; Translations: [Traumatic arthropathy, left ankle and foot] Onset: 11-23-2023 Chronic Mood disorders (3 sources) Mood disorder; Translations: [Unspecified mood [affective] disorder] Onset: 04-26-2023 06-07-2023 Chronic Osteoarthritis (20 sources) Localized osteoarthrosis; Translations: [Unilateral primary osteoarthritis, unspecified hip] Onset: 07-06-2014 04-01-2022 Chronic Other acquired deformities (2 sources) Contracture of joint of left ankle; Translations: [Contracture, left ankle] Onset: 06-07-2023 06-07-2023 Chronic Other aftercare (4 sources) Taking high risk medication; Translations: [Other watermaster (current) drug therapy] Episodic Other aftercare (1 source) Other assisted (current) drug therapy; Translations: [High risk medication use] Onset: 06-07-2023 Episodic Other aftercare (1 source) Patient encounter status; Translations: [Encounter for therapeutic drug level monitoring] 08-15-2023 Episodic Other aftercare (2 sources) Encounter for therapeutic drug level monitoring; Translations: [Encounter for therapeutic drug level monitoring] Onset: 08-11-2023 Episodic Other aftercare (2 sources) 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; Translations: [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] Onset: 08-11-2023 Episodic Other connective tissue disease (5 sources) Myofascial pain syndrome; Translations: [Myalgia, other site] Episodic Other connective tissue disease (1 source) Myalgia, other site; Translations: [Myofascial pain syndrome] Onset: 06-07-2023 Episodic Other inflammatory condition of skin (6 sources) Psoriasis; Translations: [Psoriasis, unspecified] Onset: 06-07-2023 [...] joint] 05-08-2010 Episodic Other non-traumatic joint disorders (3 sources) Chronic ankle pain; Translations: [Pain in left ankle and joints of left foot] 08-15-2023 Episodic Other nutritional; endocrine; and metabolic disorders (20 sources) H/O: raised blood lipids; Translations: [Personal history of other endocrine, nutritional and metabolic disease] Onset: 04-01-2022 04-01-2022 Episodic Residual codes; unclassified (1 source) H/O splenectomy; Translations: [History of splenectomy] Episodic Residual codes; unclassified (20 sources) H/O Spinal surgery; Translations: [Other specified postprocedural states] Onset: 04-01-2022 04-01-2022 Episodic Residual codes; unclassified (4 sources) Chronic back pain ; Translations: [Dorsalgia, unspecified] 07-25-2018 Episodic Residual codes; unclassified (3 sources) History of ankle surgery; Translations: [Other specified [...] Translations: [Chronic narcotic use] Chronic Substance-related disorders (5 sources) Narcotic drug user; Translations: [Opioid use, unspecified, uncomplicated] Onset: 06-07-2023 07-25-2018 Episodic Past or Other Problems Problem Classification Problem Date Documented Date Episodic/Chronic Abdominal hernia (20 sources) Incisional hernia; Translations: [Incisional hernia without obstruction or gangrene] Onset: 05-07-2011 05-07-2011 Episodic Crushing injury or internal injury (20 sources) Injury of spleen; Translations: [Unspecified injury of spleen, initial encounter] Onset: 05-12-2006 04-30-2016 Episodic Other aftercare (20 sources) Follow-up status; Translations: [Encounter for other specified aftercare] Onset: 07-06-2011 07-06-2011 Episodic Other connective tissue disease (20 sources) Fibromyositis; Translations: [Fibromyalgia] Onset: 01-01-2016 04-01-2022 Episodic Other connective tissue disease (2 sources) Pain in right foot; Translations: [Pain in right foot] Onset: 06-07-2023 Episodic Other fractures (20 sources) Pseudoarthrosis of spine; Translations: [Unspecified fracture of unspecified lumbar vertebra, subsequent encounter for fracture with nonunion] Onset: 07-30-2017 07-30-2017 Episodic Results Test Name Value Interpretation Reference Range Facility Extremity Lower without Cont raon 11-17-2023 Extremity Lower without Contra [facility] [address] [place] [address] Extremity Lower without Contra MR#: [id number] Acct: [id number] Name: ELIZA LOWE Rep #: [id number] : 1965 M 58 From: Fish Causey MD PCP: Dr. Louie Cox, DO Status: REG CLI Study: Extremity Lower without Contra Date of Exam: 0 11/17/23 Exam# [id number] Ordering Dr: Salomon Montez DPM [id number] STUDY: CT LEFT ANKLE WITHOUT CONTRAST REASON FOR EXAM: Male, 58 years old. POST TRAUMATIC ARTHRITIS L/ANKLE S/P ARTHRODESIS RADIATION DOSAGE (If Supplied By Facility): CTDIvol = ( 15.35 ) mGy, DLP = ( 466.28 ) mGycm TECHNIQUE: Thin section transaxial imaging of the ankle was obtained, with sagittal and coronal reconstructed images. Individualized dose optimization techniques were used for this CT. COMPARISON: Left lower extremity CT dated 03/02/2023. FINDINGS: There is unchanged deformity of the distal diaphysis of the tibia with evidence of prior surgical intervention. There is unchanged osseous fusion at the tibiotalar joint. There is a new cannulated fully threaded screw extending through the distal tibia, talus, and calcaneus, traversing through the tibiotalar and posterior subtalar joint. There is a new metallic cage surrounding the posterior subtalar joint. There is stable changes of the dorsal midfoot joints with spur formation. Metallic prosthesis is again seen at the distal first metatarsal phalangeal joint. There is no demonstrated acute fracture. CT/Extremity Lower without Contra IMPRESSION: New cannulated threaded fusion screw extending through the distal tibia, talus, and calcaneus, traversing through the tibiotalar and posterior subtalar joint. New metallic cage surrounding the posterior subtalar joint. No acute fracture. Electronically Signed: Fish Causey MD at 12:20 EDT , CC: PABLITO Montez; Dr. Louie Cox DO Co Founder And President: Signed [facility] CNPNon 07-07-2023 CNPN Telephone (KYM) ELIZA LOWE ([id number]) 1965 M Date Time Provider Department 07/07/23 KATHY OLSEN During your visit today, we recorded the following information about you: Petra Wiley RN 07/07/2023 3:59 PM Signed Pt calling for refills of medications, Fentanyl patch 25mcg q48hrs and dilaudid 4mg q4-6prn. The dilaudid was given due to surgery scheduled 06/24, pt was previously on [id number]. MME is 198, please advise refills Petra Wiley RN July 07, 2023 3:59 PM Kathy Olsen MD 07/07/2023 4:51 PM Signed Did the [...] left foot surgery by Dr Boogie at [facility] and was inpt x 1 week, [...] not the narcotics, she verbalized understanding Petra Wiley, RN July 08, 2023 11:31 AM Also I asked for her to contact the surgeon and have follow up visit notes shared with the office Kathy Olsen MD 07/08/2023 11:53 AM Signed noted Naomi [...] Result Flag Units Drug Present Ethyl Glucuronide 39732 ng/mg creat Ethyl Sulfate 9769 ng/mg creat [...] provided. For clinical consultation, please call . @FLOW([id number] )@ Lab Results Component Value Date SUMM FINAL 05/13/2023 Summary Report (Summary) Date Value Ref Range Status 02/11/2022 FINAL Final Comment: TOXASSURE COMP DRUG ANALYSIS,UR (more content not included)... [facility] 06-10-2023 [facility] Telephone ([facility]) ELIZA LOWE ([id number]) 1965 M Date Time Provider Department 06/10/23 MOODY NEW During your visit today, we recorded the following information about you: Naomi Shoemaker RN 06/10/2023 3:15 PM Signed Pt's called in today requesting the results from the foot x-ray he had done at [place] on 06/07. The results are scanned into the chart. He does not have follow up with Dr. Olsen until 09/15/23. Please advise. Naomi Shoemaker RN June 10, 2023 3:15 PM Moody New DO 06/10/2023 5:47 PM Signed Please notify [...] AM Signed Pt , Jennifer, notified Petra WileyKIRA June 11, 2023 8:36 AM Allergies As [...] CNOV Office Visit (KYM ) ELIZA LOWE ([id number]) 1965 M Date Time Provider Department 06/07/23 2:15 PM MOODY NEW During your visit today, we recorded the following information about you: Pulse Respiration Blood pressure Weight 99/minute 19/minute 110/82 93.9 kg Height 1.829 m Moody New DO 06/08/2023 7:11 AM Addendum Discontinue Oxycodone [...] x-ray Follow-up in 3 months with or SUPERVISOR [facility]WING ROOM Moody New DO 06/08/2023 7:12 AM Signed DATE: June 07, 2023 Chief Complaint: Low back pain, right foot pain History of Present Illness: Eliza Lowe is a 58 year old male being seen at [facility] for a evaluation and/or management of their chronic pain. He states that since the last visit symptoms have been persistent. The patient was last seen by Mone Tai on 01/11/23 and the plan of care [...] issue with 3D printer, rescheduled 06/24/23 at [facility]. States a rock rolled over his [...] Result Flag Units Drug Present Ethyl Glucuronide 33342 ng/mg creat Ethyl Sulfate 9769 ng/mg creat [...] of zolpidem. ====== (more content not included)... [facility] Foot min 3 Viewson 3 Foot min 3 Views [facility] [address] [place] [address] Foot min 3 Views MR#: [id number] Acct: [id number] Name: ELIZA LOWE Rep #: [id number] : 1965 M 58 From: Fahad Lane MD PCP: Dr. Louie Cox DO Status: REG CLI Study: Foot min 3 Views Date of Exam: 06/07/23 Exam# [id number] Ordering Dr: [place] [id number] INDICATION: Trauma, right foot pain EXAMINATION/TECHNIQUE: X-RAY [...] at 0:29 EST , CC: Dr. Moody New DO; Dr. Louie Cox DO Co Founder And President: Signed [facility] (mob[facility] ELIZA LOWE ([id number]) 1965 M Date Time Provider Department 05/28/23 MOODY NEW During your visit today, we recorded the [...] does have a follow up with Dr new on 06/07/23. Marilyn Grossman RN May 28, 2023 10:41 AM Moody New, 05/30/2023 6:23 AM Signed Ok to fill [...] OPERATIVE NOon 05-13-2023 OPERATIVE NO HNO ID: [id number] Author: Moody New DO Service: Pain Management Author Type: Physician [...] with supervision to home in good condition. [facility]16[facility]2023 [facility] ([facility] ELIZA LOWE ([id number]) 1965 M Date Time Provider Department 04/16/23 MOODY NEW During your visit today, we recorded the [...] April 16, 2023 12:47 PM Geoff Nieves APRN.[facility] 04/16/2023 3:12 PM Signed Addended by: GEOFF NIEVES on: 04/16/2023 03:12 PM Modules accepted: Orders Allergies As of Date: 04/16/2023 (No Known Allergies) Date Reviewed: 01/11/2023 Reviewed by: Mone Tai APRN.NETWORK ADMINISTRATOR - Fully Assessed Reason for Visit: fill [...] Ly 04-12-2023 CNPN Telephone (MRPAIN) ELIZA LOWE ([id number]) 1965 M Date Time Provider Department 04/12/23 MOODY NEW MRPAIN During your visit today, we recorded the following information about you: Sarah Brown 04/12/2023 10:35 AM Signed I left a message to schedule a procedure. Sarah April 12, 2023 10:35 AM Allergies As of Date: 04/12/2023 (No Known Allergies) Date Reviewed: 01/11/2023 Reviewed by: Mone Tai APRN.NETWORK ADMINISTRATOR - Fully Assessed Reason for Visit: Scheduling [...] [facility] Ly [facility]06[facility]2023 [facility] ([facility]) ELIZA LOWE ([id number]) 1965 M Date Time Provider Department 04/06/23 MOODY NEW During your visit today, we recorded the following information about you: Jackie Dorsey RN 04/06/2023 1:06 PM Signed Returned pt's call from careline message: Pt's acknowledges to check with pt regarding type of injection he is requesting (nerve block vs TPI), % of improvement from that injection, time length of improvement as well as to contact [facility] with any updates, questions, or concerns. Jackie Dorsey RN April 06, 2023 1:05 PM Jackie Dorsey RN 04/06/2023 2:04 PM Signed Pt contacted [facility] with pt update: Patient states they have 60% improvement with 11-19-22 right L5 and S3 transforaminal epiduraal injections which lasted x3 months and pain is slowly returning to baseline. Pain level currently is 8/10. Patient states no new symptoms. Please advise injection POC and build case if indicated. 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 Allergies As of Date: 04/05/2023 (No Known Allergies) Date Reviewed: 01/11/2023 Reviewed by: Mone Tai APRN.NETWORK ADMINISTRATOR - Fully Assessed Reason for Visit: Appointment [...] splenectomy [Z90.81] 04/01/2022 Encounter Status:Closed by JODY-DEEPTHI MARQUES on 04/05/23 [facility] Extremity Lower without Cont raon 03-02-2023 Extremity Lower without Contra [facility] [address] [place] [address] Extremity Lower without Contra MR#: [id number] Acct: [id number] Name: ELIZA LOWE Rep #: [id number] : 1965 M 57 From: Dung chapman MD PCP: Dr. Louie Cox, DO Status: REG CLI Study: Extremity Lower without Contra Date of Exam: 0 03/02/23 Exam# [id number] Ordering Dr: Salomon Montez DPJaneth STUDY: CT [...] EDT , CC: PABLITO Montez; Dr. Louie Cox DO Co Founder And President: [facility]igned [facility] Visit ([facility] ) ELIZA LOWE ([id number]) 1965 M Date Time Provider Department 01/11/23 9:30 AM MONE TAI During your visit today, we recorded the following information about you: Pulse Blood pressure Weight 80/minute 122/83 96.2 kg Mone Tai APRN.NETWORK ADMINISTRATOR 01/11/2023 9:55 AM Signed SUBJECTIVE: Eliza Lowe presents to [facility] for a follow-up appointment for back pain Last seen by Dr New with following plan of care: Continue Oxycodone. [...] Follow-up in 3 months in office with SUPERVISOR [facility] Last procedure 11/19/22 Right L5 S1 SNRT [...] WELL Headache Paternal Grandfather Heart Father R/T [place] IN 60'S Social History: Social History Tobacco [...] with the above and verbalized understanding. Mone Tai APRN.NETWORK ADMINISTRATOR January 11, 2023 Mone Tai APRN.CNS 01/11/2023 9:52 AM Addendum Continue Oxycodone. These medications helps patient perform ADL, interact with family a (more content not included)... [facility] OPERATIVE NOon 11-19-2022 OPERATIVE NO HNO ID: [id number] Author: Moody New DO Service: Pain Management Author Type: Physician [...] encounter was entered by Senait Rogel, medical office technology instructor, for Dr. Moody New on November 19, 2022. I, Dr. Moody New, personally performed the services described in this documentation. All medical record entries made by the scribe were at my direction and in my presence. I have reviewed the chart and discharge instructions and agree that the record reflects my personal performance and is accurate and complete. Electronically Signed: Dr. New. November 19, 2022. [facility] XR FLUOROSCOPYon 11-19-2022 XR FLUOROSCOPY * * *Final Report* * * DATE OF EXAM: Nov 19 2022 3:41PM X [id number] - XR FLUOROSCOPY / PROCEDURE REASON: LUMBAR DISC HERNIATION WITH RADICULOPATHY * * * * Physician Interpretation * * * * XR FLUOROSCOPY Ordering Physician: MOODY NEW FLUOROSCOPY AND RADIOGRAPHS UTILIZED IN PAIN MANAGEMENT Clinical Statement: Lumbar disc herniation with radiculopathy FINDINGS: 34.3 seconds fluoroscopy time utilized. A total of 3 images were obtained during pain management procedure IMPRESSION: Documentation of fluoroscopy and radiographs utilized in pain management. Please see clinician's report for complete details. Co Founder And President: PSCB Transcribe Date/Time: Nov 19 2022 3:53P Dictated by : ANDREAS GREENE MD This examination was interpreted and the report reviewed and electronically signed by: ANDREAS GREENE MD on Nov 19 2022 3:54PM EST [id number] [facility] CNOVon 10-13-2022 CNOV Office Visit (KYM ) ELIZA LOWE ([id number]) 1965 M Date Time Provider Department 10/13/22 3:30 PM MOODY NEW During your visit today, we recorded the following information about you: Pulse Respiration Blood pressure Weight 74/minute 19/minute 161/97 97.5 kg Height 1.829 m Moody New DO 10/14/2022 6:57 AM Signed PROCEDURE: Trigger [...] appropriate time interval and remained stable. DO Modoy Jhaveri DO 10/14/2022 6:57 AM Signed DATE: October 13, 2022 Chief Complaint: LBP History of Present Illness: Eliza Lowe is a 57 year old male being seen at [facility] for a evaluation and/or management of their chronic pain. Patient was last seen in the office on 05/06/2022 by Mone Tai NP, and the plan of care was [...] 80% relief until recently. Denied any falls. Delevan the injection in October was the best [...] not included)... [facility] BALJIT Telephone ([facility]) ELIZA LOWE ([id number]) 1965 M Date Time Provider Department 09/10/22 MONE TAI During your visit today, we recorded the following information about you: Naomi Shoemaker RN 09/10/2022 1:29 PM Signed Pt is requesting a refill of Fentanyl, she was seen last on 05/06/22, no showed on 08/06/22 and scheduled for 09/28/22. Please advise. Naomi Shoemaker RN September 10, 2022 1:29 PM Mone Tai APRN.NETWORK ADMINISTRATOR 09/10/2022 2:20 PM Signed The following approved medication requests have been transmitted electronically. Requested Prescriptions Signed Prescriptions Disp Refills fentaNYL (DURAGESIC) 25 mcg/hr 15 Patch 0 Sig: Apply 1 Patch as directed every 48 hours for 30 days. Do not start before September 16, 2022. Authorizing Provider: MONE TAI oxyCODONE (ROXICODONE) 15 mg immediate release tablet 120 tablet 0 Sig: Take 1 tablet by mouth four times daily as needed for pain for up to 30 days. Do not start before September 22, 2022. Authorizing Provider: MONE TAI APRN.NETWORK ADMINISTRATOR Allergies As of Date: 09/10/2022 (No Known Allergies) Date Reviewed: 08/20/2022 Reviewed by: Kenia Schafeer MA - Fully Assessed Reason for Visit: [...] * * XR FLUOROSCOPY Ordering Physician: MOODY NEW 08/20/2022 3:23 PM LUMBOSACRAL FLUOROSCOPY Clinical Statement: Radiculopathy FINDINGS: 24 seconds fluoroscopy time was utilized by Dr. New. 4 C-arm images were obtained below or lumbar spine and sacrum. IMPRESSION: 24 seconds fluoroscopy time utilized by Dr. New. Co Founder And President: PSCAmbrose Transcribe Date/Time: Aug 20 2022 3:27P Dictated by : OMID PACE MD This examination was interpreted and the report reviewed and electronically signed by: OMID PACE MD on Aug 20 2022 3:28PM EST [id number] [facility] CNCOon 08-06-2022 CNCO Letter Text [facility] BRIEF OP NOTon 07-16-2022 BRIEF OP NOT HNO ID: [id number] Author: Moody New DO Service: Pain Management Author Type: Physician [...] by arron Joyce scribe, for Dr. Moody New on August 20, 2022 I, Dr. Moody New, personally performed the services described in this documentation. All medical record entries made by the scribe were at my direction and in my presence. I have reviewed the chart and discharge instructions and agree that the record reflects my personal performance and is accurate and complete. Electronically Signed: Dr. New. August 20, 2022 [facility] XR FLUOROSCOPYon 03-05-2022 [facility] FLUOROSCOPY IN OR/PAIN MGTon 11-20-2021 FLUOROSCOPY IN OR/PAIN MGT FLUOROSCOPY IN OR/PAIN MGT Ordering Physician: Moody New, DO FLUOROSCOPY Clinical Statement: Lumbar radiculopathy Comparison: Fluoroscopic images 06/12/2021 FINDINGS: Four spot fluoroscopic images were saved demonstrating lumbosacral spine needle placement. A total of 58.6 seconds fluoroscopy time was utilized. Please see the ordering clinician's report for full details. IMPRESSION: Documentation of fluoroscopy. This report was electronically signed by Santo Goddard MD 11/20/2021 3:44 PM Reported By: SANTO GODDARD MD Signed By: SANTO GODDARD MD [facility] Early FLUOROSCOPY IN OR/PAIN MGTon 06-12-2021 FLUOROSCOPY IN OR/PAIN MGT FLUOROSCOPY FOR NEEDLE GUIDANCE: Clinical Statement: Lumbar radiculopathy FINDINGS: 27.7 seconds of fluoroscopy time was utilized by Dr. New. 2 fluoroscopic spot images were acquired of the lumbar sacral spine. Additional information can be found in Dr. New' report. IMPRESSION: Fluoroscopy provided to Dr. New. This report was electronically signed by Louie Dye MD 06/12/2021 4:23 PM Reported By: LOUIE DYE M.D. Signed By: LOUIE DYE M.D. [facility] Early SARS coronavirus RNA [Presen ce] in Unspecified specimen by KERVIN with probe detectionon 07-10-2020 SARS coronavirus RNA KERVIN+probe Ql (Unsp spec) Not Detected Not Detected [facility] Work Phone: Comment on above: This [...] SARS-CoV-2 virusand/or diagnosis of COVID-19 infection under [id number](b)(1) of the Act, 21 U.S.C. 360bbb-3(b) (1), [...] Auto (Unsp spec) [#/Vol] 3.05 10*3/uL 0.83-4.51 [facility] Work Phone: Automated blood hematocrit ( percentage)on 05-31-2020 Hematocrit (Bld) [Volume fraction] 47.8 % 40-54 [facility] Work Phone: Basophil percentageon 2019 Basophils/100 WBC (Unsp spec) 0.4 % 0-1 [facility] Work Phone: Blood erythrocytes count (nu mber/volume)on 05-31-2020 RBC (Bld) [#/Vol] 4.96 M/mm3 4.6-6.2 [facility] Work Phone: Blood hemoglobin measurement (mass/volume)on 05-31-2020 Hemoglobin (Bld) [Mass/Vol] 16.0 g/dL 13.0-16.5 [facility] Work Phone: Blood platelet mean volumeon 05-31-2020 Platelet mean volume (Bld) [Entitic vol] 11.4 fL 6.2-12.0 [facility] Work Phone: Free testosterone percentage on 05-31-2020 Testosterone Free/Testosterone.to stacy [Mass fraction] 3.05 % [facility] Work Phone: Comment on above: Performed at: [address] [id number] Director: Rick Dugan PhD, Phone: [phone] at: [facility] [id number] Director: Dulce Kirkland MD, Phone: [phone] Hematologyon 05-31-2020 Lymphocytes/100 WBC (Bld) 31.6 % 19-41 [facility] Work Phone: MCH (RBC) [Entitic mass] 32.3 pg 27.0-32.0 [facility] Work Phone: Monocytes/100 WBC (Bld) 14.4 % 0-10 [facility] Work Phone: Neutrophils/100 WBC (Bld) 53.1 % 47-70 [facility] Work Phone: Lymphocyte percentageon Bilirubin Ql (U) 0.40 mg/dL 0.20-1.00 [facility] Work Phone: Comment on above: For patients on eltr ombopag therapy, use of Dimension [place] TBIL is not recommended. Chloride [Moles/Vol] 105 mmol/L 98-107 [facility] Work Phone: Cholesterol [Mass/Vol] 215 mg/dL <200 [facility] Work Phone: Comment on above: <200 mg/dL Desirable 200-240 mg/dL Borderline >240 mg/dL High Risk Eosinophils/100 WBC (Bld) 0.2 % 0-5 [facility] Work Phone: Glucose [Mass/Vol] 93 mg/dL 74-106 [facility] Work Phone: Comment on above: Please note revised GLUCOSE reference range effective 2017. Neutrophils (Bld) [#/Vol] 5.1 10*3/uL 2.0-7.7 [facility] Work Phone: [phone] Potassium [Moles/Vol] 4.1 mmol/L 3.5-5.1 [facility] Work Phone: Protein [Mass/Vol] 7.3 g/dL 6.4-8.2 [facility] Work Phone: [phone] Sodium [Moles/Vol] 142 mmol/L 136-145 [facility] Work Phone: [phone] Testosterone [Mass/Vol] 466 ng/dL [facility] Work Phone: [phone] Comment on above: Adult male reference interval is based on a population ofhealthy nonobese males (BMI <30) between 19 and 39 yearsold. selina Marie.al. JCEM 2017,102;9459-0410. PMID:[id number]. Triglyceride [Mass/Vol] 140 mg/dL [facility] Work Phone: Comment on above: The drugs N-Acetylcy steine and Metamizole may falsely depress this assay.Serum Triglycerides Reference Interval Normal <150 mg/dL Borderline high 150 - 199 mg/dL High 200 - 499 mg/dL Very High > or = 500 mg/dL WBC (Bld) [#/Vol] 9.7 10*3/uL 4.4-11.0 [facility] Work Phone: MCHC [Mass/volume] by Automa artis counton 05-31-2020 MCHC (RBC) [Mass/Vol] 33.5 g/dL 32-36 [facility] Work Phone: [phone] MCV (mean corpuscular volume ) determinationon 05-31-2020 MCV (RBC) [Entitic vol] 96.4 fL 80-94 [facility] Work Phone: Metabolic Panelon 05-31-2020 ALP [Catalytic activity/Vol] 81 U/L 45-117 [facility] Work Phone: [phone] ALT [Catalytic activity/Vol] 40 U/L 16-61 [facility] Work Phone: [phone] CO2 [Moles/Vol] 30.0 mmol/L 21.0-32.0 [facility] Work Phone: Urea nitrogen/Creatinine [Mass ratio] 11.0 RATIO 10-20 [facility] Work Phone: Otheron 05-31-2020 Erythrocyte distribution width (RBC) [Entitic vol] 53.1 fL 35.1-43.9 [facility] Work Phone: Erythrocyte distribution width (RBC) [Ratio] 15.1 % 11.6-14.6 [facility] Work Phone: [phone] Estimated GFR (MDRD) Amer 64 mL/min >60 [facility] Work Phone: Comment on above: GFR Calc Estimated GFR (MDRD) Non-Af Amer 53 mL/min >60 [facility] Work Phone: Comment on above: Non- GFR Calc Globulin (S) [Mass/Vol] 3.6 g/dL 2.2-4.2 [facility] Work Phone: [phone] Immature granulocytes/100 WBC (Bld) 0.300 % 0.0-0.9 [facility] Work Phone: Comment on above: IG% - Immature Granu locytes (promyelocytes, myelocytes and metamyelocytes) > 1% indicates that a LEFT SHIFT is Present. Nucleated RBC/100 WBC (Bld) [Ratio] 0 % 0-5 [facility] Work Phone: Prostate Specific Antigen Screen 9.72 ng/mL 0.00-4.00 [facility] Work Phone: Comment on above: This test was perfor med using the TPSA assay method for theCall LoopWanderable chemistry system. Values obtained with differentassay methods cannot be used interchangably.When changing PSA assays in the course of monitoring apatient, additional sequential testing should be carriedout to confirm baseline values. Platelets bldon 05-31-2020 Platelets (Bld) [#/Vol] 267 10*3/uL 150-450 [facility] Work Phone: Serum or plasma albumin francisco urement (mass/volume)on 05-31-2020 Albumin [Mass/Vol] 3.7 g/dL 3.2-5.0 [facility] Work Phone: Serum or plasma albumin/glob ulin mass ratioon 05-31-2020 Albumin/Globulin [Mass ratio] 1.0 {ratio} 0.9-2.4 [facility] Work Phone: Serum or plasma calcium francisco urement (mass/volume)on 05-31-2020 Calcium [Mass/Vol] 8.4 mg/dL 8.5-10.1 [facility] Work Phone: Serum or plasma cholesterol in HDL measurement (mass/volume)on 05-31-2020 Cholesterol in HDL [Mass/Vol] 61 mg/dL [facility] Work Phone: Comment on above: The drugs N-Acetylcy steine and Metamizole may falsely depress this assay. Reference Range HDL <40 mg/dL Low HDL Cholesterol HDL >or= 60 mg/dL High HDL Cholesterol Serum or plasma cholesterol in LDL measurement (mass/volume)on 05-31-2020 Cholesterol in LDL [Mass/Vol] 126 mg/dL 0-130 [facility] Work Phone: Serum or plasma cholesterol in VLDL measurement (mass/volume)on 05-31-2020 Cholesterol in VLDL [Mass/Vol] 28 mg/dL 5-40 [facility] Work Phone: Serum or plasma creatinine m easurement (mass/volume)on 05-31-2020 Creatinine [Mass/Vol] 1.46 mg/dL 0.70-1.30 [facility] Work Phone: Comment on above: The validity of the calculated GFR & GFRAA in patients over 70 years has not been determined. Clinical correlation is essential. Serum or plasma estradiol (E 2) measurement (mass/volume)on 05-31-2020 E2 [Mass/Vol] 27.8 pg/mL [facility] Work Phone: Comment on above: NORMAL [...] (mass/volume)on 05-31-2020 Testosterone Free [Mass/Vol] 14.21 ng/dL [facility] Work Phone: Serum or plasma urea nitroge n measurement (mass/volume)on 05-31-2020 Urea nitrogen [Mass/Vol] 16 mg/dL 7-18 [facility] Work Phone: Thin prep Papanicolaou smear with manual screeningon 05-31-2020 Anion gap [Moles/Vol] 7 5-15 [facility] Work Phone: AST [Catalytic activity/Vol] 31 U/L 15-37 [facility] Work Phone: Vital Signs Date Time Vital Sign Value Performing Clinician Savanah nicholson 11-02-2023 10:17-0400 Body mass index (BMI) [Ratio] 30.22 kg/m2 Moody New [place] Work Phone: [facility] 11-02-2023 10:17-0400 Body weight 101.06 kg Moody New DO Work Phone: [facility] 11-02-2023 10:17-0400 Diastolic blood pressure 85 mm[Hg] Moody New DO Work Phone: [facility] 11-02-2023 10:17-0400 Heart rate 72 /min Moody New DO Work Phone: [facility] 11-02-2023 10:17-0400 SaO2% (BldA) [Mass fraction] 94 % Moody New DO Work Phone: [facility] 11-02-2023 10:17-0400 Systolic blood pressure 159 mm[Hg] Moody New DO Work Phone: [facility] 08-11-2023 11:37-0500 Body height 182.9 cm Moody New DO Work Phone: [facility] 08-11-2023 11:37-0500 Body mass index (BMI) [Ratio] 27.12 kg/m2 Moody New DO Work Phone: [facility] 08-11-2023 11:37-0500 Body weight 90.72 kg Moody New DO Work Phone: [facility] 08-11-2023 11:37-0500 Diastolic blood pressure 79 mm[Hg] Moody New DO Work Phone: [facility] 08-11-2023 11:37-0500 Heart rate 81 /min Moody New DO Work Phone: [facility] 08-11-2023 11:37-0500 Respiratory rate 18 /min Moody New DO Work Phone: [facility] 08-11-2023 11:37-0500 SaO2% (BldA) [Mass fraction] 95 % Moody New DO Work Phone: [facility] 08-11-2023 11:37-0500 Systolic blood pressure 157 mm[Hg] Moody New DO Work Phone: [facility] 01-11-2023 09:13-0400 Body weight 96.16 kg Mone Milton DEVELOPMENT SPEC.NETWORK ADMINISTRATOR Work Phone: [facility] 01-11-2023 09:13-0400 Diastolic blood pressure 83 mm[Hg] Mone Zaire DEVELOPMENT SPEC.NETWORK ADMINISTRATOR Work Phone: [facility] 01-11-2023 09:13-0400 Heart rate 80 /min Mone Milton DEVELOPMENT SPEC.NETWORK ADMINISTRATOR Work Phone: [facility] 01-11-2023 09:13-0400 SaO2% (BldA) [Mass fraction] 96 % Mone Zaire DEVELOPMENT SPEC.NETWORK ADMINISTRATOR Work Phone: [facility] 01-11-2023 09:13-0400 Systolic blood pressure 122 mm[Hg] Mone Milton DEVELOPMENT SPEC.NETWORK ADMINISTRATOR Work Phone: [facility] 10-13-2022 15:22-0400 Body height 182.9 cm Moody New DO Work Phone: [facility] 10-13-2022 15:22-0400 Body weight 97.52 kg Moody New DO Work Phone: [facility] 10-13-2022 15:22-0400 Diastolic blood pressure 97 mm[Hg] oMody New DO Work Phone: [facility] 10-13-2022 15:22-0400 Heart rate 74 /min Moody New DO Work Phone: [facility] 10-13-2022 15:22-0400 Respiratory rate 19 /min Moody New DO Work Phone: [facility] 10-13-2022 15:22-0400 SaO2% (BldA) [Mass fraction] 96 % Moody New DO Work Phone: [facility] 10-13-2022 15:22-0400 Systolic blood pressure 161 mm[Hg] Moody New DO Work Phone: [facility] 05-06-2022 15:21-0400 Diastolic blood pressure 101 mm[Hg] Mone Zaire DEVELOPMENT SPEC.NETWORK ADMINISTRATOR Work Phone: [facility] 05-06-2022 15:21-0400 Heart rate 70 /min Mone Milton DEVELOPMENT SPEC.NETWORK ADMINISTRATOR Work Phone: [facility] 05-06-2022 15:21-0400 SaO2% (BldA) [Mass fraction] 97 % Mone Zaire DEVELOPMENT SPEC.NETWORK ADMINISTRATOR Work Phone: [facility] 05-06-2022 15:21-0400 Systolic blood pressure 164 mm[Hg] Mone Zaire DEVELOPMENT SPEC.NETWORK ADMINISTRATOR Work Phone: [facility] 03-05-2022 14:42-0400 Diastolic blood pressure 70 mm[Hg] Moody New DO Work Phone: [facility] 03-05-2022 14:42-0400 Heart rate 79 /min Smithjanie New DO Work Phone: [facility] 03-05-2022 14:42-0400 Respiratory rate 15 /min Moody New DO Work Phone: [facility] 03-05-2022 14:42-0400 SaO2% (BldA) [Mass fraction] 95 % Smithjanie New DO Work Phone: [facility] 03-05-2022 14:42-0400 Systolic blood pressure 121 mm[Hg] Moody Shaq DO Work Phone: [facility] 02-11-2022 09:27-0400 Diastolic blood pressure 96 mm[Hg] Mone Milton DEVELOPMENT SPEC.NETWORK ADMINISTRATOR Work Phone: [facility] 02-11-2022 09:27-0400 Heart rate 63 /min Mone Zaire DEVELOPMENT SPEC.NETWORK ADMINISTRATOR Work Phone: [facility] 02-11-2022 09:27-0400 SaO2% (BldA) [Mass fraction] 94 % Mone Zaire DEVELOPMENT SPEC.NETWORK ADMINISTRATOR Work Phone: [facility] 02-11-2022 09:27-0400 Systolic blood pressure 150 mm[Hg] Mone Milton DEVELOPMENT SPEC.NETWORK ADMINISTRATOR Work Phone: [facility] Encounters Encounter Date Encounter Type Care Provider Facility Start: 01-10-2024 Refill Moody New DO Work Phone: [facility] [place] Comment on above: Chronic pain syndrom e Start: 01-04-2024 Refill Wojciech Waddell COAGULATING DRYING SUPERVISOR Work Phone: [facility] [place] Comment on above: Chronic pain syndrom e Start: 12-23-2023 Refill Moody New DO Work Phone: [facility] [place] Start: 12-10-2023 Orders Only Moody New DO Work Phone: [facility] [place] Comment on above: Chronic pain syndrom e (Primary Dx) Start: 12-06-2023 Refill Wojciech Waddell COAGULATING DRYING SUPERVISOR Work Phone: [facility] [place] Comment on above: Chronic pain syndrom e Start: 11-26-2023 Refill Moody New DO Work Phone: [facility] [place] Start: 11-17-2023 End: 11-17-2023 Patient encounter procedure [facility] Work Phone: Start: 11-17-2023 End: 11-17-2023 ambulatory [facility] Work Phone: Start: 11-02-2023 End: 11-02-2023 ambulatory LOUIE MCKINNEY [facility] Start: 11-02-2023 End: 11-02-2023 Office outpatient visit 25 minutes Moody New DO Work Phone: [facility] [place] Comment on above: DDD (degenerative di sc disease), lumbar (Primary Dx); Chronic pain syndrome; DDD (degenerative disc disease), cervical; Chronic pain of left ankle; History of ankle surgery; Postlaminectomy syndrome of lumbar region; Myofascial pain syndrome Start: 10-25-2023 Refill Moody New DO Work Phone: [facility] [place] Comment on above: Chronic pain syndrom e Start: 10-04-2023 Refill Moody New DO Work Phone: [facility] [place] Comment on above: Chronic pain syndrom e Start: 09-30-2023 Refill Moody New DO Work Phone: [facility] [place] Comment on above: Chronic pain syndrom e Start: 09-06-2023 Refill Moody New DO Work Phone: [facility] [place] Comment on above: Chronic pain syndrom e Start: 09-02-2023 Refill Moody Yandel New DO Work Phone: [facility] [place] Start: 08-18-2023 ambulatory [facility]CK[facility] Physicians Start: 08-17-[address] [facility] Start: 08-11-2023 End: 08-11-[address] [facility] Start: 08-11-2023 End: 08-11-2023 Office outpatient visit 25 minutes Moody New DO Work Phone: [facility] [place] Comment on above: Chronic pain syndrom e (Primary Dx); Encounter for monitoring opioid maintenance therapy; DDD (degenerative disc disease), lumbar; Other chronic pain; Chronic pain of left ankle; History of ankle surgery; Postlaminectomy syndrome of lumbar region; Myofascial pain syndrome Start: 07-07-2023 Telephone encounter Kathy Olsen MD Work Phone: Pain Management Comment on above: inquiring about refi lls Start: 06-10-2023 Telephone encounter Moody New DO Work Phone: Pain Management Comment on above: Patient Update Start: 06-07-2023 End: 06-07-2023 Patient encounter procedure [facility] Work Phone: Start: 06-07-2023 End: 06-07-2023 ambulatory MOODY NEW [facility] Work Phone: Start: 05-28-2023 Telephone encounter Moody New DO Work Phone: Pain Management Comment on above: Patient Update (Surg bailey cancelled- needs RX for oxycodone) Start: 05-13-2023 End: 05-13-2023 Orders Only Moody New DO Work Phone: Pain Management Comment on above: Chronic pain syndrom e (Primary Dx) Start: 05-11-2023 Refill Moody Bosch zheng DO Work Phone: Pain Management Comment on above: Refill Request Start: 04-26-2023 ambulatory [facility] Facility: [facility] Start: 04-16-2023 Telephone encounter Smithjanie Meeks Shaq DO Work Phone: Pain Management Comment on above: fill date of gabapen tin Opened In Error Start: 04-13-2023 Refill Smithjanie Meeks Danitza calzada DO Work Phone: Pain Management Comment on above: Refill Request Start: 04-12-2023 Telephone encounter Smithjanie Meeks Shaq DO Work Phone: [facility] PAIN MANAGEMENT Comment on above: Scheduling a procedu re Start: 04-06-2023 Telephone encounter Smithjanie Meeks Shaq DO Work Phone: Pain Management Comment on above: Patient Question; Pa tient Update Refill Request Start: 04-05-2023 Telephone encounter Mone Kareem reyes DEVELOPMENT SPEC.NETWORK ADMINISTRATOR Work Phone: Pain Management Comment on above: Appointment Start: 03-05-2023 Refill Mone Lopezfield DEVELOPMENT SPEC.NETWORK ADMINISTRATOR Work Phone: Pain Management Comment on above: Refill Request Start: 03-02-2023 End: 03-02-2023 Patient encounter procedure [facility] Work Phone: Start: 03-02-2023 End: 03-02-2023 ambulatory [facility] Work Phone: Start: 02-04-2023 Refill Mone Milton DEVELOPMENT SPEC.NETWORK ADMINISTRATOR Work Phone: Pain Management Comment on above: Refill Request Start: 02-02-2023 Refill Moody Bosch zheng DO Work Phone: Pain Management Comment on above: Refill Request Start: 01-11-2023 End: 01-12-2023 ambulatory [facility] Facility:[id number] Start: 01-11-2023 End: 01-11-2023 Office outpatient visit 25 minutes Mone Milton DEVELOPMENT SPEC.NETWORK ADMINISTRATOR Work Phone: Pain Management Comment on above: Lumbar disc herniati on with radiculopathy; Lumbar spondylosis; Chronic pain syndrome; High risk medication use Start: 01-06-2023 Refill Moody Jeanna Danitza calzada DO Work Phone: Pain Management Comment on above: Refill Request Start: 12-07-2022 Refill Mone Lopezfield DEVELOPMENT SPEC.NETWORK ADMINISTRATOR Work Phone: Pain Management Comment on above: Refill Request Start: 12-01-2022 Refill Mone Lopezfield DEVELOPMENT SPEC.NETWORK ADMINISTRATOR Work Phone: Pain Management Comment on above: Refill Request Start: 11-19-2022 End: 11-19-2022 ambulatory MOODY Jeanna SHAQ Facility:[id number] Start: 11-19-2022 End: 11-19-2022 Patient encounter procedure [facility] Work Phone: Start: 10-30-2022 Refill Mone Lopezfield DEVELOPMENT SPEC.NETWORK ADMINISTRATOR Work Phone: Pain Management Comment on above: Refill Request Start: 10-13-2022 End: 10-14-2022 ambulatory MOODY Jeanna SHAQ Facility:[id number] Start: 10-13-2022 End: 10-13-2022 Patient encounter procedure Moody New DO Work Phone: Pain Management Comment on above: Chronic pain syndrom e (Primary Dx); Lumbar disc herniation with radiculopathy; Radiculopathy, lumbar region; Degeneration of intervertebral disc of lumbar region; Generalized osteoarthritis; High risk medication use; Lumbar postlaminectomy syndrome; DDD (degenerative disc disease), lumbar; Lumbar radiculopathy; Myofascial pain syndrome Start: 09-10-2022 Telephone encounter Mone reyes DEVELOPMENT SPEC.NETWORK ADMINISTRATOR Work Phone: Pain Management Comment on above: Medication Problem Start: 08-24-2022 Refill Monejeanna LopezZaire DEVELOPMENT SPEC.NETWORK ADMINISTRATOR Work Phone: Pain Management Comment on above: Refill Request Start: 08-20-2022 End: 08-20-2022 ambulatory MOODY NEW Facility:[id number] Start: 08-13-2022 Refill Mone Milton DEVELOPMENT SPEC.NETWORK ADMINISTRATOR Work Phone: Pain Management Comment on above: Refill Request Start: 07-23-2022 Refill Mone Zaire DEVELOPMENT SPEC.NETWORK ADMINISTRATOR Work Phone: Pain Management Comment on above: Refill Request Start: 07-13-2022 Refill Mone Milton DEVELOPMENT SPEC.NETWORK ADMINISTRATOR Work Phone: Pain Management Comment on above: Refill Request Start: 06-12-2022 Refill Mone Zaire DEVELOPMENT SPEC.NETWORK ADMINISTRATOR Work Phone: Pain Management Comment on above: Refill Request Start: 05-22-2022 Refill Mone Milton DEVELOPMENT SPEC.NETWORK ADMINISTRATOR Work Phone: Pain Management Comment on above: Refill Request Start: 05-06-2022 End: 05-06-2022 Office outpatient visit 25 minutes Mone Milton DEVELOPMENT SPEC.NETWORK ADMINISTRATOR Work Phone: Pain Management Comment on above: Lumbar disc herniati on with radiculopathy (Primary Dx); Radiculopathy, lumbar region; Degeneration of intervertebral disc of lumbar region; Generalized osteoarthritis; Chronic pain syndrome; High risk medication use Start: 04-27-2022 Refill Mone Zaire DEVELOPMENT SPEC.NETWORK ADMINISTRATOR Work Phone: Pain Management Comment on above: Refill Request Start: 03-21-2022 Chart abstracting Mone henderson DEVELOPMENT SPEC.NETWORK ADMINISTRATOR Work Phone: Pain Management Start: 03-18-2022 Telephone encounter Monejeanna Lopezshannon eryes DEVELOPMENT SPEC.NETWORK ADMINISTRATOR Work Phone: Pain Management Comment on above: Medication Problem Start: 03-05-2022 End: 03-05-2022 Subsequent hospital visit by physician Moody New DO Work Phone: [facility] PAIN MANAGEMENT Comment on above: Postlaminectomy synd wanda, lumbar region [M96.1] Start: 02-24-2022 Refill Mone Milton DEVELOPMENT SPEC.NETWORK ADMINISTRATOR Work Phone: Pain Management Comment on above: Refill Request Start: 02-16-2022 Telephone encounter Mone reyes DEVELOPMENT SPEC.NETWORK ADMINISTRATOR Work Phone: Pain Management Comment on above: Medication Problem Start: 02-11-2022 End: 02-11-2022 Office outpatient visit 25 minutes Mone Tai APRN.NETWORK ADMINISTRATOR Work Phone: Pain Management Comment on above: Lumbar postlaminecto my syndrome (Primary Dx); DDD (degenerative disc disease), lumbar; Lumbar radiculopathy; Chronic pain syndrome; Myofascial pain syndrome; High risk medication use Start: 01-21-2022 Refill Mone Tai DEVELOPMENT SPEC.NETWORK ADMINISTRATOR Work Phone: Pain Management Comment on above: Refill Request Start: 01-13-2022 Refill Mone Tai TL.NETWORK ADMINISTRATOR Work Phone: Pain Management Comment on above: Refill Request Start: 12-29-2021 End: 12-29-2021 Subsequent hospital visit by physician Mone Tai APRN.NETWORK ADMINISTRATOR Work Phone: [facility] Comment on above: FOLLOW UP Start: 11-20-2021 End: 11-20-2021 Subsequent hospital visit by physician Moody New Work Phone: [facility] Comment on above: M54.16 Start: 07-10-2020 End: 07-10-2020 Patient encounter procedure [facility] Start: 05-31-2020 Patient encounter [facility] Procedures Date Procedure Procedure Detail Performing Clinician Start: 11-17-2023 MRI of lower extremity Start: 06-07-2023 X-ray of both feet Start: 03-02-2023 MRI of lower extremity Start: 04-01-2022 H/O splenectomy History of splenecto my Monejeanna Tai DEVELOPMENT SPEC.NETWORK ADMINISTRATOR Work Phone: Start: 03-05-2022 Fluoroscopy up to 1 hour physician/qhp time Moody New DO Work Phone: Start: 07-08-2017 Adult depression screening assessment Moody New Work Phone: Start: 02-03-2010 Lipid 1996 panel - Serum or Plasma Moody New DO Work Phone: H/O splenectomy History of splenectomy Plan of Treatment Date Care Activity Detail Author Start: 03-26-2024 Influenza vaccination [facility] Start: 02-22-2024 End: 02-22-2024 Patient encounter procedure 02/22/2024 2:30 PM EDT Office Visit [facility] [place] [address] [place] [address] Shaq Smithjanie Franco, [address] [place] [address] [facility] Start: 11-02-2023 End: 11-02-2023 Patient encounter procedure [facility] [place] Start: 05-13-2023 End: 08-12-2023 TOXASSURE FLEX 23, URINE TOXASSURE FLEX 23, URINE Lab Routine Chronic pain syndrome Expected: 05/13/2023, Expires: 08/12/2023 [facility] Work Phone: Comment on above: Expected: 05/13/2023 , Expires: 08/12/2023 Start: 03-26-2023 COVID-19 Vaccine ( season) COVID-19 Vaccine ( season) [facility] Start: 03-26-2023 Influenza vaccination [facility] Start: 2023 RSV Vaccine (1 - 1-d ose 60+ series) RSV Vaccine (1 - 1-dose 60+ series) [facility] Start: 10-13-2022 End: 12-13-2022 TOXASSURE FLEX 23, URINE TOXASSURE FLEX 23, URINE Lab Routine Chronic pain syndrome Lumbar disc herniation with radiculopathy Radiculopathy, lumbar region Expected: 10/13/2022, Expires: 12/13/2022 [facility] Work Phone: Comment on above: Expected: 10/13/2022 , Expires: 12/13/2022 Start: 07-26-2022 [facility]ION [facility]MENT [facility] Start: 03-26-2022 Influenza vaccination [facility] Start: 02-11-2022 End: 04-13-2022 DRUG SCR TOXASURE DRUG SCR TOXASURE Lab Routine High risk medication use Expected: 02/11/2022, Expires: 04/13/2022 [facility] Work Phone: Comment on above: Expected: 02/11/2022 , Expires: 04/13/2022 Start: 07-26-2021 DEPRESSION ASSESSMENT DEPRESSION ASS [facility] Start: 05-05-2019 DIABETES SCREEN DIABETES SCREEN [facility] Start: 05-05-2019 Diabetes Screening Diabetes Screenin g [facility] Start: 07-08-2018 Adult depression screening assessment DEPRESSION SCREENING [facility] Start: 2018 PROSTATE CANCER SCREENING DISCUSSION PROSTATE CANCER SCREENING DISCUSSION [facility] Start: 2018 Prostate specific antigen measurement Prostate Cancer Screening Discussion [facility] Start: 02-03-2015 Lipid 1996 panel - S deja or Plasma Lipid Screening [facility] Start: 02-03-2015 Lipid panel Lipid Screening [facility] Start: 02-03-2015 LIPID SCREEN LIPID SCREEN [facility] Start: 2013 Administration of he rpes zoster vaccine Zoster Vaccines (1 of 2) [facility] Start: 2013 Screening for malign ant neoplasm of colon Flexible sigmoidoscopy [facility] Start: 2013 SHINGRIX VACCINE (1 of 2) SHINGRIX VACCINE (1 of 2) [facility] Start: 2008 COLOGUARD (FIT-DNA) COLOGUARD (FIT-D NA) [facility] Start: 2008 Colonoscopy COLONOSCOPY [facility] Start: 2008 COLORECTAL CANCER SCREENING COLORECTAL CANCER SCREENING [facility] Start: [address] COLONOGRAPHY [facility] Start: 2008 FECAL OCCULT BLOOD FECAL OCCULT BLOO D [facility] Start: 2008 Screening for malign ant neoplasm of colon [facility] Start: 2008 SIGMOIDOSCOPY SIGMOIDOSCOPY [facility] Start: 04-29-2007 Pneumococcal Vaccine : Ped or At-Risk (2 of 2 - PCV) Pneumococcal Vaccine: Ped or At-Risk (2 of 2 - PCV) [facility] Start: 1982 Urine microalbumin profile [facility] Start: 1981 ANNUAL PCP TEAM SCREEN MAKER CARLOS DISEASE VISIT ANNUAL PCP TEAM CHRONIC DISEASE VISIT [facility] Start: 1981 BP CONTROLLED (<130/80) BP CONTROLLE D (<130/80) [facility] Start: 1981 HEPATITIS C SCREENING HEPATITIS C [facility] Start: 1981 Hepatitis C screening Hepatitis [facility] Start: 1981 HIV SCREENING HIV SCREENING [facility] Start: 1981 HIV screening HIV Screening [facility] Start: 1978 HIV screening HIV Screening [facility] Start: 1975 Depression screening using PHQ-9 (Patient Health Questionnaire 9) score Depression Screening (PHQ-2/9) [facility] Start: 1968 COVID-19 VACCINE (#1) COVID-19 VACCI NE (#1) [facility] Start: 1968 COVID-19 VACCINE (1) COVID-19 VACCIN E (1) [facility] Start: 1966 History and physical examination, annual for health maintenance Wellness Visit [facility] Start: 1966 Medicare Wellness Visit Medicare Wel lness Visit [facility] Start: 1963 COVID-19 VACCINE (#1) COVID-19 VACCI NE (#1) [facility] Start: 1963 HEPATITIS B (1 of 3 - 3-dose series) HEPATITIS B (1 of 3 - 3-dose series) [facility] Start: 1963 Prostate specific antigen measurement PSA Level [facility] Start: 1963 Screening for malign ant neoplasm of colon [facility] Start: 1963 Tetanus vaccination Tetanus: Every 1 0yrs [facility] External Lab Urine D rug Screen External Lab Urine Drug Screen Lab Routine Encounter for monitoring opioid maintenance therapy Ordered: 08/11/2023 [facility] Work Phone: Comment on above: Ordered: 08/11/2023 Injection aa&/strd o ther peripheral nerve/branch INJECT ANESTH AGENT Procedures Routine Lumbar postlaminectomy syndrome Ordered: 02/11/2022 [facility] Work Phone: Comment on above: Ordered: 02/11/[address] [facility] MR RILEY [facility] Immunizations Immunization Date Immunization Notes Care Provider Job rios 04-29-2006 influenza virus vacc ine, unspecified formulation Moody New Work Phone: [facility] Work Phone: 04-29-2006 meningococcal polysaccharide vaccine (MPSV4) Moody New Work Phone: [facility] Work Phone: 04-29-2006 pneumococcal polysaccharide vaccine, 23 valent Moody Shaq Work Phone: [facility] Work Phone: 04-25-2006 pneumococcal polysaccharide vaccine, 23 valent [facility] Work Phone: 04-25-2006 pneumococcal vaccine , unspecified formulation [facility] Payers Date Payer Category Payer Self-pay [id number] 2023 Medicaid [id number] [facility] MEDICAID [facility] MEDICAID [id number] 2021-Present [phone] [address] [place] [address] Medicaid [id number] 2021 Medicaid [id number] 2021 Medicare [id number] 2021 Unknown [id number] 2017 Medicare [employer] RE [employer] MEDICARE [id number] 2017-Present [phone] [address] [place] [address] [facility] [id number] 1965 Unknown [id number] 1965 Unknown [id number] 1965 Unknown [id number] 1965 Unknown [id number] Medicare [id number] Unknown [id number] Unknown [id number] Unknown [id number] Unknown [id number] Social History Date Type Detail Facility Start: 07-27-2018 End: 07-27-2018 Tobacco smoking status ORIS Unknown if ever smoked [facility] Start: 1965 Sex Assigned At Male [facility] Start: 04-30-2016 End: 08-15-2023 Tobacco smoking status ORIS Never smoked tobacco [facility] Start: 06-03-2017 End: 11-02-2023 Alcohol intake Current drinker of alcohol (finding) [facility] Start: 07-02-2011 History SDOH Alcohol Comment occassional [facility] Start: 1965 [facility]igned At [facility] Start: 12-20-2021 End: 12-30-2021 Exposure to SARS-CoV-2 (event) Unable to assess [facility] Start: 04-30-2016 End: 08-15-2023 Tobacco use and exposure Smokeless tobacco non-user [facility] Start: 02-01-2022 End: 05-06-2022 Exposure to SARS-CoV-2 (event) Not sure [facility] Start: 01-11-2023 End: 11-02-2023 History of Social function [facility] Start: 01-11-2023 End: 11-02-2023 Tobacco use panel [facility] National Score (1-100), lower number is lower risk 77 [facility] Start: 12-12-2020 None [place] [facility] Start: 05-04-2013 Spouse/ Signif icant Other [facility] Start: 12-12-2020 Non-smoker [place]rin [place] [facility] Start: 08-15-2023 Alcohol Comment Occasional [facility] Medical Equipment Procedure Code Equipment Code Equipment [...] Start: 07-25-2018 Drill Neuro 3mm [id number] - [id number] Start: 12-02-2009 Graft Infuse 20g a Medium Bovine Collagen Rhbmp-2 2x1in Bone Vial Absorbable - [id number] Start: 05-05-2016 Cage Lt-Cage 14m m Titanium 23x17.5x14mm Spinal Lumbar Fusion Device Tapered - [id number] Start: 05-05-2016 Use to inject testosterone weekly [id number] Start: 03-09-2022 Comment on above: Use to [...] Desired Activity /State Clinical Notes 01-13-2022 to 01-04-2024 Telephone Encounter - Tj Aiken RN - 01/04/2024 2:15 PM EDTTelephone Encounter - Tj Aiken RN - 01/04/2024 2:15 PM EDTPatient Moody Shi DO - 11/02/2023 11:05 AM EDT Note Date & Type Note Facility 01-04-2024 Telephone encount er Note Uds 08/11/23 [facility] 01-04-2024 Miscellaneous Notes Formattin g of this note might be different from the original. Uds 08/11/23 documented in this encounter [facility] 11-02-2023 Instructions Moody New DO - 11/02/2023 11:19 AM EDT 1. Order handicap placard 2. Continue Duragesic patch and Dilaudid as prescribed 3. Patient is still nonweightbearing on left ankle status post surgery 4. Continue Gabapentin, Mobic and methocarbamol and Lidoderm patches documented in this encounter [facility] 11-02-2023 History of Presen t illness Narrative [facility] Interventional Pain Management Office Note Patient Name: Eliza Lowe Referring Physician: No ref. provider found Date of : 1965 PCP: Louie Cox DO Date of Service: 11/02/23 History of Present Illness Last office visit: 08/11/23 Plan of care from last OV: Order: UDS Continue medication regimen consisting of: Fentanyl patches, gabapentin, Mobic, methocarbamol, Lidoderm patches Resume Dilaudid 4 mg 1 p.o. every 4-6 hours as needed for postop pain coverage. Will most likely continue this regimen for an additional 1 to 2 months before weaning back to oxycodone 15 mg. Patient is currently nonweightbearing on left ankle status post surgery TODAY's HISTORY: Chief Complaint: Significant pain in the back and left ankle, with the ankle wound healing process ongoing Medical History: - Ankle wound initially treated with a wound vac, now wound reduced to half its original size - Experienced a three-week period of hindered healing due to overly tight wound packing - Improvement noted with a change in nurse handling the wound packing, though still painful - Adhering to [id number] instructions since July, expected to continue for a few more months - No recent injuries, falls, or hospitalizations reported Pain Characteristics: - Back pain rated at 7/10 - Ankle pain rated at 9/10 - Reports weakness in legs due to prolonged non-weight bearing -Pain worse with bending, gardening over weekend, sitting, riding in car -Pain better with medications and rest -Pain in lower back constant ache with soreness that radiates butt greater on right-resolved since lumbar selective nerve root block 05/13/2023 -Pain goes down outside of leg to foot with burning stabbing sensation-resolved since nerve block. -Left ankle pain feels like throbbing, aching, stinging and constant Functionality: - Utilizes a TENS unit for pain management EXERCISE/PT PROGRAM: No Last date participation in physical therapy: None at this time status post surgery Additional Information: - Achieves eight hours of sleep per night - Requires a new disability placard - Denies falls - Patient denies bowel or bladder dysfunction Last procedure: 05/13/23 Right LSNRB at L5 and S3. Reports 70% improvement. Presence of pain pump:no Presence of SCStim:no WORK STATUS: Disabled RECENT HOSPITALIZATIONS: Yes, left ankle surgery 06/24/2023 OARRS/NARxCheck: Date controlled substance agreement signed: 08/11/23 [...] Psychological Disease (Depression): None Total : 0 Total Score Risk Category: Low Risk (0-3) Past Medical History Past Medical History: Diagnosis [...] in his mother. Physical Exam PACU Vitals 11/02/23 1017 BP: (!) 159/85 Pulse: 72 SpO2: 94% Body mass index is 30.22 kg/m . Wt Readings from Last 3 Encounters: 11/02/23 101.1 kg (222 lb 12.8 oz) 08/11/23 90.7 kg (200 lb) Temp Readings from Last 3 Encounters: No data found for Temp BP Readings from Last 3 Encounters: 11/02/23 (!) 159/85 08/11/23 (!) 157/79 Pulse Readings from Last 3 Encounters: 11/02/23 72 08/11/23 81 General Appearance: Alert, cooperative, no [...] 1 (one) tablet by mouth daily . [START ON 11/09/2023] fentaNYL (DURAGESIC) 25 mcg/hr patch Place 1 (one) patch on the skin every other day (Days supply per fill: 30) Start: 11/09/23. FLUoxetine (PROZAC) 40 MG capsule Take 1 (one) capsule (40 mg total) by mouth daily . fluticasone propionate (FLONASE) 50 mcg/actuation nasal spray 2 (two) sprays by NOT APPLICABLE route daily . gabapentin (NEURONTIN) 600 MG tablet Take 1 (one) tablet (600 mg total) by mouth 4 (four) times a day (Days supply per fill: 30) Start: 10/31/23. [START ON 11/09/2023] HYDROmorphone (Dilaudid) 4 MG tablet Take 1 (one) tablet (4 mg total) by mouth every 4 to 6 hours as needed for pain (Days supply per fill: 30) Start: 11/09/23. lidocaine (LIDODERM) 5 % patch Apply 1 Patch TO SKIN as directed to affected areas 12 hours on and 12 hours off lisinopriL (PRINIVIL,ZESTRIL) 5 MG tablet Take 1 (one) tablet (5 mg total) by mouth daily . meloxicam (MOBIC) 15 MG tablet Take 1 (one) tablet (15 mg total) by mouth daily as needed . methocarbamoL (ROBAXIN) 500 MG tablet Take 1 (one) tablet (500 mg total) by mouth 3 (three) times a day as needed for muscle spasms . methocarbamoL (ROBAXIN) 750 MG tablet Take 1 (one) tablet (750 mg total) by mouth 4 (four) times a day as needed . naloxone (NARCAN) 4 mg/actuation [place] Use 1 spray in one nostril as [...] (10 mg total) by mouth nightly . Imaging X-ray of right foot noted in chart only which was negative. No other imaging studies from [facility] pain clinic at this time. ASSESSMENT/PLAN Encounter Diagnoses Name Primary? DDD (degenerative disc disease), lumbar Yes Chronic pain syndrome DDD (degenerative disc disease), cervical Chronic pain of left ankle History of ankle surgery Postlaminectomy syndrome of lumbar region Myofascial pain syndrome 1. Order handicap placard 2. Continue Duragesic patch and Dilaudid as prescribed 3. Patient is still nonweightbearing on left ankle status post surgery 4. Continue Gabapentin, Mobic and methocarbamol and Lidoderm patches I will continue to monitor for addiction [...] DISCUSSED WITH ALL PATIENTS ON OPIOIDS Moody New D.O. Interventional Pain Management [facility] This note was generated using 139shop voice recognition software in an effort to expedite communication. Please excuse any resultant grammatical or wording errors. documented in this encounter [facility] 08-11-2023 History of Presen t illness Narrative [facility] Interventional Pain Management Office Note Patient Name: Eliza Lowe Referring Physician: No ref. provider found Date of : 1965 PCP: Louie Cox DO Date of Service: 08/15/23 History of Present Illness Last office visit: 06/07/2023 by myself at [facility] pain clinic Plan of care from last [...] x-ray Follow-up in 3 months with or [facility] Previous Note: Ankle surgery canceled due to issue with 3D printer, rescheduled 06/24/23 at [facility]. States a rock rolled over his [...] mouth daily . naloxone (NARCAN) 4 mg/actuation Brightwaters Use 1 spray in one nostril as [...] was negative. No other imaging studies from [facility] pain clinic at this time. ASSESSMENT/PLAN Encounter [...] DISCUSSED WITH ALL PATIENTS ON OPIOIDS Moody New D.O. Interventional Pain Management [facility] This note was generated using 139shop voice recognition software in an effort to expedite communication. Please excuse any resultant grammatical or wording errors. Focused Review of Systems: Headaches: Denies Nausea: Denies Vomitting: Denies Loss of bladder control: Denies Loss of bowel control: Denies Saddle anesthesia: Denies Recent falls: Denies Constipation: Denies Depression: Denies Anxiety: Yes documented in this encounter [facility] 07-08-2023 Miscellaneous Notes Addended by: KATHY OLSEN on: 07/08/2023 03:49 PM Modules accepted: Orders [...] Result Flag Units Drug Present Ethyl Glucuronide 89531 ng/mg creat Ethyl Sulfate 9769 ng/mg creat [...] For clinical consultation, please call . == @FLOW([id number])@ Lab Results Component Value Date SUMM FINAL [...] PRESENT Guaifenesin may be administered as an ycbs-pgg-lwrhjcf or prescription drug; it may also be present as a breakdown product of methocarbamol. Zolpidem PRESENT Zolpidem Acid PRESENT Zolpidem acid is an expected metabolite of zolpidem. Acetaminophen PRESENT Doxylamine PRESENT Lidocaine PRESENT Dextromethorphan PRESENT Dextrorphan/Levorphanol PRESENT Dextrorphan is an expected metabolite of dextromethorphan, an upno-jxt-agvslze or prescription cough suppressant. Dextrorphan cannot be [...] left foot surgery by Dr Boogie at [facility] and was inpt x 1 week, [...] surgery scheduled 06/24, pt was previously on [id number]. MME is 198, please advise refills Petra Wiley RN July 07, 2023 3:59 PM documented in this encounter [facility] 06-11-2023 Miscellaneous Notes Formattin g of this [...] the foot x-ray he had done at [place] on 06/07. The results are scanned into the chart. He does not have follow up with Dr. Olsen until 09/15/23. Please advise. Naomi Shoemaker RN June 10, 2023 3:15 PM documented in this encounter [facility] 06-07-2023 Note HNO ID: [id number] Author: Moody New DO Service: ? Author Type: Anesthesiologist Type: Progress Notes Filed: 06/08/2023 7:12 AM Note Text: Summary: Pain management office follow-up visit DATE: June 07, 2023 Chief Complaint: Low back pain, right foot pain _ History of Present Illness: Eliza Lowe is a 58 year old male being seen at [facility] for a evaluation and/or management of their chronic pain. He states that since the last visit symptoms have been persistent. The patient was last seen by Mone Tai on 01/11/23 and the plan of care [...] issue with 3D printer, rescheduled 06/24/23 at [facility]. States a rock rolled over his [...] Result Flag Units Drug Present Ethyl Glucuronide 05858 ng/mg creat Ethyl Sulfate 9769 ng/mg creat [...] Noroxycodone 5597 ng/ (more content not included)... [facility] 05-31-2023 Miscellaneous Notes Formattin g [...] does have a follow up with Dr new on 06/07/23. Marilyn Grossman RN May 28, 2023 10:41 AM documented in this encounter [facility] 05-14-2023 Miscellaneous Notes Formattin g of this note might be different from the original. It shows she sent the narc's and gabapentin. I sent the others. Please call the pharmacy to verify Pt submitted uds 05/13, scripts are attached please advise Petra Wiley RN May 13, 2023 3:35 PM NEEDS UDS FIRST per Dr New Please enter order Pt notified, he is [...] pain for up to 30 days. Moody New DO NEEDS UDS FIRST Patient phones requesting [...] Result Flag Units Drug Present Ethyl Glucuronide 36419 ng/mg creat Ethyl Sulfate 7385 ng/mg creat [...] For clinical consultation, please call . == @FLOW([id number])@ Lab Results Component Value Date SUMM FINAL [...] PRESENT Guaifenesin may be administered as an okgy-avb-uxthysr or prescription drug; it may also be present as a breakdown product of methocarbamol. Zolpidem PRESENT Zolpidem Acid PRESENT Zolpidem acid is an expected metabolite of zolpidem. Acetaminophen PRESENT Doxylamine PRESENT Lidocaine PRESENT Dextromethorphan PRESENT Dextrorphan/Levorphanol PRESENT Dextrorphan is an expected metabolite of dextromethorphan, an futn-byy-klifqjo or prescription cough suppressant. Dextrorphan cannot be distinguished from the scheduled prescription medication levorphanol by the method used for analysis. == Test Result Flag Units Ref Range Creatinine 77 mg/dL >=20 == Declared Medications: Medication list was not provided. == For clinical consultation, please call . == Please review and advise. Marilyn Grossman RN documented in this encounter [facility] 04-16-2023 Miscellaneous Notes Formattin g of this note might be different from the original. Opened in error documented in this encounter [facility] 04-16-2023 Miscellaneous Notes Addended by: GEOFF NIEVES [...] 2023 12:47 PM documented in this encounter [facility] 04-14-2023 Miscellaneous Notes Formattin g of this note is different from the original. The following approved medication requests have been transmitted electronically. Requested Prescriptions Pending Prescriptions Disp Refills gabapentin (NEURONTIN) 600 mg tablet 120 tablet 0 Sig: Take 1 tablet by mouth four times daily for 30 days. Do not start before April 21, 2023. Moody New DO Patient phones requesting refills as follows: [...] Result Flag Units Drug Present Ethyl Glucuronide 23073 ng/mg creat Ethyl Sulfate 7385 ng/mg creat [...] For clinical consultation, please call . == @FLOW([id number])@ Lab Results Component Value Date SUMM FINAL [...] PRESENT Guaifenesin may be administered as an iqqy-hly-utroars or prescription drug; it may also be present as a breakdown product of methocarbamol. Zolpidem PRESENT Zolpidem Acid PRESENT Zolpidem acid is an expected metabolite of zolpidem. Acetaminophen PRESENT Doxylamine PRESENT Lidocaine PRESENT Dextromethorphan PRESENT Dextrorphan/Levorphanol PRESENT Dextrorphan is an expected metabolite of dextromethorphan, an yszl-nij-ioewifu or prescription cough suppressant. Dextrorphan cannot be distinguished from the scheduled prescription medication levorphanol by the method used for analysis. == Test Result Flag Units Ref Range Creatinine 77 mg/dL >=20 == Declared Medications: Medication list was not provided. == For clinical consultation, please call . == Please review and advise. Naomi Shoemaker RN documented in this encounter [facility] 04-12-2023 Miscellaneous Notes Formattin g of this note might be different from the original. I left a message to schedule a procedure. Sarah April 12, 2023 10:35 AM documented in this encounter [facility] 04-06-2023 Miscellaneous Notes Formattin g of this [...] before April 21, 2023. Authorizing Provider: MITUL SULLIVAN meloxicam (MOBIC) 15 mg tablet 30 tablet 0 Sig: Take 1 tablet by mouth once daily as needed. Authorizing Provider: MITUL SULLIVAN fentaNYL (DURAGESIC) 25 mcg/hr 15 Patch 0 Sig: Apply 1 Patch as directed every 48 hours for 30 days. Do not start before April 14, 2023. Authorizing Provider: MITUL SULLIVAN APRN.CNP Patient phones requesting refills as follows: [...] Result Flag Units Drug Present Ethyl Glucuronide 91893 ng/mg creat Ethyl Sulfate 7385 ng/mg creat [...] For clinical consultation, please call . == @FLOW([id number])@ Lab Results Component Value Date SUMM FINAL [...] PRESENT Guaifenesin may be administered as an ghti-kyt-yhlpmrx or prescription drug; it may also be present as a breakdown product of methocarbamol. Zolpidem PRESENT Zolpidem Acid PRESENT Zolpidem acid is an expected metabolite of zolpidem. Acetaminophen PRESENT Doxylamine PRESENT Lidocaine PRESENT Dextromethorphan PRESENT Dextrorphan/Levorphanol PRESENT Dextrorphan is an expected metabolite of dextromethorphan, an qwsq-qie-uktibes or prescription cough suppressant. Dextrorphan cannot be distinguished from the scheduled prescription medication levorphanol by the method used for analysis. == Test Result Flag Units Ref Range Creatinine 77 mg/dL >=20 == Declared Medications: Medication list was not provided. == For clinical consultation, please call . == Please review and advise. Marilyn Chauncey, RN documented in this encounter [facility] 04-06-2023 Miscellaneous Notes Summary: careline call Pt contacted [facility] with pt update: Patient states [...] of improvement as well as to contact [facility] with any updates, questions, or concerns. Jackie Dorsey RN April 06, 2023 1:05 PM documented in this encounter [facility] 04-05-2023 Miscellaneous Notes Summary: Appointment Appointment scheduled has been cancelled, patient is to call and be rescheduled with a different provider. documented in this encounter [facility] 03-07-2023 Miscellaneous Notes Formattin g of this note is different from the original. The following approved medication requests have been transmitted electronically. Requested Prescriptions Signed Prescriptions Disp Refills fentaNYL (DURAGESIC) 25 mcg/hr 15 Patch 0 Sig: Apply 1 Patch as directed every 48 hours for 30 days. Do not start before March 15, 2023. Authorizing Provider: MONE TAI oxyCODONE (ROXICODONE) 15 mg immediate release tablet 120 tablet 0 Sig: Take 1 tablet by mouth four times daily as needed for pain for up to 30 days. Do not start before March 22, 2023. Authorizing Provider: MOEN TAI meloxicam (MOBIC) 15 mg tablet 30 tablet 0 Sig: Take 1 tablet by mouth once daily as needed. Authorizing Provider: MONE TAI gabapentin (NEURONTIN) 600 mg tablet 120 tablet 0 Sig: Take 1 tablet by mouth four times daily for 30 days. Do not start before March 16, 2023. Authorizing Provider: MONE TAI APRN.NETWORK ADMINISTRATOR Patient phones requesting refills as follows: Requested [...] Result Flag Units Drug Present Ethyl Glucuronide 06030 ng/mg creat Ethyl Sulfate 7385 ng/mg creat [...] PRESENT Guaifenesin may be administered as an aajr-rvu-qjdzlme or prescription drug; it may also be present as a breakdown product of methocarbamol. Zolpidem PRESENT Zolpidem Acid PRESENT Zolpidem acid is an expected metabolite of zolpidem. Acetaminophen PRESENT Doxylamine PRESENT Lidocaine PRESENT Dextromethorphan PRESENT Dextrorphan/Levorphanol PRESENT Dextrorphan is an expected metabolite of dextromethorphan, an hcrv-bfh-vcmcbna or prescription cough suppressant. Dextrorphan cannot be distinguished from the scheduled prescription medication levorphanol by the method used for analysis. == Test Result Flag Units Ref Range Creatinine 77 mg/dL >=20 == Declared Medications: Medication list was not provided. == For clinical consultation, please call . == Please review and advise. Petra Wiley RN documented in this encounter [facility] 02-07-2023 Miscellaneous Notes Formattin g of this note is different from the original. The following approved medication requests have been transmitted electronically. Requested Prescriptions Signed Prescriptions Disp Refills fentaNYL (DURAGESIC) 25 mcg/hr 15 Patch 0 Sig: Apply 1 Patch as directed every 48 hours for 30 days. Do not start before February 13, 2023. Authorizing Provider: MONE TAI gabapentin (NEURONTIN) 600 mg tablet 120 tablet 0 Sig: Take 1 tablet by mouth four times daily for 30 days. Do not start before February 14, 2023. Authorizing Provider: MONE TAI oxyCODONE (ROXICODONE) 15 mg immediate release tablet 120 tablet 0 Sig: Take 1 tablet by mouth four times daily as needed for pain for up to 30 days. Do not start before February 20, 2023. Authorizing Provider: MONE TAI meloxicam (MOBIC) 15 mg tablet 30 tablet 0 Sig: Take 1 tablet by mouth once daily as needed. Authorizing Provider: MONE TAI APRN.NETWORK ADMINISTRATOR Pt has Rfs of lidocaine patches and [...] Result Flag Units Drug Present Ethyl Glucuronide 12051 ng/mg creat Ethyl Sulfate 7385 ng/mg creat [...] For clinical consultation, please call . == @FLOW([id number],)@ Lab Results Component Value Date SUMM FINAL [...] PRESENT Guaifenesin may be administered as an kqsd-fje-wvlchkb or prescription drug; it may also be present as a breakdown product of methocarbamol. Zolpidem PRESENT Zolpidem Acid PRESENT Zolpidem acid is an expected metabolite of zolpidem. Acetaminophen PRESENT Doxylamine PRESENT Lidocaine PRESENT Dextromethorphan PRESENT Dextrorphan/Levorphanol PRESENT Dextrorphan is an expected metabolite of dextromethorphan, an amqx-iwl-dvnonhe or prescription cough suppressant. Dextrorphan cannot be distinguished from the scheduled prescription medication levorphanol by the method used for analysis. == Test Result Flag Units Ref Range Creatinine 77 mg/dL >=20 == Declared Medications: Medication list was not provided. == For clinical consultation, please call . == Please review and advise. Marilyn Grossman RN documented in this encounter [facility] 01-11-2023 Note HNO ID: [id number] Author: Moen Tai APRN.NETWORK ADMINISTRATOR Service: ? Author Type: Clinical Nurse Specialist Type: Progress Notes Filed: 01/11/2023 9:55 AM Note Text: SUBJECTIVE: Eliza Lowe presents to [facility] for a follow-up appointment for back pain Last seen by Dr New with following plan of care: Continue Oxycodone. [...] Follow-up in 3 months in office with [facility] Last procedure 11/19/22 Right L5 S1 SNRT BLK Pain level:6-02/01 States he had 50-60% relief form last [...] WELL Headache Paternal Grandfather Heart Father R/T [place] IN 60'S Social History: Social History Tobacco [...] with the above and verbalized understanding. Mone Tai APRN.NETWORK ADMINISTRATOR January 11, 2023 [facility] 01-11-2023 Instructions Mone Tai APRN.NETWORK ADMINISTRATOR - 01/11/2023 9:45 AM EDT Continue Oxycodone. [...] in 3 months documented in this encounter [facility] 01-11-2023 History of Presen t illness Narrative SUBJECTIVE: Eliza Lowe presents to [facility] for a follow-up appointment for back pain Last seen by Dr New with following plan of care: Continue Oxycodone. [...] Follow-up in 3 months in office with [facility] Last procedure 11/19/22 Right L5 S1 SNRT [...] WELL Headache Paternal Grandfather Heart Father R/T [place] IN 60'S Social History: Social History Tobacco [...] with the above and verbalized understanding. Mone Tai APRN.CNS January 11, 2023 documented in this encounter [facility] 01-06-2023 Miscellaneous Notes Formattin g of this note is different from the original. The following approved medication requests have been transmitted electronically. Requested Prescriptions Pending Prescriptions Disp Refills meloxicam (MOBIC) 15 mg tablet 30 tablet 0 Sig: Take 1 tablet by mouth once daily as needed. Moody New DO Pt can get Refills of fentanyl, oxycodone and gabapentin at [facility] on [facility]. Patient phones requesting refills as follows: Requested Prescriptions Pending Prescriptions Disp Refills meloxicam (MOBIC) 15 mg tablet 30 tablet 0 Sig: Take 1 tablet by mouth once daily as needed. Please review and advise. Marilyn Grossman RN documented in this encounter [facility] 10-13-2022 Note HNO ID: [id number] Author: Moody New DO Service: ? Author Type: Physician Type: Progress Notes Filed: 10/14/2022 6:57 AM Note Text: Summary: Pain Management follow-up DATE: October 13, 2022 Chief Complaint: LBP _ History of Present Illness: Eliza Lowe is a 57 year old male being seen at [facility] for a evaluation and/or management of their chronic pain. Patient was last seen in the office on 05/06/2022 by Mone Tai NP, and the plan of care was [...] 80% relief until recently. Denied any falls. Delevan the injection in October was the best [...] PRESENT Guaifenesin may be administered as an dzyq-ncg-zyrmans or prescription drug; it may also be present as a breakdown product of methocarbamol. Zolpidem PRESENT Zolpidem Acid PRESENT Zolpidem acid is an expected metabolite of zolpidem. Acetaminophen PRESENT Doxylamine PRESENT Lidocaine PRESENT Dextromethorphan PRESENT Dextrorphan/Levorphanol PRESENT Dextrorphan is an expected metabolite of dextromethorphan, an cmjc-fud-cmvrpbl or prescription cough suppressant. Dextrorphan cannot be distinguished from the scheduled prescription medication levorphanol by the method used for analysis. == Test Result Flag Units Ref Range Creatinine 77 mg/dL >=20 == Declared Medications: Medication list was not provided. == (more content not included)... [facility] 10-13-2022 Note HNO ID: [id number] Author: Moody New, DO Service: ? Author Type: Physician Type: [...] appropriate time interval and remained stable. Moody New DO [facility] 10-13-2022 Instructions Moody New DO - 10/13/2022 3:31 PM EDT Continue [...] Follow-up in 3 months in office with [facility] documented in this encounter [facility] 10-13-2022 History of Presen t illness Narrative Summary: Pain Management follow-up DATE: October 13, 2022 Chief Complaint: LBP _ History of Present Illness: Eliza Lowe is a 57 year old male being seen at [facility] for a evaluation and/or management of their chronic pain. Patient was last seen in the office on 05/06/2022 by Mone Tai NP, and the plan of care was [...] 80% relief until recently. Denied any falls. Delevan the injection in October was the best [...] PRESENT Guaifenesin may be administered as an xdji-fte-mkjhjxs or prescription drug; it may also be present as a breakdown product of methocarbamol. Zolpidem PRESENT Zolpidem Acid PRESENT Zolpidem acid is an expected metabolite of zolpidem. Acetaminophen PRESENT Doxylamine PRESENT Lidocaine PRESENT Dextromethorphan PRESENT Dextrorphan/Levorphanol PRESENT Dextrorphan is an expected metabolite of dextromethorphan, an qmzi-ryp-ekqwdga or prescription cough suppressant. Dextrorphan cannot be [...] WELL Headache Paternal Grandfather Heart Father R/T [place] IN 60'S Social History Tobacco Use Smoking [...] encounter was entered by Senait Rogel, medical office technology instructor, for Dr. Moody New on October 13, 2022 I, Dr. Moody New, personally performed the services described in this documentation. All medical record entries made by the scribe were at my direction and in my presence. I have reviewed the chart and discharge instructions and agree that the record reflects my personal performance and is accurate and complete. Electronically Signed: Dr. New. October 13, 2022 documented in this encounter [facility] 10-13-2022 Procedure note Procedure(s): TRIGGER POINT INJECTION [...] appropriate time interval and remained stable. Moody New DO documented in this encounter [facility] 09-10-2022 Miscellaneous Notes Formattin g of this note is different from the original. The following approved medication requests have been transmitted electronically. Requested Prescriptions Signed Prescriptions Disp Refills fentaNYL (DURAGESIC) 25 mcg/hr 15 Patch 0 Sig: Apply 1 Patch as directed every 48 hours for 30 days. Do not start before September 16, 2022. Authorizing Provider: MONE TAI oxyCODONE (ROXICODONE) 15 mg immediate release tablet 120 tablet 0 Sig: Take 1 tablet by mouth four times daily as needed for pain for up to 30 days. Do not start before September 22, 2022. Authorizing Provider: MONE TAI APRN.NETWORK ADMINISTRATOR Pt is requesting a refill of Fentanyl, she was seen last on 05/06/22, no showed on 08/06/22 and scheduled for 09/28/22. Please advise. Naomi Shoemaker RN September 10, 2022 1:29 PM documented in this encounter [facility] 08-24-2022 Miscellaneous Notes Formattin g of this note is different from the original. The following approved medication requests have been transmitted electronically. Requested Prescriptions Signed Prescriptions Disp Refills gabapentin (NEURONTIN) 600 mg tablet 120 tablet 0 Sig: Take 1 tablet by mouth four times daily for 30 days. Do not start before August 25, 2022. Authorizing Provider: MONE TAI oxyCODONE (ROXICODONE) 15 mg immediate release tablet 120 tablet 0 Sig: Take 1 tablet by mouth four times daily as needed for pain for up to 30 days. Do not start before August 25, 2022. Authorizing Provider: MONE TAI APRN.NETWORK ADMINISTRATOR Patient phones requesting refills as follows: Requested [...] Last UDS: No results found for: SUMM @FLOW([id number])@ No results found for: SUMM Summary Report [...] PRESENT Guaifenesin may be administered as an crow-zge-mwgcarl or prescription drug; it may also be present as a breakdown product of methocarbamol. Zolpidem PRESENT Zolpidem Acid PRESENT Zolpidem acid is an expected metabolite of zolpidem. Acetaminophen PRESENT Doxylamine PRESENT Lidocaine PRESENT Dextromethorphan PRESENT Dextrorphan/Levorphanol PRESENT Dextrorphan is an expected metabolite of dextromethorphan, an beov-dcu-krjpqtq or prescription cough suppressant. Dextrorphan cannot be distinguished from the scheduled prescription medication levorphanol by the method used for analysis. == Test Result Flag Units Ref Range Creatinine 77 mg/dL >=20 == Declared Medications: Medication list was not provided. == For clinical consultation, please call . == Please review and advise. Marilyn Grossman RN documented in this encounter [facility] 08-13-2022 Miscellaneous Notes Formattin g of this note is different from the original. The following approved medication requests have been transmitted electronically. Requested Prescriptions Signed Prescriptions Disp Refills methocarbamol (ROBAXIN) 750 mg tablet 120 tablet 2 Sig: Take 1 tablet by mouth four times daily as needed. Authorizing Provider: MONE TAI fentaNYL (DURAGESIC) 25 mcg/hr 15 Patch 0 Sig: Apply 1 Patch as directed every 48 hours for 30 days. Do not start before August 17, 2022. Authorizing Provider: MONE TAI meloxicam (MOBIC) 15 mg tablet 30 tablet 3 Sig: Take 1 tablet by mouth once daily as needed. Authorizing Provider: MONE TAI APRN.CNS Patient phones requesting refills as follows: [...] Last UDS: No results found for: SUMM @FLOW([id number])@ No results found for: SUMM Summary Report [...] PRESENT Guaifenesin may be administered as an ppjt-nmd-mvijlzw or prescription drug; it may also be present as a breakdown product of methocarbamol. Zolpidem PRESENT Zolpidem Acid PRESENT Zolpidem acid is an expected metabolite of zolpidem. Acetaminophen PRESENT Doxylamine PRESENT Lidocaine PRESENT Dextromethorphan PRESENT Dextrorphan/Levorphanol PRESENT Dextrorphan is an expected metabolite of dextromethorphan, an foes-ahx-xjvpdct or prescription cough suppressant. Dextrorphan cannot be distinguished from the scheduled prescription medication levorphanol by the method used for analysis. == Test Result Flag Units Ref Range Creatinine 77 mg/dL >=20 == Declared Medications: Medication list was not provided. == For clinical consultation, please call . == Please review and advise. Naomi Shoemaker RN documented in this encounter [facility] 07-23-2022 Miscellaneous Notes Formattin g of this [...] Naomi Shoemaker RN documented in this encounter [facility] 07-13-2022 Miscellaneous Notes Formattin g of this note is different from the original. The following approved medication requests have been transmitted electronically. Requested Prescriptions Signed Prescriptions Disp Refills fentaNYL (DURAGESIC) 25 mcg/hr 15 Patch 0 Sig: Apply 1 Patch as directed every 48 hours for 30 days. Do not start before July 18, 2022. Authorizing Provider: MONE TAI APRN.NETWORK ADMINISTRATOR Patient phones requesting refills as follows: Requested Prescriptions Pending Prescriptions Disp Refills fentaNYL (DURAGESIC) 25 mcg/hr 15 Patch 0 Sig: Apply 1 Patch as directed every 48 hours for 30 days. Please review and advise. Danita Restrepo RN documented in this encounter [facility] 06-14-2022 Miscellaneous Notes Formattin g of this note is different from the original. The following approved medication requests have been transmitted electronically. Requested Prescriptions Signed Prescriptions Disp Refills fentaNYL (DURAGESIC) 25 mcg/hr 15 Patch 0 Sig: Apply 1 Patch as directed every 48 hours for 30 days. Do not start before June 18, 2022. Authorizing Provider: MONE TAI APRN.NETWORK ADMINISTRATOR Patient phones requesting refills as follows: Requested Prescriptions Pending Prescriptions Disp Refills fentaNYL (DURAGESIC) 25 mcg/hr 15 Patch 0 Sig: Apply 1 Patch as directed every 48 hours for 30 days. Please review and advise. Marilyn Grossman RN documented in this encounter [facility] 05-25-2022 Miscellaneous Notes Formattin g of this [...] before May 28, 2022. Authorizing Provider: MONE TAI APRN.CNS Patient phones requesting refills as follows: Requested Prescriptions Pending Prescriptions Disp Refills oxyCODONE (ROXICODONE) 15 mg immediate release tablet 120 tablet 0 Sig: Take 1 tablet by mouth four times daily as needed for pain for up to 30 days. Do not start before May 28, 2022. Please review and advise. Petra Wiley RN documented in this encounter [facility] 05-06-2022 Instructions Mone Tai APRN.NETWORK ADMINISTRATOR - 05/06/2022 3:21 PM EDT Continue Oxycodone. [...] 80% relief until recently. Denied any falls. Delevan the injection in October was the best Denies signs or symptoms or heart attack or stroke. Instructed to check BP later today and call PCP if still elevated. Follow-up in 2-3 months in office documented in this encounter [facility] 05-05-2022 History of Presen t illness Narrative [...] 5/5 lower extremities. documented in this encounter [facility] 04-27-2022 Miscellaneous Notes Formattin g of this [...] before April 28, 2022. Authorizing Provider: MONE TAI gabapentin (NEURONTIN) 600 mg tablet 120 tablet 0 Sig: Take 1 tablet by mouth four times daily for 30 days. Do not start before April 28, 2022. Authorizing Provider: MONE TAI APRN.NETWORK ADMINISTRATOR Patient phones requesting refills as follows: Requested [...] Yanira Olivares RN documented in this encounter [facility] 03-18-2022 Miscellaneous Notes Formattin g of this note is different from the original. The following approved medication requests have been transmitted electronically. Requested Prescriptions Signed Prescriptions Disp Refills lidocaine (LIDODERM) 5 % 60 Patch 4 Sig: Apply 1 Patch as directed as directed. Authorizing Provider: MONE TAI APRN.NETWORK ADMINISTRATOR Summary: lidocaine patches concern Message on careline from pt : Please resend lidocaine patch 'script as she stsates that pharmacy does not have knowledge of 'script nor have they received it. Thank you. Jackie Dorsey RN documented in this encounter [facility] 03-05-2022 Miscellaneous Notes Summary: Right L5 and S1 SNRB FUNCTIONAL ASSESSMENT: See Nurses Documentation. Pt had 60% benefit for 3 months from the last SNRB. I have re-assessed this patient immediately before the procedure and the patient is an appropriate candidate for sedation. I have reviewed the Pain Management Medical History sheet. Physician Signature: Moody New DO PROCEDURE: __Right__ lumbar selective nerve root [...] to approved criteria documented in this encounter [facility] 02-24-2022 Miscellaneous Notes The following approved medication requests have been transmitted electronically. Signed Prescriptions Disp Refills lidocaine (LIDODERM) 5 % 60 Patch 4 Sig: Apply 1 Patch as directed as directed. CHARISSA: No Authorizing Provider: MONE TAI Refused Prescriptions Disp Refills gabapentin (NEURONTIN) 600 [...] Patient has requested refill too soon Mone Tai APRN.NETWORK ADMINISTRATOR Patient phones requesting refills as follows: Patient [...] YANIRA OLIVARES Please review and advise. Yanira Gartrell, RN documented in this encounter [facility] 02-16-2022 Miscellaneous Notes The following approved medication requests have been transmitted electronically. Signed Prescriptions Disp Refills fentaNYL (DURAGESIC) 25 mcg/hr 15 Patch 0 Sig: Apply 1 Patch as directed every 48 hours for 30 days. Do not start before February 19, 2022. BETO Class: C-II CHARISSA: No Authorizing Provider: MONE TAI gabapentin (NEURONTIN) 600 mg tablet 120 tablet 0 Sig: Take 1 tablet by mouth four times daily for 30 days. CHARISSA: No Authorizing Provider: MONE TAI meloxicam (MOBIC) 15 mg tablet 30 tablet 3 Sig: Take 1 tablet by mouth once daily as needed. CHARISSA: No Authorizing Provider: MONE TAI oxyCODONE (ROXICODONE) 15 mg immediate release tablet 120 tablet 0 Sig: Take 1 tablet by mouth four times daily as needed for up to 30 days. Do not start before February 27, 2022. BETO Class: C-II CHARISSA: No Authorizing Provider: MONE TAI naloxone 4 mg/actuation nasal spray (NARCAN) 1 Each 0 Sig: Use 1 spray in one nostril as needed for overdose. May repeat every 2 to 3 min in alternating nostrils until medical assistance is available Authorizing Provider: MONE TAI APRN.NETWORK ADMINISTRATOR Pt's called in stating that his prescriptions were sent to the wrong pharmacy. Fentanyl and Oxycodone scripts cancelled at [facility]. Will need sent to [facility] in [place]. Please advise. Pt requesting refill as follows [...] CHARISSA: No Please review and advise. Naomi Shoemaker RN documented in this encounter [facility] 02-11-2022 Instructions Mone Tai APRN.CNS - 02/11/2022 8:50 AM EDT Continue [...] months in office documented in this encounter [facility] 02-10-2022 History of Presen t illness Narrative [...] Follow-up in 2-3 months in office Pain level:6/10 Denies any ED visits or hospitalizations since [...] 5/5 lower extremities. documented in this encounter [facility] 01-21-2022 Miscellaneous Notes The following approved medication requests have been transmitted electronically. Signed Prescriptions Disp Refills oxyCODONE (ROXICODONE) 15 mg immediate release tablet 120 tablet 0 Sig: Take 1 tablet by mouth four times daily as needed for up to 30 days. Do not start before January 28, 2022. BETO Class: C-II CHARISSA: No Authorizing Provider: MONE TAI naloxone 4 mg/actuation nasal spray (NARCAN) 1 Each 0 Sig: Use 1 spray in one nostril as needed for overdose. May repeat every 2 to 3 min in alternating nostrils until medical assistance is available Authorizing Provider: MONE TAI APRN.NETWORK ADMINISTRATOR Patient phones requesting refills as follows: Pending Prescriptions Disp Refills OXYCODONE 15 MG TABLET 120 tablet 0 Si tablet four times daily as needed for up to 30 days. BETO Class: C-II CHARISSA: No Please review and advise. Marilyn Grossman RN documented in this encounter [facility] 01-13-2022 Miscellaneous Notes Patient phones requesting refills as follows: Pending Prescriptions Disp Refills FENTANYL 25 MCG/HR TRANSDERMAL PATCH 15 Patch 0 Sig: Apply 1 Patch as directed every 48 hours for 30 days. BETO Class: C-II CHARISSA: No Pt has refills at pharmacy for robaxin. Please review and advise. Marilyn Grossman RN documented in this encounter [facility] Evaluation note Diagnosis Chronic pain syndrome- Primary [facility] Chronic pain syndrome- Primary [facility] Diagnosis Lumbar postlaminectomy syndrome- Primary Postlaminectomy syndrome, lumbar region DDD (degenerative disc disease), lumbar Degeneration of lumbar or lumbosacral intervertebral disc Lumbar radiculopathy Thoracic or lumbosacral neuritis or radiculitis, unspecified Chronic pain syndrome Myofascial pain syndrome Mylagia and myositis, unspecified High risk medication use Encounter for long-term (current) use of other medications Postlaminectomy syndrome, lumbar region [facility] Chronic pain syndrome Postlaminectomy syndrome, lumbar region [facility] Chronic pain syndrome Postlaminectomy syndrome, lumbar region [facility] Diagnosis Lumbosacral neuritis [M54.17 (ICD-10-CM)]- Primary Thoracic or lumbosacral neuritis or radiculitis, unspecified Radiculopathy, lumbar region [M54.16 (ICD-10-CM)] Thoracic or lumbosacral neuritis or radiculitis, unspecified [facility] Diagnosis Chronic pain syndrome [facility] Diagnosis Chronic pain syndrome [facility] Diagnosis Lumbar disc herniation with radiculopathy- [...] of lumbar region [facility] Diagnosis Chronic pain syndrome Lumbar disc herniation with radiculopathy Displacement of lumbar intervertebral disc without myelopathy Degeneration of intervertebral disc of lumbar region [facility] Diagnosis Chronic pain syndrome Lumbar disc herniation with radiculopathy Displacement of lumbar intervertebral disc without myelopathy Degeneration of intervertebral disc of lumbar region [facility] Diagnosis Chronic pain syndrome Lumbar disc herniation with radiculopathy Displacement of lumbar intervertebral disc without myelopathy Degeneration of intervertebral disc of lumbar region [facility] Diagnosis Chronic pain syndrome- Primary Lumbar [...] and myositis, unspecified [facility] Diagnosis Lumbar disc herniation with radiculopathy Displacement of lumbar intervertebral disc without myelopathy Lumbar spondylosis Lumbosacral spondylosis without myelopathy Chronic pain syndrome High risk medication use Encounter for long-term (current) use of other medications [facility] Diagnosis Chronic pain syndrome documented in this encounter [facility] noteNo assessment information [facility] Work Phone: [facility]* Diagnosis Chronic pain syndrome documented in this encounter [facility] note* Diagnosis Chronic pain syndrome documented in this encounter [facility] note* Diagnosis Chronic pain syndrome documented in this encounter [facility] note* Diagnosis Chronic pain syndrome documented in this encounter [facility] note* Diagnosis Chronic pain syndrome- Primary documented in this encounter [facility] note* Diagnosis Chronic pain syndrome documented in this encounter [facility] note* Diagnosis Chronic pain syndrome documented in this encounter [facility] note* Diagnosis Chronic pain syndrome- Primary Encounter for monitoring opioid maintenance therapy DDD (degenerative disc disease), lumbar Degeneration of lumbar or lumbosacral intervertebral disc Other chronic pain Chronic pain of left ankle History of ankle surgery Postlaminectomy syndrome of lumbar region Postlaminectomy syndrome, lumbar region Myofascial pain syndrome Unspecified myalgia and myositis documented in this encounter [facility] note* Diagnosis Chronic pain syndrome documented in this encounter [facility] note* Diagnosis Chronic pain syndrome documented in this encounter [facility] note* Diagnosis Chronic pain syndrome [facility] Diagnosis DDD (degenerative disc disease), lumbar- Primary Degeneration of lumbar or lumbosacral intervertebral disc Chronic pain syndrome DDD (degenerative disc disease), cervical Degeneration of cervical intervertebral disc Chronic pain of left ankle History of ankle surgery Postlaminectomy syndrome of lumbar region Postlaminectomy syndrome, lumbar region Myofascial pain syndrome Unspecified myalgia and myositis [facility] Diagnosis Chronic pain syndrome- Primary [facility] Diagnosis Chronic pain syndrome documented in this encounter [facility] for visit Narrative* Auth/Cert Specialty Diagnoses / Procedures Referred By Fabian tilley Referred To Contact Diagnoses Postlaminectomy syndrome, lumbar region Procedures NJX AA&/STRD TFRML EPI LUMBAR/SACRAL 1 LEVEL NJX AA&/STRD TFRML EPI LUMBAR/SACRAL EA ADDL INJECTION(S) ANESTHETIC AGENT AND STEROID TRANSFORAMINAL EPIDURAL W/ IMAGING GUIDANCE LUMBAR BLOCK TRANSFORAMINAL LUMBAR EACH ADDITIONAL VERTEBRA 1 W/ IMAGE GUIDANCE [facility] [address] [place] [address] Referral ID Status Reason Start Date Expiration Date Visits Re quested Visits Authorized [id number] 1 1 [facility] Chief Complaint and Reason for Visit Chief Complaint EXPOSURE Chief Complaint LEFT ANKLE Primary o steoarthritis, left ankle and Chief Complaint POST TRAUMATIC ARTHR ITIS LT ANKLE S/P ARTHRODESIS Advance Directives Advance Directive Response Recorded Date/ Time Advance Directives No August 18, 2013 2:12pm Living Will No July 25, 2 018 4:03pm Power of Electrical Service Technician No July 25, 2018 4:03pm Documents on File Type Date Recorded 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 Advance Directive(s) 06/03/2017 11:20 AM Advance Directive(s) 04/30/2016 3:30 PM Advance Directive(s) 04/29/2016 11:36 AM Advance Directive Response Recorded Date/ Time Advance Directives No August 18, 2013 3:12pm Living Will No July 25, 2 018 5:03pm Power of Electrical Service Technician No July 25, 2018 5:03pm Assessments No Assessments Information Available Summary Purpose Family History No Family History Records FoundNo Family History Records FoundNo Family History Records FoundNo Family History Records Found Reason for Referral Specialty Diagnoses / Procedures Referred By Contac t Referred To Contact [facility] Diagnoses Chronic pain syndrome Lumbar disc herniation with radiculopathy Lumbar spondylosis Procedures CONSULT TO PHYSICAL THERAPY PHYSICAL THERAPY EVALUATION HIGH COMPLEX 45 MINS Mone Tai, DEVELOPMENT SPEC.NETWORK ADMINISTRATOR [address] [place] [address] [facility] [address] [address] Referral ID Status Reason Start Date Expiration Date Visits Requested Visits Authorized [id number] Pending Review Auto-Generat ed Referral 01/11/2023 01/11/2024 1 1 Specialty Diagnoses / Procedures Referred By Contac t Referred To Contact Wojciech Waddell, COAGULATING DRYING SUPERVISOR [address] [place] [address] Referral ID Status Reason Start Date Expiration Date V isits Requested Visits Authorized [id number] Authorized 1 1 Additional Source Comments Source Comments (unrecognize d section and content) In the event this informatio n is protected by the Federal Confidentiality of Alcohol and Drug Abuse Patient Records regulations: The Federal rules restrict any use of the information to criminally investigate or prosecute any alcohol or drug abuse patient.[facility] the event this information is protected by the Federal Confidentiality of Alcohol and Drug Abuse Patient Records regulations: The Federal rules restrict any use of the information to criminally investigate or prosecute any alcohol or drug abuse patient.[facility] the event this information is protected by the Federal Confidentiality of Alcohol and Drug Abuse Patient Records regulations: The Federal rules restrict any use of the information to criminally investigate or prosecute any alcohol or drug abuse patient.[facility] Center[facility] the event this information is protected by the Federal Confidentiality of Alcohol and Drug Abuse Patient Records regulations: The Federal rules restrict any use of the information to criminally investigate or prosecute any alcohol or drug abuse patient.[facility] Center[facility] the event this information is protected by the Federal Confidentiality of Alcohol and Drug Abuse Patient Records regulations: The Federal rules restrict any use of the information to criminally investigate or prosecute any alcohol or drug abuse patient.[facility] Center[facility] the event this information is protected by the Federal Confidentiality of Alcohol and Drug Abuse Patient Records regulations: The Federal rules restrict any use of the information to criminally investigate or prosecute any alcohol or drug abuse patient.[facility] Center[facility] the event this information is protected by the Federal Confidentiality of Alcohol and Drug Abuse Patient Records regulations: The Federal rules restrict any use of the information to criminally investigate or prosecute any alcohol or drug abuse patient.[facility] Center[facility] the event this information is protected by the Federal Confidentiality of Alcohol and Drug Abuse Patient Records regulations: The Federal rules restrict any use of the information to criminally investigate or prosecute any alcohol or drug abuse patient.[facility] Center[facility] the event this information is protected by the Federal Confidentiality of Alcohol and Drug Abuse Patient Records regulations: The Federal rules restrict any use of the information to criminally investigate or prosecute any alcohol or drug abuse patient.[facility] Center[facility] the event this information is protected by the Federal Confidentiality of Alcohol and Drug Abuse Patient Records regulations: The Federal rules restrict any use of the information to criminally investigate or prosecute any alcohol or drug abuse patient.[facility] Center[facility] the event this information is protected by the Federal Confidentiality of Alcohol and Drug Abuse Patient Records regulations: The Federal rules restrict any use of the information to criminally investigate or prosecute any alcohol or drug abuse patient.[facility] Center[facility] the event this information is protected by the Federal Confidentiality of Alcohol and Drug Abuse Patient Records regulations: The Federal rules restrict any use of the information to criminally investigate or prosecute any alcohol or drug abuse patient.[facility] Center[facility] the event this information is protected by the Federal Confidentiality of Alcohol and Drug Abuse Patient Records regulations: The Federal rules restrict any use of the information to criminally investigate or prosecute any alcohol or drug abuse patient.[facility] CenterIn the event this information is protected by the Federal Confidentiality of Alcohol and Drug Abuse Patient Records regulations: The Federal rules restrict any use of the information to criminally investigate or prosecute any alcohol or drug abuse patient.[facility] CenterIn the event this information is protected by the Federal Confidentiality of Alcohol and Drug Abuse Patient Records regulations: The Federal rules restrict any use of the information to criminally investigate or prosecute any alcohol or drug abuse patient.[facility] CenterIn the event this information is protected by the Federal Confidentiality of Alcohol and Drug Abuse Patient Records regulations: The Federal rules restrict any use of the information to criminally investigate or prosecute any alcohol or drug abuse patient.[facility] CenterIn the event this information is protected by the Federal Confidentiality of Alcohol and Drug Abuse Patient Records regulations: The Federal rules restrict any use of the information to criminally investigate or prosecute any alcohol or drug abuse patient.[facility] CenterIn the event this information is protected by the Federal Confidentiality of Alcohol and Drug Abuse Patient Records regulations: The Federal rules restrict any use of the information to criminally investigate or prosecute any alcohol or drug abuse patient.[facility] CenterIn the event this information is protected by the Federal Confidentiality of Alcohol and Drug Abuse Patient Records regulations: The Federal rules restrict any use of the information to criminally investigate or prosecute any alcohol or drug abuse patient.[facility] CenterIn the event this information is protected by the Federal Confidentiality of Alcohol and Drug Abuse Patient Records regulations: The Federal rules restrict any use of the information to criminally investigate or prosecute any alcohol or drug abuse patient.[facility] CenterIn the event this information is protected by the Federal Confidentiality of Alcohol and Drug Abuse Patient Records regulations: The Federal rules restrict any use of the information to criminally investigate or prosecute any alcohol or drug abuse patient.[facility] CenterIn the event this information is protected by the Federal Confidentiality of Alcohol and Drug Abuse Patient Records regulations: The Federal rules restrict any use of the information to criminally investigate or prosecute any alcohol or drug abuse patient.[facility] CenterIn the event this information is protected by the Federal Confidentiality of Alcohol and Drug Abuse Patient Records regulations: The Federal rules restrict any use of the information to criminally investigate or prosecute any alcohol or drug abuse patient.[facility] CenterIn the event this information is protected by the Federal Confidentiality of Alcohol and Drug Abuse Patient Records regulations: The Federal rules restrict any use of the information to criminally investigate or prosecute any alcohol or drug abuse patient.[facility] CenterIn the event this information is protected by the Federal Confidentiality of Alcohol and Drug Abuse Patient Records regulations: The Federal rules restrict any use of the information to criminally investigate or prosecute any alcohol or drug abuse patient.[facility] CenterIn the event this information is protected by the Federal Confidentiality of Alcohol and Drug Abuse Patient Records regulations: The Federal rules restrict any use of the information to criminally investigate or prosecute any alcohol or drug abuse patient.[facility] CenterIn the event this information is protected by [...] or prosecute any alcohol or drug abuse patient.[facility] CenterIn the event this information is protected by the Federal Confidentiality of Alcohol and Drug Abuse Patient Records regulations: The Federal rules restrict any use of the information to criminally investigate or prosecute any alcohol or drug abuse patient.[facility] CenterIn the event this information is protected by the Federal Confidentiality of Alcohol and Drug Abuse Patient Records regulations: The Federal rules restrict any use of the information to criminally investigate or prosecute any alcohol or drug abuse patient.[facility] CenterIn the event this information is protected by the Federal Confidentiality of Alcohol and Drug Abuse Patient Records regulations: The Federal rules restrict any use of the information to criminally investigate or prosecute any alcohol or drug abuse patient.[facility] CenterIn the event this information is protected by the Federal Confidentiality of Alcohol and Drug Abuse Patient Records regulations: The Federal rules restrict any use of the information to criminally investigate or prosecute any alcohol or drug abuse patient.[facility] CenterIn the event this information is protected by the Federal Confidentiality of Alcohol and Drug Abuse Patient Records regulations: The Federal rules restrict any use of the information to criminally investigate or prosecute any alcohol or drug abuse patient.[facility] CenterIn the event this information is protected by the Federal Confidentiality of Alcohol and Drug Abuse Patient Records regulations: The Federal rules restrict any use of the information to criminally investigate or prosecute any alcohol or drug abuse patient.[facility] CenterIn the event this information is protected by the Federal Confidentiality of Alcohol and Drug Abuse Patient Records regulations: The Federal rules restrict any use of the information to criminally investigate or prosecute any alcohol or drug abuse patient.[facility] CenterIn the event this information is protected by the Federal Confidentiality of Alcohol and Drug Abuse Patient Records regulations: The Federal rules restrict any use of the information to criminally investigate or prosecute any alcohol or drug abuse patient.[facility] CenterIn the event this information is protected by the Federal Confidentiality of Alcohol and Drug Abuse Patient Records regulations: The Federal rules restrict any use of the information to criminally investigate or prosecute any alcohol or drug abuse patient.[facility] CenterIn the event this information is protected by the Federal Confidentiality of Alcohol and Drug Abuse Patient Records regulations: The Federal rules restrict any use of the information to criminally investigate or prosecute any alcohol or drug abuse patient.[facility] CenterIn the event this information is protected by the Federal Confidentiality of Alcohol and Drug Abuse Patient Records regulations: The Federal rules restrict any use of the information to criminally investigate or prosecute any alcohol or drug abuse patient.[facility] CenterIn the event this information is protected by the [facility] Confidentiality of Alcohol and Drug Abuse Patient Records regulations: The Federal rules restrict any use of the information to criminally investigate or prosecute any alcohol or drug abuse patient.[facility] CenterIn the event this information is protected by the Federal Confidentiality of Alcohol and Drug Abuse Patient Records regulations: The Federal rules restrict any use of the information to criminally investigate or prosecute any alcohol or drug abuse patient.[facility] Care Teams (unrecognized sec tion and content) Ingot Supervisor Relationship Specialty Start Date End Date Louie Cox DO PCP - General Family Practice 04/29/16 Jerome Mabry MD [address] [place] [address] Home Care Physician [facility] 05/04/16 Ingot Supervisor Relationship Specialty Start Date End Date Louie Cox DO PCP - General Family Practice 04/29/16 Jerome Mabry MD [address] [place] [address] Home Care Physician [facility] 05/04/16 Ingot Supervisor Relationship Specialty Start Date End Date Louie Cox, DO PCP - General Family Practice 04/29/16 Jerome Mabry MD [address] [place] [address] Home Care Physician [facility] 05/04/16 Ingot Supervisor Relationship Specialty Start Date End Date Louie Cox, DO PCP - General Family Practice 04/29/16 Jerome Mabry MD [address] [place] [address] Home Care Physician [facility] 05/04/16 Ingot Supervisor Relationship Specialty Start Date End Date Louie Cox, DO PCP - General Family Practice 04/29/16 Jerome Mabry MD [address] [place] [address] Home Care Physician [facility] 05/04/16 Ingot Supervisor Relationship Specialty Start Date End Date Louie Cox, DO PCP - General Family Practice 04/29/16 Jerome Mabry MD [address] [place] [address] Home Care Physician [facility] 05/04/16 Ingot Supervisor Relationship Specialty Start Date End Date Louie Cox, DO PCP - General Family Practice 04/29/16 Jerome Mabry MD [address] [place] [address] Home Care Physician [facility] 05/04/16 Ingot Supervisor Relationship Specialty Start Date End Date Louie Cox, DO PCP - General Family Practice 04/29/16 Jerome Mabry MD [address] [place] [address] Home Care Physician [facility] 05/04/16 Ingot Supervisor Relationship Specialty Start Date End Date Louie Cox, DO PCP - General Family Practice 04/29/16 Jerome Mabry MD [address] [place] [address] Home Care Physician [facility] 05/04/16 Ingot Supervisor Relationship Specialty Start Date End Date Louie Cox, DO PCP - General Family Medicine 04/29/16 Jerome Mabry MD [address] [place] [address] Home Care Provider [facility] 05/04/16 Ingot Supervisor Relationship Specialty Start Date End Date Louie Cox, DO PCP - General Family Medicine 04/29/16 Jerome Mabry MD [address] [place] [address] Home Care Provider [facility] 05/04/16 Ingot Supervisor Relationship Specialty Start Date End Date Louie Cox, DO PCP - General Family Medicine 04/29/16 Jerome Mabry MD [address] [place] [address] Home Care Provider [facility] 05/04/16 Ingot Supervisor Relationship Specialty Start Date End Date Louie Cxo, DO PCP - General Family Medicine 04/29/16 Jerome Mabry MD [address] [place] [address] Home Care Provider [facility] 05/04/16 Ingot Supervisor Relationship Specialty Start Date End Date Louie Cox, DO PCP - General Family Medicine 04/29/16 Jerome Mabry MD [address] [facility] [place] [address] Home Care Provider [facility] 05/04/16 Ingot Supervisor Relationship Specialty Start Date End Date Louie Cox DO PCP - General Family Medicine 04/29/16 Jerome Mabry MD [address] [place] [address] Home Care Provider [facility] 05/04/16 Ingot Supervisor Relationship Specialty Start Date End Date Louie Cox DO PCP - General Family Medicine 04/29/16 Jerome Mabry MD [address] [place] [address] Home Care Provider [facility] 05/04/16 Ingot Supervisor Relationship Specialty Start Date End Date Louie Cox DO PCP - General Family Medicine 04/29/16 Jerome Mabry MD [address] [place] [address] Home Care Provider [facility] 05/04/16 Ingot Supervisor Relationship Specialty Start Date End Date Louie Cox DO PCP - General Family Medicine 04/29/16 Jerome Mabry MD [address] [place] [address] Home Care Provider [facility] 05/04/16 Ingot Supervisor Relationship Specialty Start Date End Date Louie Cox DO PCP - General Family Medicine 04/29/16 Jerome Mabry MD [address] [place] [address] Home Care Provider [facility] 05/04/16 Ingot Supervisor Relationship Specialty Start Date End Date Louie Cox DO PCP - General Family Medicine 04/29/16 Jerome Mabry MD [address] [place] [address] Home Care Provider [facility] 05/04/16 Team Status: Active Member Role Status Dates Dr. Louie Cox DO Family Provider Active Dr. Louie Cox DO Primary Care Provider Active Team Status: Inactive Member Role Status Dates Dr. Louie Cox DO Primary Care Provider, Referrin g Provider Active Cailin Holt SUPERVISOR SEWING ROOM, SUPERVISOR SEWING ROOM-C Attending Provider Active Team Status: Inactive Member Role Status Dates Dr. Louie Cox DO Primary Care Provider Active Dr. Salomon Montez , DPM Attending Provider, Referri ng Provider Active Ingot Supervisor Relationship Specialty Start Date End Date Louie Cox DO PCP - General Family Medicine 04/29/16 Jerome Mabry MD [address] [place] [address] Home Care Provider [facility] 05/04/16 Ingot Supervisor Relationship Specialty Start Date End Date Louie Cox DO PCP - General Family Medicine 04/29/16 Jerome Mabry MD [address] [place] [address] Home Care Provider [facility] 05/04/16 Ingot Supervisor Relationship Specialty Start Date End Date Louie Cox DO PCP - General Family Medicine 04/29/16 Jerome Mabry MD [address] [place] [address] Home Care Provider [facility] 05/04/16 Ingot Supervisor Relationship Specialty Start Date End Date Louie Cox DO PCP - General Family Medicine 04/29/16 Jerome Mabry MD [address] [place] [address] Home Care Provider [facility] 05/04/16 Ingot Supervisor Relationship Specialty Start Date End Date Louie Cox DO PCP - General Family Medicine 04/29/16 Jerome Mabry MD [address] [place] [address] Home Care Provider [facility] 05/04/16 Ingot Supervisor Relationship Specialty Start Date End Date Louie Cox DO PCP - General Family Medicine 04/29/16 Jerome Mabry MD [address] [place] [address] Home Care Provider [facility] 05/04/16 Team Status: Inactive Member Role Status Dates Dr. Louie Cox , Primary Care Provider Active Dr. Moody New DO Attending Provider, Referring Provider Active Ingot Supervisor Relationship Specialty Start Date End Date Louie Cox DO PCP - General Family Medicine 04/29/16 Jerome Mabry MD [address] [place] [address] Home Care Provider [facility] 05/04/16 Ingot Supervisor Relationship Specialty Start Date End Date Louie Cox DO PCP - General Family Medicine 04/29/16 Jerome Mabry MD [address] [place] [id number] Home Care Provider [facility] 05/04/16 Ingot Supervisor Relationship Specialty Start Date End Date Louie Cox DO [address] [place] [address] PCP - General Family Medicine 08/11/23 Ingot Supervisor Relationship Specialty Start Date End Date Louie Cox DO [address] [place], [place] [id number] PCP - General Family Medicine 08/11/23 Ingot Supervisor Relationship Specialty Start Date End Date Louie Cox DO [address] [place] [address] PCP - General Family Medicine 08/11/23 Ingot Supervisor Relationship Specialty Start Date End Date Louie Cox DO [address] [place] [address] PCP - General Family Medicine 08/11/23 Ingot Supervisor Relationship Specialty Start Date End Date Louie Cox DO [address] [place] [address] PCP - General Family Medicine 08/11/23 Ingot Supervisor Relationship Specialty Start Date End Date Louie Cox DO [address] [place] [address] PCP - General Family Medicine 08/11/23 Ingot Supervisor Relationship Specialty Start Date End Date Louie Cox DO [address] [place] [address] PCP - General Family Medicine 08/11/23 Ingot Supervisor Relationship Specialty Start Date End Date Brooke Louie DO [address] [place] [address] PCP - General Family Medicine 08/11/23 (unrecognized sect ion and content) No Status Records FoundNo Status Records FoundNo Status Records FoundNo Status Records Found INFORMATION SOURCE (unrecogn ized section and content) DATE CREATED AUTHOR 01/06/2022 [email or web address] DATE CREATED AUTHOR AUTHOR'S ORGANIZ ATION 07/10/2023 [facility] DATE CREATED AUTHOR AUTHOR'S ORGANIZ ATION 11/03/2023 [facility] DATE CREATED AUTHOR AUTHOR'S ORGANIZ ATION 11/25/2023 [facility] Reason for Visit (unrecogniz ed section and [...] Reason Onset Date Comments Medication Refill 09/06/2023 Reason Onset Date Comments Medication Refill 09/30/2023 Reason Onset Date Comments Medication Refill 10/04/2023 Reason Onset Date Comments Medication Refill 10/25/2023 Reason Comments Back Pain Lower back, sciatica down right legVAS: 02/01 Foot Pain S/p surgeryVAS: 04/04 Reason Onset Date Comments Medication Refill 11/26/2023 Reason Onset Date Comments Medication Refill 12/06/2023 Reason Onset Date Comments Medication Refill 12/23/2023 Reason Onset Date Comments Medication Refill 01/04/2024 Reason Onset Date Comments Medication Refill 01/10/2024 Goals (unrecognized section and content) Goals may be documented in a n alternate sectionGoals may be documented in an alternate sectionGoals may be documented in an [...] BE BASED ON THE PRIMARY CLINICAL RECORDS. [employer] provides no warranty or guarantee of the accuracy or completeness of information in this document.
== END 2024-01-21 11:12 | disposition home or self-care (01) ==
LOC: WC 11:12
PROVIDERS: Visit Provider Podiatrist Foot & Ankle Surgery
DX: T81.89XA Other complications of procedures, not elsewhere classified, initial encounter (principal)
CPT/HCPCS: G0463